=== PATIENT | male | born 2000 | race Caucasian/White ===

== ENCOUNTER 2022-09-02 20:43 | Emergency (ER) | payer OTHER, SELFPAY ==
--- NOTE | ~2022-09-02 | XR_ITS ---
EXAMINATION: XR chest 2V Exam Date/Time: 09/02/2022 22:00 CDT HISTORY: shortness of breath x 3 hours Comparison: None. RESULT: Lines, tubes, and devices: None. Lungs and pleura: Clear. Cardiomediastinal silhouette: Stable. Other: No acute osseous or upper abdominal finding. Presumed physiologic wedge deformity of a lower thoracic vertebral body. IMPRESSION: No acute cardiopulmonary process. Reviewed, dictated and finalized at location [facility].
[2022-09-02 20:53] VITALS: BP 161/59; PULSE 90; RESP 19; TEMP 37.2; O2SAT 99
[2022-09-02 21:29] VITALS: O2SAT 95
--- NOTE | 2022-09-02 21:34 | ECG_ITS ---
Measurements Intervals [place] Rate: 86 P: 8 NH: 148 QRS: 74 QRSD: 97 T: 38 QT: 335 QTc: 401 Interpretive Statements SINUS RHYTHM NO PREVIOUS ECG AVAILABLE FOR COMPARISON Electronically Signed On 09-03-2022 14:50:27 CDT by Jacqueline Erickson M.D.
[2022-09-02 21:46] VITALS: PULSE 85; RESP 20
[2022-09-02] MEDS: ALBUTEROL SULFATE NEB 2.5 MG/3 ML INH INHALATION (21:46)
[2022-09-02] MEDS: IPRATROPIUM BR 0.02% INH SOLN 0.5 MG/2.5 ML VIAL INHALATION (21:46)
[2022-09-02 21:57] VITALS: PULSE 88; RESP 20
--- NOTE | 2022-09-02 22:58 | ED.GENADULT ---
HPI - General Adult General Chief complaint: Shortness of Breath/Dyspnea Stated complaint: sob Time Seen by Provider: 09/02/22 21:17 History of Present Illness HPI narrative: Patient is a 22-year-old gentleman who presents the emergency department with chief complaint of shortness of breath. The patient reports that he smokes marijuana today and reports that since then he has felt as though he cannot get a good deep breath patient states that he is a little bit of a cough with this denies fever denies chills patient reports that he has used the medical grade marijuana in the past and uses daily but reports that today things felt somewhat different. The patient reports no hypoxia reports no productive cough Related Data Allergies Allergy/AdvReac Type Severity Reaction Status Date / Time Penicillins Allergy Unknown Vomiting Verified 09/02/22 21:24 germ x Allergy Unknown Rash Uncoded 09/02/22 21:24 Review of Systems Review of Systems: A 10 system review of systems was completed on the patient and is negative except for what is stated in the HPI. Nursing and ancillary documentation was reviewed. Exam Narrative: GENERAL: Well-appearing, well-nourished, and in no acute distress. HEAD: Normocephalic, atraumatic. EYES: PERRLA and EOMI. ENT: Nares clear, no rhinorrhea or epistaxis. Mucous membranes moist. NECK: Supple. CHEST: Clear to auscultation. No respiratory distress. HEART: Regular rate and rhythm. No murmur heard. Normal peripheral pulses. ABDOMEN: Soft, nontender, nondistended, normal active bowel sounds. EXTREMITIES: Normal range of motion. No edema. SKIN: Warm, dry, no rash. NEURO: No focal deficits. Alert and oriented x3. PSYCH: Normal mood and affect. Course Vital Signs Vital signs: Vital Signs Temperature 37.2 C 09/02/22 20:53 Pulse Rate 90 09/02/22 20:53 Respiratory Rate 19 09/02/22 20:53 Blood Pressure 161/59 H 09/02/22 20:53 Pulse Oximetry 99 09/02/22 20:53 Oxygen Delivery Room Air 09/02/22 20:53 Temperature 37.2 C 09/02/22 20:53 Pulse Rate 88 09/02/22 21:57 Respiratory Rate 20 09/02/22 21:57 Blood Pressure 161/59 H 09/02/22 20:53 Pulse Oximetry 95 09/02/22 21:29 Oxygen Delivery Room Air 09/02/22 21:29 Medical Decision Making MDM Narrative Medical decision making narrative: Differential diagnosis includes pneumothorax, bronchitis, pneumonia, ACS EKG sinus rhythm rate of [address] elevation or ST depression Chest x-ray showed no focal infiltrate, no pneumothorax no widened mediastinum. Patient feels somewhat better after receiving a nebulizer treatment. Patient will be given a 60 mg dose of prednisone in the emergency department and sent home on 40 mg of prednisone and an albuterol inhaler. Vital Signs Vital Signs: Vital Signs Temperature 37.2 C 09/02/22 20:53 Pulse Rate 90 09/02/22 20:53 Respiratory Rate 19 09/02/22 20:53 Blood Pressure 161/59 H 09/02/22 20:53 Pulse Oximetry 99 09/02/22 20:53 Oxygen Delivery Room Air 09/02/22 20:53 Temperature 37.2 C 09/02/22 20:53 Pulse Rate 88 09/02/22 21:57 Respiratory Rate 20 09/02/22 21:57 Blood Pressure 161/59 H 09/02/22 20:53 Pulse Oximetry 95 09/02/22 21:29 Oxygen Delivery Room Air 09/02/22 21:29 Discharge Plan Discharge Clinical Impression: Bronchitis Patient Disposition: Home, Self-Care Condition: Stable Instructions: Antibiotic Form, Acute Bronchitis (ED) Prescriptions: New prednisone 20 mg tablet 40 mg PO DAILY 5 Days Qty: 10 0RF albuterol sulfate 90 mcg/actuation HFA aerosol inhaler 2 puff inhalation QID PRN (Reason: shortness of breath or wheezing) Qty: 8.5 0RF Follow-up/Referrals: Lori Beck MD [Primary Care Provider] - Time of Disposition: 23:02
[2022-09-02] MEDS: predniSONE 20 MG TABLET 60 MG PO (23:14)
[2022-09-02] MEDS: ALBUTEROL SULFATE (*SP) INHALER 2 PUFF INHALATION (23:15)
[2022-09-02 23:17] VITALS: PULSE 94; RESP 17; O2SAT 98
== END 2022-09-02 23:15 | disposition home or self-care (01) ==
PROVIDERS: Emergency Provider Emergency Medicine; PCP Pediatrics
DX: J40 Bronchitis, not specified as acute or chronic (principal)
CPT/HCPCS: 71046; 93005; 94640; 94664; 99283; A9270; J7512

== ENCOUNTER 2022-09-09 09:33 | Emergency (ER) | payer OTHER, SELFPAY ==
--- NOTE | ~2022-09-09 | CT_ITS ---
Clinical Indication: Dyspnea CT Scan of the Chest with Contrast: Technique: Contiguous sections were acquired throughout the chest after intravenous administration of 100 cc of Omnipaque 350. Dose reduction technique was used on this scan by utilizing automated expos ure control and iterative reconstruction technique. The dose-length product (DLP) was 876.65 mGy-cm. Findings: There is no evidence of any significant mediastinal, hilar or axillary lymphadenopathy. There is no f illing defect in the pulmonary arterial tree to suggest pulmonary embolus. There is no evidence of ao rtic dissection or aneurysm. There is no evidence of pleural or pericardial effusion. The lungs are clear. No pulmonary nodules or infiltrates are noted. Images through the upper abdomen reveal no abnormalities. Impression: No evidence of pulmonary embolus, aortic dissection, or aortic aneurysm. Clear lungs. Reviewed, dictated and finalized at [facility]. Impression: No evidence of pulmonary embolus, aortic dissection, or aortic aneurysm. Clear lungs.
--- NOTE | ~2022-09-09 | XR_ITS ---
Clinical Indication: Dyspnea PA and lateral views of the chest: Comparison: 09/02/2022 Findings: The lungs are clear, without evidence of focal consolidation or pleural effusion. Cardiome diastinal silhouette is within normal limits. Bones and soft tissues are unremarkable. Impression: Normal chest. Reviewed, dictated and finalized at location . Impression: Normal chest.
[2022-09-09 09:38] VITALS: BP 154/98; PULSE 101; RESP 24; TEMP 36.6; O2SAT 100
--- NOTE | 2022-09-09 09:43 | ECG_ITS ---
Measurements Intervals [place] Rate: 108 P: 48 NC: 124 QRS: 76 QRSD: 106 T: 42 QT: 328 QTc: 440 Interpretive Statements SINUS TACHYCARDIA OTHERWISE NORMAL ECG COMPARED TO ECG 09/02/2022 21:43:37 SINUS TACHYCARDIA NOW PRESENT Electronically Signed On 09-09-2022 15:50:14 CDT by Edgar Call M.D.
--- NOTE | 2022-09-09 10:27 | PC.NURSE ---
EDP at bedside to assess pt.
--- NOTE | 2022-09-09 10:34 | ED.ANXIETY ---
HPI - Anxiety General Chief Complaint: Anxiety Stated Complaint: anxiety Time Seen by Provider: 09/09/22 10:16 History of Present Illness HPI narrative: 22-year-old male reports for evaluation of shortness of breath and anxiety x1 week. Patient endorses he believes his shortness of breath is secondary to anxiety. He reports associated substernal chest pain that occurs intermittently, worse when he feels anxious and dyspneic. Patient was evaluated in the ED 1 week ago for similar symptoms, diagnosed with bronchitis and sent home with albuterol inhaler and prednisone. He reports taking the medications as directed, last dose of prednisone was today. He is unsure if the inhaler is helpful or not. He reports he smokes medical grade marijuana daily for anxiety, however he has been trying to cut back. He does report smoking marijuana over the weekend with improvement in symptoms, in addition he endorses taking shrooms while camping 2 days ago. He denies other drug use, does report some alcohol use 2 days ago. He reports an intermittent dry cough. Denies fever, body aches or chills, abdominal pain, nausea or vomiting, diarrhea. He does have a PCP, Dr. Beck. He is not currently on anxiety medications. Related Data Allergies Allergy/AdvReac Type Severity Reaction Status Date / Time Penicillins Allergy Unknown Vomiting Verified 09/02/22 21:24 germ x Allergy Unknown Rash Uncoded 09/02/22 21:24 Review of Systems Review of Systems: CONSTITUTIONAL: Denies fever, chills EYES: Denies visual changes, redness, or discharge. ENT: Denies rhinorrhea, congestion, sore throat, or otalgia. CARDIOVASCULAR: See HPI RESPIRATORY: See HPI GASTROINTESTINAL: Denies abdominal pain, nausea, vomiting, or diarrhea. GENITOURINARY: Denies dysuria or hematuria. SKIN: Denies rash or itching. MUSCULOSKELETAL: Denies back pain, joint pain, or myalgia. NEUROLOGIC: Denies headache, numbness, dizziness, or weakness. PSYCHIATRIC: Denies anxiety or depression. [facility] Social History Social History Substance use type: marijuana Exam Narrative: GENERAL: Well-appearing, no acute distress HEAD: Normocephalic EYES: PERRLA ENT: Nares clear. Mucous membranes moist. Oropharynx without tonsillar hypertrophy exudate or other lesions. NECK: Supple. CHEST: No respiratory distress. Clear to auscultation, no adventitious breath sounds. Tachypneic HEART: Tachycardic with regular rhythm. No murmur heard. Normal peripheral pulses. ABDOMEN: Soft, nontender, normal active bowel sounds. EXTREMITIES: Normal range of motion. No edema. SKIN: Warm, dry, no rash. NEURO: No focal deficits. Alert and oriented x3. PSYCH: Patient appears anxious and tearful. Course Vital Signs Vital signs: Vital Signs Temperature 97.9 F 09/09/22 09:38 Pulse Rate 101 H 09/09/22 09:38 Respiratory Rate 24 H 09/09/22 09:38 Blood Pressure 154/98 H 09/09/22 09:38 Pulse Oximetry 100 09/09/22 09:38 Oxygen Delivery Room Air 09/09/22 09:38 Temperature 97.9 F 09/09/22 09:38 Pulse Rate 101 H 09/09/22 09:38 Respiratory Rate 24 H 09/09/22 09:38 Blood Pressure 154/98 H 09/09/22 09:38 Pulse Oximetry 100 09/09/22 09:38 Oxygen Delivery Room Air 09/09/22 09:38 MDM - Anxiety MDM Narrative Medical decision making narrative: 22-year-old male reports for evaluation of shortness of breath, intermittent substernal chest pain and anxiety x1 week. Patient was evaluated 1 week ago, diagnosed with bronchitis and sent home with steroids and albuterol with mild relief. He presents today with worsening shortness of breath and anxiety. Initial vital signs with tachycardia of 101 and respirations of 24. On exam he appears anxious and tearful, otherwise unremarkable. CBC with mild leukocytosis of 12.4. Chemistries unremarkable other than mild hypokalemia of 3.1 which was repleted orally. No explanation for hypokalem
[2022-09-09] MEDS: LORazepam INJ (*CRX) 2 MG/ML VIAL 0.5 MG IV PUSH (10:52)
[2022-09-09] MEDS: SODIUM CHLORIDE 0.9% IV 1,000 ML 999 ML IV CONT (10:53)
--- NOTE | 2022-09-09 11:03 | PC.NURSE ---
Patient report given to ÁNGEL Estrella. All questions answered and care of patient transferred.
[2022-09-09 11:11] LABS: Basophils Absolute Auto 0.1 K/mm3 (0.0-0.1); Basophils Percent Auto 0.6 % (0.2-1.2); Eosinophils Absolute Auto 0.1 K/mm3 (0-0.3); Eosinophils Percent Auto 1.1 % (0-4.4); Hematocrit 46.5 % (42.0-52.0); Immature Granulocyte Absolute 0.03 K/mm3 (0.00-0.031); Immature Granulocyte Percent A 0.2 % (0-0.5); Lymphocytes Absolute Auto 3.02 K/mm3 (0.9-3.2); Lymphocytes Percent Auto 24.4 % (18.3-44.2); Mean Corpuscular HGB Conc 34.4 g/dl (32-36); Mean Corpuscular Hemoglobin 27.2 pg (26-34); Mean Corpuscular Volume 79.1 fl (80-100); Mean Platelet Volume 10.1 fl (7.4-10.4); Monocytes Percent Auto 8.1 % (2.6-8.5); Neutrophils Absolute Auto 8.1 K/mm3 (1.3-6.7); Neutrophils Percent Auto 65.6 % (45.5-73.1); Platelet Count Result 319 k/mm3 (150-375); Red Blood Count 5.88 M/mm3 (4.6-6.20); Red Cell Distribution Width 13.3 % (11.5-14.5); White Blood Count 12.4 K/mm3 (4.5-10.0)
[2022-09-09 11:15] VITALS: BP 174/100; PULSE 87; RESP 16; O2SAT 100
[2022-09-09 11:23] LABS: Alanine Aminotransferase 28 U/L (6-50); Albumin Level 3.7 g/dL (3.5-5.1); Alkaline Phosphatase 74 U/L (38-126); Anion Gap 9 mmol/L (8-16); Aspartate Amino Transferase 31 U/L (17-59); Bilirubin,Total 0.6 mg/dL (0.2-1.3); Blood Urea Nitrogen 19 mg/dL (9-20); Calcium 8.9 mg/dL (8.4-10.2); Carbon Dioxide 23 mmol/L (22-30); Chloride 105 mmol/L (98-107); Estimated CRCL calculation 97 ml/min; Estimated Glomerular Filt Rate > 60; Glucose 84 mg/dL (65-110); Lipase 292 U/L (23-300); Potassium 3.1 mmol/L (3.4-5.0); Sodium 137 mmol/L (137-145)
[2022-09-09 11:33] LABS: D Dimer 3.15 ug/mL (<0.48)
[2022-09-09 11:34] LABS: NT Pro B Type Natriuretic Pept 24 pg/mL (19.9-100); Troponin I < 0.012 ng/mL (0.000-0.034)
[2022-09-09] MEDS: POTASSIUM CHLORIDE 20 MEQ PACKET (FOR LIQUID) 40 MEQ PO (11:35)
[2022-09-09 12:00] VITALS: BP 164/86; PULSE 80; RESP 18; O2SAT 100
--- NOTE | 2022-09-09 12:34 | ECG_ITS ---
Measurements Intervals [place] Rate: 84 P: 24 IN: 141 QRS: 67 QRSD: 95 T: 52 QT: 339 QTc: 403 Interpretive Statements SINUS RHYTHM WITHIN NORMAL LIMITS COMPARED TO ECG 09/09/2022 09:40:36 SINUS RHYTHM NOW PRESENT Electronically Signed On 09-09-2022 16:05:54 CDT by Edgar Call M.D.
[2022-09-09 13:14] LABS: Cannabinoid Screen Urine Positive (Negative)
[2022-09-09 13:34] LABS: Barbiturate Screen Urine Negative (Negative); Benzodiazepines Screen Urine Negative (Negative)
[2022-09-09 13:35] LABS: Cocaine Screen Urine Negative (Negative); Methadone Screen Urine Negative (Negative); Phencyclidine Screen Urine Negative (Negative)
[2022-09-09 13:48] VITALS: BP 156/87; PULSE 85; RESP 16
[2022-09-09 14:49] LABS: Amphetamine Screen Urine Negative (Negative); Opiate Screen Urine Negative (Negative)
== END 2022-09-09 13:50 | disposition home or self-care (01) ==
PROVIDERS: Emergency Provider Physician Assistant; PCP Pediatrics
DX: R07.89 Other chest pain (principal); E87.6 Hypokalemia; F41.9 Anxiety disorder, unspecified; R00.0 Tachycardia, unspecified
CPT/HCPCS: 36415; 71046; 71275; 80053; 80307; 83690; 83880; 84484; 85025; 85380; 93005; 96361; 96374; 99284; A9270; J2060; J7030; Q9967

== ENCOUNTER 2024-05-26 13:52 | Emergency (ER) | payer OTHER, SELFPAY ==
[2024-05-26 13:54] VITALS: BP 151/99; PULSE 80; RESP 16; TEMP 36.6; O2SAT 100
[2024-05-26 14:54] LABS: Basophils Percent Auto 0.5 % (0.2-1.2); Hematocrit 25.7 % (42.0-52.0); Hemoglobin 9.2 g/dL (14.0-18.0); Immature Granulocyte Absolute 0.01 K/mm3 (0.00-0.031); Immature Granulocyte Percent A 0.2 % (0-0.5); Lymphocytes Absolute Auto 1.32 K/mm3 (0.9-3.2); Lymphocytes Percent Auto 23.5 % (18.3-44.2); Mean Corpuscular HGB Conc 35.8 g/dl (32-36); Mean Corpuscular Hemoglobin 28.5 pg (26-34); Mean Corpuscular Volume 79.6 fl (80-100); Mean Platelet Volume 9.4 fl (7.4-10.4); Monocytes Absolute Auto 0.4 K/mm3 (0.1-0.6); Monocytes Percent Auto 6.4 % (2.6-8.5); Neutrophils Absolute Auto 3.9 K/mm3 (1.3-6.7); Neutrophils Percent Auto 69.4 % (45.5-73.1); Platelet Count Result 280 k/mm3 (150-375); Red Blood Count 3.23 M/mm3 (4.6-6.20); Red Cell Distribution Width 12.8 % (11.5-14.5); White Blood Count 5.6 K/mm3 (4.5-10.0)
--- NOTE | 2024-05-26 14:56 | ED_ITS ---
HPI - General Adult General Chief complaint: Recheck/Abnormal Lab/Rx Stated complaint: Sent by PMD for IV fluids-kidney issues Time Seen by Provider: 05/26/24 14:19 History of Present Illness HPI narrative: 23-year-old male with history of IgA nephropathy that follows up at [place] presents to the emergency department for evaluation for repeat labs and IV fluids. Patient's creatinine typically rounds in the 4-6 range in January but when he had repeat labs yesterday it was 9 and then today it was up to 10. Patient follows up with Dr. Renuka Balderas at [place]. Related Data Allergies Allergy/AdvReac Type Severity Reaction Status Date / Time Penicillins Allergy Unknown Vomiting Verified 05/26/24 13:53 germ x Allergy Unknown Rash Uncoded 05/26/24 13:53 Review of Systems 2 Review of Systems: All systems reviewed & are unremarkable except as noted in HPI and below PMFSH Past Medical History Medical History MDD (major depressive disorder), recurrent episode Panic anxiety syndrome Suicidal ideation Social History Social History Social History: Single Smoking status: Unknown if ever smoked (smokes medical marijuana) Second hand tobacco smoke exposure: No Alcohol intake: current Alcohol use details: Occasionally Substance use: current Substance use type: marijuana Last use: Medical Marijuana for anxiety and depression Lack of Transportation: No Lack of Food: Never True Current Housing: I Have Housing Concerned About Future Housing: No Difficulty Paying Gas/Electric Bills: No Difficulty Paying for Meds: No Currently Unemployed: No Education: Decline to Answer Difficulty w/ Childcare or Family Care: No Living arrangements: with family Occupation/Education: occupation Gender identity (if verbalized by the patient): Male Sexual Orientation (if Verbalized by the Patient): Straight or Heterosexual Exam 2 Narrative: APPEARANCE: Well appearing, no pain, no distress, well-nourished. HEAD: normocephalic, atraumatic. EYES: PERRLA/EOMI, conjunctivae clear. NOSE: Normal no drainage EARS:TMS clear with good light reflex. THROAT: Pharynx clear, no exudate. NECK: Supple. No adenopathy, no masses. RESPIRATORY: Airway patent, respirations nonlabored. Clear to auscultation bilaterally, no rales, rhonchi, wheezing. CARDIOVASCULAR: Regular rate and rhythm without murmurs rubs or gallops. ABDOMINAL: Soft, nontender, nondistended, normal bowel sounds MUSCULOSKELETAL: Moves all extremities. Strength/ROM intact, No edema, No calf tenderness. NEURO: Alert. Cranial nerves II through XII intact. Grossly intact SKIN: Warm, dry. Normal Color Course Vital Signs Vital signs: Vital Signs Temperature 97.9 F 05/26/24 13:54 Pulse Rate 80 05/26/24 13:54 Respiratory Rate 16 05/26/24 13:54 Blood Pressure 151/99 H 05/26/24 13:54 Pulse Oximetry 100 05/26/24 13:54 Oxygen Delivery Room Air 05/26/24 13:54 Temperature 97.9 F 05/26/24 13:54 Pulse Rate 82 05/26/24 17:29 Respiratory Rate 18 05/26/24 17:29 Blood Pressure 153/94 H 05/26/24 17:29 Pulse Oximetry 98 05/26/24 17:29 Oxygen Delivery Room Air 05/26/24 13:54 Medical Decision Making MDM Narrative Medical decision making narrative: 23-year-old male presents emergency department for evaluation for rehydration. Patient did have outpatient labs showing elevated creatinine even compared to his baseline. Patient was treated with IV fluids. Patient's initial creatinine was 9.79 did improved to 9.42. 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 Patient was advised to have close outpatient follow-up. Patient is already following up Nephrology and is going to be on a wait list for kidney transplant in the future. At time of discharge patient denies any chest pain shortness of breath lower extremity swelling. Patient is still making urine. Differential Diagnosis Differential Diagnosis: Acute on chronic kidney injury with dehydration Vital Signs Vital Signs: Vital Signs Temperature 97.9 F 05/26/24 13:54 Pulse Rate 80 05/26/24 13:54 Respiratory Rate 16 05/26/24 13:54 Blood Pressure 151/99 H 05/26/24 13:54 Pulse Oximetry 100 05/26/24 13:54 Oxygen Delivery Room Air 05/26/24 13:54 Temperature 97.9 F 05/26/24 13:54 Pulse Rate 82 05/26/24 17:29 Respiratory Rate 18 05/26/24 17:29 Blood Pressure 153/94 H 05/26/24 17:29 Pulse Oximetry 98 05/26/24 17:29 Oxygen Delivery Room Air 05/26/24 13:54 Lab Data Lab results reviewed: Yes I reviewed the patient's lab results. 05/26/24 14:47 05/26/24 16:20 Labs: Lab Results 05/26/24 05/26/24 05/26/24 Range/Units 14:47 15:04 16:20 WBC 5.6 (4.5-10.0) K/mm3 RBC 3.23 L (4.6-6.20) M/mm3 Hgb 9.2 L D (14.0-18.0) g/dL Hct 25.7 L (42.0-52.0) % MCV 79.6 L (80-100) fl MCH 28.5 (26-34) pg MCHC 35.8 (32-36) g/dl RDW 12.8 (11.5-14.5) % Plt Count 280 (150-375) k/mm3 MPV 9.4 (7.4-10.4) fl Immature Gran % (Auto) 0.2 (0-0.5) % Neut % (Auto) 69.4 (45.5-73.1) % Lymph % (Auto) 23.5 (18.3-44.2) % [place] % (Auto) 6.4 (2.6-8.5) % Eos % (Auto) 0.0 (0-4.4) % Baso % (Auto) 0.5 (0.2-1.2) % Lymph # (Auto) 1.32 (0.9-3.2) K/mm3 [place] # (Auto) 0.4 (0.1-0.6) K/mm3 Eos # (Auto) 0.0 (0-0.3) K/mm3 Baso # (Auto) 0.0 (0.0-0.1) K/mm3 Abs Immat Gran (auto) 0.01 (0.00-0.031) K/mm3 Absolute Neuts (auto) 3.9 (1.3-6.7) K/mm3 Absolute Nucleated RBC 0.000 (0.0-0.012) K/mm3 Nucleated RBC % 0.0 (0.0-0.2) % Sodium 138 138 (137-145) mmol/L Potassium 3.7 3.3 L (3.4-5.0) mmol/L Chloride 102 104 (98-107) mmol/L Carbon Dioxide 19 L 18 L (22-30) mmol/L Anion Gap 17 H 16 H (4-12) mmol/L BUN 95 H D 96 H (9-20) mg/dL Creatinine 9.79 H 9.42 H (0.7-1.3) mg/dL Estim Creat Clear Calc 16 16 ml/min Estimated GFR 7 L 7 L (59 - ) Glucose 99 85 (65-110) mg/dL Calcium 9.3 8.6 (8.4-10.2) mg/dL Total Bilirubin 0.3 (0.2-1.3) mg/dL AST 16 L (17-59) U/L ALT 16 (6-50) U/L Alkaline Phosphatase 61 (38-126) U/L Total Protein 7.0 (6.3-8.2) g/dL Albumin 3.9 (3.5-5.1) g/dL Vitamin D 25-Hydroxy 24.5 ng/mL PTH Related Protein Pending Urine Color Yellow (Yellow) Urine Appearance Clear (Clear) Urine pH 5.5 (5.0-9.0) Ur Specific [place] 1.013 (1.001-1.035) Urine Protein 3+ H (Negative) mg/dL Urine Glucose (UA) Trace H (Negative) mg/dL Urine Ketones Negative (Negative) mg/dL Ur Blood (Man) 2+ H (Negative) Urine Nitrate Negative (Negative) Urine Bilirubin Negative (Negative) Urine Urobilinogen 0.2 (<2.0) mg/dL Leukocyte Esterase Rfl Negative (Negative) ANGELICA/UL Urine RBC 21-50 H (0-2) /hpf Urine WBC 0-5 (0-3) /hpf Ur Squamous Epith Cells None seen (Few) /hpf Urine Bacteria None seen /hpf Urine Casts 3-5 Discharge Plan Discharge Clinical Impression: Chronic kidney disease Patient Disposition: Home, Self-Care Condition: Stable Instructions: Antibiotic Form Additional Instructions: Your creatinine on arrival was 9.79 and after 1 L of IV fluids and improved to 9.42. Continue to have close follow-up with Nephrology. Patient Language: [place] Prescriptions: No Action propranolol 20 mg tablet 20 mg PO Q12H Qty: 100 0RF escitalopram oxalate 10 mg tablet 10 mg PO DAILY Qty: 30 3RF hydroxyzine HCl 25 mg tablet 25 mg PO QID PRN (Reason: anxiety) Qty: 30 0RF Follow-up/Referrals: UNKNOWN,DOCTOR [Primary Care Provider] -
[2024-05-26 15:07] LABS: Alanine Aminotransferase 16 U/L (6-50); Albumin Level 3.9 g/dL (3.5-5.1); Alkaline Phosphatase 61 U/L (38-126); Anion Gap 17 mmol/L (4-12); Aspartate Amino Transferase 16 U/L (17-59); Bilirubin,Total 0.3 mg/dL (0.2-1.3); Blood Urea Nitrogen 95 mg/dL (9-20); Calcium 9.3 mg/dL (8.4-10.2); Carbon Dioxide 19 mmol/L (22-30); Chloride 102 mmol/L (98-107); Estimated CRCL calculation 16 ml/min; Estimated Glomerular Filt Rate 7; Glucose 99 mg/dL (65-110); Potassium 3.7 mmol/L (3.4-5.0); Sodium 138 mmol/L (137-145)
[2024-05-26 15:20] LABS: Add Urine Microscopic? YES; Appearance Urine Clear (Clear); Bacteria Urine None Seen /hpf; Bilirubin Urine Negative (Negative); Blood Urine 2+ (Negative); Color Urine Yellow (Yellow); Glucose Urine UA Trace mg/dL (Negative); Ketones Urine Negative (Negative); Leukocyte Esterase Ur Negative LEU/UL (Negative); Nitrate Urine Negative (Negative); Protein Urine 3+ mg/dL (Negative); RBC Urine 21-50 /hpf (0-2); Specific Grav Ur 1.013 (1.001-1.035); Squamous Epithelial Cell Urine None Seen /hpf (Few); Urobilinogen Urine 0.2 mg/dL (<2.0); WBC Urine 0-5 /hpf (0-3); pH Urine 5.5 (5.0-9.0)
[2024-05-26 15:23] LABS: Vitamin D 25 Hydroxy 24.5 ng/mL
--- OUTSIDE RECORDS SUMMARY | 2024-05-26 15:25 | XMS_ITS | Clinical Summary ---
Author Organization [facility] ospital Address [address] [place] [address] Care Team Providers Care Slab Inspector Name Role Phone Yair Matthew MD Primary Care Provider [phone] Renuka Balderas MD PhD Unavailable [phone] Christina Stringer RN Unavailable [phone] Allergies Active Allergy Reactions Criticality Noted Date Comments Alcohol Rash Medium 02/19/2011 Penicillin Other (See comments) Low 09/30/2022 Penicillins Diarrhea,Other (See comments),Rash Medium 02/19/2011 Reaction: Sunscreen Rash Medium 02/19/2011 Medications doxazosin (CARDURA) 2 mg tablet Take 1 tablet (2 mg total) by mouth nightly 30 tablet 01/31/20 24 Active Additional Information Patient not taking.Reported on 02/11/2024 venlafaxine XR (EFFEXOR-XR) 150 mg 24 hr capsule Take 1 capsule (150 mg total) by mouth daily with breakfast 30 capsule 02/01/20 24 Active amLODIPine (NORVASC) 10 mg tablet Take 1 tablet (10 mg total) by mouth daily 90 tablet 3 05/04/19 25 Active chlorthalidone (HYGROTON) 25 mg tablet Take 1 tablet (25 mg total) by mouth daily 90 tablet 3 05/04/19 25 Active ergocalciferol (VITAMIN D) 50,000 unit capsule Take 1 capsule (50,000 Units total) by mouth every 30 (thirty) days 1 capsule 05/04/19 25 Active carvediloL (COREG) 25 mg tablet Take 1 tablet (25 mg total) by mouth 2 (two) times a day with meals 180 tablet 3 05/04/19 25 Active hydrALAZINE (APRESOLINE) 25 mg tablet Take 1 tablet (25 mg total) by mouth 3 (three) times a day 270 tablet 3 05/04/19 25 Active ergocalciferol (VITAMIN D) 50,000 unit capsule Take 1 capsule (50,000 Units total) by mouth once a week 12 capsule 05/27/19 25 026 Active hydrALAZINE (APRESOLINE) 25 mg tabletIndicati ons:hypertensi on Take 1 tablet (25 mg total) by mouth 3 (three) times a day 90 tablet 01/31/20 24 025 Discontinued carvediloL (COREG) 25 mg tablet Take 1 tablet (25 mg total) by mouth 2 (two) times a day with meals 60 tablet 11 03/02/20 24 025 Discontinued amLODIPine (NORVASC) 10 mg tablet Take 1 tablet (10 mg total) by mouth daily 30 tablet 11 04/22/19 25 025 Discontinued chlorthalidone (HYGROTON) 25 mg tablet Take 1 tablet (25 mg total) by mouth daily 30 tablet 04/22/19 25 025 Discontinued ergocalciferol (VITAMIN D) 50,000 unit capsule Take 1 capsule (50,000 Units total) by mouth once a week 8 capsule 04/22/19 25 025 Discontinued Active Problems Problem Noted Date Diagnosed Date Hypertensive emergency 01/29/2024 Assessment & Plan (01/29/2024 12:37 PM LUMP RECEIVER): C/w with current meds : - chlorthalidone 25 mg - Coreg 25mg PO BID - amlodipine 10mg PO daily - doxazosin 2mg PO nightly - Hydralazine 25 mg TID Vitamin D deficiency 01/29/2024 Assessment & Plan (01/29/2024 12:32 PM LUMP RECEIVER): -01/24 vit D 10 -Continue vitamin D 50,000 units PO weekly Anxiety 01/29/2024 Assessment & Plan (01/29/2024 12:32 PM LUMP RECEIVER): Continue home venlafaxine 150mg PO daily IgA nephropathy 01/24/2024 Assessment & Plan (01/30/2024 3:59 PM LUMP RECEIVER): Suspected although not biopsy proven. Follows with Dr. Balderas, nephrology in OP setting. Cr 5.46 here on 01/23. Last documented Cr 1.28 from 04/09. Nephrology following plan for biopsy. RICARDO, dsDNA, C3/C4, ANCA, WNL Myeloma labs wnl Hepatitis and HIV: negative 24 hour urine protein: 6.6 Lipid panel: LDL 130, HDL 25, triglycerides 204, cholesterol 192, non-HDL cholesterol: 167 01/25 renal doppler without evidence of SUE, increased echogenicity of both kidneys 01/29: renal biopsy done by IR. Plan: C/w BP meds as mentioned elsewhere No urgent need for dialysis Dose meds to gfr Proteinuria 10/08/2019 Encounters Date Type Department Care Team Description 05/26/2024 3:00 PM LUMP RECEIVER Lab [facility] ([facility]) [address] [place] [phone] 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) ([facility]) [I12.9, N18.4]; IgA nephropathy; Anemia in stage 4 chronic kidney disease (HCC) 05/26/2024 11:20 AM LUMP RECEIVER Office Visit [facility] Nephrology [address] [place] [address] [place] [address] Renuka Balderas MD PhD 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) ([facility]) [I12.9, N18.4] (Primary Dx); IgA nephropathy; Hypertension, unspecified type; Renal osteodystrophy; Anemia in stage 4 chronic kidney disease (HCC) 05/26/2024 10:00 AM LUMP RECEIVER Clinical Support [facility] [address] [place] [address] Arrived 05/26/2024 Orders Only [facility] Nephrology [address] [place] [address] [place] [address] Renuka Balderas MD PhD 05/24/2024 Telephone [facility] Nephrology [address] [place] [address] 5th [place] [address] Renuka Balderas MD PhD Appointment Reminder Call 04/22/2024 4:40 PM LUMP RECEIVER Telemedicine [facility] [address] [place] [phone] Mireya Vines NP 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) (HCC) [I12.9, N18.4] (Primary Dx) 04/22/2024 Documentation [facility] Transplant Kidney [address] [facility] [address] [place] [phone] Jaz Medina Evaluation Scheduling 04/21/2024 Telephone [facility] Transplant Kidney [address] [facility] [address] [place] [phone] Christina tSringer RN Kidney Eval 04/21/2024 Telephone [facility] Transplant Kidney [address] [facility] [address] [place] [phone] Christina Stringer, wood and hardware outfitter - Kidney Txp 04/21/2024 Telephone [facility] Transplant Kidney [address] [facility] [address] [place] [address] Jaz Medina 04/20/2024 Telephone [facility] Transplant Kidney [address] [place] [address] [address] [place] [phone] Christina Stringer, wood and hardware outfitter - Kidney Txp 04/19/2024 Telephone [facility] Transplant Kidney [address] [facility] [address] [facility][note 3] [address] [place] [phone] Salma Painter Referral - Kidney Txp 04/16/2024 Telephone [facility] Transplant Kidney [address] [facility] [address] [place] [address] Christina Stringer, wood and hardware outfitter - Kidney Txp 04/15/2024 Telephone [facility] Transplant Kidney [address] [facility] [phone] [place] [address] Cielocole Jaz Referral - Kidney Txp 04/09/2024 Telephone [facility] Nephrology [address] [place] [address] Medicine 5th [place] [address] [place] [address] Jaida Varela RN Dialysis start 03/05/2024 Orders Only [facility] Nephrology [address] [place] [address] 5th [place] [address] Renuka Balderas MD PhD CKD (chronic kidney disease) stage 5, GFR less than 15 ml/min (HCC) (Primary Dx) 03/02/2024 11:00 AM LUMP RECEIVER Telemedicine [facility] Nephrology [address] [place] [address] Mireya Vines NP CKD (chronic kidney disease) stage 5, GFR less than 15 ml/min (HCC) (Primary Dx) 03/02/2024 Telephone [facility] Division of Nephrology [address] [place] [address] Sherry Castle RN 03/01/2024 Telephone [facility] Nephrology [address] [place] [address] 5th [place] [address] [place] [address] Denise Boyd from Last 3 Months Immunizations Immunization Administration Dates Next Due Influenza, Trivalent, Preservative Free, Intramu scular 01/27/2024 Surgical History Surgery Date Site/Laterality Comments INGUINAL HERNIA REPAIR Inguinal Hernia Repair - (Added by TW Conv) US GUIDED BIOPSY RENAL 01/30/2024 N/A Medical History Medical History Date Comments Hypertension Chronic kidney disease Headache Family History Medical History Relation Name Comments No Known Problems Mother Relation Name Status Comments Mother Social History Tobacco Use Types Packs/Day Years Used Date Smoking Tobacco: Former Cigarettes Smokeless Tobacco: Never Tobacco Cessation:Counseling Given: Not Answered AUDIT-C Answer Date Recorded Q1: How often do you have a drink containing alc ohol? Monthly or less 01/25/2024 Q2: How many drinks containi ng alcohol do you have on a typical day when you are drinking? 1 or 2 01/25/2024 Q3: How often do you have si x or more drinks on one occasion? Less than monthly 01/25/2024 Hunger Vital Sign Answer Date Recorded Within the past 12 months, y ou worried that your food would run out before you got the money to buy more. Never true 01/25/20 24 Within the past 12 months, t he food you bought just didn't last and you didn't have money to get more. Never true 01/25/2024 PRAPARE - Transportation Answer Date Re corded In the past 12 months, has l ack of transportation kept you from medical appointments or from getting medications? No 05/2023 In the past 12 months, has l ack of transportation kept you from meetings, work, or from getting things needed for daily living? No 01/25/2024 Housing Stability Vital Sign Answer Dean e Recorded In the last 12 months, was t here a time when you were not able to pay the mortgage or rent on time? No 01/25/2024 Number of Times Moved in the Last Year Not on fi le 01/25/2024 Homeless in the Last Year Not on file 2023 Personal Safety Answer Date Recorded Have you ever been in or are you currently in a harmful physical or emotional relationship or is someone making you feel afraid or unsafe? Denies 01/25/2024 Sex and Gender Information Value Date Recorded Sex Assigned at Not on file 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 LUMP RECEIVER Gender Identity Not on file Sexual Orientation Not on file Obstetrics History Last Filed Vital Signs Vital Sign Reading Time Taken Comments Blood Pressure 144/89 05/26/2024 11:38 AM LUMP RECEIVER Pulse 89 05/26/2024 11:38 AM LUMP RECEIVER Temperature 36.9 C (98.4 F) 05/26/2024 11:38 AM LUMP RECEIVER Respiratory Rate 16 01/30/2024 7:15 PM LUMP RECEIVER Oxygen Saturation 98% 01/31/2024 7:15 AM LUMP RECEIVER Inhaled Oxygen Concentration - - Weight 120.2 kg (265 lb) 05/26/2024 11:38 AM LUMP RECEIVER Height 193 cm (6' 4 ) 05/26/2024 11:38 AM LUMP RECEIVER Body Mass Index 32.26 05/26/2024 11:38 AM LUMP RECEIVER Plan of Treatment Health Maintenance Due Date Last Done Comments Depression Screening 2002 Meningococcal B Vaccine (1 of 2 - Standard) 2018 Regular Well Visit/Exam 18-64 2020 DTaP/Tdap/Td Vaccine (7 - Td or Tdap) 10/19/2023 10/18/2013, 10/01/2007, 12/14/2003, Additional history exists Hepatitis B Screening Completed 06/17/2003 , 2002, 2002 Pneumococcal vaccine <65 Completed 004, 2002, 2002, Additional history exists Meningococcal Vaccine Aged Out 10/18/2013 No fadumo jossue eligible based on patient's age to complete this topic HPV Vaccines Completed 10/24/2016, 06/2015, 10/23/2015 Varicella Vaccines Completed 09/30/2017, 12/14/2003 Hepatitis C Screening Completed 01/25/2024 Influenza Vaccine Completed 01/27/2024 Procedures Procedure Name Priority Date/Time Associated Diagnosis Comments EGFR Routine 05/26/2024 1:06 PM LUMP RECEIVER 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) (HCC) [I12.9, N18.4] DIFFERENTIAL AUTO Routine 05/26/2024 1:0 6 PM LUMP RECEIVER IgA nephropathy Anemia in stage 4 chronic kidney disease (HCC) CBC WITH AUTO DIFFERENTIAL Routine 05/26/2024 1:06 PM LUMP RECEIVER IgA nephropathy Anemia in stage 4 chronic kidney disease (HCC) FERRITIN Routine 05/26/2024 1:06 PM LUMP RECEIVER IgA nephropathy Anemia in stage 4 chronic kidney disease (HCC) RENAL FUNCTION PANEL Routine 05/26/2024 1:06 PM LUMP RECEIVER 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) (HCC) [I12.9, N18.4] VITAMIN D 25 HYDROXY Routine 05/26/2024 1:06 PM LUMP RECEIVER 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) (HCC) [I12.9, N18.4] PTH Routine 05/26/2024 1:06 PM LUMP RECEIVER 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) (HCC) [I12.9, N18.4] MICROSCOPIC EXAMINATION Routine 05/25/2024 11:15 AM LUMP RECEIVER URINALYSIS AND REFLEX TO MICROSCOPIC Routine 05/25/2024 11:15 AM LUMP RECEIVER CKD stage 4 secondary to hypertension (HCC) IgA nephropathy Hypertension, unspecified type FERRITIN Routine 05/25/2024 11:15 AM LUMP RECEIVER CKD stage 4 secondary to hypertension (HCC) IgA nephropathy Hypertension, unspecified type IRON PROFILE W/ IBC Routine 05/25/2024 1 1:15 AM LUMP RECEIVER CKD stage 4 secondary to hypertension (HCC) IgA nephropathy Hypertension, unspecified type CBC WITH AUTO DIFFERENTIAL Routine 05/25/2024 11:15 AM LUMP RECEIVER CKD stage 4 secondary to hypertension (HCC) IgA nephropathy Hypertension, unspecified type RENAL FUNCTION PANEL Routine 05/25/2024 11:15 AM LUMP RECEIVER CKD stage 4 secondary to hypertension (HCC) IgA nephropathy Hypertension, unspecified type PTH Routine 03/19/2024 10:55 AM LUMP RECEIVER CKD (chronic kidney disease) stage 5, GFR less than 15 ml/min (HCC) CYSTATIN C Routine 03/19/2024 10:55 AM LUMP RECEIVER CKD (chronic kidney disease) stage 5, GFR less than 15 ml/min (HCC) HEPATITIS PANEL, ACUTE STAT 01/25/2024 6:36 AM LUMP RECEIVER from Last 3 Months or Most Recently Relevant to Health Maintenance Results * (ABNORMAL) eGFR (05/26/2024 1:06 PM LUMP RECEIVER) eGFR 7(L) >=60 mL/min/1. 73 m2 Comment: Interpretive Data Reference Interval Normal >/= 90 mL/min/1.73m2 Mildly decreased* 60 - 89 mL/min/1.73m2 Mildly to moderately decreased 45 - 59 mL/min/1.73m2 Moderately to severely decreased 30 - 44 mL/min/1.73m2 Severely decreased 15 - 29 mL/min/1.73m2 Kidney Failure < 15 mL/min/1.73m2 *Relative to young adult level Estimated glomerular filtration rate is determined by the 2020 CKD-EPI equation recommended by the National Kidney Foundation (A Unifying Approach to GFR Estimation: Recommendations of the NKF-ASK Task Force on Reassessing the Inclusion of Race in Diagnosing Kidney Disease, JASN 2020). The CKD-EPI equation should not be used for patients with unstable renal function and has not been validated in children and those over 70. Current interpretive data was last reviewed 2021. Blood 05/26/2024 1:06 PM LUMP RECEIVER 05/26/2024 1:25 PM LUMP RECEIVER us Renuka Balderas MD PhD LAB BLOOD ORDERABLES Final Resu lt [facility] Department [place] [address] * Differential, auto (05/26/2024 1:06 PM LUMP RECEIVER) Neutrophil abs 4.7 1.5 - 6.5 K/cumm Imm gran abs 0.0 0.0 - 0.1 K/cumm [facility] Lymphocyte abs 1.4 0.8 - 3.3 K/cumm [facility] Monocyte abs 0.4 0.2 - 0.8 K/cumm [facility] Eosinophil abs 0.0 0.0 - 0.5 K/cumm [facility] Basophil abs 0.0 0.0 - 0.1 K/cumm [facility] Neutrophil pct 72.4 % [facility] Comment: Interpretive Data Percent cell count reference ranges are not reported, since discordance with absolute values may lead to misinterpretation of CBC data. Current Interpretive Data was last revised on 2017. Imm gran pct 0.3 % [facility] Comment: Interpretive Data Percent cell count reference ranges are not reported, since discordance with absolute values may lead to misinterpretation of CBC data. Current Interpretive Data was last revised on 2017. Lymphocyte pct 21.3 % [facility] Comment: Interpretive Data Percent cell count reference ranges are not reported, since discordance with absolute values may lead to misinterpretation of CBC data. Current Interpretive Data was last revised on 2017. Monocyte pct 5.5 % [facility] Comment: Interpretive Data Percent cell count reference ranges are not reported, since discordance with absolute values may lead to misinterpretation of CBC data. Current Interpretive Data was last revised on 2017. Eosinophil pct 0.0 % [facility] Comment: Interpretive Data Percent cell count reference ranges are not reported, since discordance with absolute values may lead to misinterpretation of CBC data. Current Interpretive Data was last revised on 2017. Basophil pct 0.5 % [facility] Comment: Interpretive Data Percent cell count reference ranges are not reported, since discordance with absolute values may lead to misinterpretation of CBC data. Current Interpretive Data was last revised on 2017. Blood 05/26/2024 1:06 PM LUMP RECEIVER 05/26/2024 1:19 PM LUMP RECEIVER us Renuka Balderas MD PhD LAB BLOOD ORDERABLES Final Resu lt [facility] Department [place] [address] * (ABNORMAL) CBC with auto differential (05/26/2024 1:06 PM LUMP RECEIVER) Pathologist [facility] WBC 6.5 3.8 - 9.9 K/cumm Hgb 9.4(L) 13.0 - 17.5 g/dL [facility] Hct 26.2(L) 38.9 - 50.3 % [facility] Plt 292 150 - 400 K/cumm [facility] MPV 9.4 9.1 - 12.3 fL [facility] RBC 3.31(L) 4.30 - 5.80 M/cumm [facility] MCV 79.2(L) 81.3 - 96.4 fL [facility] MCH 28.4 27.1 - 33.3 pg [facility] MCHC 35.9(H) 32.3 - 35.7 g/dL [facility] RDW CV 12.8 11.1 - 14.9 % [facility] RDW SD 36.0 35.7 - 48.1 fL [facility] NRBC abs 0.00 0.00 - 0.01 K/cumm [facility] Blood 05/26/2024 1:06 PM LUMP RECEIVER 05/26/2024 1:19 PM LUMP RECEIVER us Renuka Balderas MD PhD LAB BLOOD ORDERABLES Final Resu lt Performing Organization Address [facility]/ZIP Co de Phone Number [facility] [place] [address] * (ABNORMAL) Vitamin D 25 hydroxy (05/26/2024 1:06 PM LUMP RECEIVER) Vitamin D 25-OH 24(L) 30 - 80 ng/mL Blood 05/26/2024 1:06 PM LUMP RECEIVER 05/26/2024 1:19 PM LUMP RECEIVER us Renuka Balderas MD PhD LAB BLOOD ORDERABLES Final Resu lt Performing Organization Address [facility] Co de Phone Number [facility] Department [place] [address] * (ABNORMAL) PTH (05/26/2024 1:06 PM LUMP RECEIVER) PTH 482(H) 15 - 65 pg/mL Blood 05/26/2024 1:06 PM LUMP RECEIVER 05/26/2024 1:19 PM LUMP RECEIVER us Renuka Balderas MD PhD LAB BLOOD ORDERABLES Final Resu lt Performing Organization Address City/[facility] Co de Phone Number [facility] [place] [place] [address] * (ABNORMAL) Ferritin (05/26/2024 1:06 PM LUMP RECEIVER) Ferritin 603(H) 30 - 400 ng/mL Blood 05/26/2024 1:06 PM LUMP RECEIVER 05/26/2024 1:19 PM LUMP RECEIVER us Renuka Balderas MD PhD LAB BLOOD ORDERABLES Final Resu lt [facility] Department [place] [address] * (ABNORMAL) Renal function panel (05/26/2024 1:06 PM LUMP RECEIVER) Sodium 142 135 - 145 mmol/L Potassium, pl 3.9 3.3 - 4.9 mmol/L [facility] Chloride 102 97 - 110 mmol/L [facility] CO2 23 22 - 32 mmol/L [facility] Anion gap 17(H) 2 - 15 mmol/L [facility] BUN 100(H) 6 - 25 mg/dL [facility] Creatinine 10.13(H) 0.80 - 1.30 mg/dL [facility] Glucose 106 70 - 199 mg/dL [facility] Comment: Interpretive Data Fasting glucose >/= 126 mg/dl is diagnostic for diabetes. Fasting is defined as no caloric intake for at least 8 hours. Fasting glucose between 100 mg/dl to 125 mg/dl is diagnostic of prediabetes. In a patient with classic symptoms of hyperglycemia or hyperglycemic crisis, a random glucose >/= 200 mg/dl is diagnostic for diabetes. In the absence of unequivocal hyperglycemia, results should be confirmed by repeat testing. The classification and Diagnosis of Diabetes Diabetes Care 202; 46: S19-S40. Current interpretive data was last revised 2022. Calcium 9.5 8.5 - 10.3 mg/dL [facility] Phosphorus, pl 7.8(H) 2.3 - 4.5 mg/dL [facility] Albumin 4.1 3.5 - 5.0 g/dL [facility] Blood 05/26/2024 1:06 PM LUMP RECEIVER 05/26/2024 1:19 PM LUMP RECEIVER us Renuka Balderas MD PhD LAB BLOOD ORDERABLES Final Resu lt ANIKA Boyer [facility] Department [place] [address] * (ABNORMAL) Microscopic Examination (05/25/2024 11:15 AM LUMP RECEIVER) WBC, ur 0-5 0 - 5 /hpf [facility] - 01 RBC, ur 11-30(A) 0 - 2 /hpf [facility] - 01 Epithelial cells, non-renal, ur None seen 0 - 10 /hpf [facility] - 01 Casts None seen None seen /lpf [facility] - 01 Bacteria, ur None seen None seen/Few [facility] - 01 05/25/2024 11:1 5 AM LUMP RECEIVER 05/25/2024 Narrative [facility] - 05/26/2024 7:09 AM LUMP RECEIVER Performed at: [place] [address] [place]: Silverio Apodaca PhD, Phone: avocadostore us Renuka Balderas MD PhD LAB BLOOD ORDERABLES Final Resu lt [facility] - * (ABNORMAL) Iron profile w/ IBC (05/25/2024 11:15 AM LUMP RECEIVER) Iron Bind.Cap.(TIBC) 237(L) 250 - 450 ug/dL [facility] - 01 UIBC 173 111 - 343 ug/dL [facility] - 01 Iron 64 38 - 169 ug/dL [facility] - 01 Iron saturation 27 15 - 55 % [facility] - 01 Blood 05/25/2024 11:1 5 AM LUMP RECEIVER 05/25/2024 Narrative [facility] - 05/26/2024 8:11 AM LUMP RECEIVER Performed at: [address] [id number] [place] Sawyer: Silverio Apodaca PhD, Phone: [phone] us Renuka Balderas MD PhD LAB BLOOD ORDERABLES Final Resu Performing Organization Address [facility]/ZIP Co de Phone Number [facility] - * (ABNORMAL) Urinalysis reflex to microscopic (05/25/2024 11:15 AM LUMP RECEIVER) [facility] Specific [place] 1.013 1.005 - 1.030 [facility] - 01 pH, ur 6.0 5.0 - 7.5 [facility] - 01 Color, ur Yellow Yellow [facility] - 01 Appearance, ur Clear Clear [facility] - 01 Leukocyte esterase, ur Negative Negative [facility] - 01 Protein, ur 3+(A) Negative/Tra ce [facility] - 01 Glucose, ur 1+(A) Negative [facility] - 01 Ketones, ur Negative Negative [facility] - 01 Blood, ur 2+(A) Negative [facility] - 01 Bilirubin, ur Negative Negative [facility] - 01 Urobilinogen, quant, ur 0.2 0.2 - 1.0 mg/dL [facility] - 01 Nitrites, ur Negative Negative [facility] - 01 Urinalysis, microscopic exam See below: [facility] - 01 Comment:Microscopic was elli cated and was performed. Urine 05/25/2024 11:1 5 AM LUMP RECEIVER 05/25/2024 Narrative [facility] - 05/26/2024 7:09 AM LUMP RECEIVER Performed at: [address] [place] [id number] [place] Sawyer: Silverio Apodaca PhD, Phone: [phone] us Renuka Balderas MD PhD LAB URINE ORDERABLES Final Resu lt [facility] - * (ABNORMAL) CBC with auto differential (05/25/2024 11:15 AM LUMP RECEIVER) [facility] WBC 6.5 3.4 - 10.8 x10E3/uL [facility] - 01 RBC 3.52(L) 4.14 - 5.80 x10E6/uL [facility] - 01 Hgb 9.6(L) 13.0 - 17.7 g/dL [facility] - 01 Hct 29.5(L) 37.5 - 51.0 % [facility] - 01 MCV 84 79 - 97 fL [facility] - 01 MCH 27.3 26.6 - 33.0 pg [facility] - 01 MCHC 32.5 31.5 - 35.7 g/dL [facility] - 01 Rdw 13.3 11.6 - 15.4 % [facility] - 01 Platelets 320 150 - 450 x10E3/uL [facility] - 01 Neutrophils pct 71 Not Estab. % [facility] - 01 Lymphs pct 21 Not Estab. % [facility] - 01 Monocytes pct 7 Not Estab. % [facility] - 01 Eosinophils pct 0 Not Estab. % [facility] - 01 Basophil pct 1 Not Estab. % [facility] - 01 Neutrophil abs 4.7 1.4 - 7.0 x10E3/uL [facility] - 01 Lymphs (Absolute) 1.3 0.7 - 3.1 x10E3/uL [facility] - 01 Monocyte abs 0.4 0.1 - 0.9 x10E3/uL [facility] - 01 Eosinophils, abs 0.0 0.0 - 0.4 x10E3/uL [facility] - 01 Basophils, abs 0.0 0.0 - 0.2 x10E3/uL [facility] - 01 Immature Granulocytes 0 Not Estab. % [facility] - 01 Immature Grans (Abs) 0.0 0.0 - 0.1 x10E3/uL [facility] - 01 Blood 05/25/2024 11:1 5 AM LUMP RECEIVER 05/25/2024 Narrative [facility] - 05/26/2024 9:10 AM LUMP RECEIVER Performed at: - [facility] [address] [id number] [place] Sawyer: Silverio Apodaca PhD, Phone: [phone] us Renuka Balderas MD PhD LAB BLOOD ORDERABLES Final Resu lt [facility] - 01 * (ABNORMAL) Ferritin (05/25/2024 11:15 AM LUMP RECEIVER) Pathologist [facility] Ferritin 605(H) 30 - 400 ng/mL [facility] - 01 Blood 05/25/2024 11:1 5 AM LUMP RECEIVER 05/25/2024 Narrative [facility] - 05/26/2024 12:10 PM LUMP RECEIVER Performed at: [address] [id number] Stone Sawyer: Silverio Apodaca PhD, Phone: [phone] us Renuka Balderas MD PhD LAB BLOOD ORDERABLES Final Resu lt Performing Organization Address City/[facility]/ZIP Co de Phone Number LABCO [facility] - 01 * (ABNORMAL) Renal function panel (05/25/2024 11:15 AM LUMP RECEIVER) [facility] Glucose 92 70 - 99 mg/dL [facility] - 01 BUN 98(HH) 6 - 20 mg/dL [facility] - 01 Creatinine, Serum 9.09(H) 0.76 - 1.27 mg/dL [facility] - 01 eGFR 8(L) >59 mL/min/1.7 3 [facility] - 01 BUN/creat ratio 11 9 - 20 [facility] - 01 Sodium 140 134 - 144 mmol/L [facility] - 01 Potassium, sr 4.0 3.5 - 5.2 mmol/L [facility] - 01 Chloride 100 96 - 106 mmol/L [facility] - 01 CO2 21 20 - 29 mmol/L [facility] - 01 Calcium 9.3 8.7 - 10.2 mg/dL [facility] - 01 Phosphorus, sr 7.0(H) 2.8 - 4.1 mg/dL [facility] - 01 Albumin 4.1(L) 4.3 - 5.2 g/dL [facility] - 01 Blood 05/25/2024 11:1 5 AM LUMP RECEIVER 05/25/2024 Narrative [facility] - 05/26/2024 8:11 AM LUMP RECEIVER Performed at: [address] [id number] Stone Sawyer: Silverio Apodaca PhD, Phone: [phone] us Renuka Balderas MD PhD LAB BLOOD ORDERABLES Final Resu lt Performing Organization Address City/[facility]/ZIP Co de Phone Number [facility] - 01 * (ABNORMAL) Cystatin C (03/19/2024 10:55 AM LUMP RECEIVER) [facility] Cystatin C 4.39(H) 0.60 - 1.00 mg/L [facility] Blood 03/19/2024 10:5 5 AM LUMP RECEIVER 03/19/2024 Narrative [facility] - 03/23/2024 6:09 AM LUMP RECEIVER Performed at: [address] [id number] Stone Sawyer: Brenda Timmons MD, Phone: [phone] us Mireya Vines CHRONOMETER TESTER LAB BLOOD ORDERABLE S Final Result Performing Organization Address [facility] Co de Phone Number [facility] 01 * (ABNORMAL) PTH (03/19/2024 10:55 AM LUMP RECEIVER) [facility] PTH Intact 157(H) 15 - 65 pg/mL [place] [id number] Blood 03/19/2024 10:5 5 AM LUMP RECEIVER 03/19/2024 N[facility]ative [facility] - 03/21/2024 11:06 AM LUMP RECEIVER Performed at: [address] [id number] Stone Sawyer: Silverio Apodaca PhD, Phone: [phone] us Mireya Vines CHRONOMETER TESTER LAB BLOOD ORDERABLE S Final Result Performing Organization Address City/[facility]/ZIP Co de Phone Number [facility] - 01 * Hepatitis panel, acute Blood (01/25/2024 6:36 AM LUMP RECEIVER) [facility] Hep A IgM Nonreactive Nonreactive Hep B core IgM Nonreactive Nonreactive [facility] Hep C Ab Nonreactive Nonreactive [facility] Comment:Antibodies to HCV no t detected. Does NOT exclude the possibility of recent exposure to HCV. Current interpretive data was last revised on 21 HepBsAg Nonreactive Nonreactive [facility] Blood 01/25/2024 6:36 AM LUMP RECEIVER 01/25/2024 6:48 AM LUMP RECEIVER us Jet Oliver MD LAB MICROBIOLOGY - GENERA L ORDERABLES Final Result Performing Organization Address City/State/[facility] Co de Phone Number [facility] Department [place] [address] from Last 3 Months or Most Recently Relevant to Health Maintenance Insurance [facility]/PPO Address: [place] [address] [facility] H[facility]/PPO Address: [address] [address] [place] [address] [facility] H[facility]/PPO Address: [address] [place] [address] [facility] H[facility]/PPO Address: [address] [place], [place] [id number] [employer] Advance Directives For more information, please contact: [phone] Documents on File Type Date Recorded Patient Mining Consultant Expl anation ADVANCE DIRECTIVE 02/03/2024 11:01 AM POW ER OF ARCHERY INSTRUCTOR-MEDICAL ADVANCE DIRECTIVE 01/30/2024 12:41 PM ADVANCE DIRECTIVE 01/30/2024 12:41 PM KEVEN R OF ARCHERY INSTRUCTOR-MEDICAL * Full Code (Latest Code Status on File) Date Activated Date Inactivated Comments 01/25/2024 4:58 AM 01/31/2024 6:07 PM Healthcare Agents on File Name Relationship Healthcare Agent Relationshi p Communication Eleonora Alba Mother Health Care Agent Care Teams Slab Inspector Relationship Specialty Start Date End Date Yair Matthew MD [address] [address] PCP - General Family Medicine 01/26/24 Renuka Balderas MD PhD [address] [place] [address] Referring Physician Nephrology 04/15/24 Christina Stringer, RN [address] [facility] [address] [phone] [place], [place] [id number] Turbo Generator Oiler 04/15/24
--- OUTSIDE RECORDS SUMMARY | 2024-05-26 15:25 | XMS_ITS | Encounter Summary ---
Author Organization [facility] Healthcare Address [address] [place] [address] Care Team Providers Care Barrel Washer Machine Name Role Phone Lori Beck MD Primary Care Provider [phone] Yair Matthew MD Primary Care Provider + [phone] Renuka Balderas MD PhD Unavailable [phone] Christina Stringer RN Unavailable [phone] Encounter Details Date Type Department Care Team (Late st Contact Info) Description 10/05/2019 Telephone [facility] [place] [id number] Terra Ashby RDMS Social History Tobacco Use Types Packs/Day Years Used Date Smoking Tobacco: Never Sex and Gender Information Value Date Recorded Sex Assigned at Not on file 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 BEAM DYER RECESSED VAT Gender Identity Not on file Sexual Orientation Not on file documented as of this encounter Plan of Treatment Not on file documented as of this encounter Visit Diagnoses Not on filedocumented in this encounter Additional Health Concerns Infection Onset Date Last Indicated Resolved Time COVID: Suspected 01/24/2024 01/24/2024 01/24/2024 3:36 PM CDT documented as of this encounter Care Teams Barrel Washer Machine Relationship Specialty Start Date End Date Lori Beck MD [address] [place] [address] PCP - General 05/02/17 01/25/24 Yair Matthew MD [address] [place] [address] PCP - General Family Medicine 01/26/24 Renuka Balderas MD PhD [address] [facility] [address] [place] [address] Referring Physician Nephrology 04/15/24 Christina Stringer, RN [address] [facility] [address] [phone] [place] [address] Gas Operations Superintendent 04/15/24 documented as of this encounter
--- OUTSIDE RECORDS SUMMARY | 2024-05-26 15:25 | XMS_ITS | Encounter Summary ---
Author Organization [facility] Address [address] [place] [address] Phone Care Team Providers Care Slip Tender Name Role Phone Yair Matthew MD Primary Care Provider [phone] Renuka Balderas MD PhD Unavailable [phone] Christina Stringer RN Unavailable [phone] Encounter Details Date Type Department Care Team (Late st Contact Info) Description 05/26/2024 11:20 AM CLAY PRESS OPERATOR Office Visit [facility] [address] [facility] Advanced Medicine 5th [place] [address] [place] [address] Renuka Balderas MD PhD [address] [facility] [address] [place] [address] 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) (HCC) [I12.9, N18.4] (Primary Dx); IgA nephropathy; Hypertension, unspecified type; Renal osteodystrophy; Anemia in stage 4 chronic kidney disease (HCC) Social History Tobacco Use Types Packs/Day Years [...] on file 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 CLAY PRESS OPERATOR Gender Identity Not on file Sexual Orientation Not on file documented as of this encounter Last Filed Vital Signs Vital Sign Reading Time Taken Comments Blood Pressure 144/89 05/26/2024 11:38 AM CLAY PRESS OPERATOR Pulse 89 05/26/2024 11:38 AM CLAY PRESS OPERATOR Temperature 36.9 C (98.4 F) 05/26/2024 11:38 AM CLAY PRESS OPERATOR Respiratory Rate - - Oxygen Saturation - - Inhaled Oxygen Concentration - - Weight 120.2 kg (265 lb) 05/26/2024 11:38 AM CLAY PRESS OPERATOR Height 193 cm (6' 4 ) 05/26/2024 11:38 AM CLAY PRESS OPERATOR Body Mass Index 32.26 05/26/2024 11:38 AM CLAY PRESS OPERATOR documented in this encounter Patient Instructions * Patient Instructions* Renuka Balderas MD PhD - 05/26/2024 11:20 AM CLAY PRESS OPERATOR Please print my note for him today. PRESS OPERATOR documented in this encounter Ordered Prescriptions Prescription Sig Dispense Quantity Refills Last Filled Start Date End Date ergocalciferol (VITAMIN D) 50,000 unit capsule Take 1 capsule (50,000 Units total) by mouth once a week 12 capsule 05/26/2024 6 documented in this encounter Progress Notes * Renuka Balderas MD PhD - 05/26/2024 11:20 AM CST Images from the original note were not included. PATIENT NAME: Freddie Cornejo Date of : 2000 Date of Visit: 05/26/2024 RENAL PROBLEM LIST: IgA nephropathy, diagnosed in 2017, without kidney biopsy. Stage V CKD, most likely due to IgA. HTN, diagnosed in 2022 Asymptomatic microscopic hematuria Mixed hyperlipidemia Generalized anxiety disorder/depression, diagnosed in 2019. INTERVAL HISTORY: Mr. Freddie Cornejo is a 23 y.o. male with past medical history as noted above, who is here for regular follow up of CKD and IgA nephropathy. His last office visit was in 01/2024. I have reviewed other physicians' notes since the last office visit. He was hospitalized from 01/23-01/31/2024 for HTN emergency (BP 216/149) and CHRISTINE on CKD (Cr increased from 1.28 in 12/2022 to 5.46 on admission). He states that his BP was elevated significantly, associated with foamy urine, since this May. His serology workups, including HIV, Hepatitis panel, RPR, COVID-19, C3, C4, RICARDO, dsDNA ab, ANCA, SPEPA, FLC were negative. 24h proteinuria was 6.6 g. Kidney biopsy performed in 01/2024 showed 4/9 glomeruli w ere globally sclerosed with severe IFTA and acute tubular injury, IgA nephropathy. He states that he was diagnosed with IgA when he was 14 years old. He had gross hematuria at that time. He has had intermittent gross hematuria when he was sick. He reports that since , he has not had gross hematuria. He denies significant drop of his UOP, CP or SOB. He also denies N/V, metallic taste, or mental status changes. Since the last office visit, he did not follow the instruction to check RFP monthly. He attended CKD education in 02/2024 and 03/2024. ALLERGIES: Allergies Allergen Reactions Alcohol Rash Penicillins Diarrhea, Other (See comments) and Rash Reaction: Sunscreen Rash Penicillin Other (See comments) Current Outpatient Medications: amLODIPine (NORVASC) 10 mg tablet, Take 1 tablet (10 mg total) by mouth daily, Disp: 30 tablet, Rfl: 0 carvediloL (COREG) 25 mg tablet, Take 1 tablet (25 mg total) by mouth 2 (two) times a day with meals, Disp: 60 tablet, Rfl: 0 chlorthalidone (HYGROTON) 25 mg tablet, Take 1 tablet (25 mg total) by mouth daily, Disp: 30 tablet, Rfl: 0 ergocalciferol (VITAMIN D) 50,000 unit capsule, Take 1 capsule (50,000 Units total) by mouth once aweek, Disp: 8 capsule, Rfl: 0 venlafaxine XR (EFFEXOR-XR) 150 mg 24 hr capsule, Take 1 capsule (150 mg total) by mouth daily withbreakfast, Disp: 30 capsule, Rfl: 0 doxazosin (CARDURA) 2 mg tablet, Take 1 tablet (2 mg total) by mouth nightly (Patient not taking: Reported on 02/11/2024), Disp: 30 tablet, Rfl: 0 (on hold) hydrALAZINE (APRESOLINE) 25 mg tablet, Take 1 tablet (25 mg total) by mouth 3 (three) times a day (Patient not taking: Reported on 02/11/2024), Disp: 90 tablet, Rfl: 0 (on hold) Review of Systems: All other systems are negative. PHYSICAL EXAM: Vitals BP 144/89 (BP Location: Left arm, Patient Position: Sitting) Pulse 89 Temp 36.9 ??C (98.4 ??F) (Oral) Ht 193 cm (6' 4 ) Wt 120.2 kg (265 lb) BMI 32.26 kg/m?? General: Alert, cooperative, no distress, well developed and nourished HENT: Mucus membranes pink and moist. Oropharynx clear. EYES: Sclera anicteric Neck: Supple, symmetrical, trachea midline Lungs: Clear to auscultation bilaterally, respirations unlabored CVS: Regular rate and rhythm, S1 and S2 normal, no edema in his LE, b/l Abdomen: Soft, non-tender, non-distended, bowel sounds normal Skin: No rashes or bruising Neurologic: Alert & oriented x 3, no focal neurologic deficit Psychosocial: Normal affect and mood MSK: No joint swelling or tenderness Lab/Radiology/Diagnostic Review: IMAGIN01/26/2024: 02/02/2024: Kidney biopsy: 4/9 glomeruli were globally sclerosed. Glomeruli show granular mesangial staining for IgA (3+), C3 (2-3+). There is cellular crescent formation in four glomeruli. ASSESSMENT AND PLAN: 1. CHRISTINE on CKD stage V, secondary to IgA nephropathy. He did not check his RFP monthly. His renal ultrasound in 01/2024 is consistent with CKD, and doppler does not show SUE. His kidney biopsy in 01/2024 showed 4/9 glomeruli were globally sclerosed with severe IFTA and acute tubular injury, IgA nephropathy. He went to ESRD educational class and was referred to renal transplant. He has not had renal taxation inspector education. His renal function from yesterday showed a acute elevation of BUN/Cr to 98/9.09. Repeat another RFP today. Ask him to go to the ER today for IV hydration. If BUN/Cr do not come down, will initiate dialysis CORNELIO. Will refer him to [facility] for a PD catheter placement CORNELIO. 2. IgA nephropathy: 4/9 G were globally sclerosed with severe IFTA. There is no indication to initiate immunosuppressant. 3. Hypertension: His BP is under good control. Continue on his current regimen. 4. Renal osteodystrophy/metabolic bone disease. His phos increased to 7.0 with normal Ca on 05/25/2024. His 25-hydroxy VitD was 10 in 01/2024 and iPTH 157 in 02/2024 . Will continue on ergo weekly. Weterri monitor his 25-hydroxy VitD and iPTH regularly. 5. Anemia. Hb 9.6 with iron/Tsats 64/27% without ferritin in 05/2024. Will start PO iron daily. May need to start Epogen. Continue to monitor his Hb and iron profile. DISPOSITION: The patient will return for follow up in 2 months. Monitor RFP closely before dialysis. PRESS OPERATOR documented in this encounter Plan of Treatment Scheduled Orders Name Type Priority Associated Diagnoses Orde r Schedule Renal function panel Lab Routine 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) (HCC) [I12.9, N18.4] 1 wk for 11 Occurrences starting 05/26/2024 until 05/18/2025 documented as of this encounter Results * (ABNORMAL) PTH (05/26/2024 1:06 PM CLAY PRESS OPERATOR) Pathologist [facility] PTH 482(H) 15 - 65 pg/mL Blood 05/26/2024 1:06 PM CLAY PRESS OPERATOR 05/26/2024 1:19 PM CLAY PRESS OPERATOR Renuka Balderas MD PhD LAB BLOOD ORDERABLES Final Resu Performing Organization Address [facility]/ZIP Co de Phone Number [facility] [place] [place] [address] * (ABNORMAL) Vitamin D 25 hydroxy (05/26/2024 1:06 PM CLAY PRESS OPERATOR) [facility] Vitamin D 25-OH 24(L) 30 - 80 ng/mL Blood 05/26/2024 1:06 PM CLAY PRESS OPERATOR 05/26/2024 1:19 PM CLAY PRESS OPERATOR Renuka Balderas MD PhD LAB BLOOD ORDERABLES Final Resu Performing Organization Address [facility]/ZIP Co de Phone Number [facility] [place] [place] [address] * (ABNORMAL) Renal function panel (05/26/2024 1:06 PM CLAY PRESS OPERATOR) [facility] Sodium 142 135 - 145 mmol/L Potassium, pl 3.9 3.3 - 4.9 mmol/L [facility] Chloride 102 97 - 110 mmol/L [facility] CO2 23 22 - 32 mmol/L [facility] Anion gap 17(H) 2 - 15 mmol/L [facility] BUN 100(H) 6 - 25 mg/dL [facility] Creatinine 10.13(H) 0.80 - 1.30 mg/dL [facility] Glucose 106 70 - 199 mg/dL [facility] Comment: Interpretive Data Fasting glucose >/= 126 [...] 2022. Calcium 9.5 8.5 - 10.3 mg/dL [facility] Phosphorus, pl 7.8(H) 2.3 - 4.5 mg/dL [facility] Albumin 4.1 3.5 - 5.0 g/dL [facility] Blood 05/26/2024 1:06 PM CLAY PRESS OPERATOR 05/26/2024 1:19 PM CLAY PRESS OPERATOR us Renuka Balderas MD PhD LAB BLOOD ORDERABLES Final Resu lt [facility] Department of Laboratories [place], [place] [id number] documented in this encounter Visit Diagnoses Diagnosis 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) (HCC) [I12.9, N18.4]- Primary IgA nephropathy Nephritis and nephropathy, not specified as acute or chronic, with unspecified pathological lesion in kidney Hypertension, unspecified type Renal osteodystrophy Anemia in stage 4 chronic kidney disease (HCC) documented in this encounter Care Teams Slip Tender Relationship Specialty Start Date End Date Yiar Matthew MD [address] [facility] [address] [place], [place] [id number] PCP - General Family Medicine 01/26/24 Renuka Balderas MD PhD [address] [facility] [address] [place] [address] Referring Physician Nephrology 04/15/24 Christina Stringer, RN [phone] [place] [address] Systems Consultant 04/15/24 documented as of this encounter
--- OUTSIDE RECORDS SUMMARY | 2024-05-26 15:25 | XMS_ITS | Clinical Summary ---
Author Organization [facility] [employer] Address [address] [place] [address] Care Team Providers Care Film Numberer Name Role Phone Lori Beck MD Primary Care Provider [phone] Source Comments [facility],non-owned Affiliates and Associated Physician Practices is amultiple site organization consisting of ambulatory clinics and hospital sitesin [place], [place], [place] and [place]. This disclosure is being madepursuant to the Care Everywhere program and may not contain all information available regarding this patient. Last updated 17.[facility] Allergies Active Allergy Reactions Criticality Noted Date Comments Alcohol Rash Low 02/19/2011 Penicillins Diarrhea 02/19/2011 Sunscreens Rash Low 02/19/2011 Medications * Be aware that medications may not be up to date on this document. Alwaysverify current medications with the patient. Medication Sig Dispensed Refills Start Date End Date Status ibuprofen (IBU-DROPS) 40 MG/ML suspension Take 10 mL by mouth every 6 hours as needed. Active Active Problems Problem Noted Date Diagnosed Date Closed nondisplaced fracture of fifth metatarsal bone of right foot 01/30/2016 Social History Tobacco Use Types Packs/Day Years Used Date Smoking Tobacco: Never Assessed Sex and Gender Information Value Date Recorded Sex Assigned at Not on file Gender Identity Not on file Sexual Orientation Not on file Plan of Treatment Health Maintenance Due Date Last Done Comments HIV SCREENING 2017 HPV VACCINE (1 - Male 3-dose series) 2017 MENINGOCOCCAL (Group B) VACC INE (1 of 2 - Standard) 2018 HEPATITIS C SCREENING 06/06/2020 DTAP/TDAP/TD VACCINES (1 - Tdap) 2021 HEPATITIS B VACCINE (1 of 3 - 19+ 3-dose series) 2021 COVID-19 VACCINE (1 - 2023-2 5 season) 2023 INFLUENZA VACCINE (#1) 2023 DEPRESSION SCREENING 03/24/2024 ZOSTER VACCINE (1 of 2) 2052 HIB VACCINE Aged Out No longer eligi ble based on patient's age to complete this topic MENINGOCOCCAL VACCINE Aged Out No fadumo jossue eligible based on patient's age to complete this topic PNEUMOCOCCAL VACCINE Aged Out No long er eligible based on patient's age to complete this topic Care Teams Film Numberer Relationship Specialty Start Date End Date Lori Beck MD [address] [facility] [address] [place] [id number] PCP - General 02/18/11
--- OUTSIDE RECORDS SUMMARY | 2024-05-26 15:25 | XMS_ITS | Patient Health Summary ---
Author Organization [facility] [employer] Address [address] [place] [address] Care Team Providers Care Dry Goods Clerk Name Role Phone Lori Beck MD Primary Care Provider [phone] Note from [facility] [employer] [facility],non-owned Affiliates and Associated Physician Practices is amultiple site organization consisting of ambulatory clinics and hospital sitesin [place], [place], [place] and [place]. This disclosure is being madepursuant to the Care Everywhere program and may not contain all information available regarding this patient. Last updated 17.[facility] [employer] Allergies * Alcohol(Rash) -Low Criticality * Penicillins(Diarrhea) * Sunscreens(Rash) -Low Criticality Medications * Be aware that medications may not be up to date on this document. Alwaysverify current medications with the patient. * ibuprofen (IBU-DROPS) 40 MG/ML suspension Take 10 mL by mouth every 6 hours as needed. Active Problems Problem Noted Date Diagnosed Date Closed nondisplaced fracture of fifth metatarsal bone of right foot 01/30/2016 Social History Tobacco Use Types Packs/Day Years Used Date Smoking Tobacco: Never Assessed Sex and Gender Information Value Date Recorded Sex Assigned at Not on file Gender Identity Not on file Sexual Orientation Not on file Procedures * IMAGING/RADIOLOGY/XRAY RESULTS ORDER(Performed 03/28/2011) Results * IMAGING/RADIOLOGY/XRAY RESULTS ORDER (03/28/2011 9:48 AM STEM SHAPER) Anatomical Region Laterality Modality Other Narrative Transcriptions Document, Scanned - 03/28/2011 9:48 AM CST Scanned Document IMAGING Care Teams Dry Goods Clerk Relationship Specialty Start Date End Date Lori Beck MD [facility] [address] [place] [address] [facility] - General 02/18/11
--- OUTSIDE RECORDS SUMMARY | 2024-05-26 15:25 | XMS_ITS | Encounter Summary ---
Author Organization [facility] Address [address] [place] [address] Phone Care Team Providers Care Hard [employer] Drill Operator Name Role Phone Yair Matthew MD Primary Care Provider + [phone] Renuka Balderas MD PhD Unavailable [phone] Christina Stringer RN Unavailable [phone] Encounter Details Date Type Department Care Team (Late st Contact Info) Description 05/26/2024 10:00 AM EPIDEMIOLOGY INTERN Clinical Support [facility] Nephrology [address] [place] [address] Arrived Social History Tobacco Use Types Packs/Day Years Used Date Smoking Tobacco: Former Cigarettes Smokeless Tobacco: Never AUDIT-C Answer Date Recorded Q1: How often [...] on file 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 EPIDEMIOLOGY INTERN Gender Identity Not on file Sexual Orientation Not on file documented as of this encounter Progress Notes * Kyra Dominguez RN - 05/26/2024 10:00 AM CST Dialysis Modality Options Class Note: Patient and his mother presented for dialysis modality options class/ home dialysis options class. This session included below: - Reviewed all dialysis modality options however majority of the discussion was focused on PD. - Covered essential info relating to [facility] and Home Dialysis including Peritoneal Dialysis (PD) and Home Hemodialysis (HHD). For PD: - Provided links by [facility] for patient and his family to watch videos on the different modality choices. - Demonstrated CAPD exchange concept using PD cath with dummy tummy as well as shown slide pictures. - Shown [employer]er system including machine, cartridge, PD solution bags, and PD supplies. - Explained pros and cons of PD including diet, travel, and risk of infection: Peritonitis. - Introduced home patients' labs and clinic day. For ICHD & HHD: - Reviewed different types of HD access including access maturing time considering the timing of starting treatments. - Discussed details about [facility]D & HHD scheduling/ training related matter. - Introduced home patients' labs and clinic day. They were engaged in the session and addressed that all questions were answered at this time. Due to traffic, patient and his mother arrived late to education and had scheduled CKD clinic appointmentat 11:20 am. Due to time restriction, HD briefly reviewed and pt refused tour inside ICHD unit. Given my contact information and learning materials to take home and review. Additional Note: Pt starts a full-time position next week so was interested in [employer] due to work schedule/hours. Pt mentioned that he has one cat. This RN stressed the importance of infection prevention and how the risk of infection may be greater. Advise offered to slowly transition cat out of bedroom to keep area where PD will be performed clean. Risk of pasturella peritonitis explained. EMIOLOGY INTERN documented in this encounter Plan of Treatment Not on file documented as of this encounter Visit Diagnoses Not on filedocumented in this encounter Care Teams Hard [employer] Drill Operator Relationship Specialty Start Date End Date Yair Matthew MD [address] [facility] [address] [place] [address] PCP - General Family Medicine 01/26/24 Renuka Balderas MD PhD [address] [facility] [address] [place] [address] Referring Physician Nephrology 04/15/24 Christina Stringer, RN [address] [facility] [phone] [place] [address] Kettle Skimmer 04/15/24 documented as of this encounter
--- OUTSIDE RECORDS SUMMARY | 2024-05-26 15:25 | XMS_ITS | Referral Summary ---
Author Organization [facility] ospital Address [address] [place] [address] Care Team Providers Care Plant Physiology Teacher Name Role Phone Yari Matthew MD Primary Care Provider Renuka Balderas MD PhD Unavailable [phone] Christina Stringer RN Unavailable [phone] Encounters Date Type Department Care Team Description 05/26/2024 Orders Only [facility] Nephrology [address] [place] [address] Advanced Medicine 5th [place] [phone] Renuka Balderas MD PhD 05/26/2024 3:00 PM ASSURANCE AUDITOR Lab [facility] ([facility]) [address] [place] [phone] 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) (HCC) [I12.9, N18.4]; IgA nephropathy; Anemia in stage 4 chronic kidney disease (HCC) 05/26/2024 10:00 AM ASSURANCE AUDITOR Clinical Support [facility] Nephrology [address] [place] [phone] Arrived 05/26/2024 11:20 AM ASSURANCE AUDITOR Office Visit [facility] Nephrology [address] [place] [address] 5th [place] [phone] Renuka Balderas MD PhD 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) (HCC) [I12.9, N18.4] (Primary Dx); IgA nephropathy; Hypertension, unspecified type; Renal osteodystrophy; Anemia in stage 4 chronic kidney disease (HCC) 05/24/2024 Telephone [facility] Nephrology [address] [facility] 5th [place] [address] [place] [phone] Renuka Balderas MD PhD Appointment Reminder Call 04/22/2024 Documentation [facility] [address] [facility] [address] Mailstop [phone] [place] [address] Jaz Medina Evaluation Scheduling 04/22/2024 4:40 PM ASSURANCE AUDITOR Telemedicine [facility] Nephrology [address] [place] [phone] Mireya Vines NP 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) (HCC) [I12.9, N18.4] (Primary Dx) 04/21/2024 Telephone [facility] Transplant Kidney [address] [facility] [address] Mailstop 37-09-188 [place] [address] Christina Stringer, RN Kidney Eval 04/21/2024 Telephone [facility] Transplant Kidney [address] [facility] [address] Mailstop 87-75-059 [place] [address] Christina Stringer, joinery patternmaker - Kidney Txp 04/21/2024 Telephone [facility] Transplant Kidney [address] [facility] [address] Mailstop 80-49-392 [place] [address] Jaz Medina 04/20/2024 Telephone [facility] [address] [facility] [address] Mailstop 38-77-217 [place] [address] Christina Stringer, joinery patternmaker - Kidney Txp 04/19/2024 Telephone [facility] [address] [facility] [address] Mailstop 53-46-550 [place] [address] Salma Painter Referral - Kidney Txp 04/16/2024 Telephone [facility] [address] [facility] [address] Mailstop 33-41-608 [place] [address] Christina Stringer, joinery patternmaker - Kidney Txp 04/15/2024 Telephone [facility] [address] [facility] [address] Mailstop 65-80-121 [place] [address] Jaz Medina Referral - Kidney Txp 04/09/2024 Telephone [facility] Nephrology [address] [place] [address] 5th [place] [address] [place] [phone] Jaida Varela, fashion coordinator start 03/05/2024 Orders Only [facility] Nephrology [address] [place] [address] 5th [place] [address] [place] [phone] Renuka Balderas MD PhD CKD (chronic kidney disease) stage 5, GFR less than 15 ml/min (HCC) (Primary Dx) 03/02/2024 Telephone [facility] Division of Nephrology [address] [place] [phone] Sherry Castle RN 03/02/2024 11:00 AM ASSURANCE AUDITOR Telemedicine [facility] Nephrology [address] [place] [phone] Mireya Vines NP CKD (chronic kidney disease) stage 5, GFR less than 15 ml/min (HCC) (Primary Dx) 03/01/2024 Telephone [facility] Nephrology [address] [place] [address] 5th [place] [address] [place] [phone] Denise Boyd from Last 3 Months Allergies Active Allergy Reactions Criticality Noted Date [...] mouth every 30 (thirty) days 1 capsule 11 05/04/19 25 Active carvediloL (COREG) 25 mg tablet Take 1 tablet (25 mg total) by mouth 2 (two) times a day with meals 180 tablet 05/04/19 25 Active hydrALAZINE (APRESOLINE) 25 mg [...] 01/29/2024 Assessment & Plan (01/29/2024 12:37 PM ASSURANCE AUDITOR): C/w with current meds : - chlorthalidone 25 mg - Coreg 25mg PO BID - amlodipine 10mg PO daily - doxazosin 2mg PO nightly - Hydralazine 25 mg TID Vitamin D deficiency 01/29/2024 Assessment & Plan (01/29/2024 12:32 PM ASSURANCE AUDITOR): -01/24 vit D 10 -Continue vitamin D 50,000 units PO weekly Anxiety 01/29/2024 Assessment & Plan (01/29/2024 12:32 PM ASSURANCE AUDITOR): Continue home venlafaxine 150mg PO daily IgA nephropathy 01/24/2024 Assessment & Plan (01/30/2024 3:59 PM ASSURANCE AUDITOR): Suspected although not biopsy proven. Follows with [...] dialysis Dose meds to gfr Proteinuria 10/08/2019 Immunizations Immunization Administration Dates Next Due Influenza, Trivalent, Preservative Free, Intramu scular 01/27/2024 Social History Tobacco Use Types Packs/Day Years [...] on file 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 ASSURANCE AUDITOR Gender Identity Not on file Sexual Orientation Not on file Last Filed Vital Signs Vital Sign Reading Time Taken Comments Blood Pressure 144/89 05/26/2024 11:38 AM ASSURANCE AUDITOR Pulse 89 05/26/2024 11:38 AM ASSURANCE AUDITOR Temperature 36.9 C (98.4 F) 05/26/2024 11:38 AM ASSURANCE AUDITOR Respiratory Rate 16 01/30/2024 7:15 PM ASSURANCE AUDITOR Oxygen Saturation 98% 01/31/2024 7:15 AM ASSURANCE AUDITOR Inhaled Oxygen Concentration - - Weight 120.2 kg (265 lb) 05/26/2024 11:38 AM ASSURANCE AUDITOR Height 193 cm (6' 4 ) 05/26/2024 11:38 AM ASSURANCE AUDITOR Body Mass Index 32.26 05/26/2024 11:38 AM ASSURANCE AUDITOR Plan of Treatment Not on file Procedures Procedure Name Priority Date/Time Associated Diagnosis Comments EGFR Routine 05/26/2024 1:06 PM ASSURANCE AUDITOR 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) (HCC) [I12.9, N18.4] DIFFERENTIAL AUTO Routine 05/26/2024 1:0 6 PM ASSURANCE AUDITOR IgA nephropathy Anemia in stage 4 chronic kidney disease (HCC) CBC WITH AUTO DIFFERENTIAL Routine 05/26/2024 1:06 PM ASSURANCE AUDITOR IgA nephropathy Anemia in stage 4 chronic kidney disease (HCC) FERRITIN Routine 05/26/2024 1:06 PM ASSURANCE AUDITOR IgA nephropathy Anemia in stage 4 chronic kidney disease (HCC) RENAL FUNCTION PANEL Routine 05/26/2024 1:06 PM ASSURANCE AUDITOR 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) (HCC) [I12.9, N18.4] VITAMIN D 25 HYDROXY Routine 05/26/2024 1:06 PM ASSURANCE AUDITOR 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) (HCC) [I12.9, N18.4] PTH Routine 05/26/2024 1:06 PM ASSURANCE AUDITOR 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) (HCC) [I12.9, N18.4] MICROSCOPIC EXAMINATION Routine 05/25/2024 11:15 AM ASSURANCE AUDITOR URINALYSIS AND REFLEX TO MICROSCOPIC Routine 05/25/2024 11:15 AM ASSURANCE AUDITOR CKD stage 4 secondary to hypertension (HCC) IgA nephropathy Hypertension, unspecified type FERRITIN Routine 05/25/2024 11:15 AM ASSURANCE AUDITOR CKD stage 4 secondary to hypertension (HCC) IgA nephropathy Hypertension, unspecified type IRON PROFILE W/ IBC Routine 05/25/2024 1 1:15 AM ASSURANCE AUDITOR CKD stage 4 secondary to hypertension (HCC) IgA nephropathy Hypertension, unspecified type CBC WITH AUTO DIFFERENTIAL Routine 05/25/2024 11:15 AM ASSURANCE AUDITOR CKD stage 4 secondary to hypertension (HCC) IgA nephropathy Hypertension, unspecified type RENAL FUNCTION PANEL Routine 05/25/2024 11:15 AM ASSURANCE AUDITOR CKD stage 4 secondary to hypertension (HCC) IgA nephropathy Hypertension, unspecified type PTH Routine 03/19/2024 10:55 AM ASSURANCE AUDITOR CKD (chronic kidney disease) stage 5, GFR less than 15 ml/min (HCC) CYSTATIN C Routine 03/19/2024 10:55 AM ASSURANCE AUDITOR CKD (chronic kidney disease) stage 5, GFR less than 15 ml/min (HCC) HEPATITIS PANEL, ACUTE STAT 01/25/2024 6:36 AM ASSURANCE AUDITOR from Last 3 Months or Most Recently Relevant to Health Maintenance Results * (ABNORMAL) eGFR (05/26/2024 1:06 PM ASSURANCE AUDITOR) eGFR 7(L) >=60 mL/min/1. 73 m2 Comment: [...] last reviewed 2021. Blood 05/26/2024 1:06 PM ASSURANCE AUDITOR 05/26/2024 1:25 PM ASSURANCE AUDITOR us Renuka Balderas MD PhD LAB BLOOD ORDERABLES Final [facility] Department [place] [address] * Differential, auto (05/26/2024 1:06 PM ASSURANCE AUDITOR) Neutrophil abs 4.7 1.5 - 6.5 K/cumm Imm gran abs 0.0 0.0 - 0.1 K/cumm [facility] Lymphocyte abs 1.4 0.8 - 3.3 K/cumm [facility] Monocyte abs 0.4 0.2 - 0.8 K/cumm [facility] Eosinophil abs 0.0 0.0 - 0.5 K/cumm [facility] Basophil abs 0.0 0.0 - 0.1 K/cumm [facility] Neutrophil pct 72.4 % [facility] Comment: Interpretive Data Percent cell count reference ranges are not reported, since discordance with absolute values may lead to misinterpretation of CBC data. Current Interpretive Data was last revised on 2017. Imm gran pct 0.3 % [facility] Comment: Interpretive Data Percent cell count reference ranges are not reported, since discordance with absolute values may lead to misinterpretation of CBC data. Current Interpretive Data was last revised on 2017. Lymphocyte pct 21.3 % [facility] Comment: Interpretive Data Percent cell count reference ranges are not reported, since discordance with absolute values may lead to misinterpretation of CBC data. Current Interpretive Data was last revised on 2017. Monocyte pct 5.5 % [facility] Comment: Interpretive Data Percent cell count reference ranges are not reported, since discordance with absolute values may lead to misinterpretation of CBC data. Current Interpretive Data was last revised on 2017. Eosinophil pct 0.0 % [facility] Comment: Interpretive Data Percent cell count reference ranges are not reported, since discordance with absolute values may lead to misinterpretation of CBC data. Current Interpretive Data was last revised on 2017. Basophil pct 0.5 % [facility] Comment: Interpretive Data Percent cell count reference ranges are not reported, since discordance with absolute values may lead to misinterpretation of CBC data. Current Interpretive Data was last revised on 2017. Blood 05/26/2024 1:06 PM ASSURANCE AUDITOR 05/26/2024 1:19 PM ASSURANCE AUDITOR us Renuka Balderas MD PhD LAB BLOOD ORDERABLES Final Resu lt [facility] Department [place] [address] * (ABNORMAL) CBC with auto differential (05/26/2024 1:06 PM ASSURANCE AUDITOR) WBC 6.5 3.8 - 9.9 K/cumm Hgb 9.4(L) 13.0 - 17.5 g/dL [facility] Hct 26.2(L) 38.9 - 50.3 % [facility] Plt 292 150 - 400 K/cumm [facility] MPV 9.4 9.1 - 12.3 fL [facility] RBC 3.31(L) 4.30 - 5.80 M/cumm [facility] MCV 79.2(L) 81.3 - 96.4 fL [facility] MCH 28.4 27.1 - 33.3 pg [facility] MCHC 35.9(H) 32.3 - 35.7 g/dL [facility] RDW CV 12.8 11.1 - 14.9 % [facility] RDW SD 36.0 35.7 - 48.1 fL [facility] NRBC abs 0.00 0.00 - 0.01 K/cumm [facility] Blood 05/26/2024 1:06 PM ASSURANCE AUDITOR 05/26/2024 1:19 PM ASSURANCE AUDITOR us Renuka Balderas MD PhD LAB BLOOD ORDERABLES Final Resu lt [facility] Department [place] [address] * (ABNORMAL) Vitamin D 25 hydroxy (05/26/2024 1:06 PM ASSURANCE AUDITOR) Pathologist [facility] Vitamin D 25-OH 24(L) 30 - 80 ng/mL Blood 05/26/2024 1:06 PM ASSURANCE AUDITOR 05/26/2024 1:19 PM ASSURANCE AUDITOR us Renuka Balderas MD PhD LAB BLOOD ORDERABLES Final Resu lt Performing Organization Address City/[facility]/ZIP Co de Phone Number [facility] [address] [place] [address] * (ABNORMAL) PTH (05/26/2024 1:06 PM ASSURANCE AUDITOR) Pathologist [facility] PTH 482(H) 15 - 65 pg/mL Blood 05/26/2024 1:06 PM ASSURANCE AUDITOR 05/26/2024 1:19 PM ASSURANCE AUDITOR us Renuka Balderas MD PhD LAB BLOOD ORDERABLES Final Resu lt Performing Organization Address [facility]/[place]UST de Phone Number [facility] [place] [address] * (ABNORMAL) Ferritin (05/26/2024 1:06 PM ASSURANCE AUDITOR) [facility] Ferritin 603(H) 30 - 400 ng/mL Blood 05/26/2024 1:06 PM ASSURANCE AUDITOR 05/26/2024 1:19 PM ASSURANCE AUDITOR us Renuka Balderas MD PhD LAB BLOOD ORDERABLES Final Resu lt Performing Organization Address [facility] Co de Phone Number [facility] [place] [address] * (ABNORMAL) Renal function panel (05/26/2024 1:06 PM ASSURANCE AUDITOR) Pathologist [facility] Sodium 142 135 - 145 mmol/L Potassium, pl 3.9 3.3 - 4.9 mmol/L [facility] Chloride 102 97 - 110 mmol/L [facility] CO2 23 22 - 32 mmol/L [facility] Anion gap 17(H) 2 - 15 mmol/L [facility] BUN 100(H) 6 - 25 mg/dL [facility] Creatinine 10.13(H) 0.80 - 1.30 mg/dL [facility] Glucose 106 70 - 199 mg/dL [facility] Comment: Interpretive Data Fasting glucose >/= [...] classification and Diagnosis of Diabetes Diabetes Care 2021; 46: S19-S40. Current interpretive data was last revised 2022. Calcium 9.5 8.5 - 10.3 mg/dL [facility] Phosphorus, pl 7.8(H) 2.3 - 4.5 mg/dL [facility] Albumin 4.1 3.5 - 5.0 g/dL [facility] Blood 05/26/2024 1:06 PM ASSURANCE AUDITOR 05/26/2024 1:19 PM ASSURANCE AUDITOR us Renuka Balderas MD PhD LAB BLOOD ORDERABLES Final Resu lt [facility] Department [place] [address] * (ABNORMAL) Microscopic Examination (05/25/2024 11:15 AM ASSURANCE AUDITOR) Pathologist [facility] WBC, ur 0-5 0 - 5 /hpf [facility] - 01 RBC, ur 11-30(A) 0 - 2 /hpf [facility] - 01 Epithelial cells, non-renal, ur None seen 0 - 10 /hpf [facility] - 01 Casts None seen None seen /lpf [facility] - 01 Bacteria, ur None seen None seen/Few [facility] - 01 05/25/2024 11:1 5 AM ASSURANCE AUDITOR 05/25/2024 Narrative [facility] - 05/26/2024 7:09 AM ASSURANCE AUDITOR Performed at: [facility] [id number] Exploration Engineer: Silverio Apodaca PhD, Phone: [phone] Renuka Balderas MD PhD LAB BLOOD ORDERABLES Final Resu [facility] - 01 * (ABNORMAL) Iron profile w/ IBC (05/25/2024 11:15 AM ASSURANCE AUDITOR) [facility] Iron Bind.Cap.(TIBC) 237(L) 250 - 450 ug/dL [facility] - 01 UIBC 173 111 - 343 ug/dL [facility] - 01 Iron 64 38 - 169 ug/dL [facility] - 01 Iron saturation 27 15 - 55 % [facility] - 01 Blood 05/25/2024 11:1 5 AM ASSURANCE AUDITOR 05/25/2024 Narrative [facility] - 05/26/2024 8:11 AM ASSURANCE AUDITOR Performed at: [address] [place], [place] [id number] Exploration Engineer: Silverio Apodaca PhD, Phone: [phone] Renuka Balderas MD PhD LAB BLOOD ORDERABLES Final [facility] Performing Organization Address [facility] Co de Phone Number [facility] - 01 * (ABNORMAL) Urinalysis reflex to microscopic (05/25/2024 11:15 AM ASSURANCE AUDITOR) [facility] Specific [place] 1.013 1.005 - 1.030 [facility] - 01 [...] was performed. Urine 05/25/2024 11:1 5 AM ASSURANCE AUDITOR 05/25/2024 Narrative [facility] - 05/26/2024 7:09 AM ASSURANCE AUDITOR Performed at: - [address] [id number] Exploration Engineer: Silverio Apodaca PhD, Phone: [phone] us Renuka Balderas MD PhD LAB URINE ORDERABLES Final Resu lt [facility] - 01 * (ABNORMAL) CBC with auto differential (05/25/2024 11:15 AM ASSURANCE AUDITOR) WBC 6.5 3.4 - 10.8 x10E3/uL [facility] [...] - 01 Blood 05/25/2024 11:1 5 AM ASSURANCE AUDITOR 05/25/2024 Narrative [facility] - 05/26/2024 9:10 AM ASSURANCE AUDITOR Performed at: [address] [id number] Exploration Engineer: Silverio Apodaca PhD, Phone: [phone] Renuka Balderas MD PhD LAB BLOOD ORDERABLES Final Resu lt Performing Organization Address [facility] Co de Phone Number [facility] - * (ABNORMAL) Ferritin (05/25/2024 11:15 AM ASSURANCE AUDITOR) Ferritin 605(H) 30 - 400 ng/mL [facility] - 01 Blood 05/25/2024 11:1 5 AM ASSURANCE AUDITOR 05/25/2024 Narrative [facility] - 05/26/2024 12:10 PM ASSURANCE AUDITOR Performed at: [address] [id number] Exploration Engineer: Silverio Apodaca PhD, Phone: [phone] us Renuka Balderas MD PhD LAB BLOOD ORDERABLES Final Resu lt Performing Organization Address City/[facility]/ZIP Co de Phone Number [facility] - * (ABNORMAL) Renal function panel (05/25/2024 11:15 AM ASSURANCE AUDITOR) Glucose 92 70 - 99 mg/dL [facility] [...] - 01 Blood 05/25/2024 11:1 5 AM ASSURANCE AUDITOR 05/25/2024 Narrative [facility] - 05/26/2024 8:11 AM ASSURANCE AUDITOR Performed at: [address] [id number] Exploration Engineer: Silverio Apodaca PhD, Phone: [phone] us Renuka Balderas MD PhD LAB BLOOD ORDERABLES Final Resu lt Performing Organization Address City/[facility]/ZIP Co de Phone Number [facility] * (ABNORMAL) Cystatin C (03/19/2024 10:55 AM ASSURANCE AUDITOR) Cystatin C 4.39(H) 0.60 - 1.00 mg/L [facility] Blood 03/19/2024 10:5 5 AM ASSURANCE AUDITOR 03/19/2024 Narrative [facility] - 03/23/2024 6:09 AM ASSURANCE AUDITOR Performed at: [address] [id number] Exploration Engineer: Brenda Timmons MD, Phone: [phone] us Mireya Vines NP LAB BLOOD ORDERABLE S Final Result Performing Organization Address City/[facility]/ZIP Co de Phone Number [facility] * (ABNORMAL) PTH (03/19/2024 10:55 AM ASSURANCE AUDITOR) PTH Intact 157(H) 15 - 65 pg/mL [facility] - 01 Blood 03/19/2024 10:5 5 AM ASSURANCE AUDITOR 03/19/2024 Narrative [facility] - 03/21/2024 11:06 AM ASSURANCE AUDITOR Performed at: 01 - [facility] [id number] Exploration Engineer: Silverio Apodaca PhD, Phone: [phone] us Mireya Vines NP LAB BLOOD ORDERABLE S Final Result Performing Organization Address City/[facility]/ZIP Co de Phone Number [facility] - 01 * Hepatitis panel, acute Blood (01/25/2024 6:36 AM ASSURANCE AUDITOR) Hep A IgM Nonreactive Nonreactive Hep B core IgM Nonreactive [facility] Hep C Ab Nonreactive Nonreactive [facility] Comment:Antibodies to HCV no t detected. Does NOT exclude the possibility of recent exposure to HCV. Current interpretive data was last revised on 21 HepBsAg Nonreactive Nonreactive [facility] Blood 01/25/2024 6:36 AM ASSURANCE AUDITOR 01/25/2024 6:48 AM ASSURANCE AUDITOR us Jet Oliver MD LAB MICROBIOLOGY - GENERA L ORDERABLES Final Result Performing Organization Address City/[facility] Co de Phone Number [facility] Department [place] [address] from Last 3 Months or Most Recently Relevant to Health Maintenance Insurance [facility] CHOICE PLUS [facility] HMO/PPO Address: [address] [address] [place] [id number] [facility] HMO/PPO Address: [address] [place] [address] [facility] HMO/PPO Address: [address] [place], [place] [id number] [facility] HMO/PPO Address: [address] [address] [place] [address] [employer] [facility] Advance Directives For more information, please contact: [phone] Documents on File Type Date Recorded Patient Plant Care Worker Expl anation ADVANCE DIRECTIVE 02/03/2024 11:01 AM POW ER OF GEOSPATIAL INFORMATION SCIENTIST-MEDICAL ADVANCE DIRECTIVE 01/30/2024 12:41 PM ADVANCE DIRECTIVE 01/30/2024 12:41 PM KEVEN R OF GEOSPATIAL INFORMATION SCIENTIST-MEDICAL * Full Code (Latest Code Status on File) Date Activated Date Inactivated Comments 01/25/2024 4:58 AM 01/31/2024 6:07 PM Healthcare Agents on File Name Relationship Healthcare Agent Relationshi p Communication Eleonora Alba Mother Health Care Agent Care Teams Plant Physiology Teacher Relationship Specialty Start Date End Date Yair Matthew MD [address] [place] [address] PCP - General Family Medicine 01/26/24 Renuka Balderas MD PhD [address] [facility] [address] DIV IM NEPHROLOGY [place], [place] [id number] Referring Physician Nephrology 04/15/24 Christina Stringer, RN [address] [facility] [phone] [place] [address] Starch Mangle Tender 04/15/24
--- OUTSIDE RECORDS SUMMARY | 2024-05-26 15:25 | XMS_ITS | Encounter Summary ---
Author Organization [facility] Address [address] [place] [address] Phone Care Team Providers Care Senior Reliability Engineer Name Role Phone Yair Matthew MD Primary Care Provider [phone] Renuka Balderas MD PhD Unavailable [phone] Christina Stringer RN Unavailable [phone] Encounter Details Date Type Department Care Team (Late st Contact Info) Description 05/26/2024 Orders Only [facility] Nephrology [address] [facility] 5th [place] [address] [place] [address] Renuka Balderas MD PhD [address] [place] [address] Social History Tobacco Use Types Packs/Day Years [...] on file 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 QUALITY ASSURANCE QA LAB ANALYST Gender Identity Not on file Sexual Orientation Not on file documented as of this encounter Plan of Treatment Not on file documented as of this encounter Visit Diagnoses Not on filedocumented in this encounter Care Teams Senior Reliability Engineer Relationship Specialty Start Date End Date Yair Matthew MD [address] [facility] [address] [place] [address] PCP - General Family Medicine 01/26/24 Renuka Balderas MD PhD [address] [facility] [address] [place] [address] Referring Physician Nephrology 04/15/24 Christina Stringer, RN [address] [facility] [phone] [place] [address] Dredge Lever Operator 04/15/24 documented as of this encounter
--- OUTSIDE RECORDS SUMMARY | 2024-05-26 15:25 | XMS_ITS ---
Author Organization [facility] Address [address] [place] [address] Care Team Providers Care Senior Sustainability Consultant Name Role Phone Yair Matthew MD Primary Care Provider [phone] Renuka Balderas MD PhD Unavailable [phone] Christina Stringer RN Unavailable [phone] Transplant Episode Kidney Candidate [facility] ([place], [place]) - [facility] Evaluation began on 04/21/2024 Marked as Active on 04/21/2024 Reason: Evaluation - Standard Kidney CoordinatorChristina Stringer RN Email: N/A Scores Score Value Updated Exceptions/Reas ons CPRA Not available EPTS (Calc) 1 05/26/2024 [place] Organ Diagnosis Organ Primary Contributory Kidney IgA Nephropathy Care Team Name Role Phone Fax Email Christina Stringer RN Kidney Coordinator [phone] N/A Jaz Medina Primary Boiler Assistant Operator N/A N/A N/A Elena Wood Sales Communications Manager [phone] N/A N/A Renuka Balderas MD PhD Referring Physician [phone] N/A Events Pre-Transplant Referred: 04/15/2024 Evaluation began: 04/21/2024
--- OUTSIDE RECORDS SUMMARY | 2024-05-26 15:25 | XMS_ITS | Referral Summary ---
Author Organization [facility] Address [address] [place] [address] Care Team Providers Care Furniture Manager Name Role Phone Lori Beck MD Primary Care Provider [phone] Source Comments [facility],non-owned Affiliates and Associated Physician Practices is amultiple site organization consisting of ambulatory clinics and hospital sitesin [place], [place], [place] and [place]. This disclosure is being madepursuant to the Care Everywhere program and may not contain all information available regarding this patient. Last updated 17.[facility] Beyond Verbal Allergies Active Allergy Reactions Criticality Noted Date [...] Orientation Not on file Plan of Treatment Not on file Care Teams Furniture Manager Relationship Specialty Start Date End Date Lori Beck MD [facility] [address] [place] [address] PCP - General 02/18/11
--- OUTSIDE RECORDS SUMMARY | 2024-05-26 15:25 | XMS_ITS | Encounter Summary ---
Author Organization [facility] Healthcare Address [address] [place] [address] Care Team Providers Care Surveillance Sensor Operator Name Role Phone Yair Matthew MD Primary Care Provider [phone] Renuka Balderas MD PhD Unavailable [phone] Christina Stringer RN Unavailable [phone] Encounter Details Date Type Department Care Team (Late st Contact Info) Description 05/26/2024 3:00 PM CONCRETE FINISHING MACHINE OPERATOR Lab [facility] ([facility]) [address] [place] [id number] 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) [...] on file 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 CONCRETE FINISHING MACHINE OPERATOR Gender Identity Not on file Sexual Orientation Not on file documented as of this encounter Plan of Treatment Not on file documented as of this encounter Procedures Procedure Name Priority Date/Time Associated Diagnosis Comments EGFR Routine 05/26/2024 1:06 PM CONCRETE FINISHING MACHINE OPERATOR 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) ([facility]) [I12.9, N18.4] DIFFERENTIAL AUTO Routine 05/26/2024 1:0 6 PM CONCRETE FINISHING MACHINE OPERATOR IgA nephropathy Anemia in stage 4 chronic kidney disease (HCC) CBC WITH AUTO DIFFERENTIAL Routine 05/26/2024 1:06 PM CONCRETE FINISHING MACHINE OPERATOR IgA nephropathy Anemia in stage 4 chronic kidney disease (HCC) VITAMIN D 25 HYDROXY Routine 05/26/2024 1:06 PM CONCRETE FINISHING MACHINE OPERATOR 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) (HCC) [I12.9, N18.4] PTH Routine 05/26/2024 1:06 PM CONCRETE FINISHING MACHINE OPERATOR 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) (HCC) [I12.9, N18.4] FERRITIN Routine 05/26/2024 1:06 PM CONCRETE FINISHING MACHINE OPERATOR IgA nephropathy Anemia in stage 4 chronic kidney disease (HCC) RENAL FUNCTION PANEL Routine 05/26/2024 1:06 PM CONCRETE FINISHING MACHINE OPERATOR 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) (HCC) [I12.9, N18.4] documented in this encounter Results * (ABNORMAL) eGFR (05/26/2024 1:06 PM CONCRETE FINISHING MACHINE OPERATOR) eGFR 7(L) >=60 mL/min/1. 73 m2 Comment: [...] last reviewed 2021. Blood 05/26/2024 1:06 PM CONCRETE FINISHING MACHINE OPERATOR 05/26/2024 1:25 PM CONCRETE FINISHING MACHINE OPERATOR us Renuka Balderas MD PhD LAB BLOOD ORDERABLES Final Resu lt [facility] [address] [facility] Department [place] [address] * Differential, auto (05/26/2024 1:06 PM CONCRETE FINISHING MACHINE OPERATOR) Neutrophil abs 4.7 1.5 - 6.5 K/cumm Imm gran abs 0.0 0.0 - 0.1 K/cumm [facility] Lymphocyte abs 1.4 0.8 - 3.3 K/cumm [facility] Monocyte abs 0.4 0.2 - 0.8 K/cumm [facility] Eosinophil abs 0.0 0.0 - 0.5 K/cumm [facility] Basophil abs 0.0 0.0 - 0.1 K/cumm [facility] Neutrophil pct 72.4 % [facility] Comment: Interpretive Data Percent cell count reference ranges are not reported, since discordance with absolute values may lead to misinterpretation of CBC data. Current Interpretive Data was last revised on 2017. Imm gran pct 0.3 % [facility] Comment: Interpretive Data Percent cell count reference ranges are not reported, since discordance with absolute values may lead to misinterpretation of CBC data. Current Interpretive Data was last revised on 2017. Lymphocyte pct 21.3 % [facility] Comment: Interpretive Data Percent cell count reference ranges are not reported, since discordance with absolute values may lead to misinterpretation of CBC data. Current Interpretive Data was last revised on 2017. Monocyte pct 5.5 % [facility] Comment: Interpretive Data Percent cell count reference ranges are not reported, since discordance with absolute values may lead to misinterpretation of CBC data. Current Interpretive Data was last revised on 2017. Eosinophil pct 0.0 % [facility] Comment: Interpretive Data Percent cell count reference ranges are not reported, since discordance with absolute values may lead to misinterpretation of CBC data. Current Interpretive Data was last revised on 2017. Basophil pct 0.5 % [facility] Comment: Interpretive Data Percent cell count reference ranges are not reported, since discordance with absolute values may lead to misinterpretation of CBC data. Current Interpretive Data was last revised on 2017. Blood 05/26/2024 1:06 PM CONCRETE FINISHING MACHINE OPERATOR 05/26/2024 1:19 PM CONCRETE FINISHING MACHINE OPERATOR us Renuka Balderas MD PhD LAB BLOOD ORDERABLES Final Resu lt [facility] [address] [facility] Department [place] [address] * (ABNORMAL) CBC with auto differential (05/26/2024 1:06 PM CONCRETE FINISHING MACHINE OPERATOR) [facility] WBC 6.5 3.8 - 9.9 K/cumm Hgb 9.4(L) 13.0 - 17.5 g/dL [facility] Hct 26.2(L) 38.9 - 50.3 % [facility] Plt 292 150 - 400 K/cumm [facility] MPV 9.4 9.1 - 12.3 fL [facility] RBC 3.31(L) 4.30 - 5.80 M/cumm [facility] MCV 79.2(L) 81.3 - 96.4 fL [facility] MCH 28.4 27.1 - 33.3 pg [facility] MCHC 35.9(H) 32.3 - 35.7 g/dL [facility] RDW CV 12.8 11.1 - 14.9 % [facility] RDW SD 36.0 35.7 - 48.1 fL [facility] NRBC abs 0.00 0.00 - 0.01 K/cumm [facility] Blood 05/26/2024 1:06 PM CONCRETE FINISHING MACHINE OPERATOR 05/26/2024 1:19 PM CONCRETE FINISHING MACHINE OPERATOR us Renuka Balderas MD PhD LAB BLOOD ORDERABLES Final Resu lt Performing Organization Address City/[facility] Co de Phone Number [facility] [place] [address] * (ABNORMAL) Ferritin (05/26/2024 1:06 PM CONCRETE FINISHING MACHINE OPERATOR) [facility] Ferritin 603(H) 30 - 400 ng/mL Blood 05/26/2024 1:06 PM CONCRETE FINISHING MACHINE OPERATOR 05/26/2024 1:19 PM CONCRETE FINISHING MACHINE OPERATOR us Renuka Balderas MD PhD LAB BLOOD ORDERABLES Final Resu lt Performing Organization Address [facility] Co de Phone Number [facility] Department [place] [address] * (ABNORMAL) Renal function panel (05/26/2024 1:06 PM CONCRETE FINISHING MACHINE OPERATOR) Sodium 142 135 - 145 mmol/L Potassium, pl 3.9 3.3 - 4.9 mmol/L [facility] Chloride 102 97 - 110 mmol/L [facility] CO2 23 22 - 32 mmol/L [facility] Anion gap 17(H) 2 - 15 mmol/L [facility] BUN 100(H) 6 - 25 mg/dL [facility] Creatinine 10.13(H) 0.80 - 1.30 mg/dL [facility] Glucose 106 70 - 199 mg/dL [facility] Comment: Interpretive Data Fasting glucose >/= 126 [...] 2022. Calcium 9.5 8.5 - 10.3 mg/dL [facility] Phosphorus, pl 7.8(H) 2.3 - 4.5 mg/dL [facility] Albumin 4.1 3.5 - 5.0 g/dL [facility] Blood 05/26/2024 1:06 PM CONCRETE FINISHING MACHINE OPERATOR 05/26/2024 1:19 PM CONCRETE FINISHING MACHINE OPERATOR us Renuka Balderas MD PhD LAB BLOOD ORDERABLES Final Resu lt [facility] [place] [address] * (ABNORMAL) Vitamin D 25 hydroxy (05/26/2024 1:06 PM CONCRETE FINISHING MACHINE OPERATOR) Pathologist [facility] Vitamin D 25-OH 24(L) 30 - 80 ng/mL Blood 05/26/2024 1:06 PM CONCRETE FINISHING MACHINE OPERATOR 05/26/2024 1:19 PM CONCRETE FINISHING MACHINE OPERATOR us Renuka Balderas MD PhD LAB BLOOD ORDERABLES Final [facility]u [facility] [place] [address] * (ABNORMAL) PTH (05/26/2024 1:06 PM CONCRETE FINISHING MACHINE OPERATOR) PTH 482(H) 15 - 65 pg/mL Blood 05/26/2024 1:06 PM CONCRETE FINISHING MACHINE OPERATOR 05/26/2024 1:19 PM CONCRETE FINISHING MACHINE OPERATOR Renuka Balderas MD PhD LAB BLOOD ORDERABLES Final Resu lt Performing Organization Address [facility] Co de Phone Number [facility] Department [place] [address] documented in this encounter Visit Diagnoses Diagnosis 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) (HCC) [I12.9, N18.4] IgA nephropathy Nephritis and nephropathy, not specified as acute or chronic, with unspecified pathological lesion in kidney Anemia in stage 4 chronic kidney disease (HCC) documented in this encounter Care Teams Surveillance Sensor Operator Relationship Specialty Start Date End Date Yair Matthew MD [address] [facility] [address] [place], [place] [id number] PCP - General Family Medicine 01/26/24 Renuka Balderas MD PhD [address] [facility] [address] [place] [address] Referring Physician Nephrology 04/15/24 Christina Stringer, RN [address] [facility] [phone] [place], [place] [id number] Salesperson [employer] 04/15/24 documented as of this encounter
[2024-05-26] MEDS: SODIUM CHLORIDE 0.9% IV 1,000 ML 999 ML IV CONT (15:27)
[2024-05-26 15:30] VITALS: BP 145/98; PULSE 73; RESP 16; O2SAT 100
[2024-05-26 16:35] LABS: Anion Gap 16 mmol/L (4-12); Blood Urea Nitrogen 96 mg/dL (9-20); Calcium 8.6 mg/dL (8.4-10.2); Carbon Dioxide 18 mmol/L (22-30); Chloride 104 mmol/L (98-107); Estimated CRCL calculation 16 ml/min; Estimated Glomerular Filt Rate 7; Glucose 85 mg/dL (65-110); Potassium 3.3 mmol/L (3.4-5.0); Sodium 138 mmol/L (137-145)
--- OUTSIDE RECORDS SUMMARY | 2024-05-26 16:46 | XMS_ITS | Referral Summary ---
Author Organization [facility] Address [address] [place] [address] Care Team Providers Care Pipe Organ Tuner And Repairer Name Role Phone Yair Matthew MD Primary Care Provider [phone] Renuka Balderas MD PhD Unavailable [phone] Christina Stringer RN Unavailable [phone] Encounters Date Type Department Care Team Description 05/26/[address] [facility] Surgery [address] [facility] Advanced Medicine 12th [place] [address] [place] [phone] Rosalba Locke MD 05/26/2024 Results Follow-Up [facility] Nephrology [address] [place] [address] Advanced Medicine 5th Floor [address] [place] [phone] Renuka Balderas MD PhD 05/26/2024 Orders Only [facility] Nephrology [address] [place] [address] Advanced Medicine 5th [place] [address] [place] [phone] Renuka Balderas MD PhD 05/26/2024 Orders Only 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 Nephrology [address] [place] [address] Arrived 05/26/2024 11:20 AM AUTOMATIC SCREWMAKER Office Visit 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 Nephrology [address] [place] [address] 5th [place] [address] [place] [address] Renuka Balderas MD PhD Appointment Reminder Call 04/22/2024 Documentation [facility] Transplant Kidney [address] [place] [address] [phone] [place], [place] [phone] Jaz Medina Evaluation Scheduling 04/22/2024 4:40 PM AUTOMATIC SCREWMAKER Telemedicine 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) (HCC) [I12.9, N18.4] (Primary Dx) 04/21/2024 Telephone [facility] Transplant Kidney [address] [place] [address] Mailstop [phone] [place], [place] [phone] Christina Stringer RN Kidney Eval 04/21/2024 Telephone [facility] Transplant Kidney [address] [place] [address] Mailop [phone] [place], [place] [phone] Christina Stringer base brander - Kidney Txp 04/21/2024 Telephone [facility] Transplant Kidney [address] [place] [address] Mailstop [phone] [place] [address] Jaz Medina 04/20/[address] [facility] Transplant Kidney [address] [facility] [address] Mailstop [phone] [place] [address] Christina Stringer, base brander - Kidney Txp 04/19/[address] [facility] Transplant Kidney [address] [facility] [address] Mailstop [phone] [place] [address] Salma Painter Referral - Kidney Txp 04/16/[address] [facility] Transplant Kidney [address] [facility] [address] Mailstop [phone] [place] [address] Christina Stringer, base brander - Kidney Txp 04/15/[address] [facility] Transplant Kidney [address] [facility] 3401 Mailstop [phone] [place] [address] Jaz Medina Referral - Kidney Txp 04/09/[address] [facility] Nephrology [address] [place] [address] Advanced Medicine 5th [place] [phone] Jaida Varela, wood heel back liner start 03/05/2024 Orders Only [facility] Nephrology [address] [place] [address] 5th [place] [address] [place] [phone] Renuka Balderas MD PhD CKD (chronic kidney disease) stage 5, GFR less than 15 ml/min (HCC) (Primary Dx) 03/02/[address] [facility] Division of Nephrology [address] [place] [phone] Sherry Castle RN 03/02/2024 11:00 AM AUTOMATIC SCREWMAKER Telemedicine [facility] Nephrology [address] [place] [phone] Mireya Vines NP CKD (chronic kidney disease) stage 5, GFR less than 15 ml/min (HCC) (Primary Dx) 03/01/[address] [facility] Nephrology [address] [place] [address] Advanced Medicine 5th [place] [address] [place] [address] Denise Boyd from Last 3 Months Allergies [...] mouth once a week 8 capsule 04/22/19 025 Discontinued Active Problems Problem Noted Date Diagnosed Date Hypertensive emergency 01/29/2024 Assessment & Plan (01/29/2024 12:37 PM AUTOMATIC SCREWMAKER): C/w with current meds : - chlorthalidone 25 mg - Coreg 25mg PO BID - amlodipine 10mg PO daily - doxazosin 2mg PO nightly - Hydralazine 25 mg TID Vitamin D deficiency 01/29/2024 Assessment & Plan (01/29/2024 12:32 PM AUTOMATIC SCREWMAKER): -01/24 vit D 10 -Continue vitamin D 50,000 units PO weekly Anxiety 01/29/2024 Assessment & Plan (01/29/2024 12:32 PM AUTOMATIC SCREWMAKER): Continue home venlafaxine 150mg PO daily IgA nephropathy 01/24/2024 Assessment & Plan (01/30/2024 3:59 PM AUTOMATIC SCREWMAKER): Suspected although not biopsy proven. Follows with [...] on file 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 AUTOMATIC SCREWMAKER Gender Identity Not on file Sexual Orientation Not on file Last Filed Vital Signs Vital Sign Reading Time Taken Comments Blood Pressure 144/89 05/26/2024 11:38 AM AUTOMATIC SCREWMAKER Pulse 89 05/26/2024 11:38 AM AUTOMATIC SCREWMAKER Temperature 36.9 C (98.4 F) 05/26/2024 11:38 AM AUTOMATIC SCREWMAKER Respiratory Rate 16 01/30/2024 7:15 PM AUTOMATIC SCREWMAKER Oxygen Saturation 98% 01/31/2024 7:15 AM AUTOMATIC SCREWMAKER Inhaled Oxygen Concentration - - Weight 120.2 kg (265 lb) 05/26/2024 11:38 AM AUTOMATIC SCREWMAKER Height 193 cm (6' 4 ) 05/26/2024 11:38 AM AUTOMATIC SCREWMAKER Body Mass Index 32.26 05/26/2024 11:38 AM AUTOMATIC SCREWMAKER Plan of Treatment Not on file Procedures Procedure Name Priority Date/Time Associated Diagnosis Comments EGFR Routine 05/26/2024 1:06 PM AUTOMATIC SCREWMAKER 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) (HCC) [I12.9, N18.4] DIFFERENTIAL AUTO Routine 05/26/2024 1:0 6 PM AUTOMATIC SCREWMAKER IgA nephropathy Anemia in stage 4 chronic kidney disease (HCC) CBC WITH AUTO DIFFERENTIAL Routine 05/26/2024 1:06 PM AUTOMATIC SCREWMAKER IgA nephropathy Anemia in stage 4 chronic kidney disease (HCC) FERRITIN Routine 05/26/2024 1:06 PM AUTOMATIC SCREWMAKER IgA nephropathy Anemia in stage 4 chronic kidney disease (HCC) RENAL FUNCTION PANEL Routine 05/26/2024 1:06 PM AUTOMATIC SCREWMAKER 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) (HCC) [I12.9, N18.4] VITAMIN D 25 HYDROXY Routine 05/26/2024 1:06 PM AUTOMATIC SCREWMAKER 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) (HCC) [I12.9, N18.4] PTH Routine 05/26/2024 1:06 PM AUTOMATIC SCREWMAKER 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) (HCC) [I12.9, N18.4] MICROSCOPIC EXAMINATION Routine 05/25/2024 11:15 AM AUTOMATIC SCREWMAKER URINALYSIS AND REFLEX TO MICROSCOPIC Routine 05/25/2024 11:15 AM AUTOMATIC SCREWMAKER CKD stage 4 secondary to hypertension (HCC) IgA nephropathy Hypertension, unspecified type FERRITIN Routine 05/25/2024 11:15 AM AUTOMATIC SCREWMAKER CKD stage 4 secondary to hypertension (HCC) IgA nephropathy Hypertension, unspecified type IRON PROFILE W/ IBC Routine 05/25/2024 1 1:15 AM AUTOMATIC SCREWMAKER CKD stage 4 secondary to hypertension (HCC) IgA nephropathy Hypertension, unspecified type CBC WITH AUTO DIFFERENTIAL Routine 05/25/2024 11:15 AM AUTOMATIC SCREWMAKER CKD stage 4 secondary to hypertension (HCC) IgA nephropathy Hypertension, unspecified type RENAL FUNCTION PANEL Routine 05/25/2024 11:15 AM AUTOMATIC SCREWMAKER CKD stage 4 secondary to hypertension (HCC) IgA nephropathy Hypertension, unspecified type PTH Routine 03/19/2024 10:55 AM AUTOMATIC SCREWMAKER CKD (chronic kidney disease) stage 5, GFR less than 15 ml/min (HCC) CYSTATIN C Routine 03/19/2024 10:55 AM AUTOMATIC SCREWMAKER CKD (chronic kidney disease) stage 5, GFR less than 15 ml/min (HCC) HEPATITIS PANEL, ACUTE STAT 01/25/2024 6:36 AM AUTOMATIC SCREWMAKER from Last 3 Months or Most Recently Relevant to Health Maintenance Results * (ABNORMAL) eGFR (05/26/2024 1:06 PM AUTOMATIC SCREWMAKER) eGFR 7(L) >=60 mL/min/1. 73 m2 Comment: [...] last reviewed 2021. Blood 05/26/2024 1:06 PM AUTOMATIC SCREWMAKER 05/26/2024 1:25 PM AUTOMATIC SCREWMAKER Renuka Balderas MD PhD LAB BLOOD ORDERABLES Final Resu lt [facility] [place] [address] * Differential, auto (05/26/2024 1:06 PM AUTOMATIC SCREWMAKER) Neutrophil abs 4.7 1.5 - 6.5 K/cumm Imm gran abs 0.0 0.0 - 0.1 K/cumm [facility] Lymphocyte abs 1.4 0.8 - 3.3 K/cumm [facility] Monocyte abs 0.4 0.2 - 0.8 K/cumm [facility] Eosinophil abs 0.0 0.0 - 0.5 K/cumm [facility] Basophil abs 0.0 0.0 - 0.1 K/cumm [facility] Neutrophil pct 72.4 % [facility] Comment: Interpretive Data Percent cell count reference ranges are not reported, since discordance with absolute values may lead to misinterpretation of CBC data. Current Interpretive Data was last revised on 2017. Imm gran pct 0.3 % [facility] Comment: Interpretive Data Percent cell count reference ranges are not reported, since discordance with absolute values may lead to misinterpretation of CBC data. Current Interpretive Data was last revised on 2017. Lymphocyte pct 21.3 % [facility] Comment: Interpretive Data Percent cell count reference ranges are not reported, since discordance with absolute values may lead to misinterpretation of CBC data. Current Interpretive Data was last revised on 2017. Monocyte pct 5.5 % [facility] Comment: Interpretive Data Percent cell count reference ranges are not reported, since discordance with absolute values may lead to misinterpretation of CBC data. Current Interpretive Data was last revised on 2017. Eosinophil pct 0.0 % [facility] Comment: Interpretive Data Percent cell count reference ranges are not reported, since discordance with absolute values may lead to misinterpretation of CBC data. Current Interpretive Data was last revised on 2017. Basophil pct 0.5 % [facility] Comment: Interpretive Data Percent cell count reference ranges are not reported, since discordance with absolute values may lead to misinterpretation of CBC data. Current Interpretive Data was last revised on 2017. Blood 05/26/2024 1:06 PM AUTOMATIC SCREWMAKER 05/26/2024 1:19 PM AUTOMATIC SCREWMAKER us Renuka Balderas MD PhD LAB BLOOD ORDERABLES Final Resu lt [facility] [place] [address] * (ABNORMAL) CBC with auto differential (05/26/2024 1:06 PM AUTOMATIC SCREWMAKER) WBC 6.5 3.8 - 9.9 K/cumm Hgb 9.4(L) 13.0 - 17.5 g/dL [facility] Hct 26.2(L) 38.9 - 50.3 % [facility] Plt 292 150 - 400 K/cumm [facility] MPV 9.4 9.1 - 12.3 fL [facility] RBC 3.31(L) 4.30 - 5.80 M/cumm [facility] MCV 79.2(L) 81.3 - 96.4 fL [facility] MCH 28.4 27.1 - 33.3 pg [facility] MCHC 35.9(H) 32.3 - 35.7 g/dL [facility] RDW CV 12.8 11.1 - 14.9 % [facility] RDW SD 36.0 35.7 - 48.1 fL [facility] NRBC abs 0.00 0.00 - 0.01 K/cumm [facility] Blood 05/26/2024 1:06 PM AUTOMATIC SCREWMAKER 05/26/2024 1:19 PM AUTOMATIC SCREWMAKER Result Aquilino Balderas MD PhD LAB BLOOD ORDERABLES Final Resu lt Performing Organization Address [facility] de Phone Number [facility] [place] [address] * (ABNORMAL) Vitamin D 25 hydroxy (05/26/2024 1:06 PM AUTOMATIC SCREWMAKER) Vitamin D 25-OH 24(L) 30 - 80 ng/mL Blood 05/26/2024 1:06 PM AUTOMATIC SCREWMAKER 05/26/2024 1:19 PM AUTOMATIC SCREWMAKER Result Aquilino Balderas MD PhD LAB BLOOD ORDERABLES Final Resu lt Performing Organization Address [facility] de Phone Number [facility] [place] [address] * (ABNORMAL) PTH (05/26/2024 1:06 PM AUTOMATIC SCREWMAKER) PTH 482(H) 15 - 65 pg/mL Blood 05/26/2024 1:06 PM AUTOMATIC SCREWMAKER 05/26/2024 1:19 PM AUTOMATIC SCREWMAKER Result Aquilino Balderas MD PhD LAB BLOOD ORDERABLES Final Resu lt Performing Organization Address [facility] de Phone Number [facility] [place] [address] * (ABNORMAL) Ferritin (05/26/2024 1:06 PM AUTOMATIC SCREWMAKER) Ferritin 603(H) 30 - 400 ng/mL Blood 05/26/2024 1:06 PM AUTOMATIC SCREWMAKER 05/26/2024 1:19 PM AUTOMATIC SCREWMAKER Result Aquilino Balderas MD PhD LAB BLOOD ORDERABLES Final Resu lt Performing Organization Address [facility] de Phone Number [facility] [place] [address] * (ABNORMAL) Renal function panel (05/26/2024 1:06 PM AUTOMATIC SCREWMAKER) [facility] Sodium 142 135 - 145 mmol/L Potassium, pl 3.9 3.3 - 4.9 mmol/L [facility] Chloride 102 97 - 110 mmol/L [facility] CO2 23 22 - 32 mmol/L [facility] Anion gap 17(H) 2 - 15 mmol/L [facility] BUN 100(H) 6 - 25 mg/dL [facility] Creatinine 10.13(H) 0.80 - 1.30 mg/dL [facility] Glucose 106 70 - 199 mg/dL [facility] Comment: Interpretive Data Fasting glucose >/= [...] 2022. Calcium 9.5 8.5 - 10.3 mg/dL [facility] Phosphorus, pl 7.8(H) 2.3 - 4.5 mg/dL [facility] Albumin 4.1 3.5 - 5.0 g/dL [facility] Blood 05/26/2024 1:06 PM AUTOMATIC SCREWMAKER 05/26/2024 1:19 PM AUTOMATIC SCREWMAKER us Renuka Balderas MD PhD LAB BLOOD ORDERABLES Final Resu lt [facility] [place] [address] * (ABNORMAL) Microscopic Examination (05/25/2024 11:15 AM AUTOMATIC SCREWMAKER) [facility] WBC, ur 0-5 0 - 5 /hpf [facility] - 01 RBC, ur 11-30(A) 0 - 2 /hpf [facility] - 01 Epithelial cells, non-renal, ur None seen 0 - 10 /hpf [facility] - 01 Casts None seen None seen /lpf [facility] - 01 Bacteria, ur None seen None seen/Few [facility] - 01 05/25/2024 11:1 5 AM AUTOMATIC SCREWMAKER 05/25/2024 Narrative [facility] - 05/26/2024 7:09 AM AUTOMATIC SCREWMAKER Performed at: [address] [id number] Bead Picker: Silverio Apodaca PhD, Phone: [phone] us Renuka Balderas MD PhD LAB BLOOD ORDERABLES Final Resu lt Performing Organization Address [facility] Co de Phone Number [facility] * (ABNORMAL) Iron profile w/ IBC (05/25/2024 11:15 AM AUTOMATIC SCREWMAKER) Pathologist [facility] Iron Bind.Cap.(TIBC) 237(L) 250 - 450 ug/dL [facility] - 01 UIBC 173 111 - 343 ug/dL [facility] - 01 Iron 64 38 - 169 ug/dL [facility] - 01 Iron saturation 27 15 - 55 % [facility] - 01 Blood 05/25/2024 11:1 5 AM AUTOMATIC SCREWMAKER 05/25/2024 Narrative [facility] - 05/26/2024 8:11 AM AUTOMATIC SCREWMAKER Performed at: [address] [id number] Bead Picker: Silverio Apodaca PhD, Phone: [phone] us Renuka Balderas MD PhD LAB BLOOD ORDERABLES Final Resu lt Performing Organization Address [facility]/ZIP Co de Phone Number [facility] * (ABNORMAL) Urinalysis reflex to microscopic (05/25/2024 11:15 AM AUTOMATIC SCREWMAKER) Pathologist [facility] Specific Pearblossom 1.013 1.005 - 1.030 [facility] - 01 [...] was performed. Urine 05/25/2024 11:1 5 AM AUTOMATIC SCREWMAKER 05/25/2024 Narrative [facility] - 05/26/2024 7:09 AM AUTOMATIC SCREWMAKER Performed at: [address] [id number] Bead Picker: Silverio Apodaca PhD, Phone: [phone] us Renuka Balderas MD PhD LAB URINE ORDERABLES [facility] 01 * (ABNORMAL) CBC with auto differential (05/25/2024 11:15 AM AUTOMATIC SCREWMAKER) WBC 6.5 3.4 - 10.8 x10E3/uL [facility] [...] - 01 Blood 05/25/2024 11:1 5 AM AUTOMATIC SCREWMAKER 05/25/2024 Narrative [facility] - 05/26/2024 9:10 AM AUTOMATIC SCREWMAKER Performed at: [address] [place] [id number] Bead Picker: Silverio Apodaca PhD, Phone: [phone] us Renuka Balderas MD PhD LAB BLOOD ORDERABLES Final Resu lt [facility] * (ABNORMAL) Ferritin (05/25/2024 11:15 AM AUTOMATIC SCREWMAKER) Ferritin 605(H) 30 - 400 ng/mL [facility] - 01 Blood 05/25/2024 11:1 5 AM AUTOMATIC SCREWMAKER 05/25/2024 Narrative [facility] - 05/26/2024 12:10 PM AUTOMATIC SCREWMAKER Performed at: [address] [place] [id number] Bead Picker: Silverio Apodaca PhD, Phone: [phone] us Renuka Balderas MD PhD LAB BLOOD ORDERABLES Final Resu lt [facility] * (ABNORMAL) Renal function panel (05/25/2024 11:15 AM AUTOMATIC SCREWMAKER) Glucose 92 70 - 99 mg/dL [facility] [...] - 01 Blood 05/25/2024 11:1 5 AM AUTOMATIC SCREWMAKER 05/25/2024 Narrative [facility] - 05/26/2024 8:11 AM AUTOMATIC SCREWMAKER Performed at: 01 - [address] [id number] Bead Picker: Silverio Apodaca PhD, Phone: [phone] us Renuka Balderas MD PhD LAB BLOOD ORDERABLES Final Resu lt [facility] * (ABNORMAL) Cystatin C (03/19/2024 10:55 AM AUTOMATIC SCREWMAKER) Pathologist [facility] Cystatin C 4.39(H) 0.60 - 1.00 mg/L [facility] - 01 Blood 03/19/2024 10:5 5 AM AUTOMATIC SCREWMAKER 03/19/2024 Narrative [facility] - 03/23/2024 6:09 AM AUTOMATIC SCREWMAKER Performed at: [address] [id number] Bead Picker: Brenda Timmons MD, Phone: [phone] Mireya Vines LEAD BURNER APPRENTICE LAB BLOOD ORDERABLE S Final Result Performing Organization Address City/[facility]/ZIP Co de Phone Number [facility] - * (ABNORMAL) PTH (03/19/2024 10:55 AM AUTOMATIC SCREWMAKER) PTH Intact 157(H) 15 - 65 pg/mL [facility] - 01 Blood 03/19/2024 10:5 5 AM AUTOMATIC SCREWMAKER 03/19/2024 Narrative [facility] - 03/21/2024 11:06 AM AUTOMATIC SCREWMAKER Performed at: [address] [id number] Bead Picker: Silverio Apodaca PhD, Phone: [phone] Mireya Vines NP LAB BLOOD ORDERABLE S Final Result Performing Organization Address City/[facility]/ZIP Co de Phone Number [facility] - * Hepatitis panel, acute Blood (01/25/2024 6:36 AM AUTOMATIC SCREWMAKER) Pathologist [facility] Hep A IgM Nonreactive Nonreactive Hep B core IgM Nonreactive Nonreactive [facility] Hep C Ab Nonreactive Nonreactive [facility] Comment:Antibodies to HCV no t detected. Does NOT exclude the possibility of recent exposure to HCV. Current interpretive data was last revised on 21 HepBsAg Nonreactive Nonreactive [facility] Blood 01/25/2024 6:36 AM AUTOMATIC SCREWMAKER 01/25/2024 6:48 AM AUTOMATIC SCREWMAKER Jet Oliver MD LAB MICROBIOLOGY - GENERA L ORDERABLES Final Result [facility] [place] [address] from Last 3 Months or Most Recently Relevant to Health Maintenance Insurance [facility] CHOICE PLUS [facility] CHOICE PLUS [facility] CHOICE PLUS TRANSPLANT [employer]ANS[employer]ANT [employer] Advance Directives For more information, please contact: [phone] Documents on File Type Date Recorded Patient Spinning Lathe Operator Expl anation ADVANCE DIRECTIVE 02/03/2024 11:01 AM POW ER OF EXECUTIVE ASSISTANT TO PRESIDENT-MEDICAL ADVANCE DIRECTIVE 01/30/2024 12:41 PM ADVANCE DIRECTIVE 01/30/2024 12:41 PM KEVEN R OF EXECUTIVE ASSISTANT TO PRESIDENT-MEDICAL * Full Code (Latest Code Status on File) Date Activated Date Inactivated Comments 01/25/2024 4:58 AM 01/31/2024 6:07 PM Healthcare Agents on File Name Relationship Healthcare Agent [facility] Eleonora Alba Mother Health Care Agent Care Teams Pipe Organ Tuner And Repairer Relationship Specialty Start Date End Date Yair Matthew MD [address] [facility] [address] [place] [address] PCP - General Family Medicine 01/26/24 Renuka Balderas MD PhD [address] [facility] [address] [place] [address] Referring Physician Nephrology 04/15/24 Christina Stringer, RN [address] [facility] [address] [phone] [place] [address] Ballast Inspector 04/15/24
--- OUTSIDE RECORDS SUMMARY | 2024-05-26 16:46 | XMS_ITS | Encounter Summary ---
Author Organization [facility] Healthcare Address [address] [place] [address] Care Team Providers Care Field Operations Coordinator Name Role Phone Yair Matthew MD Primary Care Provider + [phone] Renuka Balderas MD PhD Unavailable [phone] Christina Stringer RN Unavailable [phone] Encounter Details Date Type Department Care Team (Late st Contact Info) Description 05/26/2024 3:00 PM NEGATIVE TURNER Lab [facility] Advanced Medicine (CAM) [address] [place] [id number] 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) [...] on file 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 NEGATIVE TURNER Gender Identity Not on file Sexual Orientation Not on file documented as of this encounter Plan of Treatment Not on file documented as of this encounter Procedures Procedure Name Priority Date/Time Associated Diagnosis Comments EGFR Routine 05/26/2024 1:06 PM NEGATIVE TURNER 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) ([facility]) [I12.9, N18.4] DIFFERENTIAL AUTO Routine 05/26/2024 1:0 6 PM NEGATIVE TURNER IgA nephropathy Anemia in stage 4 chronic kidney disease (HCC) CBC WITH AUTO DIFFERENTIAL Routine 05/26/2024 1:06 PM NEGATIVE TURNER IgA nephropathy Anemia in stage 4 chronic kidney disease (HCC) VITAMIN D 25 HYDROXY Routine 05/26/2024 1:06 PM NEGATIVE TURNER 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) (HCC) [I12.9, N18.4] PTH Routine 05/26/2024 1:06 PM NEGATIVE TURNER 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) (HCC) [I12.9, N18.4] FERRITIN Routine 05/26/2024 1:06 PM NEGATIVE TURNER IgA nephropathy Anemia in stage 4 chronic kidney disease (HCC) RENAL FUNCTION PANEL Routine 05/26/2024 1:06 PM NEGATIVE TURNER 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) (HCC) [I12.9, N18.4] documented in this encounter Results * (ABNORMAL) eGFR (05/26/2024 1:06 PM NEGATIVE TURNER) eGFR 7(L) >=60 mL/min/1. 73 m2 Comment: [...] last reviewed 2021. Blood 05/26/2024 1:06 PM NEGATIVE TURNER 05/26/2024 1:25 PM NEGATIVE TURNER us Renuka Balderas MD PhD LAB BLOOD ORDERABLES Final Resu lt [facility] Department [place] [address] * Differential, auto (05/26/2024 1:06 PM NEGATIVE TURNER) Neutrophil abs 4.7 1.5 - 6.5 K/cumm Imm gran abs 0.0 0.0 - 0.1 K/cumm [facility] Lymphocyte abs 1.4 0.8 - 3.3 K/cumm [facility] Monocyte abs 0.4 0.2 - 0.8 K/cumm [facility] Eosinophil abs 0.0 0.0 - 0.5 K/cumm [facility] Basophil abs 0.0 0.0 - 0.1 K/cumm [facility] Neutrophil pct 72.4 % [facility] Comment: Interpretive Data Percent cell count reference ranges are not reported, since discordance with absolute values may lead to misinterpretation of CBC data. Current Interpretive Data was last revised on 2017. Imm gran pct 0.3 % [facility] Comment: Interpretive Data Percent cell count reference ranges are not reported, since discordance with absolute values may lead to misinterpretation of CBC data. Current Interpretive Data was last revised on 2017. Lymphocyte pct 21.3 % [facility] Comment: Interpretive Data Percent cell count reference ranges are not reported, since discordance with absolute values may lead to misinterpretation of CBC data. Current Interpretive Data was last revised on 2017. Monocyte pct 5.5 % [facility] Comment: Interpretive Data Percent cell count reference ranges are not reported, since discordance with absolute values may lead to misinterpretation of CBC data. Current Interpretive Data was last revised on 2017. Eosinophil pct 0.0 % [facility] Comment: Interpretive Data Percent cell count reference ranges are not reported, since discordance with absolute values may lead to misinterpretation of CBC data. Current Interpretive Data was last revised on 2017. Basophil pct 0.5 % [facility] Comment: Interpretive Data Percent cell count reference ranges are not reported, since discordance with absolute values may lead to misinterpretation of CBC data. Current Interpretive Data was last revised on 2017. Blood 05/26/2024 1:06 PM NEGATIVE TURNER 05/26/2024 1:19 PM NEGATIVE TURNER us Renuka Balderas MD PhD LAB BLOOD ORDERABLES Final Resu lt [facility] Department [place] [address] * (ABNORMAL) CBC with auto differential (05/26/2024 1:06 PM NEGATIVE TURNER) [facility] WBC 6.5 3.8 - 9.9 K/cumm Hgb 9.4(L) 13.0 - 17.5 g/dL [facility] Hct 26.2(L) 38.9 - 50.3 % [facility] Plt 292 150 - 400 K/cumm [facility] MPV 9.4 9.1 - 12.3 fL [facility] RBC 3.31(L) 4.30 - 5.80 M/cumm [facility] MCV 79.2(L) 81.3 - 96.4 fL [facility] MCH 28.4 27.1 - 33.3 pg [facility] MCHC 35.9(H) 32.3 - 35.7 g/dL [facility] RDW CV 12.8 11.1 - 14.9 % [facility] RDW SD 36.0 35.7 - 48.1 fL [facility] NRBC abs 0.00 0.00 - 0.01 K/cumm [facility] Blood 05/26/2024 1:06 PM NEGATIVE TURNER 05/26/2024 1:19 PM NEGATIVE TURNER us Renuka Balderas MD PhD LAB BLOOD ORDERABLES Final Resu lt Performing Organization Address City/[facility] Co de Phone Number [facility] Department [place] [address] * (ABNORMAL) Ferritin (05/26/2024 1:06 PM NEGATIVE TURNER) [facility] Ferritin 603(H) 30 - 400 ng/mL Blood 05/26/2024 1:06 PM NEGATIVE TURNER 05/26/2024 1:19 PM NEGATIVE TURNER us Renuka Balderas MD PhD LAB BLOOD ORDERABLES Final Resu lt Performing Organization Address [facility] Co de Phone Number [facility] Department [place] [address] * (ABNORMAL) Renal function panel (05/26/2024 1:06 PM NEGATIVE TURNER) Sodium 142 135 - 145 mmol/L Potassium, pl 3.9 3.3 - 4.9 mmol/L [facility] Chloride 102 97 - 110 mmol/L [facility] CO2 23 22 - 32 mmol/L [facility] Anion gap 17(H) 2 - 15 mmol/L [facility] BUN 100(H) 6 - 25 mg/dL [facility] Creatinine 10.13(H) 0.80 - 1.30 mg/dL [facility] Glucose 106 70 - 199 mg/dL [facility] Comment: Interpretive Data Fasting glucose >/= [...] Calcium 9.5 8.5 - 10.3 mg/dL [facility] Phosphorus, pl 7.8(H) 2.3 - 4.5 mg/dL [facility] Albumin 4.1 3.5 - 5.0 g/dL [facility] Blood 05/26/2024 1:06 PM NEGATIVE TURNER 05/26/2024 1:19 PM NEGATIVE TURNER us Renuka Balderas MD PhD LAB BLOOD ORDERABLES Final Resu lt [facility] Department [place] [address] * (ABNORMAL) Vitamin D 25 hydroxy (05/26/2024 1:06 PM NEGATIVE TURNER) Pathologist [facility] Vitamin D 25-OH 24(L) 30 - 80 ng/mL Blood 05/26/2024 1:06 PM NEGATIVE TURNER 05/26/2024 1:19 PM NEGATIVE TURNER us Renuka Balderas MD PhD LAB BLOOD ORDERABLES Final [facility]u [facility] [place] [address] * (ABNORMAL) PTH (05/26/2024 1:06 PM NEGATIVE TURNER) PTH 482(H) 15 - 65 pg/mL Blood 05/26/2024 1:06 PM NEGATIVE TURNER 05/26/2024 1:19 PM NEGATIVE TURNER Renuka Balderas MD PhD LAB BLOOD ORDERABLES Final Resu lt Performing Organization Address [facility] Co de Phone Number [facility] Department [place] [address] documented in this encounter Visit Diagnoses Diagnosis 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) (HCC) [I12.9, N18.4] IgA nephropathy Nephritis and nephropathy, not specified as acute or chronic, with unspecified pathological lesion in kidney Anemia in stage 4 chronic kidney disease (HCC) documented in this encounter Care Teams Field Operations Coordinator Relationship Specialty Start Date End Date Yair Matthew MD [address] [facility] [address] [place], [place] [phone] PCP - General Family Medicine 01/26/24 Renuka Balderas MD PhD [address] [facility] [address] [place] [address] Referring Physician Nephrology 04/15/24 Christina Stringer, RN [address] [facility] [phone] [place], [place] [id number] Clinical Specialist 04/15/24 documented as of this encounter
--- OUTSIDE RECORDS SUMMARY | 2024-05-26 16:46 | XMS_ITS | Referral Summary ---
Author Organization [facility] Address [address] [facility] [place] [address] Care Team Providers Care Process Safety Engineer Name Role Phone Lori Beck MD Primary Care Provider [phone] Source Comments [facility],non-owned Affiliates and Associated Physician Practices is amultiple site organization consisting of ambulatory clinics and hospital sitesin [place], [place], [place] and [place]. This disclosure is being madepursuant to the Care Everywhere program and may not contain all information available regarding this patient. Last updated 17.[facility] [employer] Allergies Active Allergy Reactions Criticality Noted Date [...] of Treatment Not on file Care Teams Process Safety Engineer Relationship Specialty Start Date End Date Lori Beck MD [facility] [address] [place] [address] PCP - General 02/18/11
--- OUTSIDE RECORDS SUMMARY | 2024-05-26 16:46 | XMS_ITS | Encounter Summary ---
Author Organization [facility] Address [address] [place] [address] Phone Care Team Providers Care Car Shakeout Operator Name Role Phone Yair Matthew MD Primary Care Provider + [phone] Renuka Balderas MD PhD Unavailable [phone] Christina Stringer RN Unavailable [phone] Encounter Details Date Type Department Care Team (Late st Contact Info) Description 05/26/2024 Telephone [facility] Surgery [address] [facility] Advanced Medicine 12th [place] [address] [place] [address] Rosalba Locke MD [address] [facility] [id number] [place] [address] Social History Tobacco Use Types Packs/Day Years [...] on file 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 Ref from . R ROUTE CARRIER documented in this encounter Plan of Treatment Not on file documented as of this encounter Visit Diagnoses Not on filedocumented in this encounter Care Teams Car Shakeout Operator Relationship Specialty Start Date End Date Yair Matthew MD [address] [facility] [address] [place] [address] PCP - General Family Medicine 01/26/24 Renuka Balderas MD PhD [address] [facility] [address] [place] [address] Referring Physician Nephrology 04/15/24 Christina Stringer, RN [address] [phone] [place] [address] Top Steep Tender 04/15/24 documented as of this encounter
--- OUTSIDE RECORDS SUMMARY | 2024-05-26 16:46 | XMS_ITS | Encounter Summary ---
Author Organization [facility] Address [address] [place] [address] Phone Care Team Providers Care Real Estate Analyst Name Role Phone Yair Matthew MD Primary Care Provider + [phone] Renuka Balderas MD PhD Unavailable Christina Stringer RN Unavailable [phone] Reason for Referral * Consultation (Routine) - Pending Review Specialty Diagnoses / Procedures Referred By Contac t Referred To Contact Transplant Diagnoses CKD (chronic kidney disease) stage 5, GFR less than 15 ml/min ([facility]) Renuka Balderas MD PhD [address] [place] [address] Phone: tel: fax: Radha Locke MD [address] [facility] [id number] [place] [address] Phone: tel: fax: Referral ID Status Reason Start Date Expiration Date Visits Requested Visits Authorized [id number] Pending Review Specialty Services Required 05/26/2024 06/25/2025 1 1 Question Answer Please select the performing region: [facility] (All Locations) [167] To provider: RADHA LOCKE [[id number]] # of visits: 1 Comments Pt needing to Pd cath placement started. 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 Gender Identity Not on file Sexual Orientation Not on file documented as of this encounter Plan of Treatment Scheduled Referrals Name Type Priority Associated Diagnoses Order Schedule Ambulatory referral to Adult Kidney Transplant Outpatient Referral Routine CKD (chronic kidney disease) stage 5, GFR less than 15 ml/min (HCC) 1 Occurrences starting 05/26/2024 until 05/26/2025 documented as of this encounter Visit Diagnoses Diagnosis CKD (chronic kidney disease) stage 5, GFR less than 15 ml/min (HCC)- Primary Chronic kidney disease, Stage V documented in this encounter Care Teams Real Estate Analyst Relationship Specialty Start Date End Date Yair Matthew MD [address] [facility] [address] [place] [address] PCP - General Family Medicine 01/26/24 Renuka Balderas MD PhD [address] [facility] [address] [place] [address] Referring Physician Nephrology 04/15/24 Christina Stringer, RN [address] [facility] [phone] [place], [place] [address] Clinical Nurse Reviewer 04/15/24 documented as of this encounter
--- OUTSIDE RECORDS SUMMARY | 2024-05-26 16:46 | XMS_ITS | Clinical Summary ---
Author Organization [facility] [employer] Address [address] [facility] [place] [address] Care Team Providers Care Piano Stringer Name Role Phone Lori Beck MD Primary Care Provider [phone] [facility] [employer],non-owned Affiliates and Associated Physician Practices is amultiple site organization consisting of ambulatory clinics and hospital sitesin [place], [place], [place] and [place]. This disclosure is being madepursuant to the Care Everywhere program and may not contain all information available regarding this patient. Last updated 17.[facility] [employer] Allergies Active Allergy Reactions Criticality Noted Date [...] age to complete this topic Care Teams Piano Stringer Relationship Specialty Start Date End Date Lori Beck MD [address] [facility] [address] [place] [id number] PCP - General 02/18/11
--- OUTSIDE RECORDS SUMMARY | 2024-05-26 16:46 | XMS_ITS | Encounter Summary ---
Author Organization [facility] Address [address] [place] [address] Phone Care Team Providers Care Retail Advertising Executive Name Role Phone Yair Matthew MD Primary Care Provider + [phone] Renuka Balderas MD PhD Unavailable [phone] Christina Stringer RN Unavailable [phone] Encounter Details Date Type Department Care Team (Late st Contact Info) Description 05/26/2024 10:00 AM AIRPLANE DISPATCHER Clinical Support [facility] Nephrology [address] [place] [address] Arrived Social History Tobacco Use [...] on file 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 AIRPLANE DISPATCHER Gender Identity Not on file Sexual Orientation [...] (HHD). For PD: - Provided links by [facility] for patient and his family to watch [...] performed clean. Risk of pasturella peritonitis explained. LANE DISPATCHER documented in this encounter Plan of Treatment Not on file documented as of this encounter Visit Diagnoses Not on filedocumented in this encounter Care Teams Retail Advertising Executive Relationship Specialty Start Date End Date Yair Matthew MD [address] [facility] [address] [place] [address] PCP - General Family Medicine 01/26/24 Renuka Balderas MD PhD [address] [facility] [address] [place] [address] Referring Physician Nephrology 04/15/24 Christina Stringer, RN [address] [facility] [phone] [place] [address] Floorworker Lasting 04/15/24 documented as of this encounter
--- OUTSIDE RECORDS SUMMARY | 2024-05-26 16:46 | XMS_ITS | Patient Health Summary ---
Author Organization [facility] [employer] Address [address] [facility] [place] [address] Care Team Providers Care Adaptive Physical Education Specialist Name Role Phone Lori Beck MD Primary Care Provider [phone] Note from [facility] [employer] [facility],non-owned Affiliates and Associated Physician Practices is amultiple site organization consisting of ambulatory clinics and hospital sitesin [place], [place], [place] and [place]. This disclosure is being madepursuant to the Care Everywhere program and may not contain all information available regarding this patient. Last updated 17.[facility] [employer] Allergies * Alcohol(Rash) -Low Criticality * Penicillins(Diarrhea) [...] * IMAGING/RADIOLOGY/XRAY RESULTS ORDER (03/28/2011 9:48 AM GROOMING ASSISTANT) Anatomical Region Laterality Modality Other Narrative Transcriptions Document, Scanned - 03/28/2011 9:48 AM CST Scanned Document IMAGING Care Teams Adaptive Physical Education Specialist Relationship Specialty Start Date End Date Lori Beck MD [facility] [facility] [address] [place] [address] [facility] - General 02/18/11
--- OUTSIDE RECORDS SUMMARY | 2024-05-26 16:46 | XMS_ITS | Encounter Summary ---
Author Organization [facility] Healthcare Address [address] [place] [address] Care Team Providers Care Material Control Manager Name Role Phone Lori Beck MD Primary Care Provider [phone] Yair Matthew MD Primary Care Provider + [phone] Renuka Balderas MD PhD Unavailable [phone] Christina Stringer RN Unavailable [phone] Encounter Details Date Type Department Care Team (Late st Contact Info) Description 10/05/2019 Telephone [facility] [place] [address] Terra Ashyb RDMS Social History Tobacco Use Types Packs/Day Years Used Date Smoking Tobacco: Never Sex and Gender Information Value Date Recorded Sex Assigned at Not on file 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 Gender Identity Not on file Sexual Orientation Not on file documented as of this encounter Plan of Treatment Not on file documented as of this encounter Visit Diagnoses Not on filedocumented in this encounter Additional Health Concerns Infection Onset Date Last Indicated Resolved Time COVID: Suspected 01/24/2024 01/24/2024 01/24/2024 3:36 PM CDT documented as of this encounter Care Teams Material Control Manager Relationship Specialty Start Date End Date Lori Beck MD [address] [place] [address] PCP - General 05/02/17 01/25/24 Yair Matthew MD [address] [place] [address] PCP - General Family Medicine 01/26/24 Renuka Balderas MD PhD [address] [facility] [address] [place] [address] Referring Physician Nephrology 04/15/24 Christina Stringer, RN [address] [facility] [address] [phone] [place] [address] Exercise Scientist 04/15/24 documented as of this encounter
--- OUTSIDE RECORDS SUMMARY | 2024-05-26 16:46 | XMS_ITS ---
Author Organization [facility] Address [address] [place] [address] Care Team Providers Care Licensed Sales Assistant Name Role Phone Yair Matthew MD Primary Care Provider Renuka Balderas MD PhD Unavailable [phone] Christina Stringer RN Unavailable [phone] Transplant Episode Kidney Candidate [facility] ([place], [place]) - [facility] Evaluation began on 04/21/2024 Marked as Active on 04/21/2024 Reason: Evaluation - Standard Kidney CoordinatorChristina Stringer RN Email: N/A Scores Score Value Updated Exceptions/Reas ons CPRA Not available EPTS (Calc) 1 05/26/2024 Inupiat Organ Diagnosis Organ Primary Contributory Kidney IgA Nephropathy Care Team Name Role Phone Fax Email Christina Stringer RN Kidney Coordinator [phone] N/A Jaz Medina Primary Senior Web Developer N/A N/A N/A Elena Wood Public Transit Bus Driver [phone] N/A N/A Renuak Balderas MD PhD Referring Physician [phone] N/A Events Pre-Transplant Referred: 04/15/2024 Evaluation began: 04/21/2024
--- OUTSIDE RECORDS SUMMARY | 2024-05-26 16:46 | XMS_ITS | Encounter Summary ---
Author Organization [facility] Address [address] [place] [address] Phone Care Team Providers Care Morgue Attendant Name Role Phone Yair Matthew MD Primary Care Provider + [phone] Renuka Balderas MD PhD Unavailable [phone] Christina Stringer RN Unavailable [phone] Encounter Details Date Type Department Care Team (Late st Contact Info) Description 05/26/2024 Results Follow-Up [facility] Nephrology [address] [facility] Advanced Medicine 5th [place] [address] [place] [address] Renuka Balderas MD PhD [address] [place], [place] [id number] Social History Tobacco Use Types Packs/Day Years [...] on file 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 Thank you! Chana CARRIER documented in this encounter Plan of Treatment Not on file documented as of this encounter Visit Diagnoses Not on filedocumented in this encounter Care Teams Morgue Attendant Relationship Specialty Start Date End Date Yair Matthew MD [address] [facility] [address] [place] [address] PCP - General Family Medicine 01/26/24 Renuka Balderas MD PhD [address] [facility] [address] [place] [address] Referring Physician Nephrology 04/15/24 Christina Stringer, RN [address] [facility] [phone] [place] [address] Airport Location Manager 04/15/24 documented as of this encounter
--- OUTSIDE RECORDS SUMMARY | 2024-05-26 16:46 | XMS_ITS | Encounter Summary ---
Author Organization [facility] Address [address] [place] [address] Phone Care Team Providers Care Lead Presser Name Role Phone Yair Matthew MD Primary Care Provider [phone] Renuka Balderas MD PhD Unavailable [phone] Christina Stringer RN Unavailable [phone] Encounter Details Date Type Department Care Team (Late st Contact Info) Description 05/26/2024 11:20 AM ED EDUCATIONAL AIDE Office Visit [facility] Nephrology [address] [facility] Advanced Medicine 5th [place] [address] [place] [address] Renuka Balderas MD PhD [address] [facility] [address] [place] [address] CKD stage 4 secondary to [...] on file 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 ED EDUCATIONAL AIDE Gender Identity Not on file Sexual Orientation Not on file documented as of this encounter Last Filed Vital Signs Vital Sign Reading Time Taken Comments Blood Pressure 144/89 05/26/2024 11:38 AM ED EDUCATIONAL AIDE Pulse 89 05/26/2024 11:38 AM ED EDUCATIONAL AIDE Temperature 36.9 C (98.4 F) 05/26/2024 11:38 AM ED EDUCATIONAL AIDE Respiratory Rate - - Oxygen Saturation - - Inhaled Oxygen Concentration - - Weight 120.2 kg (265 lb) 05/26/2024 11:38 AM ED EDUCATIONAL AIDE Height 193 cm (6' 4 ) 05/26/2024 11:38 AM ED EDUCATIONAL AIDE Body Mass Index 32.26 05/26/2024 11:38 AM ED EDUCATIONAL AIDE documented in this encounter Patient Instructions * Patient Instructions* Renuka Balderas MD PhD - 05/26/2024 11:20 AM ED EDUCATIONAL AIDE Please print my note for him today. EDUCATIONAL AIDE documented in this encounter Ordered Prescriptions Prescription [...] renal transplant. He has not had renal substance abuse prevention coordinator education. His renal function from yesterday showed a acute elevation of BUN/Cr to 98/9.09. Repeat another RFP today. Ask him to go to the ER today for IV hydration. If BUN/Cr do not come down, will initiate dialysis CORNELIO. Will refer him to [facility] for a PD catheter placement CORNELIO. 2. [...] 2 months. Monitor RFP closely before dialysis. 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) [I12.9, N18.4] 1 wk for 11 Occurrences starting 05/26/2024 until 05/18/2025 documented as of this encounter Results * (ABNORMAL) PTH (05/26/2024 1:06 PM ED EDUCATIONAL AIDE) Pathologist [facility] PTH 482(H) 15 - 65 pg/mL Blood 05/26/2024 1:06 PM ED EDUCATIONAL AIDE 05/26/2024 1:19 PM ED EDUCATIONAL AIDE Renuka Balderas MD PhD LAB BLOOD ORDERABLES Final Resu Performing Organization Address [facility]/ZIP Co de Phone Number [facility] [employer] [place] [address] * (ABNORMAL) Vitamin D 25 hydroxy (05/26/2024 1:06 PM ED EDUCATIONAL AIDE) [facility] Vitamin D 25-OH 24(L) 30 - 80 ng/mL Blood 05/26/2024 1:06 PM ED EDUCATIONAL AIDE 05/26/2024 1:19 PM ED EDUCATIONAL AIDE Renuka Balderas MD PhD LAB BLOOD ORDERABLES Final Resu Performing Organization Address [facility]/ZIP Co de Phone Number [phone] [place] [address] * (ABNORMAL) Renal function panel (05/26/2024 1:06 PM ED EDUCATIONAL AIDE) [facility] Sodium 142 135 - 145 mmol/L Potassium, pl 3.9 3.3 - 4.9 mmol/L [facility] Chloride 102 97 - 110 mmol/L [facility] CO2 23 22 - 32 mmol/L [facility] Anion gap 17(H) 2 - 15 mmol/L [facility] BUN 100(H) 6 - 25 mg/dL [facility] Creatinine 10.13(H) 0.80 - 1.30 mg/dL [facility] Glucose 106 70 - 199 mg/dL [facility] Comment: Interpretive Data Fasting glucose >/= 126 [...] 2022. 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) [I12.9, N18.4]- Primary IgA nephropathy Nephritis and nephropathy, not specified as acute or chronic, with unspecified pathological lesion in kidney Hypertension, unspecified type Renal osteodystrophy 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
--- OUTSIDE RECORDS SUMMARY | 2024-05-26 16:46 | XMS_ITS | Clinical Summary ---
Author Organization [facility] Address [address] [place] [address] Care Team Providers Care Shuttle Repairer Name Role Phone Yair Matthew MD Primary Care Provider [phone] Renuka Balderas MD PhD Unavailable [phone] Christina Stringer RN Unavailable [phone] Allergies Active Allergy Reactions Criticality Noted [...] 01/29/2024 Assessment & Plan (01/29/2024 12:37 PM NETWORK RELATIONS CONSULTANT): C/w with current meds : - chlorthalidone 25 mg - Coreg 25mg PO BID - amlodipine 10mg PO daily - doxazosin 2mg PO nightly - Hydralazine 25 mg TID Vitamin D deficiency 01/29/2024 Assessment & Plan (01/29/2024 12:32 PM NETWORK RELATIONS CONSULTANT): -01/24 vit D 10 -Continue vitamin D 50,000 units PO weekly Anxiety 01/29/2024 Assessment & Plan (01/29/2024 12:32 PM NETWORK RELATIONS CONSULTANT): Continue home venlafaxine 150mg PO daily IgA nephropathy 01/24/2024 Assessment & Plan (01/30/2024 3:59 PM NETWORK RELATIONS CONSULTANT): Suspected although not biopsy proven. Follows with [...] Department Care Team Description 05/26/2024 3:00 PM NETWORK RELATIONS CONSULTANT Lab [facility] ([facility]) [address] [place] [phone] 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) ([facility]) [I12.9, N18.4]; IgA nephropathy; Anemia in stage 4 chronic kidney disease (HCC) 05/26/2024 11:20 AM NETWORK RELATIONS CONSULTANT Office Visit [facility] [address] [place] [address] 5th [place] [address] [place] [address] Renuka Balderas MD PhD 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) ([facility]) [I12.9, N18.4] (Primary Dx); IgA nephropathy; Hypertension, unspecified type; Renal osteodystrophy; Anemia in stage 4 chronic kidney disease (HCC) 05/26/2024 10:00 AM NETWORK RELATIONS CONSULTANT Clinical Support [facility] [address] [place] [phone] Arrived 05/26/[address] [facility] [address] [place] [address] 12th [place] [address] [place] [address] Rosalba Locke MD 05/26/2024 Results Follow-Up [facility] [address] [place] [address] 5th [place] [address] [place] [address] Renuka Balderas MD PhD 05/26/2024 Orders Only [facility] [address] [facility] 5th [place] [address] [place] [address] Renuka Balderas MD PhD 05/26/2024 Orders Only [facility] [address] [facility] 5th [place] [address] [place] [address] Renuka Balderas MD PhD CKD (chronic kidney disease) stage 5, GFR less than 15 ml/min (HCC) (Primary Dx) 05/24/[address] [facility] 5th [place] [address] [place] [id number] Renuka Balderas MD PhD Appointment Reminder Call 04/22/2024 4:40 PM NETWORK RELATIONS CONSULTANT Telemedicine [facility] [address] [place] [phone] Mireya Vines NP CKD stage 4 secondary to hypertension ([facility]/HCC) (HCC) [I12.9, N18.4] (Primary Dx) 04/22/[address] [facility]ney [address] [address] Mailstop [phone] [place] [address] Jaz Medina Evaluation Scheduling 04/21/2024 Telephone [facility] [address] [facility] 340 Mailstop -142 [place] [address] Christina Stringer RN Kidney Eval 04/21/2024 Telephone [facility] Transplant Kidney [address] [facility] [address] Mailstop [phone] [place] [address] Christina Stringer rerecording mixer - Kidney Txp 04/21/2024 Telephone [facility] Transplant Kidney [address] [facility] 340 Mailstop [phone] [place] [address] Jaz Medina 04/20/2024 Telephone [facility] [address] [facility] [address] Mailstop [phone] [place] [address] Christina Stringer, rerecording mixer - Kidney Txp 04/19/[address] [facility] [address] [facility] [address] Mailstop [phone] [place] [address] InocencioSalma herrmann Referral - Kidney Txp 04/16/[address] [facility]ney [address] [facility] [address] Mailstop [phone] [place] [address] Christina Stringer RN Referral - Kidney Txp 04/15/[address] [facility] [address] [facility] 3401 Mailstop [phone] [place] [address] Jaz Medina Referral - Kidney Txp 04/09/[address] [facility] [address] [place] [address] [facility] 5th [place] [address] [place] [address] Jaida Varela, accounting representative start 03/05/2024 Orders Only [facility] [address] [place] [address] 5th [place] [address] [place] [address] Renuka Balderas MD PhD CKD (chronic kidney disease) stage 5, GFR less than 15 ml/min (HCC) (Primary Dx) 03/02/2024 11:00 AM NETWORK RELATIONS CONSULTANT Telemedicine [facility] [address] [place] [address] Mireya Vines NP CKD (chronic kidney disease) stage 5, GFR less than 15 ml/min (HCC) (Primary Dx) 03/02/[address] [facility] Division of Nephrology [address] [place] [address] Sherry Castle RN 03/01/[address] [facility] [address] [place] [address] Medicine 5th [place] [address] [place] [address] Denise Boyd from Last 3 Months Immunizations Immunization Administration Dates Next Due Influenza, Trivalent, Preservative Free, Intramu scular 01/27/2024 Surgical History Surgery Date Site/Laterality Comments INGUINAL HERNIA REPAIR Inguinal Hernia Repair - (Added by NAILA Conv) US GUIDED BIOPSY RENAL 01/30/2024 N/A [...] on file 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 NETWORK RELATIONS CONSULTANT Gender Identity Not on file Sexual Orientation Not on file Obstetrics History Last Filed Vital Signs Vital Sign Reading Time Taken Comments Blood Pressure 144/89 05/26/2024 11:38 AM NETWORK RELATIONS CONSULTANT Pulse 89 05/26/2024 11:38 AM NETWORK RELATIONS CONSULTANT Temperature 36.9 C (98.4 F) 05/26/2024 11:38 AM NETWORK RELATIONS CONSULTANT Respiratory Rate 16 01/30/2024 7:15 PM NETWORK RELATIONS CONSULTANT Oxygen Saturation 98% 01/31/2024 7:15 AM NETWORK RELATIONS CONSULTANT Inhaled Oxygen Concentration - - Weight 120.2 kg (265 lb) 05/26/2024 11:38 AM NETWORK RELATIONS CONSULTANT Height 193 cm (6' 4 ) 05/26/2024 11:38 AM NETWORK RELATIONS CONSULTANT Body Mass Index 32.26 05/26/2024 11:38 AM NETWORK RELATIONS CONSULTANT Plan of Treatment Health Maintenance Due Date [...] Meningococcal Vaccine Aged Out 10/18/2013 No fadumo ojssue eligible based on patient's age to complete this topic HPV Vaccines Completed 10/24/2016, 06/2015, 10/23/2015 Varicella Vaccines Completed 09/30/2017, 12/14/2003 Hepatitis C Screening Completed 01/25/2024 Influenza Vaccine Completed 01/27/2024 Procedures Procedure Name Priority Date/Time Associated Diagnosis Comments EGFR Routine 05/26/2024 1:06 PM NETWORK RELATIONS CONSULTANT 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) (HCC) [I12.9, N18.4] DIFFERENTIAL AUTO Routine 05/26/2024 1:0 6 PM NETWORK RELATIONS CONSULTANT IgA nephropathy Anemia in stage 4 chronic kidney disease (HCC) CBC WITH AUTO DIFFERENTIAL Routine 05/26/2024 1:06 PM NETWORK RELATIONS CONSULTANT IgA nephropathy Anemia in stage 4 chronic kidney disease (HCC) FERRITIN Routine 05/26/2024 1:06 PM NETWORK RELATIONS CONSULTANT IgA nephropathy Anemia in stage 4 chronic kidney disease (HCC) RENAL FUNCTION PANEL Routine 05/26/2024 1:06 PM NETWORK RELATIONS CONSULTANT 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) (HCC) [I12.9, N18.4] VITAMIN D 25 HYDROXY Routine 05/26/2024 1:06 PM NETWORK RELATIONS CONSULTANT 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) (HCC) [I12.9, N18.4] PTH Routine 05/26/2024 1:06 PM NETWORK RELATIONS CONSULTANT 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) (HCC) [I12.9, N18.4] MICROSCOPIC EXAMINATION Routine 05/25/2024 11:15 AM NETWORK RELATIONS CONSULTANT URINALYSIS AND REFLEX TO MICROSCOPIC Routine 05/25/2024 11:15 AM NETWORK RELATIONS CONSULTANT CKD stage 4 secondary to hypertension (HCC) IgA nephropathy Hypertension, unspecified type FERRITIN Routine 05/25/2024 11:15 AM NETWORK RELATIONS CONSULTANT CKD stage 4 secondary to hypertension (HCC) IgA nephropathy Hypertension, unspecified type IRON PROFILE W/ IBC Routine 05/25/2024 1 1:15 AM NETWORK RELATIONS CONSULTANT CKD stage 4 secondary to hypertension (HCC) IgA nephropathy Hypertension, unspecified type CBC WITH AUTO DIFFERENTIAL Routine 05/25/2024 11:15 AM NETWORK RELATIONS CONSULTANT CKD stage 4 secondary to hypertension (HCC) IgA nephropathy Hypertension, unspecified type RENAL FUNCTION PANEL Routine 05/25/2024 11:15 AM NETWORK RELATIONS CONSULTANT CKD stage 4 secondary to hypertension (HCC) IgA nephropathy Hypertension, unspecified type PTH Routine 03/19/2024 10:55 AM NETWORK RELATIONS CONSULTANT CKD (chronic kidney disease) stage 5, GFR less than 15 ml/min ([facility]) CYSTATIN C Routine 03/19/2024 10:55 AM NETWORK RELATIONS CONSULTANT CKD (chronic kidney disease) stage 5, GFR less than 15 ml/min (HCC) HEPATITIS PANEL, ACUTE STAT 01/25/2024 6:36 AM NETWORK RELATIONS CONSULTANT from Last 3 Months or Most Recently Relevant to Health Maintenance Results * (ABNORMAL) eGFR (05/26/2024 1:06 PM NETWORK RELATIONS CONSULTANT) eGFR 7(L) >=60 mL/min/1. 73 m2 Comment: [...] of Race in Diagnosing Kidney Disease, JASN 202). The CKD-EPI equation should not be used for patients with unstable renal function and has not been validated in children and those over 70. Current interpretive data was last reviewed 2021. Blood 05/26/2024 1:06 PM NETWORK RELATIONS CONSULTANT 05/26/2024 1:25 PM NETWORK RELATIONS CONSULTANT us Renuka Balderas MD PhD LAB BLOOD ORDERABLES Final Resu lt [facility] [place] [address] * Differential, auto (05/26/2024 1:06 PM NETWORK RELATIONS CONSULTANT) Neutrophil abs 4.7 1.5 - 6.5 K/cumm Imm gran abs 0.0 0.0 - 0.1 K/cumm [facility] Lymphocyte abs 1.4 0.8 - 3.3 K/cumm [facility] Monocyte abs 0.4 0.2 - 0.8 K/cumm [facility] Eosinophil abs 0.0 0.0 - 0.5 K/cumm [facility] Basophil abs 0.0 0.0 - 0.1 K/cumm [facility] Neutrophil pct 72.4 % [facility] Comment: Interpretive Data Percent cell count reference ranges are not reported, since discordance with absolute values may lead to misinterpretation of CBC data. Current Interpretive Data was last revised on 2017. Imm gran pct 0.3 % [facility] Comment: Interpretive Data Percent cell count reference ranges are not reported, since discordance with absolute values may lead to misinterpretation of CBC data. Current Interpretive Data was last revised on 2017. Lymphocyte pct 21.3 % [facility] Comment: Interpretive Data Percent cell count reference ranges are not reported, since discordance with absolute values may lead to misinterpretation of CBC data. Current Interpretive Data was last revised on 2017. Monocyte pct 5.5 % [facility] Comment: Interpretive Data Percent cell count reference ranges are not reported, since discordance with absolute values may lead to misinterpretation of CBC data. Current Interpretive Data was last revised on 2017. Eosinophil pct 0.0 % [facility] Comment: Interpretive Data Percent cell count reference ranges are not reported, since discordance with absolute values may lead to misinterpretation of CBC data. Current Interpretive Data was last revised on 2017. Basophil pct 0.5 % [facility] Comment: Interpretive Data Percent cell count reference ranges are not reported, since discordance with absolute values may lead to misinterpretation of CBC data. Current Interpretive Data was last revised on 2017. Blood 05/26/2024 1:06 PM NETWORK RELATIONS CONSULTANT 05/26/2024 1:19 PM NETWORK RELATIONS CONSULTANT us Renuka Balderas MD PhD LAB BLOOD ORDERABLES Final Resu lt [facility] [place] [address] * (ABNORMAL) CBC with auto differential (05/26/2024 1:06 PM NETWORK RELATIONS CONSULTANT) [facility] WBC 6.5 3.8 - 9.9 K/cumm Hgb 9.4(L) 13.0 - 17.5 g/dL [facility] Hct 26.2(L) 38.9 - 50.3 % [facility] Plt 292 150 - 400 K/cumm [facility] MPV 9.4 9.1 - 12.3 fL [facility] RBC 3.31(L) 4.30 - 5.80 M/cumm [facility] MCV 79.2(L) 81.3 - 96.4 fL [facility] MCH 28.4 27.1 - 33.3 pg [facility] MCHC 35.9(H) 32.3 - 35.7 g/dL [facility] RDW CV 12.8 11.1 - 14.9 % [facility] RDW SD 36.0 35.7 - 48.1 fL [facility] NRBC abs 0.00 0.00 - 0.01 K/cumm [facility] Blood 05/26/2024 1:06 PM NETWORK RELATIONS CONSULTANT 05/26/2024 1:19 PM NETWORK RELATIONS CONSULTANT us Renuka Balderas MD PhD LAB BLOOD ORDERABLES Final Resu lt Performing Organization Address City/[facility]/ZIP Co de Phone Number [facility] [place] [address] * (ABNORMAL) Vitamin D 25 hydroxy (05/26/2024 1:06 PM NETWORK RELATIONS CONSULTANT) [facility] Vitamin D 25-OH 24(L) 30 - 80 ng/mL Blood 05/26/2024 1:06 PM NETWORK RELATIONS CONSULTANT 05/26/2024 1:19 PM NETWORK RELATIONS CONSULTANT us Renuka Balderas MD PhD LAB BLOOD ORDERABLES Final Resu lt [facility] [place] [address] * (ABNORMAL) PTH (05/26/2024 1:06 PM NETWORK RELATIONS CONSULTANT) Pathologist [facility] PTH 482(H) 15 - 65 pg/mL Blood 05/26/2024 1:06 PM NETWORK RELATIONS CONSULTANT 05/26/2024 1:19 PM NETWORK RELATIONS CONSULTANT us Renuka Balderas MD PhD LAB BLOOD ORDERABLES Final Resu lt Performing Organization Address [facility] Co de Phone Number [facility] [place] [address] * (ABNORMAL) Ferritin (05/26/2024 1:06 PM NETWORK RELATIONS CONSULTANT) [facility] Ferritin 603(H) 30 - 400 ng/mL Blood 05/26/2024 1:06 PM NETWORK RELATIONS CONSULTANT 05/26/2024 1:19 PM NETWORK RELATIONS CONSULTANT us Renuka Balderas MD PhD LAB BLOOD ORDERABLES Final Resu lt Performing Organization Address [facility]/RUST de Phone Number [facility] [place] [address] * (ABNORMAL) Renal function panel (05/26/2024 1:06 PM NETWORK RELATIONS CONSULTANT) [facility] Sodium 142 135 - 145 mmol/L Potassium, pl 3.9 3.3 - 4.9 mmol/L [facility] Chloride 102 97 - 110 mmol/L [facility] CO2 23 22 - 32 mmol/L [facility] Anion gap 17(H) 2 - 15 mmol/L [facility] BUN 100(H) 6 - 25 mg/dL [facility] Creatinine 10.13(H) 0.80 - 1.30 mg/dL [facility] Glucose 106 70 - 199 mg/dL [facility] Comment: Interpretive Data Fasting glucose >/= [...] 2022. Calcium 9.5 8.5 - 10.3 mg/dL [facility] Phosphorus, pl 7.8(H) 2.3 - 4.5 mg/dL [facility] Albumin 4.1 3.5 - 5.0 g/dL [facility] Blood 05/26/2024 1:06 PM NETWORK RELATIONS CONSULTANT 05/26/2024 1:19 PM NETWORK RELATIONS CONSULTANT us Renuka Balderas MD PhD LAB BLOOD ORDERABLES Final Resu lt Performing Organization Address [facility]/ZIP Co de Phone Number [facility] [place] [address] * (ABNORMAL) Microscopic Examination (05/25/2024 11:15 AM NETWORK RELATIONS CONSULTANT) WBC, ur 0-5 0 - 5 /hpf [facility] - 01 RBC, ur 11-30(A) 0 - 2 /hpf [facility] - 01 Epithelial cells, non-renal, ur None seen 0 - 10 /hpf [facility] - 01 Casts None seen None seen /lpf [facility] - 01 Bacteria, ur None seen None seen/Few [facility] - 01 05/25/2024 11:1 5 AM NETWORK RELATIONS CONSULTANT 05/25/2024 Narrative [facility] - 05/26/2024 7:09 AM NETWORK RELATIONS CONSULTANT Performed at: [address] [place] [id number] Glassware Finisher: Silverio Apodaca PhD, Phone: [phone] us Renuka Balderas MD PhD LAB BLOOD ORDERABLES Final Resu lt Performing Organization Address [facility]/ZIP Co de Phone Number [facility] - 01 * (ABNORMAL) Iron profile w/ IBC (05/25/2024 11:15 AM NETWORK RELATIONS CONSULTANT) [facility] Iron Bind.Cap.(TIBC) 237(L) 250 - 450 ug/dL [facility] - 01 UIBC 173 111 - 343 ug/dL [facility] - 01 Iron 64 38 - 169 ug/dL [facility] - 01 Iron saturation 27 15 - 55 % [facility] - 01 Blood 05/25/2024 11:1 5 AM NETWORK RELATIONS CONSULTANT 05/25/2024 Narrative [facility] - 05/26/2024 8:11 AM NETWORK RELATIONS CONSULTANT Performed at: [address] [id number] Glassware Finisher: Silverio Apodaca PhD, Phone: [phone] us Renuka Balderas MD PhD LAB BLOOD ORDERABLES Final Resu lt [facility]CO [facility] - 01 * (ABNORMAL) Urinalysis reflex to microscopic (05/25/2024 11:15 AM NETWORK RELATIONS CONSULTANT) [facility] Specific [place] 1.013 1.005 - 1.030 [facility] - 01 [...] was performed. Urine 05/25/2024 11:1 5 AM NETWORK RELATIONS CONSULTANT 05/25/2024 Narrative [facility] - 05/26/2024 7:09 AM NETWORK RELATIONS CONSULTANT Performed at: - [facility] [address] [id number] Glassware Finisher: Silverio Apodaca PhD, Phone: [phone] us Renuka Balderas MD PhD LAB URINE ORDERABLES Final Resu lt [facility]CONEL [facility] - 01 * (ABNORMAL) CBC with auto differential (05/25/2024 11:15 AM NETWORK RELATIONS CONSULTANT) WBC 6.5 3.4 - 10.8 x10E3/uL [facility] [...] - 01 Blood 05/25/2024 11:1 5 AM NETWORK RELATIONS CONSULTANT 05/25/2024 Narrative [facility] - 05/26/2024 9:10 AM NETWORK RELATIONS CONSULTANT Performed at: [address] [place] [id number] Glassware Finisher: Silverio Apodaca PhD, Phone: [phone] us Renuka Balderas MD PhD LAB BLOOD ORDERABLES Final Resu lt Performing Organization Address [facility] Co de Phone Number [facility] - * (ABNORMAL) Ferritin (05/25/2024 11:15 AM NETWORK RELATIONS CONSULTANT) Ferritin 605(H) 30 - 400 ng/mL [facility] - 01 Blood 05/25/2024 11:1 5 AM NETWORK RELATIONS CONSULTANT 05/25/2024 Narrative [facility] - 05/26/2024 12:10 PM NETWORK RELATIONS CONSULTANT Performed at: [address] [id number] Glassware Finisher: Silverio Apodaca PhD, Phone: [phone] us Renuka Balderas MD PhD LAB BLOOD ORDERABLES Final Resu lt Performing Organization Address [facility] Co de Phone Number [facility] - * (ABNORMAL) Renal function panel (05/25/2024 11:15 AM NETWORK RELATIONS CONSULTANT) Glucose 92 70 - 99 mg/dL [facility] [...] - 01 Blood 05/25/2024 11:1 5 AM NETWORK RELATIONS CONSULTANT 05/25/2024 Narrative [facility] - 05/26/2024 8:11 AM NETWORK RELATIONS CONSULTANT Performed at: [address] [id number] Glassware Finisher: Silverio Apodaca PhD, Phone: [phone] us Renuka Balderas MD PhD LAB BLOOD ORDERABLES Final Resu lt Performing Organization Address City[facility]/ZIP Co de Phone Number [facility] * (ABNORMAL) Cystatin C (03/19/2024 10:55 AM NETWORK RELATIONS CONSULTANT) Cystatin C 4.39(H) 0.60 - 1.00 mg/L [facility] - Blood 03/19/2024 10:5 5 AM NETWORK RELATIONS CONSULTANT 03/19/2024 Narrative [facility] - 03/23/2024 6:09 AM NETWORK RELATIONS CONSULTANT Performed at: [address] [id number] Glassware Finisher: Brenda Timmons MD, Phone: [phone] us Mireya Vines [place] DEMONSTRATOR LAB BLOOD ORDERABLE S Final Result Performing Organization Address [facility]/ZIP Co de Phone Number [facility] * (ABNORMAL) PTH (03/19/2024 10:55 AM NETWORK RELATIONS CONSULTANT) PTH Intact 157(H) 15 - 65 pg/mL [facility] - Blood 03/19/2024 10:5 5 AM NETWORK RELATIONS CONSULTANT 03/19/2024 Narrative [facility] - 03/21/2024 11:06 AM NETWORK RELATIONS CONSULTANT Performed at: [address] [id number] Glassware Finisher: Silverio Apodaca PhD, Phone: [phone] us Mireya Vines NP LAB BLOOD ORDERABLE S Final Result [facility] - 01 * Hepatitis panel, acute Blood (01/25/2024 6:36 AM NETWORK RELATIONS CONSULTANT) Hep A IgM Nonreactive Nonreactive Hep B core IgM Nonreactive Nonreactive [facility] Hep C Ab Nonreactive Nonreactive [facility] Comment:Antibodies to HCV no t detected. Does NOT exclude the possibility of recent exposure to HCV. Current interpretive data was last revised on 21 HepBsAg Nonreactive Nonreactive [facility] Blood 01/25/2024 6:36 AM NETWORK RELATIONS CONSULTANT 01/25/2024 6:48 AM NETWORK RELATIONS CONSULTANT us Jet Oliver MD LAB MICROBIOLOGY - GENERA L ORDERABLES Final Result [facility] [place] [address] from Last 3 Months or Most Recently Relevant to Health Maintenance Insurance [facility] Advance Directives For more information, please contact: [phone] Documents on File Type Date Recorded Patient Firestop/Containment Worker Expl anation ADVANCE DIRECTIVE 02/03/2024 11:01 AM POW ER OF IN SHOP SERVICE TECHNICIAN-MEDICAL ADVANCE DIRECTIVE 01/30/2024 12:41 PM ADVANCE DIRECTIVE 01/30/2024 12:41 PM KEVEN R OF IN SHOP SERVICE TECHNICIAN-MEDICAL * Full Code (Latest Code Status on File) Date Activated Date Inactivated Comments 01/25/2024 4:58 AM 01/31/2024 6:07 PM Healthcare Agents on File Name Relationship Healthcare Agent Relationshi p Communication Eleonora Steve Health Care Agent Care Teams Shuttle Repairer Relationship Specialty Start Date End Date Yair Matthew MD [address] [facility] [address] [place] [address] PCP - General Family Medicine 01/26/24 Renuka Balderas MD PhD [address] [facility] 5C DIV IM NEPHROLOGY [place], [place] [id number] Referring Physician Nephrology 04/15/24 Christina Stringer, RN [address] [facility] [phone] [place] [address] Automobile Mechanic 04/15/24
--- OUTSIDE RECORDS SUMMARY | 2024-05-26 16:46 | XMS_ITS | Encounter Summary ---
Author Organization [facility] Address [address] [place] [address] Phone Care Team Providers Care [employer] Name Role Phone Yair Matthew MD Primary Care Provider + [phone] Renuka Balderas MD PhD Unavailable [phone] Christina Stringer RN Unavailable [phone] Encounter Details Date Type Department Care Team (Late st Contact Info) Description 05/26/2024 Orders Only [facility] Nephrology [address] [facility] Advanced Medicine 5th [place] [address] [place] [address] Renuka Balderas MD PhD [address] [place] [address] Social History Tobacco Use Types [...] on file 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 [employer] Gender Identity Not on file Sexual Orientation Not on file documented as of this encounter Plan of Treatment Not on file documented as of this encounter Visit Diagnoses Not on filedocumented in this encounter Care Teams [employer] Relationship Specialty Start Date End Date Yair Matthew MD [address] [facility] [address] [place] [address] PCP - General Family Medicine 01/26/24 Renuka Balderas MD PhD [address] [facility] [address] [place] [address] Referring Physician Nephrology 04/15/24 Christina Stringer, RN [address] [facility] [id number] [place] [address] Director Clinical Pharmacology 04/15/24 documented as of this encounter
[2024-05-26 17:29] VITALS: BP 153/94; PULSE 82; RESP 18; O2SAT 98
[2024-06-01 02:08] LABS: Parathyroid Hormone Related Pr 34 pg/mL (11-20)
== END 2024-05-26 17:30 | disposition home or self-care (01) ==
PROVIDERS: Emergency Provider Emergency Medicine
DX: N18.9 Chronic kidney disease, unspecified (principal); N02.B1 Recurrent and persistent immunoglobulin A nephropathy with glomerular lesion; F32.9 Major depressive disorder, single episode, unspecified; F41.0 Panic disorder [episodic paroxysmal anxiety]; Z79.899 Other long term (current) drug therapy
CPT/HCPCS: 36415; 80048; 80053; 81001; 82306; 83519; 85025; 96360; 99283; J7030

== ENCOUNTER 2024-09-06 19:33 | Emergency (ER) | payer OTHER, SELFPAY ==
[2024-09-06] VITALS (14 sets, daily range): BP systolic 101–204; BP diastolic 61–143; PULSE 112–165; RESP 13–21; TEMP 37.1; O2SAT 100
--- NOTE | ~2024-09-06 | CT_ITS ---
History: Seizure PROCEDURE: CT head without contrast. COMPARISON: None TECHNIQUE: Axial imaging of the head performed from the skull base to the vertex without IV contrast. Sagittal a nd coronal reformations obtained. DLP: 757 mGy-cm FINDINGS: The ventricles are normal in size, shape and position. There is no mass, mass effect or midline shift. There is no abnormal extra-axial fluid collection or intracranial hemorrhage. Visualized paranasal sinuses are clear. The mastoid air cells are well aerated. No acute displaced fractures within the overlying cranium. Impression: No acute intracranial hemorrhage or suspicious mass effect. Reviewed, dictated and finalized at location A. Impression: No acute intracranial hemorrhage or suspicious mass effect.
--- NOTE | ~2024-09-06 | XR_ITS ---
CHEST RADIOGRAPH CLINICAL HISTORY: ET TUBE/CENTRAL LINE AND OG TUBE PLACEMENT . COMPARISON: 09/09/2022 TECHNIQUE: Single portable view of the chest. FINDINGS Left subclavian central venous catheter is present with its tip projecting over the superior vena cav a. Endotracheal tube is identified with its tip projecting approximately 3.3 cm above the base of the ca martha. Orogastric tube identified with its tip extending below the left hemidiaphragm, presumably within the stomach. The remainder of the cardiomediastinal silhouette is otherwise unremarkable. The lungs are clear. IMPRESSION: The lungs are clear. Endotracheal tube, central venous catheter and orogastric tube in excellent position and ready for im mediate use. Supportive lines and tubes in good position. Reviewed, dictated and finalized at location A. IMPRESSION: The lungs are clear. Endotracheal tube, central venous catheter and orogastric tube in excellent pos ition and ready for immediate use. Supportive lines and tubes in good position.
--- NOTE | 2024-09-06 19:42 | ECG_ITS ---
Test Date: 2024-09-06 19:39:38 Measurements Intervals [place] Rate: 115 P: 48 WI: 150 QRS: 4 QRSD: 94 T: 44 QT: 340 QTc: 471 Interpretive Statements SINUS TACHYCARDIA DELAYED PRECORDIAL R/S TRANSITION ABNORMAL ECG No previous ECG available for comparison Electronically Signed On 09-07-2024 06:24:28 CDT by Solomon Mistry D.O.
[2024-09-06 19:44] LABS: Glucose Point of Care 109 mg/dl (65-105)
[2024-09-06 20:03] LABS: Basophils Percent Auto 0.6 % (0.2-1.2); Hematocrit 30.3 % (42.0-52.0); Hemoglobin 10.2 g/dL (14.0-18.0); Immature Granulocyte Absolute 0.07 K/mm3 (0.00-0.031); Immature Granulocyte Percent A 1.4 % (0-0.5); Lymphocytes Absolute Auto 1.54 K/mm3 (0.9-3.2); Lymphocytes Percent Auto 30.4 % (18.3-44.2); Mean Corpuscular HGB Conc 33.7 g/dl (32-36); Mean Corpuscular Hemoglobin 27.6 pg (26-34); Mean Corpuscular Volume 81.9 fl (80-100); Mean Platelet Volume 9.8 fl (7.4-10.4); Monocytes Absolute Auto 0.4 K/mm3 (0.1-0.6); Monocytes Percent Auto 8.3 % (2.6-8.5); Neutrophils Percent Auto 59.3 % (45.5-73.1); Platelet Count Result 138 k/mm3 (150-375); Red Cell Distribution Width 13.6 % (11.5-14.5); White Blood Count 5.1 K/mm3 (4.5-10.0)
[2024-09-06 20:12] LABS: Prothrombin Time 13.8 Seconds (11.1-14.7)
[2024-09-06 20:13] LABS: Partial Thromboplastin Time 26.6 Seconds (22.3-36.8)
[2024-09-06 20:16] LABS: Alanine Aminotransferase 46 U/L (6-50); Albumin Level 3.8 g/dL (3.5-5.1); Alkaline Phosphatase 118 U/L (38-126); Anion Gap 19 mmol/L (4-12); Aspartate Amino Transferase 38 U/L (17-59); Bilirubin,Total 0.4 mg/dL (0.2-1.3); Blood Urea Nitrogen 76 mg/dL (9-20); Calcium 10.1 mg/dL (8.4-10.2); Carbon Dioxide 17 mmol/L (22-30); Chloride 100 mmol/L (98-107); Glucose 118 mg/dL (65-110); Sodium 136 mmol/L (137-145); Total Protein 6.5 g/dL (6.3-8.2)
[2024-09-06] MEDS: LACTATED RINGERS 1,000 ML 999 ML IV CONT (20:18)
[2024-09-06] MEDS: MORPHINE SULFATE (*CRX) 4 MG/ML INJ IV PUSH (20:18)
[2024-09-06 20:19] LABS: Lactic Acid Reflex 5.7 mmol/L (0.7-2.0)
[2024-09-06 20:21] LABS: Estimated CRCL calculation 7 ml/min; Estimated Glomerular Filt Rate 3
[2024-09-06] MEDS: LORazepam INJ (*CRX) 2 MG/ML VIAL 4 MG (20:25)
[2024-09-06] MEDS: LORazepam INJ (*CRX) 2 MG/ML VIAL (20:25)
[2024-09-06] MEDS: LORazepam INJ (*CRX) 2 MG/ML VIAL IV PUSH (20:25)
[2024-09-06] MEDS: MIDAZOLAM HCL (*CRX) 10 MG/2 ML VIAL IM (20:37)
[2024-09-06] MEDS: ROCURONIUM BROMIDE 50 MG/5 ML VIAL 100 MG IV PUSH (20:40)
[2024-09-06] MEDS: ETOMIDATE 20 MG/10 ML AMPUL 30 MG IV PUSH (20:40)
[2024-09-06] MEDS: PROPOFOL IV EMULSION 200 MG/20 ML VIAL IV PUSH (20:42)
[2024-09-06] MEDS: levETIRAcetam IV 4,500 MG in DEXTROSE 5% 100 ML 870 MG IVPB (20:47)
[2024-09-06] MEDS: PROPOFOL IV EMULSION 100 ML 52.9 MG IV CONT (20:49)
--- OUTSIDE RECORDS SUMMARY | 2024-09-06 20:58 | XMS_ITS | Clinical Summary ---
Author Organization [facility] ospital Address [address] [place] [address] Care Team Providers Care Gettering Operator Name Role Phone Yair Matthew MD Primary Care Provider [phone] Renuka Balderas MD PhD Unavailable [phone] Christina Stringer RN Unavailable [phone] Unavailable [phone] Manjit Nevarez LMSW Unavailable Unavailab Real Escobar MD Unavailable Giovana Yuan RN Unavailable Unavailabl e Allergies Active Allergy Reactions Criticality Noted Date Comments Alcohol Rash Medium 02/19/2011 Penicillin Other (See comments) Low 09/30/2022 Nose bleeds Penicillins Diarrhea,Other (See comments),Rash Medium 02/19/2011 Reaction: Sunscreen Rash Medium 02/19/2011 Medications venlafaxine XR (EFFEXOR-XR) 150 mg 24 hr capsule Take 1 capsule (150 mg total) by mouth daily with breakfast 30 capsule 02/01/20 24 Active Additional Information Patient taking differently:150 mg oral Daily with breakfast,Indications: Anxiety with Depression, Reported on 06/07/2024 acetaminophen (TYLENOL) 500 mg tablet Take 1 tablet (500 mg total) by mouth every 6 (six) hours as needed for pain for up to 20 doses 20 tablet 06/08/19 25 Active calcitRIOL (ROCALTROL) 0.25 mcg capsuleIndications:R enal osteodystrophy Take 1 capsule (0.25 mcg total) by mouth 3 (three) times a week 12 capsule 5 07/01/19 25 025 Active lactulose solution 10 gram/15mLIndications :Constipation in male Take 15 mL (10 g total) by mouth as needed (for Constipation) 450 mL 06/30/19 25 Active sevelamer (RENVELA) 800 mg tabletIndications:Re nal Osteodystrophy with Hyperphosphatemia Take 3 tablets (2,400 mg total) by mouth 3 (three) times a day with meals 270 tablet 06/30/19 026 Active vitamin B complex-vitamin C-folic acid (NEPHRO-RAVI) 0.8 mg tabletIndications:Vi tamin Deficiency Prevention Take 0.8 mg by mouth daily 30 tablet 07/23/19 026 Active losartan (COZAAR) 25 mg tablet Take 1 tablet (25 mg total) by mouth daily 90 tablet 09/01/19 25 026 Active amLODIPine (NORVASC) 10 mg tablet Take 1 tablet (10 mg total) by mouth daily 90 tablet 05/04/19 025 Disconti nued(The rapy complete d) chlorthalidone (HYGROTON) 25 mg tablet Take 1 tablet (25 mg total) by mouth daily 90 tablet 05/04/19 025 Disconti nued(The rapy complete d) carvediloL (COREG) 25 mg tablet Take 1 tablet (25 mg total) by mouth 2 (two) times a day with meals 180 tablet 05/04/19 025 Disconti nued(Alt ernate therapy) sodium bicarbonate 325 mg tablet Take 2 tablets (650 mg total) by mouth 3 (three) times a day 180 tablet 06/08/19 025 Disconti nued(The rapy complete d) valsartan (DIOVAN) 160 mg tablet Take 1 tablet (160 mg total) by mouth daily 30 tablet 06/30/19 025 Disconti nued(The rapy complete d) Active Problems Problem Noted Date Diagnosed Date Anemia of chronic renal failure 07/07/2024 Secondary hyperparathyroidism 06/16/2024 Iron deficiency anemia, unspecified 06/16/2024 Renal osteodystrophy 06/16/2024 CKD (chronic kidney disease) stage 5, GFR less than 15 ml/min 06/08/2024 End stage renal disease 05/31/2024 Hypertensive emergency 01/29/2024 Assessment & Plan (01/29/2024 12:37 PM PARTS DATA WRITER): C/w with current meds : - chlorthalidone 25 mg - Coreg 25mg PO BID - amlodipine 10mg PO daily - doxazosin 2mg PO nightly - Hydralazine 25 mg TID Vitamin D deficiency 01/29/2024 Assessment & Plan (01/29/2024 12:32 PM PARTS DATA WRITER): -01/24 vit D 10 -Continue vitamin D 50,000 units PO weekly Anxiety 01/29/2024 Assessment & Plan (01/29/2024 12:32 PM PARTS DATA WRITER): Continue home venlafaxine 150mg PO daily IgA nephropathy 01/24/2024 Assessment & Plan (01/30/2024 3:59 PM PARTS DATA WRITER): Suspected although not biopsy proven. Follows with [...] Encounters Date Type Department Care Team Description 08/31/2024 10:30 AM CDT Office Visit [facility] Division of Nephrology [address] [place] [phone] Real Suarez MD 08/27/2024 Orders Only [facility] Division of Nephrology [address] [place] [phone] Giovana Yuan RN 08/27/2024 Orders Only [facility] Division of Nephrology [address] [place] [phone] Giovana Yuan RN 08/26/2024 Documentation [facility] Division of Nephrology [address] [place] [phone] Giovana Yuan RN 08/26/2024 Documentation [facility] Division of Nephrology [address] [place] [phone] Giovana Yuan RN 08/24/2024 10:05 AM CDT - 08/24/2024 11:59 PM CDT Hospital Encounter [address] [address] ESRD (end stage renal disease) (HCC) Discharge Disposition: Discharge to home or self care 08/24/2024 10:00 AM CDT Clinical Support [facility] Division of Nephrology [address] [place] [phone] Anemia of chronic renal failure, stage 5 (HCC) (Primary Dx); End stage renal disease (HCC); Iron deficiency anemia, unspecified iron deficiency anemia type; Renal osteodystrophy; Secondary hyperparathyroidism 08/22/2024 4:15 AM CDT Dialysis Billing Only [facility] Division of Nephrology [address] [place] [phone] 08/18/2024 Orders Only [facility] Division of Nephrology [address] [place] [phone] Giovana Yuan RN 08/13/2024 Orders Only [facility] Division of Nephrology [address] [place] [phone] Giovana Yuan RN 08/12/2024 10:17 AM CDT - 08/12/2024 11:59 PM CDT Hospital Encounter [address] [address] Anemia of chronic renal failure, stage 5 (HCC); End stage renal disease (HCC); Iron deficiency anemia, unspecified iron deficiency anemia type; Renal osteodystrophy; Secondary hyperparathyroidism Discharge Disposition: Discharge to home or self care 08/12/2024 9:00 AM CDT Clinical Support [facility] Division of Nephrology [address] [place] [phone] Primary hypertension (Primary Dx); Anemia of chronic renal failure, stage 5 (HCC); End stage renal disease (HCC); Iron deficiency anemia, unspecified iron deficiency anemia type; Renal osteodystrophy; Secondary hyperparathyroidism 08/11/2024 Telephone [facility] Division of Nephrology [address] [place] [phone] Giovana Yuan RN 08/10/2024 2:53 PM CDT - 08/10/2024 11:59 PM CDT [address] [address] Abdominal pain Discharge Disposition: Discharge to home or self care 08/10/2024 2:45 PM CDT Lab [facility] Outpatient Lab at [address] [phone] 08/10/2024 Documentation [facility] Transplant Kidney [address] [facility] [address] Mailstop [facility] [place] [phone] Carol Jaz 08/10/2024 Telephone [facility] Transplant Kidney [address] [facility] [address] Mail[address] [facility] [place] [phone] Christina Stringer, ÁNGEL Waitlist Status Update 08/09/2024 Telephone [facility] Transplant Kidney [address] [facility] [address]01 Mailstop -48[address] [place] [address] Christina Stringer, ÁNGEL Kidney Eval 08/09/2024 Orders Only [facility] Division of Nephrology [address] [place] [phone] Giovana Yuan RN Abdominal pain (Primary Dx) 08/05/2024 Orders Only [facility] Division of Nephrology [address] [place] [phone] Giovana Yuan RN 08/05/2024 Documentation [facility] Division of Nephrology [address] [place] [phone] Giovana Yuan RN 08/04/2024 Orders Only [facility] Division of Nephrology [address] [place] [phone] Giovana Yuan RN 08/04/2024 Documentation [facility] Transplant Kidney [address] [facility] 3401 Mailstop [id number] [place] [address] Christina Stringer RN Kidney Eval 08/03/2024 10:30 AM CDT Office Visit [facility] Division of Nephrology [address] [place] [phone] Real Suarez MD Anemia of chronic renal failure, stage 5 (HCC) (Primary Dx); End stage renal disease (HCC); Iron deficiency anemia, unspecified iron deficiency anemia type; Renal osteodystrophy; Secondary hyperparathyroidism 08/02/2024 Documentation [facility] Transplant Kidney [address] [facility] [address] Mail[address] [id number] [place] [address] Christina Stringer RN Kidney Eval 07/30/2024 11:57 AM CDT - 07/30/2024 11:59 PM CDT Hospital [address] [address] Anemia of chronic renal failure, stage 5 (HCC); End stage renal disease (HCC); Iron deficiency anemia, unspecified iron deficiency anemia type; Renal osteodystrophy; Secondary hyperparathyroidism Discharge Disposition: Discharge to home or self care 07/30/2024 10:30 AM CDT Clinical Support [facility] Division of Nephrology [address] [place] [phone] Anemia of chronic renal failure, stage 5 (HCC) (Primary Dx); End stage renal disease (HCC); Iron deficiency anemia, unspecified iron deficiency anemia type; Renal osteodystrophy; Secondary hyperparathyroidism 07/29/2024 Orders Only [facility] Division of Nephrology [address] [place] [phone] Giovana Yuan RN Peritonitis (HCC) (Primary Dx); CRD (chronic renal disease), stage V (HCC) 07/29/2024 Orders Only [facility] Division of Nephrology [address] [place] [phone] Giovana Yuan RN 07/28/2024 8:39 AM CDT - 07/28/2024 11:59 PM CDT Hospital Encounter [address] [address] Anemia of chronic renal failure, stage 5 (HCC); End stage renal disease (HCC); Iron deficiency anemia, unspecified iron deficiency anemia type; Renal osteodystrophy; Secondary hyperparathyroidism Discharge Disposition: Discharge to home or self care 07/27/2024 3:30 PM CDT - 07/27/2024 11:59 PM CDT Hospital Encounter [address] [address] Urinary tract infection without hematuria, site unspecified Discharge Disposition: Discharge to home or self care 07/27/2024 12:30 PM CDT Clinical Support [facility] Division of Nephrology [address] [place] [phone] Anemia of chronic renal failure, stage 5 (HCC) (Primary Dx); End stage renal disease (HCC); Iron deficiency anemia, unspecified iron deficiency anemia type; Renal osteodystrophy; Secondary hyperparathyroidism; Urinary tract infection without hematuria, site unspecified 07/27/2024 Documentation [facility] Division of Nephrology [address] [place] [phone] Cade Estrada RN 07/27/2024 Documentation [facility] Division of Nephrology [address] [place] [phone] Giovana Yuan RN 07/26/2024 Telephone [facility] Division of Nephrology [address] [place] [phone] Giovana Yuan RN 07/26/2024 Orders Only [facility] Division of Nephrology [address] [place] [phone] Giovana Yuan RN 07/22/2024 4:15 AM CDT Dialysis Billing Only [facility] Division of Nephrology [address] [place] [phone] 07/22/2024 Orders Only [facility] Division of Nephrology [address] [place] [phone] Giovana Yuan RN CRD (chronic renal disease), stage V (HCC) (Primary Dx) 07/19/2024 Telephone [facility] Transplant Kidney [address] [facility] Suite [facility] Mailstop [address] [place] [phone] Christina Stringer RN Kidney Eval 07/19/2024 Orders Only [facility] Division of Nephrology [address] [place] [phone] Giovana Yuan RN 07/16/2024 Documentation [facility] Division of Nephrology [address] [place] [phone] Giovana Yuan RN 07/13/2024 Telephone [facility] Transplant Kidney [address] [facility] [address] Mail[address] 09-48-2 [place] [address] Christina Stringer, ÁNGEL Kidney Eval 07/09/2024 8:30 AM CDT Clinical Support [facility] Division of Nephrology [address] [place] [phone] Anemia of chronic renal failure, stage 5 (HCC) (Primary Dx); End stage renal disease (HCC); Iron deficiency anemia, unspecified iron deficiency anemia type; Renal osteodystrophy; Secondary hyperparathyroidism of renal origin 07/07/2024 Documentation [facility] Division of Nephrology [address] [place] [phone] Giovana Yuan RN 07/02/2024 Telephone [facility] Division of Nephrology [address] [place] [phone] Giovana Yuan RN 07/02/2024 Documentation [facility] Division of Nephrology [address] [place] [address] Giovana Yuan RN 06/30/2024 3:45 PM CDT Lab [facility] [address] [place] [phone] Pre-transplant evaluation for kidney transplant; CKD (chronic kidney disease) stage 4, GFR 15-29 ml/min (HCC) 06/30/2024 3:30 PM CDT Office Visit [facility] Nephrology [address] [place] [address] [facility] 5th [place] [address] [place] [address] Mandy Norton NP 06/30/2024 1:13 PM CDT - 06/30/2024 11:59 PM CDT Hospital Encounter [facility] ([facility]) [address] [place] [address] Discharge Disposition: Discharge to home or self care 06/30/2024 12:16 PM CDT - 06/30/2024 11:59 PM CDT Hospital Encounter [facility] [address] [place] [address] [address] [place] [address] Pre-transplant evaluation for kidney transplant; CKD (chronic kidney disease) stage 4, GFR 15-29 ml/min (HCC) Discharge Disposition: Discharge to home or self care 06/30/2024 11:56 AM CDT - 06/30/2024 11:59 PM CDT Hospital Encounter [facility] ([facility]) [address] [place] [phone] Pre-transplant evaluation for kidney transplant; CKD (chronic kidney disease) stage 4, GFR 15-29 ml/min (HCC) Discharge Disposition: Discharge to home or self care 06/30/2024 11:55 AM CDT - 06/30/2024 11:59 PM CDT Hospital Encounter [facility] ([facility]) [address] [place] [phone] Pre-transplant evaluation for kidney transplant; CKD (chronic kidney disease) stage 4, GFR 15-29 ml/min (HCC) Discharge Disposition: Discharge to home or self care 06/30/2024 10:28 AM CDT - 06/30/2024 11:59 PM CDT Hospital Encounter [facility] ([facility]) [address] [place] [address] Pre-transplant evaluation for kidney transplant; CKD (chronic kidney disease) stage 4, GFR 15-29 ml/min (HCC) Discharge Disposition: Discharge to home or self care 06/30/2024 9:00 AM CDT Social Work [facility] Transplant Center [address] [facility], 8th Floor, [place] [address] 06/29/2024 12:27 PM CDT - 06/29/2024 11:59 PM CDT Hospital Encounter [facility] ([facility]) [address] [place] [phone] Real Suarez MD CRD (chronic renal disease), stage V (HCC) Discharge Disposition: Discharge to home or self care 06/29/2024 10:30 AM CDT Office Visit [facility] Division of Nephrology [address] [place] [phone] Real Suarez MD Renal osteodystrophy (Primary Dx); CRD (chronic renal disease), stage V (HCC) 06/29/2024 Documentation [facility] Division of Nephrology [address] [place] [phone] Giovana Yuan RN 06/29/2024 Documentation [facility] Division of Nephrology [address] [place] [phone] Giovana Yuan RN 06/26/2024 Documentation [facility] Division of Nephrology [address] [place] [phone] Real Suarez MD 06/24/2024 10:00 AM CDT Clinical Support [facility] Division of Nephrology [address] [place] [phone] Renal osteodystrophy (Primary Dx); Iron deficiency anemia, unspecified iron deficiency anemia type; Secondary hyperparathyroidism of renal origin; End stage renal disease (HCC) 06/23/2024 9:30 AM CDT Documentation [facility] Transplant Center [facility], 8th Floor, [place] [address] Elena WoodMarshall 06/23/2024 Plan of Care Documentation [facility] Division of Nephrology [address] [place] [phone] 06/22/2024 10:00 AM CDT Clinical Support [facility] Division of Nephrology [address] [place] [phone] Renal osteodystrophy (Primary Dx); Iron deficiency anemia, unspecified iron deficiency anemia type; Secondary hyperparathyroidism of renal origin; End stage renal disease (HCC) 06/22/2024 Documentation [facility] Division of Nephrology [address] [place] [phone] Giovana Yuan RN 06/21/2024 10:00 AM CDT Clinical Support [facility] Division of Nephrology [address] [place] [phone] 06/18/2024 8:00 AM CDT Clinical Support [facility] Division of Nephrology [address] [place] [phone] Renal osteodystrophy (Primary Dx); Iron deficiency anemia, unspecified iron deficiency anemia type; Secondary hyperparathyroidism of renal origin; End stage renal disease (HCC) 06/17/2024 8:00 AM CDT Clinical Support [facility] Division of Nephrology [address] [place] [phone] 06/17/2024 Orders Only [facility] Division [facility] Nephrology [address] [place] [phone] Giovana Yuan RN 06/16/2024 Orders Only [facility] Nephrology [address] [place] [phone] Giovana Yuan RN 06/14/2024 2:30 PM CDT Clinical Support [facility] Division of Nephrology [address] [place] [address] 2024 Documentation [facility] Nephrology [address] [place] [phone] Kyra Dominguez RN 06/07/2024 12:50 PM CDT - 06/07/2024 3:00 PM CDT Surgery [facility] Operating Room [address] [place] [phone] Rosalba Locke MD LAPAROSCOPIC PERITONEAL DIALYSIS CATHETER 06/07/2024 11:22 AM CDT Anesthesia Event [facility] Operating Room [address] [place] [address] Bret Santoyo MD Mallette, Allison Anne, NP 06/07/2024 10:36 AM CDT - 06/07/2024 5:52 PM CDT Hospital Encounter [facility] Operating Room [address] [place] [address] Rosalba Locke MD CKD (chronic kidney disease) stage 5, GFR less than 15 ml/min (HCC) (Primary Dx) Discharge Disposition: Discharge to home or self care 06/07/2024 Orders Only [facility] Nephrology [address] [facility] 5th [place] [address] [place] [address] Renuka Balderas MD PhD CKD stage 4 secondary to hypertension (HCC) (Primary Dx); Chronic kidney disease (CKD), stage V (HCC); Anemia in chronic kidney disease, on chronic dialysis (HCC) from Last 3 Months Immunizations Immunization Administration Dates Next Due DTaP, Unspecified 10/01/2007, 4,2002,10/20,2002 HPV, Quadrivalent 10/24/2016,12/26/2015,10/23/19 16 Hep A, Unspecified 10/19/2014,10/18/2013 Hep B / HiB 06/17/2003,2002,2002 Influenza, Quadrivalent, Leora l Culture-based MDCK, Preservative Free, Antibiotic Free, Intramuscular 01/07/2022 Influenza, Quadrivalent, Spl it, Preservative Free, Intramuscular 02/12/2021 Influenza, Trivalent, Preser vative Free, Intramuscular 01/27/2024 MMR 10/01/2007,06/17/2003 Meningococcal MCV4P (Menactra) 10/18/2013 PPD TEST 06/22/2024 Pneumococcal Conjugate PCV 13 12/14/2003 ,2002,2002,08/27 Polio, Unspecified 10/01/2007, 3,2002,08/27 Tdap 10/18/2013 Varicella 09/30/2017,12/14/2003 ZOSTER Recombinant 07/20/2024 Surgical History Surgery Date Site/Laterality Comments INGUINAL HERNIA REPAIR Inguinal Hernia Repair - (Added by NAILA Roblero) over 10 yrs ago per pt US GUIDED BIOPSY RENAL 01/30/2024 N/A Medical History Medical History Date Comments Hypertension Chronic kidney disease Headache Family History Medical History Relation Name Comments No Known Problems Mother Anesthesia problems Neg Hx Relation Name Status Comments Mother Social History Tobacco Use Types Packs/Day Years Used Date Smoking Tobacco: Some Days Vaping Smokeless Tobacco: Never Tobacco Cessation:Ready to Q uit: Not Asked; Counseling Given: Not Answered [facility] [employer] Answer Date Recorded In the past 12 months has e [employer], oil, or water Affirm threatened to shut off services in your home? No 08/31/2024 Humiliation, Afraid, Rape, and Kick questionnair e Answer Date Recorded Within the last year, have y ou been afraid of your partner or ex-partner? No 08/31/2024 Within the last year, have y ou been humiliated or emotionally abused in other ways by your partner or ex-partner? No Within the last year, have y ou been kicked, hit, slapped, or otherwise physically hurt by your partner or ex-partner? No 08/31/2024 Within the last year, have y ou been raped or forced to have any kind of sexual activity by your partner or ex-partner? No 08/31/2024 Social Connection and Isolat ion Panel [NHANES] Answer Date Recorded In a typical week, how many times do you talk on the phone with family, friends, or neighbors? More than three times a week 07/08/2024 How often do you get togethe r with friends or relatives? More than three times a week 07/08/2024 How often do you attend chur ch or jew services? Never 07/08/2024 Do you belong to any clubs o r organizations such as yarsani groups, unions, fraternal or athletic groups, or school groups? Yes 07/08/2024 How often do you attend meet ings of the clubs or organizations you belong to? More than 4 times per year 07/08/2024 Are you , , di vorced, , never , or living with a partner? Never 07/08/2024 AUDIT-C Answer Date Recorded Q1: How often do you have a drink containing alc ohol? Monthly or less 05/31/2024 Q2: How many drinks containi ng alcohol do you have on a typical day when you are drinking? 1 or 2 05/31/2024 Q3: How often do you have si x or more drinks on one occasion? Never 05/31/2024 Overall Financial Resource Strain (CARDIA) Answe r Date Recorded How hard is it for you to pa y for the very basics like food, housing, medical care, and heating? Not very hard 07/08/2024 Hunger Vital Sign Answer Date Recorded Within the past 12 months, y ou worried that your food would run out before you got the money to buy more. Never true 09/01/19 25 Within the past 12 months, t he food you bought just didn't last and you didn't have money to get more. Never true 08/31/2024 PRAPARE - Transportation Answer Date Re corded In the past 12 months, has l ack of transportation kept you from medical appointments or from getting medications? No 08/22 In the past 12 months, has l ack of transportation kept you from meetings, work, or from getting things needed for daily living? No 08/31/2024 Housing Stability Vital Sign Answer Dean e Recorded In the last 12 months, was t here a time when you were not able to pay the mortgage or rent on time? No 08/31/2024 In the past 12 months, how m any times have you moved where you were living? 0 08/31/2024 At any time in the past 12 m [facility], were you homeless or living in a snf (including now)? No 08/31/2024 Personal Safety Answer Date Recorded Have you ever been in or are you currently in a harmful physical or emotional relationship or is someone making you feel afraid or unsafe? 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 Gender Identity Not on file Sexual Orientation Not on file Obstetrics History Last Filed Vital Signs Vital Sign Reading Time Taken Comments Blood Pressure 137/88 08/31/2024 10:45 AM CDT Pulse 101 08/31/2024 10:45 AM CDT Temperature 36.3 C (97.3 F) 08/31/2024 10:45 AM CDT Respiratory Rate 13 06/07/2024 5:00 PM CDT Oxygen Saturation 100% 06/07/2024 5:00 PM CDT Inhaled Oxygen Concentration - - Weight 108.3 kg (238 lb 12.1 oz) 2024 10:45 AM CDT Height 193 cm (6' 4) 06/30/2024 2:29 PM CDT Body Mass Index 29.06 06/30/2024 2:29 PM CDT Plan of Treatment Health Maintenance Due Date Last Done Comments Depression Screening 2002 Pneumococcal vaccine <65 (1 of 1 - PPSV23) 2008 12/14/2003, 2002, 2002, Additional history exists Meningococcal B Vaccine (1 o f 2 - Standard) 2018 Regular Well Visit/Exam 18-64 2020 DTaP/Tdap/Td Vaccine (7 - Td or Tdap) 10/19/2023 10/18/2013, 10/01/2007, 12/14/2003, Additional history exists Covid-19 Vaccine (5 - 2023-2 5 season) 2023 01/07/2022, 02/12/2021, 06/13/2020, Additional history exists HPV Vaccines Completed 10/24/2016, 1006/2015, 10/23/2015 Varicella Vaccines Completed 09/30/2017, 12/14/2003 Influenza Vaccine Completed 01/27/2024, , 02/12/2021 Hepatitis B Screening Completed 06/30/2024 , 06/17/2003, 2002, Additional history exists Hepatitis C Screening Completed 06/30/2024 , 06/24/2024, 01/25/2024 Medical Devices Implanted Type Area Recreation Therapy Aides Teacher Device Identifier Shelf Expiration Date Model / Serial / Lot [employer] [place] 15fr 62cm 2 Cuff Radiopaque Peritoneal Curl Catheter [id number] - [id number] Implanted:Qty : 1 on 06/07/2024 by Rosalba Locke MD at [facility] N/A: Abdomen [employer] [id number] 11/12/2028 [id number] / / [id number] Procedures Procedure Name Priority Date/Time Associated Diagnosis Comments HLA ANTIBODY SCREEN - SAB (CLASS I AND CLASS II) Routine 08/24/2024 10:05 AM CDT ESRD (end stage renal disease) (HCC) HLA ANTIBODY SCREEN - PRA (CLASS I AND CLASS II) Routine 08/24/2024 10:05 AM CDT ESRD (end stage renal disease) (HCC) HLA ANTIBODY SCREEN BY PRA OR SAB PER SCHEDULE (CLASS I AND CLASS II) Routine 08/24/2024 10:05 AM CDT ESRD (end stage renal disease) (HCC) PROTEIN, URINE, 24 HOUR 08/24/2024 12:00 AM CDT PROTEIN, TOTAL, URINE TIMED 08/24/2024 12:00 AM CDT KT/V, RESIDUAL 08/24/2024 12:00 AM CDT UREA CLEARANCE, URINE WEEKLY (NORMALIZED) 08/24/2024 12:00 AM CDT CREATININE CLEAR, URINE WEEKLY (NORMALIZED) 08/24/2024 12:00 AM CDT UREA CLEARANCE, URINE (NORMALIZED) 08/24/2024 12:00 AM CDT CREATININE CLEARANCE, URINE (NORMALIZED) 08/24/2024 12:00 AM CDT UREA CLEARANCE, URINE 08/24/2024 12:00 AM CDT CREATININE CLEARANCE, URINE 08/24/2024 12:00 AM CDT CREATININE, URINE, TIMED 08/24/2024 12:00 AM CDT UREA NITROGEN, URINE, 24 HOUR 08/24/2024 12:00 AM CDT UREA NITROGEN, URINE TIMED 08/24/2024 12:00 AM CDT CREATININE CLEARANCE, URINE WEEKLY 08/24/2024 12:00 AM CDT CREATININE, URINE, 24 HOUR 08/24/2024 12:00 AM CDT PNA, NORMALIZED 08/24/2024 12:00 AM CDT PNA 08/24/2024 12:00 AM CDT KT/V, TOTAL 08/24/2024 12:00 AM CDT UREA CLEARANCE, TOTAL WEEKLY (NORMALIZED) 08/24/2024 12:00 AM CDT CREATININE CLEAR, TOTAL WEEKLY (NORMALIZED) 08/24/2024 12:00 AM CDT CREATININE CLEAR, PD FLUID WEEKLY (NORMALIZED) 08/24/2024 12:00 AM CDT CREATININE CLEARANCE, PD FLUID (NORMALIZED) 08/24/2024 12:00 AM CDT CREATININE CLEAR, PD FLUID WEEKLY 08/24/2024 12:00 AM CDT CREATININE CLEARANCE, PD FLUID 08/24/2024 12:00 AM CDT CREATININE, PD FLUID 24 HR 08/24/2024 12:00 AM CDT CREATININE, PD FLUID TIMED (CORRECTED) 08/24/2024 12:00 AM CDT GLUCOSE, PD FLUID TIMED 08/24/2024 12:00 AM CDT CREATININE CLEAR, PD FLUID TOTAL WEEKLY 08/24/2024 12:00 AM CDT KT/V, PERITONEAL 08/24/2024 12:00 AM CDT UREA CLEARANCE, PD FLUID WEEKLY (NORMALIZED) 08/24/2024 12:00 AM CDT UREA CLEARANCE, PD FLUID (NORMALIZED) 08/24/2024 12:00 AM CDT UREA CLEARANCE, PD FLUID 08/24/2024 12:00 AM CDT PROTEIN, TOTAL, PD FLUID 24HR 08/24/2024 12:00 AM CDT PROTEIN, TOTAL, PD FLUID TIMED (G/DL) 08/24/2024 12:00 AM CDT PROTEIN, TOTAL, PD FLUID TIMED (MG/DL) 08/24/2024 12:00 AM CDT CREATININE, PD FLUID TIMED (UNCORRECTED) 08/24/2024 12:00 AM CDT UREA NITROGEN, PD FLUID 24 HR 08/24/2024 12:00 AM CDT UREA NITROGEN, PD FLUID TIMED 08/24/2024 12:00 AM CDT GLUCOSE, RANDOM 08/24/2024 12:00 AM CDT CALCIUM PHOSPHORUS PRODUCT (CALC) 08/24/2024 12:00 AM CDT BUN / CREATININE RATIO 08/24/2024 12:00 AM CDT UREA VOLUME DISTRIBUTION (LU) 08/24/2024 12:00 AM CDT BSA (BOOM) 08/24/2024 12:00 AM CDT URINE PROMPT 08/24/2024 12:00 AM CDT PD FLUID PROMPT 08/24/2024 12:00 AM CDT PATIENT INFO PROMPT 08/24/2024 12:00 AM CDT UIBC Routine 08/24/2024 12:00 AM CDT Anemia of chronic renal failure, stage 5 (HCC) End stage renal disease (HCC) Iron deficiency anemia, unspecified iron deficiency anemia type Renal osteodystrophy Secondary hyperparathyroidism IRON PROFILE W/ IBC Routine 08/24/2024 12:00 AM CDT Anemia of chronic renal failure, stage 5 (HCC) End stage renal disease (HCC) Iron deficiency anemia, unspecified iron deficiency anemia type Renal osteodystrophy Secondary hyperparathyroidism IRON Routine 08/24/2024 12:00 AM CDT Anemia of chronic renal failure, stage 5 (HCC) End stage renal disease (HCC) Iron deficiency anemia, unspecified iron deficiency anemia type Renal osteodystrophy Secondary hyperparathyroidism CREATININE Routine 08/24/2024 12:00 AM CDT Anemia of chronic renal failure, stage 5 (HCC) End stage renal disease (HCC) Iron deficiency anemia, unspecified iron deficiency anemia type Renal osteodystrophy Secondary hyperparathyroidism BUN Routine 08/24/2024 12:00 AM CDT Anemia of chronic renal failure, stage 5 (HCC) End stage renal disease (HCC) Iron deficiency anemia, unspecified iron deficiency anemia type Renal osteodystrophy Secondary hyperparathyroidism TRANSFERRIN SATURATION Routine 08/24/2024 12:00 AM CDT Anemia of chronic renal failure, stage 5 (HCC) End stage renal disease (HCC) Iron deficiency anemia, unspecified iron deficiency anemia type Renal osteodystrophy Secondary hyperparathyroidism HEMOGLOBIN Routine 08/24/2024 12:00 AM CDT Anemia of chronic renal failure, stage 5 (HCC) End stage renal disease (HCC) Iron deficiency anemia, unspecified iron deficiency anemia type Renal osteodystrophy Secondary hyperparathyroidism ALBUMIN Routine 08/24/2024 12:00 AM CDT Anemia of chronic renal failure, stage 5 (HCC) End stage renal disease (HCC) Iron deficiency anemia, unspecified iron deficiency anemia type Renal osteodystrophy Secondary hyperparathyroidism PHOSPHORUS Routine 08/24/2024 12:00 AM CDT Anemia of chronic renal failure, stage 5 (HCC) End stage renal disease (HCC) Iron deficiency anemia, unspecified iron deficiency anemia type Renal osteodystrophy Secondary hyperparathyroidism CALCIUM LEVEL Routine 08/24/2024 12:00 AM CDT Anemia of chronic renal failure, stage 5 (HCC) End stage renal disease (HCC) Iron deficiency anemia, unspecified iron deficiency anemia type Renal osteodystrophy Secondary hyperparathyroidism BICARBONATE Routine 08/24/2024 12:00 AM CDT Anemia of chronic renal failure, stage 5 (HCC) End stage renal disease (HCC) Iron deficiency anemia, unspecified iron deficiency anemia type Renal osteodystrophy Secondary hyperparathyroidism CHLORIDE Routine 08/24/2024 12:00 AM CDT Anemia of chronic renal failure, stage 5 (HCC) End stage renal disease (HCC) Iron deficiency anemia, unspecified iron deficiency anemia type Renal osteodystrophy Secondary hyperparathyroidism POTASSIUM LEVEL Routine 08/24/2024 12:00 AM CDT Anemia of chronic renal failure, stage 5 (HCC) End stage renal disease (HCC) Iron deficiency anemia, unspecified iron deficiency anemia type Renal osteodystrophy Secondary hyperparathyroidism SODIUM LEVEL Routine 08/24/2024 12:00 AM CDT Anemia of chronic renal failure, stage 5 (HCC) End stage renal disease (HCC) Iron deficiency anemia, unspecified iron deficiency anemia type Renal osteodystrophy Secondary hyperparathyroidism CELL DIFFERENTIAL, BODY FLUID Routine 08/12/2024 10:17 AM CDT Anemia of chronic renal failure, stage 5 (HCC) End stage renal disease (HCC) Iron deficiency anemia, unspecified iron deficiency anemia type Renal osteodystrophy Secondary hyperparathyroidism CELL COUNT W/REFLEX DIFFERENTIAL, BODY FLUID Routine 08/12/2024 10:17 AM CDT Anemia of chronic renal failure, stage 5 (HCC) End stage renal disease (HCC) Iron deficiency anemia, unspecified iron deficiency anemia type Renal osteodystrophy Secondary hyperparathyroidism URINALYSIS, MICROSCOPIC ONLY Routine 08/10/2024 2:53 PM CDT Abdominal pain URINALYSIS AND REFLEX TO MICROSCOPIC AND CULTURE Routine 08/10/2024 2:53 PM CDT Abdominal pain PTH 08/03/2024 12:00 AM CDT CALCIUM PHOSPHORUS PRODUCT, CORRECTED (CALC) 08/03/2024 12:00 AM CDT CALCIUM, CORRECTED 08/03/2024 12:00 AM CDT CALCIUM PHOSPHORUS PRODUCT (CALC) 08/03/2024 12:00 AM CDT BUN / CREATININE RATIO 08/03/2024 12:00 AM CDT UIBC Routine 08/03/2024 12:00 AM CDT Anemia of chronic renal failure, stage 5 (HCC) End stage renal disease (HCC) Iron deficiency anemia, unspecified iron deficiency anemia type Renal osteodystrophy Secondary hyperparathyroidism IRON PROFILE W/ IBC Routine 08/03/2024 12:00 AM CDT Anemia of chronic renal failure, stage 5 (HCC) End stage renal disease (HCC) Iron deficiency anemia, unspecified iron deficiency anemia type Renal osteodystrophy Secondary hyperparathyroidism IRON Routine 08/03/2024 12:00 AM CDT Anemia of chronic renal failure, stage 5 (HCC) End stage renal disease (HCC) Iron deficiency anemia, unspecified iron deficiency anemia type Renal osteodystrophy Secondary hyperparathyroidism CREATININE Routine 08/03/2024 12:00 AM CDT Anemia of chronic renal failure, stage 5 (HCC) End stage renal disease (HCC) Iron deficiency anemia, unspecified iron deficiency anemia type Renal osteodystrophy Secondary hyperparathyroidism BUN Routine 08/03/2024 12:00 AM CDT Anemia of chronic renal failure, stage 5 (HCC) End stage renal disease (HCC) Iron deficiency anemia, unspecified iron deficiency anemia type Renal osteodystrophy Secondary hyperparathyroidism TRANSFERRIN SATURATION Routine 08/03/2024 12:00 AM CDT Anemia of chronic renal failure, stage 5 (HCC) End stage renal disease (HCC) Iron deficiency anemia, unspecified iron deficiency anemia type Renal osteodystrophy Secondary hyperparathyroidism HEMOGLOBIN Routine 08/03/2024 12:00 AM CDT Anemia of chronic renal failure, stage 5 (HCC) End stage renal disease (HCC) Iron deficiency anemia, unspecified iron deficiency anemia type Renal osteodystrophy Secondary hyperparathyroidism ALBUMIN Routine 08/03/2024 12:00 AM CDT Anemia of chronic renal failure, stage 5 (HCC) End stage renal disease (HCC) Iron deficiency anemia, unspecified iron deficiency anemia type Renal osteodystrophy Secondary hyperparathyroidism PHOSPHORUS Routine 08/03/2024 12:00 AM CDT Anemia of chronic renal failure, stage 5 (HCC) End stage renal disease (HCC) Iron deficiency anemia, unspecified iron deficiency anemia type Renal osteodystrophy Secondary hyperparathyroidism CALCIUM LEVEL Routine 08/03/2024 12:00 AM CDT Anemia of chronic renal failure, stage 5 (HCC) End stage renal disease (HCC) Iron deficiency anemia, unspecified iron deficiency anemia type Renal osteodystrophy Secondary hyperparathyroidism BICARBONATE Routine 08/03/2024 12:00 AM CDT Anemia of chronic renal failure, stage 5 (HCC) End stage renal disease (HCC) Iron deficiency anemia, unspecified iron deficiency anemia type Renal osteodystrophy Secondary hyperparathyroidism CHLORIDE Routine 08/03/2024 12:00 AM CDT Anemia of chronic renal failure, stage 5 (HCC) End stage renal disease (HCC) Iron deficiency anemia, unspecified iron deficiency anemia type Renal osteodystrophy Secondary hyperparathyroidism POTASSIUM LEVEL Routine 08/03/2024 12:00 AM CDT Anemia of chronic renal failure, stage 5 (HCC) End stage renal disease (HCC) Iron deficiency anemia, unspecified iron deficiency anemia type Renal osteodystrophy Secondary hyperparathyroidism SODIUM LEVEL Routine 08/03/2024 12:00 AM CDT Anemia of chronic renal failure, stage 5 (HCC) End stage renal disease (HCC) Iron deficiency anemia, unspecified iron deficiency anemia type Renal osteodystrophy Secondary hyperparathyroidism CELL COUNT W/REFLEX DIFFERENTIAL, BODY FLUID Routine 07/30/2024 10:45 AM CDT Anemia of chronic renal failure, stage 5 (HCC) End stage renal disease (HCC) Iron deficiency anemia, unspecified iron deficiency anemia type Renal osteodystrophy Secondary hyperparathyroidism AEROBIC AND ANAEROBIC CULTURE AND GRAM STAIN Routine 07/28/2024 8:37 AM CDT Anemia of chronic renal failure, stage 5 (HCC) End stage renal disease (HCC) Iron deficiency anemia, unspecified iron deficiency anemia type Renal osteodystrophy Secondary hyperparathyroidism CELL DIFFERENTIAL, BODY FLUID Routine 07/28/2024 3:59 AM CDT Anemia of chronic renal failure, stage 5 (HCC) End stage renal disease (HCC) Iron deficiency anemia, unspecified iron deficiency anemia type Renal osteodystrophy Secondary hyperparathyroidism CELL COUNT W/REFLEX DIFFERENTIAL, BODY FLUID Routine 07/28/2024 3:59 AM CDT Anemia of chronic renal failure, stage 5 (HCC) End stage renal disease (HCC) Iron deficiency anemia, unspecified iron deficiency anemia type Renal osteodystrophy Secondary hyperparathyroidism HLA SOLID ORGAN TYPING REPORT 07/05/2024 1:17 PM CDT XR ORTHOPANTOGRAM/PANO BHUPENDRA Schedule Routine, Read Routine (OP Routine) 06/30/2024 2:04 PM CDT Pre-transplant evaluation for kidney transplant CKD (chronic kidney disease) stage 4, GFR 15-29 ml/min (HCC) HLA CLASS I DNA (ABC) RECIPIENT Routine 06/30/2024 1:56 PM CDT Pre-transplant evaluation for kidney transplant CKD (chronic kidney disease) stage 4, GFR 15-29 ml/min (HCC) HLA CLASS II DNA (DR, DQ, DP) RECIPIENT Routine 06/30/2024 1:56 PM CDT Pre-transplant evaluation for kidney transplant CKD (chronic kidney disease) stage 4, GFR 15-29 ml/min (HCC) HLA ANTIBODY SCREEN BY SINGLE ANTIGEN Routine 06/30/2024 1:56 PM CDT Pre-transplant evaluation for kidney transplant CKD (chronic kidney disease) stage 4, GFR 15-29 ml/min (HCC) EGFR Routine 06/30/2024 1:50 PM CDT Pre-transplant evaluation for kidney transplant CKD (chronic kidney disease) stage 4, GFR 15-29 ml/min (HCC) URINALYSIS, MICROSCOPIC ONLY Routine 06/30/2024 1:50 PM CDT Pre-transplant evaluation for kidney transplant CKD (chronic kidney disease) stage 4, GFR 15-29 ml/min (HCC) DIFFERENTIAL AUTO Routine 06/30/2024 1:50 PM CDT Pre-transplant evaluation for kidney transplant CKD (chronic kidney disease) stage 4, GFR 15-29 ml/min (HCC) CBC WITH AUTO DIFFERENTIAL Routine 06/30/2024 1:50 PM CDT Pre-transplant evaluation for kidney transplant CKD (chronic kidney disease) stage 4, GFR 15-29 ml/min (HCC) COMPREHENSIVE METABOLIC PANEL Routine 06/30/2024 1:50 PM CDT Pre-transplant evaluation for kidney transplant CKD (chronic kidney disease) stage 4, GFR 15-29 ml/min (HCC) CREATININE, URINE, RANDOM Routine 06/30/2024 1:50 PM CDT Pre-transplant evaluation for kidney transplant CKD (chronic kidney disease) stage 4, GFR 15-29 ml/min (HCC) FERRITIN Routine 06/30/2024 1:50 PM CDT Pre-transplant evaluation for kidney transplant CKD (chronic kidney disease) stage 4, GFR 15-29 ml/min (HCC) GAMMA GT Routine 06/30/2024 1:50 PM CDT Pre-transplant evaluation for kidney transplant CKD (chronic kidney disease) stage 4, GFR 15-29 ml/min (HCC) HEMOGLOBIN A1C Routine 06/30/2024 1:50 PM CDT Pre-transplant evaluation for kidney transplant CKD (chronic kidney disease) stage 4, GFR 15-29 ml/min (HCC) IRON PROFILE W/ IBC Routine 06/30/2024 1:50 PM CDT Pre-transplant evaluation for kidney transplant CKD (chronic kidney disease) stage 4, GFR 15-29 ml/min (HCC) LIPID PANEL Routine 06/30/2024 1:50 PM CDT Pre-transplant evaluation for kidney transplant CKD (chronic kidney disease) stage 4, GFR 15-29 ml/min (HCC) PTH Routine 06/30/2024 1:50 PM CDT Pre-transplant evaluation for kidney transplant CKD (chronic kidney disease) stage 4, GFR 15-29 ml/min (HCC) APTT Routine 06/30/2024 1:50 PM CDT Pre-transplant evaluation for kidney transplant CKD (chronic kidney disease) stage 4, GFR 15-29 ml/min (HCC) PHOSPHORUS Routine 06/30/2024 1:50 PM CDT Pre-transplant evaluation for kidney transplant CKD (chronic kidney disease) stage 4, GFR 15-29 ml/min (HCC) PROTEIN, URINE, RANDOM Routine 06/30/2024 1:50 PM CDT Pre-transplant evaluation for kidney transplant CKD (chronic kidney disease) stage 4, GFR 15-29 ml/min (HCC) PROTIME-INR Routine 06/30/2024 1:50 PM CDT Pre-transplant evaluation for kidney transplant CKD (chronic kidney disease) stage 4, GFR 15-29 ml/min (HCC) TYPE AND SCREEN Routine 06/30/2024 1:50 PM CDT Pre-transplant evaluation for kidney transplant CKD (chronic kidney disease) stage 4, GFR 15-29 ml/min (HCC) URINALYSIS AND REFLEX TO MICROSCOPIC Routine 06/30/2024 1:50 PM CDT Pre-transplant evaluation for kidney transplant CKD (chronic kidney disease) stage 4, GFR 15-29 ml/min (HCC) URIC ACID Routine 06/30/2024 1:50 PM CDT Pre-transplant evaluation for kidney transplant CKD (chronic kidney disease) stage 4, GFR 15-29 ml/min (HCC) CMV, IGG Routine 06/30/2024 1:50 PM CDT Pre-transplant evaluation for kidney transplant CKD (chronic kidney disease) stage 4, GFR 15-29 ml/min (HCC) ELVIRA-BALTAZAR VIRUS VCA ANTIBODY PANEL Routine 06/30/2024 1:50 PM CDT Pre-transplant evaluation for kidney transplant CKD (chronic kidney disease) stage 4, GFR 15-29 ml/min (HCC) HIV 1/2 ANTIBODY PLUS P24 ANTIGEN Routine 06/30/2024 1:50 PM CDT Pre-transplant evaluation for kidney transplant CKD (chronic kidney disease) stage 4, GFR 15-29 ml/min (HCC) HSV 1 ANTIBODY, IGG Routine 06/30/2024 1:50 PM CDT Pre-transplant evaluation for kidney transplant CKD (chronic kidney disease) stage 4, GFR 15-29 ml/min (HCC) HSV 2 ANTIBODY, IGG Routine 06/30/2024 1:50 PM CDT Pre-transplant evaluation for kidney transplant CKD (chronic kidney disease) stage 4, GFR 15-29 ml/min (HCC) HEPATITIS B CORE ANTIBODY, TOTAL Routine 06/30/2024 1:50 PM CDT Pre-transplant evaluation for kidney transplant CKD (chronic kidney disease) stage 4, GFR 15-29 ml/min (HCC) HEPATITIS B SURFACE ANTIBODY (IMMUNE STATUS) Routine 06/30/2024 1:50 PM CDT Pre-transplant evaluation for kidney transplant CKD (chronic kidney disease) stage 4, GFR 15-29 ml/min (HCC) HEPATITIS B SURFACE ANTIGEN Routine 06/30/2024 1:50 PM CDT Pre-transplant evaluation for kidney transplant CKD (chronic kidney disease) stage 4, GFR 15-29 ml/min (HCC) HEPATITIS C ANTIBODY Routine 06/30/2024 1:50 PM CDT Pre-transplant evaluation for kidney transplant CKD (chronic kidney disease) stage 4, GFR 15-29 ml/min (HCC) RPR Routine 06/30/2024 1:50 PM CDT Pre-transplant evaluation for kidney transplant CKD (chronic kidney disease) stage 4, GFR 15-29 ml/min (HCC) VARICELLA ZOSTER ANTIBODY, IGG Routine 06/30/2024 1:50 PM CDT Pre-transplant evaluation for kidney transplant CKD (chronic kidney disease) stage 4, GFR 15-29 ml/min (HCC) LR HLA TYPING (CLASS I AND CLASS II) Routine 06/30/2024 1:37 PM CDT Pre-transplant evaluation for kidney transplant CKD (chronic kidney disease) stage 4, GFR 15-29 ml/min (HCC) HLA ANTIBODY SCREEN - SAB (CLASS I AND CLASS II) Routine 06/30/2024 1:36 PM CDT Pre-transplant evaluation for kidney transplant CKD (chronic kidney disease) stage 4, GFR 15-29 ml/min (HCC) TRANSTHORACIC ECHO (TTE) COMPLETE W DOPPLER/CF WO CONTRAST Routine 06/30/2024 1:20 PM CDT Pre-transplant evaluation for kidney transplant CKD (chronic kidney disease) stage 4, GFR 15-29 ml/min (HCC) XR CHEST PA LATERAL 2 VIEWS Schedule Routine, Read Routine (OP Routine) 06/30/2024 12:00 PM CDT Pre-transplant evaluation for kidney transplant CKD (chronic kidney disease) stage 4, GFR 15-29 ml/min (HCC) CT ABDOMEN PELVIS WO CONTRAST Schedule Routine, Read Routine (OP Routine) 06/30/2024 10:51 AM CDT Pre-transplant evaluation for kidney transplant CKD (chronic kidney disease) stage 4, GFR 15-29 ml/min (HCC) XR KUB Schedule Routine, Read Routine (OP Routine) 06/29/2024 12:40 PM CDT CRD (chronic renal disease), stage V (HCC) GLUCOSE, RANDOM 06/24/2024 12:00 AM CDT CALCIUM PHOSPHORUS PRODUCT, CORRECTED (CALC) 06/24/2024 12:00 AM CDT CALCIUM, CORRECTED 06/24/2024 12:00 AM CDT ALT 06/24/2024 12:00 AM CDT CALCIUM PHOSPHORUS PRODUCT (CALC) 06/24/2024 12:00 AM CDT BUN / CREATININE RATIO 06/24/2024 12:00 AM CDT PLATELET COUNT 06/24/2024 12:00 AM CDT HEMOGLOBIN 06/24/2024 12:00 AM CDT VITAMIN D 25 HYDROXY Routine 06/24/2024 12:00 AM CDT Renal osteodystrophy Iron deficiency anemia, unspecified iron deficiency anemia type Secondary hyperparathyroidism of renal origin End stage renal disease (HCC) UIBC Routine 06/24/2024 12:00 AM CDT Renal osteodystrophy Iron deficiency anemia, unspecified iron deficiency anemia type Secondary hyperparathyroidism of renal origin End stage renal disease (HCC) IRON PROFILE W/ IBC Routine 06/24/2024 12:00 AM CDT Renal osteodystrophy Iron deficiency anemia, unspecified iron deficiency anemia type Secondary hyperparathyroidism of renal origin End stage renal disease (HCC) FERRITIN Routine 06/24/2024 12:00 AM CDT Renal osteodystrophy Iron deficiency anemia, unspecified iron deficiency anemia type Secondary hyperparathyroidism of renal origin End stage renal disease (HCC) TRANSFERRIN SATURATION Routine 06/24/2024 12:00 AM CDT Renal osteodystrophy Iron deficiency anemia, unspecified iron deficiency anemia type Secondary hyperparathyroidism of renal origin End stage renal disease (HCC) IRON Routine 06/24/2024 12:00 AM CDT Renal osteodystrophy Iron deficiency anemia, unspecified iron deficiency anemia type Secondary hyperparathyroidism of renal origin End stage renal disease (HCC) PTH Routine 06/24/2024 12:00 AM CDT Renal osteodystrophy Iron deficiency anemia, unspecified iron deficiency anemia type Secondary hyperparathyroidism of renal origin End stage renal disease (HCC) ALKALINE PHOSPHATASE Routine 06/24/2024 12:00 AM CDT Renal osteodystrophy Iron deficiency anemia, unspecified iron deficiency anemia type Secondary hyperparathyroidism of renal origin End stage renal disease (HCC) ALBUMIN Routine 06/24/2024 12:00 AM CDT Renal osteodystrophy Iron deficiency anemia, unspecified iron deficiency anemia type Secondary hyperparathyroidism of renal origin End stage renal disease (HCC) PHOSPHORUS Routine 06/24/2024 12:00 AM CDT Renal osteodystrophy Iron deficiency anemia, unspecified iron deficiency anemia type Secondary hyperparathyroidism of renal origin End stage renal disease (HCC) CALCIUM LEVEL Routine 06/24/2024 12:00 AM CDT Renal osteodystrophy Iron deficiency anemia, unspecified iron deficiency anemia type Secondary hyperparathyroidism of renal origin End stage renal disease (HCC) CREATININE Routine 06/24/2024 12:00 AM CDT Renal osteodystrophy Iron deficiency anemia, unspecified iron deficiency anemia type Secondary hyperparathyroidism of renal origin End stage renal disease (HCC) BUN Routine 06/24/2024 12:00 AM CDT Renal osteodystrophy Iron deficiency anemia, unspecified iron deficiency anemia type Secondary hyperparathyroidism of renal origin End stage renal disease (HCC) BICARBONATE Routine 06/24/2024 12:00 AM CDT Renal osteodystrophy Iron deficiency anemia, unspecified iron deficiency anemia type Secondary hyperparathyroidism of renal origin End stage renal disease (HCC) CHLORIDE Routine 06/24/2024 12:00 AM CDT Renal osteodystrophy Iron deficiency anemia, unspecified iron deficiency anemia type Secondary hyperparathyroidism of renal origin End stage renal disease (HCC) POTASSIUM LEVEL Routine 06/24/2024 12:00 AM CDT Renal osteodystrophy Iron deficiency anemia, unspecified iron deficiency anemia type Secondary hyperparathyroidism of renal origin End stage renal disease (HCC) SODIUM LEVEL Routine 06/24/2024 12:00 AM CDT Renal osteodystrophy Iron deficiency anemia, unspecified iron deficiency anemia type Secondary hyperparathyroidism of renal origin End stage renal disease (HCC) HEPATITIS B CORE ANTIBODY, TOTAL 06/24/2024 12:00 AM CDT HEPATITIS C ANTIBODY Routine 06/24/2024 12:00 AM CDT Renal osteodystrophy Iron deficiency anemia, unspecified iron deficiency anemia type Secondary hyperparathyroidism of renal origin End stage renal disease (HCC) HEPATITIS B SURFACE ANTIGEN Routine 06/24/2024 12:00 AM CDT Renal osteodystrophy Iron deficiency anemia, unspecified iron deficiency anemia type Secondary hyperparathyroidism of renal origin End stage renal disease (HCC) HEPATITIS B SURFACE ANTIBODY (IMMUNE STATUS) Routine 06/24/2024 12:00 AM CDT Renal osteodystrophy Iron deficiency anemia, unspecified iron deficiency anemia type Secondary hyperparathyroidism of renal origin End stage renal disease (HCC) RENAL FUNCTION PANEL Routine 06/14/2024 1:42 PM CDT 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 Single Antigen Antibody Screen and PRA Screen ordered. us Patricia Jimenes MD LAB BLOOD ORDERAB LES Final Result [facility] * HLA Antibody Screen - PRA (Class I and Class II) (08/24/2024 10:05 AM CDT) Class I Treatment Untreated [facility] Class I Dilution 1:1 [facility] Class I Tested Date 08/25/2024 [facility] Class I Result Negative [facility] Class I Percent Positive 0 [facility] Class II Treatment Untreated [facility] Class II Dilution 1:1 [facility] Class II Tested Date 08/25/2024 [facility] Class II Result Negative [facility] Class II Percent Positive 0 [facility] 08/24/2024 10:0 5 AM CDT 08/26/2024 6:43 AM CDT Narrative [facility] - 08/26/2024 6:43 AM CDT PRA (panel reactive antibody) HLA antibody screen is performed on serum samples using a method developed and validated by the [facility] HLA laboratory based on an FDA- approved IVD kit (LABScreen PRA, [facility], [facility] [place]). Interpretive comments: The percentage of beads with MFI > 750 is reported, which indicates the percentage of donor population estimated to be incompatible with the patient tested. PRA > 0% is consistent with alloimmunization to HLA. Testing performed at the [facility] HLA Laboratory, [address] [place] [address], 5th floor, [place], [address]. CLIA # [id number]. Trina Gardner, Ph.D., Quality Systems Technician, HLA Laboratory Vadim Kaur M.D., Ph.D., Driller And Reamer, HLA Laboratory Ashley Chambers, Ph.D., CLIA Driller And Reamer, [facility] Clinical Laboratories Current methodology and interpretive comments last revised on 07/16/2017. us Patricia Jimenes MD LAB BLOOD ORDERAB LES Final Result [facility] * HLA Antibody Screen - SAB (Class I and Class II) (08/24/2024 10:05 AM CDT) Class I Treatment Adsorbed+EDT A [facility] Class I Dilution 1:1 [facility] Class I Tested Date 08/26/2024 [facility] Class I Result Positive [facility] Class I CPRA 0 [facility] Class I Moderate Risk A80; B76 [facility] Class I Low Risk B60, B67 [facility] Class I Reportable Comments Allelic antibody not listed: A*11:02 (alloantibod y, moderate risk), patient is A*11:01 per [facility]. [facility] Class II Treatment Adsorbed+EDT A [facility] Class II Dilution 1:1 [facility] Class II Tested Date 08/26/2024 [facility]OT[facility] Class II Result Positive [facility] Class II CPRA 73 [facility] Class II Increased Risk DR1 [facility] Class II Moderate Risk DR7, DR10, DR15; DQ6; DPB1*06:01, DPB1*14:01 [facility] Class II Low Risk DR4, DR12, DR15, DR51, DR52; DQ8; DPB1*03:01, DPB1*13:01, DPB1*15:01, DPB1*20:01, DPB1*23:01, DPB1*28:01 [facility] 08/24/2024 10:0 5 AM CDT 08/26/2024 10:00 AM CDT Narrative [facility] - 08/26/2024 10:00 AM CDT Single-antigen HLA antibody screen is performed on serum samples using a method developed and validated by the [facility] HLA laboratory based on an FDA-approved IVD kit (LABScreen Single-Antigen, [facility], [place], [place]). All patient serum samples are pretreated with EDTA before the screen to prevent complement interference. Additional serum treatments, such as adsorption and DTT treatment, may be performed as indicated. Interpretive comments: Low risk: MFI 5935-0502. Moderate risk: MFI 5895-1265. Increased risk: MFI >/= 5000. The presence of an antigen in two or more risk categories may indicate a mixed reactivity pattern among beads of multiple subtypes. Preformed donor-specific antibodies (DSA) with MFI above 2000 are predictive of positive cytotoxicity crossmatch (Hum Immunol 2010;71:268-73. Hum Immunol 2012;73:497- 604) and carry a higher risk of humoral rejection. For our solid-organ transplant programs, unacceptable antigens (UA) for transplant candidates are defined by MFI >/= 2000 with some exceptions. UA are listed at [employer] and used to generate calculated PRA (cPRA) rounded to the nearest integer. In the post-transplant setting, MFI values from donor-specific beads are listed in the DSA report to provide additional information. It is important to note that this test is approved as a qualitative test and the MFI values are not strictly linear. For platelet refractoriness: An empirical cutoff value of MFI >/= 2000 has been used in our center; a higher cutoff value such as 5000 may also be suitable for highly sensitized patients to prioritize the antigens to avoid. Testing performed at the [facility] Laboratory, [address] [place] [address], 5th floor, [place], [address]. CLIA # [id number]. Trina Gardner, Ph.D., Quality Systems Technician, HLA Laboratory Vadim Kaur M.D., Ph.D., Driller And Reamer, HLA Laboratory Ashley Chambers, Ph.D., CLIA Driller And Reamer, [facility] Clinical Laboratories Current methodology and interpretive comments last revised on 04/18/2022. us Patricia Jimenes MD LAB BLOOD ORDERAB LES Final Result Performing Organization Address City/[facility]/ZIP Co de Phone Number [facility] * [facility] Dialysis Bicarbonate (08/24/2024 12:00 AM CDT) [facility] Signature Bicarbonate 27 22 - 29 mEq/L [facility] Serum 08/24/2024 08/25/2024 Narrative [facility] - 08/25/2024 12:43 PM CDT Unless otherwise specified, test(s) performed at:[facility], [address] [place] [address] [id number] DIRECTOR: Titi Mcguire M.D. us Real Suarez MD LAB BLOOD ORDERABLES Fin al Result [facility] * (ABNORMAL) [facility] Dialysis Creatinine Clearance, Urine (Normalized) (08/24/2024 12:00 AM CDT) Creatinine Clearance, Urine (Normalized) 2.9(L) 94.0 - 122.0 mL/min [facility] Urine 08/24/2024 08/25/2024 Narrative [facility] - 08/25/2024 6:32 PM CDT Unless otherwise specified, test(s) performed at:[facility], [address] [place] [address] [id number] DIRECTOR: Titi Mcguire M.D. us Notinfile Unknown LAB URINE ORDERABLES Final Res ult Performing Organization Address [place]/[facility] de Phone Number [facility] * [facility] Dialysis Creatinine Clear, Urine Weekly (Normalized) (08/24/2024 12:00 AM CDT) Creatinine Clear, Urine Weekly (Normalized) 29 L/wk [facility] Urine 08/24/2024 08/25/2024 Narrative [facility] - 08/25/2024 6:32 PM CDT Unless otherwise specified, test(s) performed at:[facility], [address] [place] [address] [id number] DIRECTOR: Titi Mcguire M.D. us Notinfile Unknown LAB URINE ORDERABLES Final Res ult Performing Organization Address [place]/[facility] de Phone Number [facility] * [facility] Dialysis Creatinine Clearance, Urine Weekly (08/24/2024 12:00 AM CDT) Creatinine Clearance, Urine Weekly 40.3 L/wk [facility] Urine 08/24/2024 08/25/2024 Narrative [facility] - 08/25/2024 6:32 PM CDT Unless otherwise specified, test(s) performed at:[facility], [address] [place] [address] [id number] DIRECTOR: Titi Mcguire M.D. us Notinfile Unknown LAB URINE ORDERABLES Final Res ult Performing Organization Address [facility] de Phone Number [facility] * [facility] Dialysis Creatinine Clear, Total Weekly (Normalized) (08/24/2024 12:00 AM CDT) Creatinine Clear, Total Weekly (Normalized) 42 L/wk [facility] PD Fluid 08/24/2024 08/25/2024 Narrative [facility] - 08/25/2024 6:32 PM CDT Unless otherwise specified, test(s) performed at:[facility], [address] [place] [address] [id number] DIRECTOR: Titi Mcguire M.D. us Notinfile Unknown LAB BODY FLUIDS AND STOOLS ORD ERABLES Final Result Performing Organization Address [facility] de Phone Number [facility] * [facility] Dialysis Creatinine Clear, PD Fluid Total Weekly (08/24/2024 12:00 AM CDT) Creatinine Clear, PD Fluid Total Weekly 59 L/wk [facility] PD Fluid 08/24/2024 08/25/2024 Narrative [facility] - 08/25/2024 6:32 PM CDT Unless otherwise specified, test(s) performed at:[facility], [address] [place] [address] [id number] DIRECTOR: Titi Mcguire M.D. us Notinfile Unknown LAB BODY FLUIDS AND STOOLS ORD ERABLES Final Result Performing Organization Address [facility] de Phone Number [facility] * [facility] Dialysis Creatinine Clear, PD Fluid Weekly (Normalized) (08/24/2024 12:00 AM CDT) Creatinine Clear, PD Fluid Weekly (Normalized) 13 L/wk [facility] PD Fluid 08/24/2024 08/25/2024 Narrative [facility] - 08/25/2024 6:15 PM CDT Unless otherwise specified, test(s) performed at:[facility], [address] [place] [address] [id number] DIRECTOR: Titi Mcguire M.D. us Notinfile Unknown LAB BODY FLUIDS AND STOOLS ORD ERABLES Final Result Performing Organization Address [facility] de Phone Number [facility] * [facility] Dialysis Creatinine Clear, PD Fluid Weekly (08/24/2024 12:00 AM CDT) Creatinine Clear, PD Fluid Weekly 19 L/wk [facility] PD Fluid 08/24/2024 08/25/2024 Narrative [facility] - 08/25/2024 6:15 PM CDT Unless otherwise specified, test(s) performed at:[facility] [id number] DIRECTOR: Titi Mcguire M.D. us Notinfile Unknown LAB BODY FLUIDS AND STOOLS ORD ERABLES Final Result Performing Organization Address [facility] Phone Number [facility] * [facility] Dialysis Creatinine Clearance, PD Fluid (Normalized) (08/24/2024 12:00 AM CDT) Creatinine Clearance, PD Fluid (Normalized) 1.3 mL/min [facility] PD Fluid 08/24/2024 08/25/2024 Narrative [facility] - 08/25/2024 6:15 PM CDT Unless otherwise specified, test(s) performed at:[facility], [address] [place] [address] [id number] DIRECTOR: Titi Mcguire M.D. us Notinfile Unknown LAB BODY FLUIDS AND STOOLS ORD ERABLES Final Result Performing Organization Address [facility] de Phone Number [facility] * [facility] Dialysis Creatinine Clearance, PD Fluid (08/24/2024 12:00 AM CDT) Creatinine Clearance, PD Fluid 1.9 mL/min [facility] PD Fluid 08/24/2024 08/25/2024 Narrative [facility] - 08/25/2024 6:15 PM CDT Unless otherwise specified, test(s) performed at:[facility] [id number] DIRECTOR: Titi Mcguire M.D. us Notinfile Unknown LAB BODY FLUIDS AND STOOLS ORD ERABLES Final Result Performing Organization Address [facility] de Phone Number [facility] * [facility] Kt/V, Residual (08/24/2024 12:00 AM CDT) Kt/V, Residual 0.28 [facility] Urine 08/24/2024 08/25/2024 Narrative [facility] - 08/25/2024 6:32 PM CDT Unless otherwise specified, test(s) performed at:[facility] [id number] DIRECTOR: Titi Mcguire M.D. us Notinfile Unknown LAB BODY FLUIDS AND STOOLS ORD ERABLES Final Result Performing Organization Address [facility] Phone Number [facility] * [facility] Dialysis Urea Clearance, Urine Weekly (Normalized) (08/24/2024 12:00 AM CDT) Urea Clearance, Urine Weekly (Normalized) 16 L/wk [facility] Urine 08/24/2024 08/25/2024 Narrative [facility] - 08/25/2024 6:32 PM CDT Unless otherwise specified, test(s) performed at:[facility] [id number] DIRECTOR: Titi Mcguire M.D. us Notinfile Unknown LAB URINE ORDERABLES Final Res ult Performing Organization Address [facility] de Phone Number [facility] * (ABNORMAL) [facility] Dialysis Urea Clearance, Urine (Normalized) (08/24/2024 12:00 AM CDT) Pathologist [facility] Urea Clearance, Urine (Normalized) 1.1(L) 64.0 - 99.0 mL/min [facility] Urine 08/24/2024 08/25/2024 Narrative [facility] - 08/25/2024 6:32 PM CDT Unless otherwise specified, test(s) performed at:[facility], [address] [place] [address] [id number] DIRECTOR: Titi Mcguire M.D. us Notinfile Unknown LAB URINE ORDERABLES Final Res ult Performing Organization Address [place]/[facility] de Phone Number [facility] * [facility] Dialysis BSA ([place]) (08/24/2024 12:00 AM CDT) Pathologist [facility] BSA (Ferguson) 2.44 sq. M. [facility] Comment:Normalized values ar e calculated using the patient's actual BSA and PD Fluid 08/24/2024 08/25/2024 [facility] - 08/25/2024 10:38 AM CDT Unless otherwise specified, test(s) performed at:[facility], [address] [place] [address] [id number] DIRECTOR: Titi Mcguire M.D. us Notinfile Unknown LAB BODY FLUIDS AND STOOLS ORD ERABLES Final Result Performing Organization Address [facility] de Phone Number [facility] * [facility] Dialysis PNA, Normalized (08/24/2024 12:00 AM CDT) Pathologist [facility] PNA, Normalized 0.63 g/kg/day [facility] PD Fluid 08/24/2024 08/25/2024 Narrative [facility] - 08/25/2024 6:32 PM CDT Unless otherwise specified, test(s) performed at:[facility], [address] [place] [address] [id number] DIRECTOR: Titi Mcguire M.D. us Notinfile Unknown LAB BODY FLUIDS AND STOOLS ORD ERABLES Final Result Performing Organization Address [facility] de Phone Number [facility] * [facility] Dialysis PNA (08/24/2024 12:00 AM CDT) PNA 62 g/day [facility] PD Fluid 08/24/2024 08/25/2024 Narrative [facility] - 08/25/2024 6:32 PM CDT Unless otherwise specified, test(s) performed at:[facility], [address] [place] [address] [id number] DIRECTOR: Titi Mcguire M.D. us Notinfile Unknown LAB BODY FLUIDS AND STOOLS ORD ERABLES Final Result Performing Organization Address [place]/[facility] de Phone Number [facility] * [facility] Kt/V, Total (08/24/2024 12:00 AM CDT) Kt/V, Total 0.87 [facility] Comment:KDOQI Guidelines rec ommend weekly Kt/V of >=1.7 for adults. PD Fluid 08/24/2024 08/25/2024 Narrative [facility] - 08/25/2024 6:32 PM CDT Unless otherwise specified, test(s) performed at:[facility], [address] [place] [address] [id number] DIRECTOR: Titi Mcguire M.D. us Notinfile Unknown LAB BODY FLUIDS AND STOOLS ORD ERABLES Final Result Performing Organization Address [facility] Phone Number [facility] * [facility] Dialysis Kt/V, Peritoneal (08/24/2024 12:00 AM CDT) Pathologist [facility] Kt/V, Peritoneal 0.59 [facility] PD Fluid 08/24/2024 08/25/2024 Narrative [facility] - 08/25/2024 5:16 PM CDT Unless otherwise specified, test(s) performed at:[facility], [address] [place] [address] [id number] DIRECTOR: Titi Mcguire M.D. us Notinfile Unknown LAB BODY FLUIDS AND STOOLS ORD ERABLES Final Result Performing Organization Address [place]/[facility] de Phone Number [facility] * [facility] Urea Volume Distribution (LU) (08/24/2024 12:00 AM CDT) Urea Volume Distribution (LU) 57.3 L [facility] PD Fluid 08/24/2024 08/25/2024 Narrative [facility] - 08/25/2024 11:36 AM CDT Unless otherwise specified, test(s) performed at:[facility], [address] [place] [address] [id number] DIRECTOR: Titi Mcguire M.D. us Notinfile Unknown LAB BODY FLUIDS AND STOOLS ORD ERABLES Final Result Performing Organization Address [place]/[facility] de Phone Number [facility] * [facility] Dialysis Urea Clearance, Total Weekly (Normalized) (08/24/2024 12:00 AM CDT) Pathologist [facility] Urea Clearance, Total Weekly (Normalized) 50 L/wk [facility] PD Fluid 08/24/2024 08/25/2024 Narrative [facility] - 08/25/2024 6:32 PM CDT Unless otherwise specified, test(s) performed at:[facility], [address] [place] [address] [id number] DIRECTOR: Titi Mcguire M.D. us Notinfile Unknown LAB BODY FLUIDS AND STOOLS ORD ERABLES Final Result Performing Organization Address [facility] Phone Number [facility] * [facility] Dialysis Urea Clearance, PD Fluid Weekly (Normalized) (08/24/2024 12:00 AM CDT) Pathologist [facility] Urea Clearance, PD Fluid Weekly (Normalized) 34 L/wk [facility] PD Fluid 08/24/2024 08/25/2024 Narrative [facility] - 08/25/2024 5:16 PM CDT Unless otherwise specified, test(s) performed at:[facility], [address] [place] [address] [id number] DIRECTOR: Titi Mcguire M.D. us Notinfile Unknown LAB BODY FLUIDS AND STOOLS ORD ERABLES Final Result Performing Organization Address [place]/[facility] de Phone Number [facility] * [facility] Dialysis Urea Clearance, PD Fluid (Normalized) (08/24/2024 12:00 AM CDT) Urea Clearance, PD Fluid (Normalized) 2.4 mL/min [facility] PD Fluid 08/24/2024 08/25/2024 Narrative [facility] - 08/25/2024 5:16 PM CDT Unless otherwise specified, test(s) performed at:[facility], [address] [place], [place] [id number] DIRECTOR: Titi Mcguire M.D. us Notinfile Unknown LAB BODY FLUIDS AND STOOLS ORD ERABLES Final Result Performing Organization Address [facility] de Phone Number [facility] * [facility] Urea Clearance, PD Fluid (08/24/2024 12:00 AM CDT) Urea Clearance, PD Fluid 3.4 mL/min [facility] PD Fluid 08/24/2024 08/25/2024 Narrative [facility] - 08/25/2024 5:16 PM CDT Unless otherwise specified, test(s) performed at:[facility], [address] [place] [address] [id number] DIRECTOR: Titi Mcguire M.D. us Notinfile Unknown LAB BODY FLUIDS AND STOOLS ORD ERABLES Final Result Performing Organization Address [facility] Phone Number [facility] * [facility] Creatinine Clearance, Urine (08/24/2024 12:00 AM CDT) Creatinine Clearance, Urine 4.0 mL/min [facility] Urine 08/24/2024 08/25/2024 Narrative [facility] - 08/25/2024 6:32 PM CDT Unless otherwise specified, test(s) performed at:[facility], [address] [place] [address] [id number] DIRECTOR: Titi Mcguire M.D. us Notinfile Unknown LAB URINE ORDERABLES Final Res ult Performing Organization Address [place]/[facility]/ZIP Co de Phone Number [facility] * (ABNORMAL) [facility] Dialysis Urea Clearance, Urine Dialysis (08/24/2024 12:00 AM CDT) Urea Clearance, Urine 1.6(L) 64.0 - 99.0 mL/min [facility] Urine 08/24/2024 08/25/2024 Narrative [facility] - 08/25/2024 6:32 PM CDT Unless otherwise specified, test(s) performed at:[facility], [address] [place] [address] [id number] DIRECTOR: Titi Mcguire M.D. us Notinfile Unknown LAB URINE ORDERABLES Final Res ult Performing Organization Address City/[facility]/ZIP Co de Phone Number [facility] * [facility] Dialysis Urea Nitrogen, PD Fluid 24 Hr (08/24/2024 12:00 AM CDT) Urea Nitrogen, PD Fluid 24 Hr 4,159.6 mg/24 hr [facility] PD Fluid 08/24/2024 08/25/2024 Narrative [facility] - 08/25/2024 5:16 PM CDT Unless otherwise specified, test(s) performed at:[facility], [address] [place] [address] [id number] DIRECTOR: Titi Mcguire M.D. us Notinfile Unknown LAB BODY FLUIDS AND STOOLS ORD ERABLES Final Result [facility] * [facility] Dialysis Urea Nitrogen, PD Fluid Timed (08/24/2024 12:00 AM CDT) Urea Nitrogen, PD Fluid Timed 49 mg/dL [facility] PD Fluid 08/24/2024 08/25/2024 Narrative [facility] - 08/25/2024 5:16 PM CDT Unless otherwise specified, test(s) performed at:[facility], [address] [place] [address] [id number] DIRECTOR: Titi Mcguire M.D. us Notinfile Unknown LAB BODY FLUIDS AND STOOLS ORD ERABLES Final Result Performing Organization Address [place]/[facility] de Phone Number [facility] * [facility] Dialysis Urea Nitrogen, Urine Timed (08/24/2024 12:00 AM CDT) Urea Nitrogen, Timed Urine 330 mg/dL [facility] Urine 08/24/2024 08/25/2024 Narrative [facility] - 08/25/2024 6:32 PM CDT Unless otherwise specified, test(s) performed at:[facility], [address] [place] [address] [id number] DIRECTOR: Titi Mcguire M.D. us Notinfile Unknown LAB URINE ORDERABLES Final Res ult Performing Organization Address [facility] de Phone Number [facility] * [facility] Dialysis Protein, Total, PD Fluid 24Hr (08/24/2024 12:00 AM CDT) Protein, Total, PD Fluid 24Hr 2,402.4 mg/24 hr [facility] PD Fluid 08/24/2024 08/25/2024 Narrative [facility] - 08/25/2024 5:16 PM CDT Unless otherwise specified, test(s) performed at:[facility], [address] [place] [address] [id number] DIRECTOR: Titi Mcguire M.D. us Notinfile Unknown LAB BODY FLUIDS AND STOOLS ORD ERABLES Final Result Performing Organization Address [place] de Phone Number [facility] * [facility] Dialysis Protein, Total, PD Fluid Timed (g/dL) (08/24/2024 12:00 AM CDT) Protein, Total, PD Fluid Timed (g/dL) 0.028 g/dL [facility] PD Fluid 08/24/2024 08/25/2024 Narrative [facility] - 08/25/2024 5:16 PM CDT Unless otherwise specified, test(s) performed at:[facility] [id number] DIRECTOR: Titi Mcguire M.D. us Notinfile Unknown LAB BODY FLUIDS AND STOOLS ORD ERABLES Final Result Performing Organization Address [facility] de Phone Number [facility] * [facility] D[facility] Protein, Total, PD Fluid Timed (mg/dL) (08/24/2024 12:00 AM CDT) Protein, Total, PD Fluid Timed (mg/dL) 28.3 mg/dL [facility] PD Fluid 08/24/2024 08/25/2024 Narrative [facility] - 08/25/2024 5:16 PM CDT Unless otherwise specified, test(s) performed at:[facility] [id number] DIRECTOR: Titi Mcguire M.D. us Notinfile Unknown LAB BODY FLUIDS AND STOOLS ORD ERABLES Final Result Performing Organization Address [facility] de Phone Number [facility] * (ABNORMAL) [facility] Dialysis Protein, Total, Urine Timed (08/24/2024 12:00 AM CDT) Protein, Total, Urine Timed 445.1(H) 0.0 - 12.0 mg/dL [facility] Comment:Verified by repeat a nalysis. Urine 08/24/2024 08/25/2024 Narrative [facility] - 08/25/2024 7:20 PM CDT Unless otherwise specified, test(s) performed at:[facility], [address] [place] [address] [id number] DIRECTOR: Titi Mcguire M.D. us Notinfile Unknown LAB URINE ORDERABLES Final Res ult Performing Organization Address [facility] de Phone Number [facility] * [facility] Dialysis Creatinine, PD Fluid 24 Hr (08/24/2024 12:00 AM CDT) Creatinine, PD Fluid 24 Hr 585.7 mg/24 hr [facility] PD Fluid 08/24/2024 08/25/2024 Narrative [facility] - 08/25/2024 6:15 PM CDT Unless otherwise specified, test(s) performed at:[facility], [address] [place] [address] [id number] DIRECTOR: Titi Mcguire M.D. us Notinfile Unknown LAB BODY FLUIDS AND STOOLS ORD ERABLES Final Result Performing Organization Address [facility] de Phone Number [facility] * [facility] Dialysis Creatinine, PD Fluid Timed (Corrected) (08/24/2024 12:00 AM CDT) Creatinine, PD Fluid Timed (Corrected) 6.9 mg/dL [facility] Comment:Creatinine values pascual ve been corrected for glucose interference. [employer] PD Fluid 08/24/2024 08/25/2024 Narrative [facility] - 08/25/2024 6:15 PM CDT Unless otherwise specified, test(s) performed at:[facility], [address] [place] [address] [id number] DIRECTOR: Titi Mcguire M.D. us Notinfile Unknown LAB BODY FLUIDS AND STOOLS ORD ERABLES Final Result Performing Organization Address [facility] Phone Number [facility] * [facility] Dialysis Creatinine, PD Fluid Timed (Uncorrected) (08/24/2024 12:00 AM CDT) Creatinine, PD Fluid Timed (Uncorrected) 7.1 mg/dL [facility] PD Fluid 08/24/2024 08/25/2024 Narrative [facility] - 08/25/2024 5:16 PM CDT Unless otherwise specified, test(s) performed at:[facility], [address] [place] [address] [id number] DIRECTOR: Titi Mcguire M.D. us Notinfile Unknown LAB BODY FLUIDS AND STOOLS ORD ERABLES Final Result Performing Organization Address [facility] de Phone Number [facility] * [facility] Dialysis Glucose, PD Fluid Timed (08/24/2024 12:00 AM CDT) Glucose, PD Fluid Timed 1,051 mg/dL [facility] PD Fluid 08/24/2024 08/25/2024 Narrative [facility] - 08/25/2024 6:15 PM CDT Unless otherwise specified, test(s) performed at:[facility], [address] [place] [address] [id number] DIRECTOR: Titi Mcguire M.D. us Notinfile Unknown LAB BODY FLUIDS AND STOOLS ORD ERABLES Final Result Performing Organization Address [place]/[facility]/ZIP Co de Phone Number [facility] * [facility] Dialysis Patient Info Prompt (08/24/2024 12:00 AM CDT) Pathologist [facility] Amputee Status NO [facility] Amputee Parts NONE [facility] Height (cm) 193.0 cm [facility] Height (in) 76.0 [facility] Weight (kg) 113.6 kg [facility] Weight (lbs) 249.9 [facility] PD Fluid 08/24/2024 08/25/2024 Narrative [facility] - 08/25/2024 10:26 AM CDT Unless otherwise specified, test(s) performed at:[facility], [address] [place] [address] [id number] DIRECTOR: Titi Mcguire M.D. Notinfile Unknown LAB BLOOD ORDERABLES Final Res ult Performing Organization Address [place] de Phone Number [facility] * [facility] Dialysis Urine Prompt (08/24/2024 12:00 AM CDT) Volume, Urine 600 [facility] Collection Time, Urine 24.0 [facility] Urine 08/24/2024 08/25/2024 Narrative [facility] - 08/25/2024 10:26 AM CDT Unless otherwise specified, test(s) performed at:[facility], [address] [place] [address] [id number] DIRECTOR: Titi Mcguire M.D. us Notinfile Unknown LAB BLOOD ORDERABLES Final Res ult Performing Organization Address [place] de Phone Number [facility] * [facility] Dialysis PD Fluid Prompt (08/24/2024 12:00 AM CDT) Drain Volume, PDF 8,489 [facility] Collection Time, PDF 24.0 [facility] PD Fluid 08/24/2024 08/25/2024 Narrative [facility] - 08/25/2024 10:26 AM CDT Unless otherwise specified, test(s) performed at:[facility], [address] [place] [address] [id number] DIRECTOR: Titi Mcguire M.D. us Notinfile Unknown LAB BLOOD ORDERABLES Final Res ult Performing Organization Address [place] de Phone Number [facility] * (ABNORMAL) [facility] Dialysis UIBC (08/24/2024 12:00 AM CDT) UIBC 115(L) 155 - 355 mcg/dL [facility] Serum 08/24/2024 08/25/2024 Narrative [facility] - 08/25/2024 12:43 PM CDT Unless otherwise specified, test(s) performed at:[facility] [employer], [address] [place] [address] [id number] DIRECTOR: Titi Mcguire M.D. us Real Suarez MD LAB BLOOD ORDERABLES Fin al Result Performing Organization Address [place] de Phone Number [facility] * (ABNORMAL) [facility] Dialysis Calcium Phosphorus Product (Calc) (08/24/2024 12:00 AM CDT) Calcium Phos Product 82(H) 0 - 54 [facility] Serum 08/24/2024 08/25/2024 Narrative [facility] - 08/25/2024 12:43 PM CDT Unless otherwise specified, test(s) performed at:[facility], [address] [place] [address] [id number] DIRECTOR: Titi Mcguire M.D. us Notinfile Unknown LAB BLOOD ORDERABLES Final Res ult Performing Organization Address [place]/ZIP Co de Phone Number [facility] * [facility] Dialysis Transferrin Saturation (08/24/2024 12:00 AM CDT) Transferrin Sat (Calc) 53 20 - 55 % [facility] Serum 08/24/2024 08/25/2024 Narrative [facility] - 08/25/2024 12:43 PM CDT Unless otherwise specified, test(s) performed at:[facility], [address] [place] [address] [id number] DIRECTOR: Titi Mcguire M.D. Real Suarez MD LAB BLOOD ORDERABLES Fin al Result Performing Organization Address [place] Co de Phone Number [facility] * Iron profile w/ IBC (08/24/2024 12:00 AM CDT) TIBC 246 185 - 515 mcg/dL [facility] Serum 08/24/2024 08/25/2024 Narrative [facility] - 08/25/2024 12:43 PM CDT Unless otherwise specified, test(s) performed at:[facility], [address] [place] [address] [id number] DIRECTOR: Titi Mcguire M.D. Rael Suarez MD LAB BLOOD ORDERABLES Fin al Result Performing Organization Address [place] de Phone Number [facility] * (ABNORMAL) [facility] Dialysis BUN / Creatinine ratio (08/24/2024 12:00 AM CDT) BUN Creatinine Ration 3.9(L) 10.0 - 20.0 [facility] Serum 08/24/2024 08/25/2024 Narrative [facility] - 08/25/2024 12:43 PM CDT Unless otherwise specified, test(s) performed at:[facility] [facility], [address] [place] [address] [id number] DIRECTOR: Titi Mcguire M.D. us Notinfile Unknown LAB BLOOD ORDERABLES Final Res ult Performing Organization Address [facility] de Phone Number [facility] * (ABNORMAL) Urea nitrogen, urine, 24 hour (08/24/2024 12:00 AM CDT) Urea Nitrogen, 24 Hour Urine 2.0(L) 12.0 - 20.0 g/24 hr [facility] Urine 08/24/2024 08/25/2024 Narrative [facility] - 08/25/2024 6:32 PM CDT Unless otherwise specified, test(s) performed at[place] [place] [id number] DIRECTOR: Titi Mcguire M.D. us Notinfile Unknown LAB URINE ORDERABLES Final Res ult Performing Organization Address [facility] de Phone Number [facility] * Creatinine, urine, 24 hour (08/24/2024 12:00 AM CDT) Creatinine, 24 Hour Urine 1.3 0.7 - 1.8 g/24 hr [facility] Urine 08/24/2024 08/25/2024 Narrative [facility] - 08/25/2024 6:32 PM CDT Unless otherwise specified, test(s) performed at:[facility] [id number] DIRECTOR: Titi Mcguire M.D. Notinfile Unknown LAB URINE ORDERABLES Final Res ult Performing Organization Address [facility] de Phone Number [facility] * (ABNORMAL) Protein, urine, 24 hour (08/24/2024 12:00 AM CDT) Protein, Total, Urine 24 Hr 2,671(H) 30 - 150 mg/24 hr [facility] Urine 08/24/2024 08/25/2024 Narrative [facility] - 08/25/2024 7:20 PM CDT Unless otherwise specified, test(s) performed at:[facility] [facility], [address] [place] [address] [id number] DIRECTOR: Titi Mcguire M.D. us Notinfile Unknown LAB URINE ORDERABLES Final Res ult Performing Organization Address [place] de Phone Number [facility] * Creatinine, urine, timed (08/24/2024 12:00 AM CDT) Creatinine, Urine Timed 212.0 mg/dL [facility] Urine 08/24/2024 08/25/2024 Narrative [facility] - 08/25/2024 6:32 PM CDT Unless otherwise specified, test(s) performed at:[facility] [facility], [address] [place] [address] [id number] DIRECTOR: Titi Mcguire M.D. us Notinfile Unknown LAB URINE ORDERABLES Final Res ult Performing Organization Address [facility] Phone Number [facility] * (ABNORMAL) Hemoglobin (08/24/2024 12:00 AM CDT) Hemoglobin 10.1(L) 14.0 - 18.0 g/dL [facility] Hemoglobin x 3 30.3(L) 42.0 - 54.0 % [facility] Blood 08/24/2024 08/25/2024 Narrative [facility] - 08/25/2024 11:51 AM CDT Unless otherwise specified, test(s) performed at:[facility] [facility], [address] [place] [address] [id number] DIRECTOR: Titi Mcguire M.D. us Real Suarez MD LAB BLOOD ORDERABLES Fin al Result Performing Organization Address [facility] de Phone Number [facility] * (ABNORMAL) BUN (08/24/2024 12:00 AM CDT) BUN 86(H) 6 - 19 mg/dL [facility] Serum 08/24/2024 08/25/2024 Narrative [facility] - 08/25/2024 12:43 PM CDT Unless otherwise specified, test(s) performed at:[facility] [id number] DIRECTOR: Titi Mcguire M.D. Real Suarez MD LAB BLOOD ORDERABLES Fin al Result Performing Organization Address [place] de Phone Number [facility] * Sodium level (08/24/2024 12:00 AM CDT) Sodium 139 136 - 145 mEq/L [facility] Serum 08/24/2024 08/25/2024 Narrative [facility] - 08/25/2024 12:43 PM CDT Unless otherwise specified, test(s) performed at:[facility] [id number] DIRECTOR: Titi Mcguire M.D. Real Suarez MD LAB BLOOD ORDERABLES Fin al Result Performing Organization Address [facility] de Phone Number [facility] * Potassium (08/24/2024 12:00 AM CDT) Potassium 3.6 3.5 - 5.1 mEq/L [facility] Serum 08/24/2024 08/25/2024 Narrative [facility] - 08/25/2024 12:43 PM CDT Unless otherwise specified, test(s) performed at:[facility], [address] [place] [address] [id number] DIRECTOR: Titi Mcguire M.D. Real Suarez MD LAB BLOOD ORDERABLES Fin al Result Performing Organization Address [place] de Phone Number [facility] * (ABNORMAL) Phosphorus (08/24/2024 12:00 AM CDT) Phosphorus 8.4(H) 2.6 - 4.5 mg/dL [facility] Serum 08/24/2024 08/25/2024 Narrative [facility] - 08/25/2024 12:43 PM CDT Unless otherwise specified, test(s) performed at:[facility], [address] [place] [address] [id number] DIRECTOR: Titi Mcguire M.D. Real Suarez MD LAB BLOOD ORDERABLES Fin al Result Performing Organization Address [facility] de Phone Number [facility] * Iron level (08/24/2024 12:00 AM CDT) Iron 131 45 - 160 mcg/dL [facility] Serum 08/24/2024 08/25/2024 Narrative [facility] - 08/25/2024 12:43 PM CDT Unless otherwise specified, test(s) performed at:[facility], [address] [place] [address] [id number] DIRECTOR: Titi Mcguire M.D. Real Suarez MD LAB BLOOD ORDERABLES Fin al Result Performing Organization Address [facility] Phone Number [facility] * (ABNORMAL) Glucose, random (08/24/2024 12:00 AM CDT) Glucose 108(H) 70 - 100 mg/dL [facility] Serum 08/24/2024 08/25/2024 Narrative [facility] - 08/25/2024 12:43 PM CDT Unless otherwise specified, test(s) performed at:[facility], [address] [place] [address] [id number] DIRECTOR: Titi Mcguire M.D. Notinfile Unknown LAB BLOOD ORDERABLES Final Res ult Performing Organization Address [facility] de Phone Number [facility] * (ABNORMAL) Creatinine (08/24/2024 12:00 AM CDT) Creatinine 21.96(H) 0.60 - 1.30 mg/dL [facility] Serum 08/24/2024 08/25/2024 Narrative [facility] - 08/25/2024 12:43 PM CDT Unless otherwise specified, test(s) performed at:[facility], [address] [place] [address] [id number] DIRECTOR: Titi Mcguire M.D. Real Suarez MD LAB BLOOD ORDERABLES Fin al Result Performing Organization Address [facility] de Phone Number [facility] * (ABNORMAL) Chloride (08/24/2024 12:00 AM CDT) Chloride 92(L) 96 - 108 mEq/L [facility] Serum 08/24/2024 08/25/2024 Narrative [facility] - 08/25/2024 12:43 PM CDT Unless otherwise specified, test(s) performed at:[facility] [facility], [address] [place], [place] [id number] DIRECTOR: Titi Mcguire M.D. Real Suarez MD LAB BLOOD ORDERABLES Fin al Result Performing Organization Address [facility] Phone Number [facility] * Calcium level (08/24/2024 12:00 AM CDT) Calcium 9.8 8.4 - 10.2 mg/dL [facility] Serum 08/24/2024 08/25/2024 Narrative [facility] - 08/25/2024 12:43 PM CDT Unless otherwise specified, test(s) performed at:[facility], [address] [place] [address] [id number] DIRECTOR: Titi Mcguire M.D. Real Suarez MD LAB BLOOD ORDERABLES Fin al Result Performing Organization Address [place] de Phone Number [facility] * Albumin (08/24/2024 12:00 AM CDT) Albumin 4.1 3.5 - 5.2 g/dL [facility] Serum 08/24/2024 08/25/2024 Narrative [facility] - 08/25/2024 12:43 PM CDT Unless otherwise specified, test(s) performed at:[facility], [address] [place] [address] [id number] DIRECTOR: Titi Mcguire M.D. Real Suarez MD LAB BLOOD ORDERABLES Fin al Result [facility] * Cell Differential, Body Fluid (08/12/2024 10:17 AM CDT) Total cells diffed 100 cells Comment: Interpretive Data Unless otherwise specified, the reference range and other method performance specifications have not been established for CSF/Body Fluid tests. The test results should be integrated into the clinical context for interpretation. Current interpretive data was last revised on 2018. Neutrophils, fld 0 % [facility] Lymphs, fld 60 % [facility] Monocyte, fld 40 % [facility] Fluid 08/12/2024 10:1 7 AM CDT 08/12/2024 10:57 AM CDT Real Suarez MD LAB BODY FLUIDS AND STOO LS ORDERABLES Final Result Performing Organization Address [place] Co de Phone Number [facility] Department [place] [address] * Cell count w/rflx diff, body fluid (08/12/2024 10:17 AM CDT) Specimen type, fld Peritoneal Body site, fld Peritoneal fld [facility] Color, fld Other [facility] Comment:Colorless Clarity, fld Clear Clear [facility] Nucleated cells, fld 23 /cumm [facility] Comment: Interpretive Data Unless otherwise specified, the reference range and other method performance specifications have not been established for CSF/Body Fluid tests. The test results should be integrated into the clinical context for interpretation. Current interpretive data was last revised on 2018. RBC, fld 0 /cumm [facility] Fluid 08/12/2024 10:1 7 AM CDT 08/12/2024 10:57 AM CDT us Real Suarez MD LAB BODY FLUIDS AND STOO LS ORDERABLES Final Result ANIKA Boyer [facility] Department [place] [address] * (ABNORMAL) Urinalysis reflex to microscopic and culture Urine (08/10/2024 2:53 PM CDT) Color, ur Yellow Yellow Clarity, ur Clear Clear [facility] Specific gravity, ur 1.012 1.003 - 1.030 [facility] pH, urine 7.0 [facility] Comment: Interpretive Data U rine pH is affected by diet, medications, systemic acid-base disturbances, and renal tubular function. pH may affect urinary stone formation. For example, urine pH below 6.0 may help reduce the tendency for calcium phosphate stones and pH greater than 6.0 may reduce the tendency for uric acid stone formation. Source: [facility] Current Interpretive Data was last revised on 2017 Protein, ur ql 3+(A) Negative [facility] Glucose, ur ql 1+(A) Negative [facility] Ketones, ur Negative Negative [facility] Bilirubin, ur Negative Negative [facility] Blood, ur 2+(A) Negative [facility] Urobilinogen, ur <2.0 <2.0 mg/dL [facility] Nitrite, ur Negative Negative [facility] Leukocyte esterase, ur Negative Negative [facility] UA reflex comment Reflex to microscopic UA will be performed. [facility] Urine 08/10/2024 2:53 PM CDT 08/10/2024 8:39 PM CDT us Real Suarez MD LAB MICROBIOLOGY - RAYMON AL ORDERABLES Final Result ANIKA RUSSO [address] Department [place] [address] * (ABNORMAL) Urinalysis, microscopic only (08/10/2024 2:53 PM CDT) WBC, ur 0-5 0 - 5 /HPF RBC, ur 21-50(A) 0 - 2 /HPF [facility] Epithelial cells, squamous, ur 1-5 0 - 5 /HPF [facility] Mucous, ur Present(A) [facility] Culture Reflex Comment Reflex conditions for urine culture (WBC >10) not met. [facility] Urine 08/10/2024 2:53 PM CDT 08/10/2024 8:39 PM CDT Real Suarez MD LAB URINE ORDERABLES Fin al Result [facility] [address] Department [place] [address] * [facility] Dialysis Bicarbonate (08/03/2024 12:00 AM CDT) Bicarbonate 23 22 - 29 mEq/L [facility] Serum 08/03/2024 08/04/2024 Narrative [facility] - 08/04/2024 12:40 PM CDT Unless otherwise specified, test(s) performed at:[facility], [address] [place] [address] [id number] DIRECTOR: Titi Mcguire M.D. us Real Suarez MD LAB BLOOD ORDERABLES Fin al Result Performing Organization Address [place]/[facility]/ZIP Ks de Phone Number [facility] * (ABNORMAL) [facility] Dialysis Calcium Phosphorus Product, Corrected (Calc) (08/03/2024 12:00 AM CDT) Calcium Phos Product, Cor 100(H) 0 - 54 [facility] Serum 08/03/2024 08/04/2024 Narrative [facility] - 08/04/2024 12:40 PM CDT Unless otherwise specified, test(s) performed at:[facility], [address] [place] [address] [id number] DIRECTOR: Titi Mcguire M.D. us Notinfile Unknown LAB BLOOD ORDERABLES Final Res ult Performing Organization Address City/[facility]/ZIP Co de Phone Number [facility] * [facility] Dialysis Calcium, Corrected (08/03/2024 12:00 AM CDT) Calcium, Corrected 9.5 8.4 - 10.2 mg/dL [facility] Comment:Corrected Calcium is not equivalent to measured Ionized Calcium. Serum 08/03/2024 08/04/2024 Narrative [facility] - 08/04/2024 12:40 PM CDT Unless otherwise specified, test(s) performed at:[facility], [address] [place] [address] [id number] DIRECTOR: Titi Mcguire M.D. us Notinfile Unknown LAB BLOOD ORDERABLES Final Res ult [facility] * [facility] Dialysis UIBC (08/03/2024 12:00 AM CDT) Pathologist [facility] UIBC 180 155 - 355 mcg/dL [facility] Serum 08/03/2024 08/04/2024 Narrative [facility] - 08/04/2024 12:40 PM CDT Unless otherwise specified, test(s) performed at:[facility], [address] [place] [address] [id number] DIRECTOR: Titi Mcguire M.D. us Real Suarez MD LAB BLOOD ORDERABLES Fin al Result [facility] * (ABNORMAL) [facility] Dialysis Calcium Phosphorus Product (Calc) (08/03/2024 12:00 AM CDT) Pathologist [facility] Calcium Phos Product 97(H) 0 - 54 [facility] Serum 08/03/2024 08/04/2024 Narrative [facility] - 08/04/2024 12:40 PM CDT Unless otherwise specified, test(s) performed at:[facility], [address] [place] [address] [id number] DIRECTOR: Titi Mcguire M.D. us Notinfile Unknown LAB BLOOD ORDERABLES Final Res ult Performing Organization Address [place]/[facility]/ZIP Ks de Phone Number [facility] * [facility] Dialysis Transferrin Saturation (08/03/2024 12:00 AM CDT) Transferrin Sat (Calc) 20 20 - 55 % [facility] Serum 08/03/2024 08/04/2024 Narrative [facility] - 08/04/2024 12:40 PM CDT Unless otherwise specified, test(s) performed at:[facility], [address] [place] [address] [id number] DIRECTOR: Titi Mcguire M.D. Real Suarez MD LAB BLOOD ORDERABLES Fin al Result Performing Organization Address [place] de Phone Number [facility] * Iron profile w/ IBC (08/03/2024 12:00 AM CDT) TIBC 225 185 - 515 mcg/dL [facility] Serum 08/03/2024 08/04/2024 Narrative [facility] - 08/04/2024 12:40 PM CDT Unless otherwise specified, test(s) performed at:[facility], [address] [place] [address] [id number] DIRECTOR: Titi Mcguire M.D. us Real Suarez MD LAB BLOOD ORDERABLES Fin al Result Performing Organization Address [place] de Phone Number [facility] * (ABNORMAL) [facility] Dialysis BUN / Creatinine ratio (08/03/2024 12:00 AM CDT) BUN Creatinine Ration 4.1(L) 10.0 - 20.0 [facility] Serum 08/03/2024 08/04/2024 Narrative [facility] - 08/04/2024 12:40 PM CDT Unless otherwise specified, test(s) performed at:[facility], [address] [place] [address] [id number] DIRECTOR: Titi Mcguire M.D. us Not[employer] Unknown LAB BLOOD ORDERABLES Final Res ult Performing Organization Address [facility] de Phone Number [facility]X * (ABNORMAL) Hemoglobin (08/03/2024 12:00 AM CDT) Hemoglobin 9.5(L) 14.0 - 18.0 g/dL [facility] Hemoglobin x 3 28.5(L) 42.0 - 54.0 % [facility] Blood 08/03/2024 08/04/2024 Narrative [facility] - 08/04/2024 12:40 PM CDT Unless otherwise specified, test(s) performed at:[facility], [place] [address]LABORATORY DIRECTOR: Titi Mcguire M.D. Real Suarez MD LAB BLOOD ORDERABLES Fin al Result Performing Organization Address [facility] de Phone Number NAVX * (ABNORMAL) BUN (08/03/2024 12:00 AM CDT) BUN 69(H) 6 - 19 mg/dL [facility] Serum 08/03/2024 08/04/2024 Narrative [facility] - 08/04/2024 12:40 PM CDT Unless otherwise specified, test(s) performed at:[facility], [address] [place] [address] [id number] DIRECTOR: Titi Mcguire M.D. Real Suarez MD LAB BLOOD ORDERABLES Fin al Result Performing Organization Address [facility] de Phone Number NAVX * Sodium level (08/03/2024 12:00 AM CDT) Sodium 141 136 - 145 mEq/L [facility] Serum 08/03/2024 08/04/2024 Narrative [facility] - 08/04/2024 12:40 PM CDT Unless otherwise specified, test(s) performed at:[facility], [address] [place] [address] [id number] DIRECTOR: Titi Mcguire M.D. Real Suarez MD LAB BLOOD ORDERABLES Fin al Result Performing Organization Address [place] de Phone Number [facility] * Potassium (08/03/2024 12:00 AM CDT) Potassium 3.6 3.5 - 5.1 mEq/L [facility] Serum 08/03/2024 08/04/2024 Narrative [facility] - 08/04/2024 12:40 PM CDT Unless otherwise specified, test(s) performed at:[facility], [address] [place], [place] [id number] DIRECTOR: Titi Mcguire M.D. Real Suarez MD LAB BLOOD ORDERABLES Fin al Result Performing Organization Address [facility] de Phone Number NAVX * (ABNORMAL) Phosphorus (08/03/2024 12:00 AM CDT) Phosphorus 10.5(H) 2.6 - 4.5 mg/dL [facility] Serum 08/03/2024 08/04/2024 Narrative [facility] - 08/04/2024 12:40 PM CDT Unless otherwise specified, test(s) performed at:[facility], [address] [place], [place] [id number] DIRECTOR: Titi Mcguire M.D. Real Suarez MD LAB BLOOD ORDERABLES Fin al Result Performing Organization Address [place] de Phone Number NAVX * (ABNORMAL) PTH (08/03/2024 12:00 AM CDT) PTH Intact, Plasma 779(H) 16 - 80 pg/mL [facility] Plasma 08/03/2024 08/04/2024 Narrative [facility] - 08/04/2024 2:01 PM CDT Unless otherwise specified, test(s) performed at:[facility], [address] [place] [address] [id number] DIRECTOR: Titi Mcguire M.D. Notinfile Unknown LAB BLOOD ORDERABLES Final Res ult Performing Organization Address [place] de Phone Number NAVX * Iron level (08/03/2024 12:00 AM CDT) Iron 45 45 - 160 mcg/dL [facility] Serum 08/03/2024 08/04/2024 Narrative [facility] - 08/04/2024 12:40 PM CDT Unless otherwise specified, test(s) performed at:[facility], [address] [place], [place] [id number] DIRECTOR: Titi Mcguire M.D. Real Suarez MD LAB BLOOD ORDERABLES Fin al Result Performing Organization Address [facility] Phone Number [facility] * (ABNORMAL) Creatinine (08/03/2024 12:00 AM CDT) Creatinine 16.70(H) 0.60 - 1.30 mg/dL [facility] Serum 08/03/2024 08/04/2024 Narrative [facility] - 08/04/2024 12:40 PM CDT Unless otherwise specified, test(s) performed at:[facility], [address] [place] [address] [id number] DIRECTOR: Titi Mcguire M.D. Real Suarez MD LAB BLOOD ORDERABLES Fin al Result Performing Organization Address [place] de Phone Number NAVX * Chloride (08/03/2024 12:00 AM CDT) Chloride 98 96 - 108 mEq/L [facility] Serum 08/03/2024 08/04/2024 Narrative [facility] - 08/04/2024 12:40 PM CDT Unless otherwise specified, test(s) performed at:[facility], [address] [place] [address] [id number] DIRECTOR: Titi Mcguire M.D. Real Suarez MD LAB BLOOD ORDERABLES Fin al Result Performing Organization Address [place] de Phone Number NAVX * Calcium level (08/03/2024 12:00 AM CDT) Calcium 9.2 8.4 - 10.2 mg/dL [facility] Serum 08/03/2024 08/04/2024 Narrative [facility] - 08/04/2024 12:40 PM CDT Unless otherwise specified, test(s) performed at:[facility] DIRECTOR: Titi Mcguire M.D. Real Suarez MD LAB BLOOD ORDERABLES Fin al Result Performing Organization Address [facility] Phone Number NAVX * Albumin (08/03/2024 12:00 AM CDT) Pathologist [facility] Albumin 3.6 3.5 - 5.2 g/dL [facility] Serum 08/03/2024 08/04/2024 [facility] - 08/04/2024 12:40 PM CDT Unless otherwise specified, test(s) performed at:[facility], [address] [place] [address] [id number] DIRECTOR: Titi Mcguire M.D. Real Suarez MD LAB BLOOD ORDERABLES Fin al Result Performing Organization Address [facility] de Phone Number NAVX * Cell count w/rflx diff, body fluid (07/30/2024 10:45 AM CDT) Specimen type, fld Peritoneal Body site, fld Peritoneal [facility] Color, fld Straw [facility] Clarity, fld Clear Clear [facility] Nucleated cells, fld 5 /cumm [facility] Comment: Interpretive Data Unless otherwise specified, the reference range and other method performance specifications have not been established for CSF/Body Fluid tests. The test results should be integrated into the clinical context for interpretation. Current interpretive data was last revised on 2018. RBC, fld 0 /cumm [facility] Fluid 07/30/2024 10:4 5 AM CDT 07/30/2024 12:01 PM CDT Real Suarez MD LAB BODY FLUIDS AND STOO LS ORDERABLES Final Result Performing Organization Address [place]/[facility]/ZIP Co de Phone Number [facility] Department [place] [address] * Aerobic and anaerobic culture and gram stain Peritoneal dialysis fluid Peritoneum (07/28/2024 8:37 AM CDT) Direct Specimen Exam Stain: Cytospin Gram stain shows: Moderate polymorphonuclear leukocytes seen. No organisms seen. Report Final Report: No growth [facility] Peritoneal dialysis fluid (Peritoneum) 07/28/2024 8:37 AM CDT 07/28/2024 8:43 AM CDT Narrative [facility] - 08/03/2024 8:12 AM CDT Testing performed by [facility] Microbiology Laboratory ([phone]) Specimens submitted from normally sterile body sites will have all bacterial morphotypes identified. Specimens that contain grossly mixed arielle and/or are from body sites that are not normally sterile will be examined for Staphylococcus aureus, Pseudomonas aeruginosa, beta-hemolytic strep, vancomycin-resistant Enterococcus, Bacteroides, Parabacteroides, Clostridium perfringens and fungus. If any of these are isolated, the organism will be reported. Current interpretive data was last revised on 2019. Real Suarez MD LAB MICROBIOLOGY - GENER AL ORDERABLES Final Result [facility] Department [place] [address] * Cell Differential, Body Fluid (07/28/2024 3:59 AM CDT) Total cells diffed 100 cells Comment: Interpretive Data Unless otherwise specified, the reference range and other method performance specifications have not been established for CSF/Body Fluid tests. The test results should be integrated into the clinical context for interpretation. Current interpretive data was last revised on 2018. Neutrophils, fld 75 % [facility] Lymphs, fld 1 % [facility] Monocyte, fld 23 % [facility] Basophils, fld 1 % [facility] Fluid 07/28/2024 3:59 AM CDT 07/28/2024 8:39 AM CDT us Real Suarez MD LAB BODY FLUIDS AND STOO LS ORDERABLES Final Result Performing Organization Address [place]/[facility]/ZIP Co de Phone Number [facility] [place] [address] * Cell count w/rflx diff, body fluid (07/28/2024 3:59 AM CDT) Specimen type, fld Peritoneal Color, fld Straw [facility] Clarity, fld Clear Clear [facility] Nucleated cells, fld 755 /cumm [facility] Comment: Interpretive Data Unless otherwise specified, the reference range and other method performance specifications have not been established for CSF/Body Fluid tests. The test results should be integrated into the clinical context for interpretation. Current interpretive data was last revised on 2018. RBC, fld 0 /cumm [facility] Fluid 07/28/2024 3:59 AM CDT 07/28/2024 8:39 AM CDT us Real Suarez MD LAB BODY FLUIDS AND STOO LS ORDERABLES Final Result Performing Organization Address City/[facility]/ZIP Co de Phone Number [facility] Department [place] [address] * HLA Solid Organ Typing Report (07/05/2024 1:17 PM CDT) Richard Mcbride MD LAB GENETIC TESTING Final Resu lt * XR Orthopantogram Panorex (06/30/2024 2:04 PM CDT) Anatomical Region Laterality Modality Head and Neck N/A Panoramic X-Ray 06/30/2024 3:10 PM CDT Impressions 06/30/2024 3:16 PM CDT 1. Impaction of teeth 1, 16, 17 and 32 with no mandibular periapical lucencies. Dictated by: Loyd Jackson M.D. The radiology attending physician has personally reviewed this study, and had reviewed and/or edited this written report and agrees with it. Electronically signed by: Nabor Rose M.D. Narrative 06/30/2024 3:16 PM CDT EXAMINATION: XR ORTHOPANTOGRAM/PANOREX HISTORY: Kidney transplant evaluation. FINDINGS: 1 radiograph of the teeth are submitted for interpretation without available radiograph for comparison. The teeth are intact. Teeth 1, 16, 17, and 32 are impacted. No periapical lucencies. No fractures identified. No dental caries are identified. Procedure Note Nabor Rose MD - 06/30/2024 EXAMINATION: XR ORTHOPANTOGRAM/PANOREX HISTORY: Kidney transplant evaluation. FINDINGS: 1 radiograph of the teeth are submitted for interpretation without available radiograph for comparison. The teeth are intact. Teeth 1, 16, 17, and 32 are impacted. No periapical lucencies. No fractures identified. No dental caries are identified. IMPRESSION: 1. Impaction of teeth 1, 16, 17 and 32 with no mandibular periapical lucencies. Dictated by: Loyd Jackson M.D. The radiology attending physician has personally reviewed this study, and had reviewed and/or edited this written report and agrees with it. Electronically signed by: Nabor Rose M.D. Richard Mcbride MD IMG XR PROCEDURES Final Result * Collection Task for HLA Typing 1 (06/30/2024 1:56 PM CDT) HLA Class I DNA (ABC) Recipient Received Blood 06/30/2024 1:56 PM CDT 06/30/2024 8:02 PM CDT us Richard Mcbride MD LAB BLOOD ORDERABLES Final Res ult [facility] [address] * Collection Task for HLA Antibody Screen (06/30/2024 1:56 PM CDT) [facility] HLA Antibody Screen By Single Antigen Received Blood 06/30/2024 1:56 PM CDT 06/30/2024 8:02 PM CDT Richard Mcbride MD LAB BLOOD ORDERABLES Final Res ult Performing Organization Address [place]/[facility] Co de Phone Number [facility] [place] [address] * Collection Task for HLA Typing 2, Patient (06/30/2024 1:56 PM CDT) [facility] HLA Class II DNA (DR, DQ, DP) Recipient Received Blood 06/30/2024 1:56 PM CDT 06/30/2024 8:02 PM CDT Richard Mcbride MD LAB BLOOD ORDERABLES Final Res ult Performing Organization Address City/[facility] Co de Phone Number [facility] [place] [address] * (ABNORMAL) eGFR (06/30/2024 1:50 PM CDT) [facility] eGFR 4(L) >=60 mL/min/1. 73 m2 Comment: Interpretive Data [...] interpretive data was last reviewed 2021. Blood 06/30/2024 1:50 PM CDT 06/30/2024 2:15 PM CDT us Richard Mcbride MD LAB BLOOD ORDERABLES Final Res ult [facility] Department [place] [address] * Differential, auto (06/30/2024 1:50 PM CDT) Neutrophil abs 4.80 1.50 - 6.50 K/cumm Imm gran abs 0.02 0.00 - 0.10 K/cumm [facility] Lymphocyte abs 1.00 0.80 - 3.30 K/cumm [facility] Monocyte abs 0.42 0.20 - 0.80 K/cumm [facility] Eosinophil abs 0.00 0.00 - 0.50 K/cumm [facility] Basophil abs 0.05 0.00 - 0.10 K/cumm [facility] Neutrophil pct 76.3 % [facility] Comment: Interpretive Data Percent cell count reference ranges are not reported, since discordance with absolute values may lead to misinterpretation of CBC data. Current Interpretive Data was last revised on 2017. Imm gran pct 0.3 % [facility] Comment: Interpretive Data Percent cell count reference ranges are not reported, since discordance with absolute values may lead to misinterpretation of CBC data. Current Interpretive Data was last revised on 2017. Lymphocyte pct 15.9 % [facility] Comment: Interpretive Data Percent cell count reference ranges are not reported, since discordance with absolute values may lead to misinterpretation of CBC data. Current Interpretive Data was last revised on 2017. Monocyte pct 6.7 % [facility] Comment: Interpretive Data Percent cell count reference ranges are not reported, since discordance with absolute values may lead to misinterpretation of CBC data. Current Interpretive Data was last revised on 2017. Eosinophil pct 0.0 % [facility] Comment: Interpretive Data Percent cell count reference ranges are not reported, since discordance with absolute values may lead to misinterpretation of CBC data. Current Interpretive Data was last revised on 2017. Basophil pct 0.8 % [facility] Comment: Interpretive Data Percent cell count reference ranges are not reported, since discordance with absolute values may lead to misinterpretation of CBC data. Current Interpretive Data was last revised on 2017. Blood 06/30/2024 1:50 PM CDT 06/30/2024 2:15 PM CDT Richard Mcbride MD LAB BLOOD ORDERABLES Final Res ult Performing Organization Address City/[facility]/ZIP Co de Phone Number [facility] [place] [address] * (ABNORMAL) Iron profile w/ IBC (06/30/2024 1:50 PM CDT) Iron 50 50 - 150 mcg/dL TIBC 183(L) 250 - 400 mcg/dL [facility] Transferrin saturation 27 20 - 50 % [facility] Blood 06/30/2024 1:50 PM CDT 06/30/2024 2:15 PM CDT Narrative [facility] - 06/30/2024 3:31 PM CDT This lab is being obtained as part of a Kidney transplant evaluation, is time sensitive, and should only be drawn during the evaluation visit at [address] Lab[address] Richard Mcbride MD LAB BLOOD ORDERABLES Final Res ult Performing Organization Address City/[facility]/ZIP Co de Phone Number [facility] Department [place] [address] * HIV 1/2 Antibody plus p24 Antigen Blood (06/30/2024 1:50 PM CDT) HIV 1/2 ab + p24 ag Nonreactive Nonreactive Comment:Nonreactive for HIV- 1 antigen and HIV-1/HIV-2 antibodies. No laboratory evidence of HIV infection. If acute HIV infection is suspected, consider testing for HIV-1 RNA. Current interpretive data was last revised on 21. Blood 06/30/2024 1:50 PM CDT 06/30/2024 2:15 PM CDT [facility]ative [facility] 06/30/[facility]24 4:42 PM CDT This lab is being obtained as part of a Kidney transplant evaluation, is time sensitive, and should only be drawn during the evaluation visit at [address] Lab[address] Richard Mcbride MD LAB MICROBIOLOGY - GENERAL ORD ERABLES Final Result Performing Organization Address [place]/[facility] Co de Phone Number [facility] Department [place] [address] * CMV, IgG Blood (06/30/2024 1:50 PM CDT) Pathologist [facility] CMV IgG Negative Negative Comment: Interpretive Data Negative - Individuals with negative CMV IgG results are presumed to not have had prior exposure or infection with CMV and are, therefore, considered susceptible to primary infection. Equivocal - Equivocal results may occur during acute infection or may be due to nonspecific binding reactions. Submit an additional sample for testing if clinically indicated. Positive - Indicates presence of detectable CMV IgG antibody. Results indicate past or recent CMV infection. Blood 06/30/2024 1:50 PM CDT 06/30/2024 2:15 PM CDT Narrative [facility] - 07/01/2024 10:01 AM CDT This lab is being obtained as part of a Kidney transplant evaluation, is time sensitive, and should only be drawn during the evaluation visit at [address] Lab[address] us Richard Mcbride MD LAB MICROBIOLOGY - GENERAL ORD ERABLES Final Result Performing Organization Address City/[facility]/ZIP Co de Phone Number [facility] Department [place] [address] * (ABNORMAL) Urinalysis reflex to microscopic (06/30/2024 1:50 PM CDT) Color, ur Straw Yellow Clarity, ur Clear Clear [facility] Specific gravity, ur 1.014 1.003 - 1.030 [facility] pH, urine 6.5 [facility] Comment: Interpretive Data U rine pH is affected by diet, medications, systemic acid-base disturbances, and renal tubular function. pH may affect urinary stone formation. For example, urine pH below 6.0 may help reduce the tendency for calcium phosphate stones and pH greater than 6.0 may reduce the tendency for uric acid stone formation. Source: [facility] Current Interpretive Data was last revised on 2017 Protein, ur ql 3+(A) Negative [facility] Glucose, ur ql 1+(A) Negative [facility] Ketones, ur Negative Negative [facility] Bilirubin, ur Negative Negative [facility] Blood, ur 2+(A) Negative [facility] Urobilinogen, ur <2.0 <2.0 mg/dL [facility] Nitrite, ur Negative Negative [facility] Leukocyte esterase, ur Negative Negative [facility] UA reflex comment Reflex to microscopic UA will be performed. [facility] Urine 06/30/2024 1:50 PM CDT 06/30/2024 2:15 PM CDT Narrative [facility] - 06/30/2024 2:19 PM CDT This lab is being obtained as part of a Kidney transplant evaluation, is time sensitive, and should only be drawn during the evaluation visit at [facility] Lab. Ricahrd Mcbride MD LAB URINE ORDERABLES Final Res ult [facility] Department [place] [address] * (ABNORMAL) CBC with auto differential (06/30/2024 1:50 PM CDT) WBC 6.29 3.80 - 9.90 K/cumm Hgb 8.4(L) 13.0 - 17.5 g/dL [facility] Hct 23.8(L) 38.9 - 50.3 % [facility] Plt 186 150 - 400 K/cumm [facility] MPV 10.1 9.1 - 12.3 fL [facility] RBC 2.98(L) 4.30 - 5.80 M/cumm [facility] MCV 79.9(L) 81.3 - 96.4 fL [facility] MCH 28.2 27.1 - 33.3 pg [facility] MCHC 35.3 32.3 - 35.7 g/dL [facility] RDW CV 13.6 11.1 - 14.9 % [facility] RDW SD 39.0 35.7 - 48.1 fL [facility] NRBC abs 0.00 0.00 - 0.01 K/cumm [facility] Blood 06/30/2024 1:50 PM CDT 06/30/2024 2:15 PM CDT Narrative [facility] - 06/30/2024 2:35 PM CDT This lab is being obtained as part of a Kidney transplant evaluation, is time sensitive, and should only be drawn during the evaluation visit at [facility] Lab. us Richard Mcbride MD LAB BLOOD ORDERABLES Final Res ult [facility] [place] [address] * Hepatitis C antibody Blood (06/30/2024 1:50 PM CDT) [facility] Hep C Ab Nonreactive Nonreactive Comment:Antibodies to HCV no t detected. Does NOT exclude the possibility of recent exposure to HCV. Current interpretive data was last revised on 21 Blood 06/30/2024 1:50 PM CDT 06/30/2024 2:15 PM CDT Narrative [facility] - 06/30/2024 4:55 PM CDT This lab is being obtained as part of a Kidney transplant evaluation, is time sensitive, and should only be drawn during the evaluation visit at [address] Richard Mcbride MD LAB MICROBIOLOGY - GENERAL ORD ERABLES Final Result Performing Organization Address [place]/[facility] Co de Phone Number [facility] [place] [address] * (ABNORMAL) Elvira-Baltazar virus (EBV) antibody panel Blood (06/30/2024 1:50 PM CDT) [facility] EBV nuclear Ab Positive(A) Negative Comment:Indicates the presen ce of detectable IgG antibody to EBV Nuclear Antigen. EBV VCA IgG Positive(A) Negative [facility] Comment:Indicates the presen ce of antibody; 90% of the adult population will have been infected with EBV sometime in the past. EBV VCA IgM Negative Negative [facility] Comment:No detectable IgM an tibody to EBV-VCA. A negative result indicates no current infection with EBV. If clinical suspicion of acute EBV infection is present, testing should be repeated after one week. EBV interp Past Infection [facility] Blood 06/30/2024 1:50 PM CDT 06/30/2024 2:15 PM CDT Sajan [facility] - 07/01/2024 11:46 AM CDT This lab is being obtained as part of a Kidney transplant evaluation, is time sensitive, and should only be drawn during the evaluation visit at [address] Richard Mcbride MD LAB MICROBIOLOGY - GENERAL ORD ERABLES Final Result Performing Organization Address [place]/[facility] Co de Phone Number [facility] Department [place] [address] * Hepatitis B core antibody, total Blood (06/30/2024 1:50 PM CDT) [facility] Hep B core IgG/IgM Nonreactive Nonreactive Blood 06/30/2024 1:50 PM CDT 06/30/2024 2:15 PM CDT Narrative [facility] 06/30/2024 4:55 PM CDT This lab is being obtained as part of a Kidney transplant evaluation, is time sensitive, and should only be drawn during the evaluation visit at [address] Richard Mcbride MD LAB MICROBIOLOGY - GENERAL ORD ERABLES Final Result Performing Organization Address [place]/[facility] Co de Phone Number [facility] [place] [address] * Protein, urine, random (06/30/2024 1:50 PM CDT) Protein, ur, quant 589.2 mg/dL Comment: Interpretive Data No reference range established. Current interpretive data was last revised 2018. Urine 06/30/2024 1:50 PM CDT 06/30/2024 2:15 PM CDT Narrative [facility] 06/30/2024 2:58 PM CDT This lab is being obtained as part of a Kidney transplant evaluation, is time sensitive, and should only be drawn during the evaluation visit at [address] Richard Mcbride MD LAB URINE ORDERABLES Final Res ult Performing Organization Address [place]/[facility] Co de Phone Number [facility] [place] [address] * Creatinine, urine, random (06/30/2024 1:50 PM CDT) Creatinine Ur 134.1 mg/dL Comment: Interpretive Data No reference range established. Current interpretive data was last revised 2018. Urine 06/30/2024 1:50 PM CDT 06/30/2024 2:15 PM CDT Narrative [facility] 06/30/2024 2:47 PM CDT This lab is being obtained as part of a Kidney transplant evaluation, is time sensitive, and should only be drawn during the evaluation visit at [facility] Lab. Richard Mcbride MD LAB URINE ORDERABLES Final Res ult [facility] [place] [address] * HSV 2 IgG Antibody Blood (06/30/2024 1:50 PM CDT) HSV 2 IgG Nonreactive Nonreactive Comment: Interpretive Data 1. Nonreactive: No detectable IgG antibody to HSV-2. 2. Equivocal: Presence or absence of detectable antibodies to HSV-2 cannot be determined and the test should be repeated. 3. Reactive: Indicates presence of detectable IgG antibody to HSV-2. Current interpretive data was last revised on 2022. Blood 06/30/2024 1:50 PM CDT 06/30/2024 2:15 PM CDT Narrative [facility] - 07/01/2024 10:02 AM CDT This lab is being obtained as part of a Kidney transplant evaluation, is time sensitive, and should only be drawn during the evaluation visit at [address] Lab[address] Richard Mcbride MD LAB MICROBIOLOGY - GENERAL ORD ERABLES Final Result Performing Organization Address [place]/[facility] Co de Phone Number [facility] Department [place] [address] * HSV 1 IgG Antibody Blood (06/30/2024 1:50 PM CDT) Pathologist [facility] HSV 1 IgG Nonreactive Nonreactive Comment: Interpretive Data 1. Nonreactive: No detectable IgG antibody to HSV-1. 2. Equivocal: Presence or absence of detectable antibodies to HSV-1 cannot be determined and the test should be repeated. 3. 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 Current interpretive data was last revised on 2016. Blood 06/30/2024 1:50 PM CDT 06/30/2024 2:15 PM CDT [facility]ative [facility] - 07/01/2024 10:02 AM CDT This lab is being obtained as part of a Kidney transplant evaluation, is time sensitive, and should only be drawn during the evaluation visit at [address] Richard Mcbride MD LAB MICROBIOLOGY - GENERAL ORD ERABLES Final Result Performing Organization Address [place]/[facility] Co de Phone Number [facility] [place] [address] * RPR Blood (06/30/2024 1:50 PM CDT) Pathologist [facility] RPR Nonreactive Nonreactive Blood 06/30/2024 1:50 PM CDT 06/30/2024 2:15 PM CDT Narrative [facility] - 06/30/2024 4:14 PM CDT This lab is being obtained as part of a Kidney transplant evaluation, is time sensitive, and should only be drawn during the evaluation visit at [address] Richard Mcbride MD LAB MICROBIOLOGY - GENERAL ORD ERABLES Final Result Performing Organization Address [facility] de Phone Number [facility] Department [place] [address] * Hepatitis B surface antibody (immune status) Blood (06/30/2024 1:50 PM CDT) Pathologist [facility] HBsAb (immune status) Reactive Comment:This result is consi stent with immunity to Hepatitis B Virus when used in the setting of routine screening. Current interpretive data was last revised on 21 HBsAb (immune status) index 52.0 mIUnits/m L [facility] Blood 06/30/2024 1:50 PM CDT 06/30/2024 2:15 PM CDT Narrative [facility] - 06/30/2024 4:55 PM CDT This lab is being obtained as part of a Kidney transplant evaluation, is time sensitive, and should only be drawn during the evaluation visit at [address] Richard Mcbride MD LAB MICROBIOLOGY - GENERAL ORD ERABLES Final Result Performing Organization Address [place]/[facility] Co de Phone Number [facility] Department [place] [address] * Hepatitis B Surface Antigen Blood (06/30/2024 1:50 PM CDT) Pathologist [facility] HepBsAg Nonreactive Nonreactive Blood 06/30/2024 1:50 PM CDT 06/30/2024 2:15 PM CDT Narrative [facility] - 06/30/2024 4:55 PM CDT This lab is being obtained as part of a Kidney transplant evaluation, is time sensitive, and should only be drawn during the evaluation visit at [facility] Lab. Richard Mcbride MD LAB MICROBIOLOGY - GENERAL ORD ERABLES Final Result Performing Organization Address [facility] de Phone Number [facility] [place] [address] * (ABNORMAL) Urinalysis, microscopic only (06/30/2024 1:50 PM CDT) [facility] WBC, ur 0-5 0 - 5 /HPF RBC, ur 11-20(A) 0 - 2 /HPF [facility] Epithelial cells, squamous, ur 1-5 0 - 5 /HPF [facility] Mucous, ur Present(A) [facility] Hyaline casts, ur 1-5 0 - 10 /LPF [facility] Urine 06/30/2024 1:50 PM CDT 06/30/2024 2:15 PM CDT Richard Mcbride MD LAB URINE ORDERABLES Final Res ult Performing Organization Address [place]/[facility] Co de Phone Number [place], [place] [id number] * (ABNORMAL) aPTT (06/30/2024 1:50 PM CDT) [facility] aPTT 26(L) 28 - 38 sec Comment: Interpretive Data Heparin therapeutic range: 66.0 - 100.0 seconds. Range based on correlation with therapeutic heparin activity range of 0.3 - 0.7 Units/mL. Current interpretive data was last revised on 2022. Blood 06/30/2024 1:50 PM CDT 06/30/2024 2:15 PM CDT Narrative [facility] - 06/30/2024 2:47 PM CDT This lab is being obtained as part of a Kidney transplant evaluation, is time sensitive, and should only be drawn during the evaluation visit at [address] Lab[address] Richard Mcbride MD LAB BLOOD ORDERABLES Final Res ult Performing Organization Address [place]/[facility] Co de Phone Number [facility] [email or web address] [address] * Protime-INR (06/30/2024 1:50 PM CDT) [facility] PT 11.2 9.7 - 13.0 sec INR 1.04 0.90 - 1.20 [facility] Comment: Interpretive data Oral anticoagulant therapeutic ranges: Venous thromboembolism prophylaxis or treatment: 2.0-3.0 CARDIOLOGY Standard range: 2.0-3.0 High-intensity range: 2.5-3.5 Refer to indication-specific guidelines for appropriate target ranges for prosthetic heart valve replacement. Current interpretive data was last revised on 2019. Blood 06/30/2024 1:50 PM CDT 06/30/2024 2:15 PM CDT Narrative [facility] - 06/30/2024 2:47 PM CDT This lab is being obtained as part of a Kidney transplant evaluation, is time sensitive, and should only be drawn during the evaluation visit at [address] Richard Mcbride MD LAB BLOOD ORDERABLES Final Res ult Performing Organization Address [place]/[facility] Co de Phone Number [facility] [place] [address] * Type and screen (06/30/2024 1:50 PM CDT) ABO Rh O Positive Anastasia, indirect Negative [facility] Blood 06/30/2024 1:50 PM CDT 06/30/2024 2:25 PM CDT Narrative [facility] - 06/30/2024 4:01 PM CDT Please draw the ABO and the Type and Screen as two separate blood draws with each stamped with the two different times stamps as this is a regulatory requirement for this patient to be listed for Kidney Transplant. This lab is being obtained as part of a Kidney transplant evaluation, is time sensitive, and should only be drawn during the evaluation visit at [address] Has the patient had Daratumumab or Isatuximab in the past 6 months?->Unknown Richard Mcbride MD LAB BLOOD BANK TEST ORDERABLES Final Result Performing Organization Address [place]/[facility] de Phone Number [facility] [place] [address] * (ABNORMAL) Varicella Zoster IgG antibody Blood (06/30/2024 1:50 PM CDT) Pathologist [facility] VZV IgG Nonreacti ve(A) Reactive Comment:Non-reactive: No det ectable antibody to Varicella-zoster virus. Such individuals are presumed to be uninfected and to be susceptible to primary infection. Blood 06/30/2024 1:50 PM CDT 06/30/2024 2:15 PM CDT Narrative [facility] - 07/01/2024 10:02 AM CDT This lab is being obtained as part of a Kidney transplant evaluation, is time sensitive, and should only be drawn during the evaluation visit at [address]. Richard Mcbride MD LAB MICROBIOLOGY - GENERAL ORD ERABLES Final Result Performing Organization Address [place]/[facility]/ZIP Co de Phone Number [facility] [place] [address] * (ABNORMAL) Uric acid (06/30/2024 1:50 PM CDT) [facility] Uric acid 9.2(H) 3.0 - 8.0 mg/dL Blood 06/30/2024 1:50 PM CDT 06/30/2024 2:15 PM CDT [facility] 06/30/2024 2:48 PM CDT This lab is being obtained as part of a Kidney transplant evaluation, is time sensitive, and should only be drawn during the evaluation visit at [address] Lab[address] Richard Mcbride MD LAB BLOOD ORDERABLES Final Res ult Performing Organization Address [place]/[facility] Co de Phone Number [facility] Department [place] [address] * (ABNORMAL) Phosphorus (06/30/2024 1:50 PM CDT) [facility] Phosphorus, pl 11.6(H) 2.3 - 4.5 mg/dL Blood 06/30/2024 1:50 PM CDT 06/30/2024 2:15 PM CDT [facility] 06/30/2024 2:48 PM CDT This lab is being obtained as part of a Kidney transplant evaluation, is time sensitive, and should only be drawn during the evaluation visit at [address] Richard Mcbride MD LAB BLOOD ORDERABLES Final Res ult Performing Organization Address [place]/[facility] Co de Phone Number [facility] [place] [address] * (ABNORMAL) PTH (06/30/2024 1:50 PM CDT) [facility] PTH 591(H) 15 - 65 pg/mL Blood 06/30/2024 1:50 PM CDT 06/30/2024 2:15 PM CDT S[facility] 06/30/2024 2:42 PM CDT This lab is being obtained as part of a Kidney transplant evaluation, is time sensitive, and should only be drawn during the evaluation visit at [address] Lab[address] Richard Mcbride MD LAB BLOOD ORDERABLES Final Res ult Performing Organization Address [place]/[facility] Co de Phone Number [facility] [place] [address] * Hemoglobin A1c (06/30/2024 1:50 PM CDT) [facility] Hgb A1C 4.8 4.0 - 5.6 % Estimated Average Glucose 91 mg/dL [facility] Comment: The ADA recommends reporting an estimated Average Glucose (eAG) with all Hemoglobin A1c results using the equation derived from a study of 507 normal and diabetic adults. Minority populations were underrepresented and children were not included. (Diabetes Care 2020; 43(S1): S66-S76). The eAG is not equivalent to a fasting glucose. Blood 06/30/2024 1:50 PM CDT 06/30/2024 2:15 PM CDT Narrative [facility] - 06/30/2024 2:48 PM CDT This lab is being obtained as part of a Kidney transplant evaluation, is time sensitive, and should only be drawn during the evaluation visit at [address] Lab[address] Richard Mcbride MD LAB BLOOD ORDERABLES Final Res ult Performing Organization Address [place]/[facility] Co de Phone Number [facility] Department [place] [address] * Gamma GT (06/30/2024 1:50 PM CDT) [facility] GGT 16 10 - 50 Units/L Blood 06/30/2024 1:50 PM CDT 06/30/2024 2:15 PM CDT Narrative [facility] - 06/30/2024 2:48 PM CDT This lab is being obtained as part of a Kidney transplant evaluation, is time sensitive, and should only be drawn during the evaluation visit at [address] Lab[address] Richard Mcbride MD LAB BLOOD ORDERABLES Final Res ult Performing Organization Address [place]/[facility] de Phone Number [facility] [place] [address] * (ABNORMAL) Ferritin (06/30/2024 1:50 PM CDT) [facility] Ferritin 418(H) 30 - 400 ng/mL Blood 06/30/2024 1:50 PM CDT 06/30/2024 2:15 PM CDT Narrative [facility] - 06/30/2024 2:48 PM CDT This lab is being obtained as part of a Kidney transplant evaluation, is time sensitive, and should only be drawn during the evaluation visit at [address] Lab[address] Richard Mcbride MD LAB BLOOD ORDERABLES Final Res ult Performing Organization Address [facility] de Phone Number [facility] Department [place] [address] * (ABNORMAL) Lipid panel (06/30/2024 1:50 PM CDT) [facility] Cholesterol 137 30 - 199 mg/dL Comment: Interpretive Data Ages < or = 19 years Acceptable: <170 mg/dL Borderline high: 170-199 mg/dL High: >or= 200 mg/dL Ages > or = 20 years Desirable: <200 mg/dL Borderline high: 200-239 mg/dL High: >or= 240 mg/dL Literature References: 1. Expert Panel on Integrated Guidelines for Cardiovascular Health and Risk Reduction in Children and Adolescents. Pediatrics 2011;128:S213 2. NCEP Expert Panel. Circulation 2004;110:227 Current Interpretive Data was last revised on 2017. Triglycerides 162(H) <=149 mg/dL [facility] Comment: Interpretive Data Ages < or = 9 years Acceptable: <75 mg/dL Borderline high: 75-99 mg/dL High: >or= 100 mg/dL Ages 10 to 20 years Acceptable: <90 mg/dL Borderline high: 90-129 mg/dL High: >or= 130 mg/dL Ages > or = 20 years Desirable: <150 mg/dL Borderline high: 150-199 mg/dL High: 200-499 mg/dL Very high: >or= 499 mg/dL Literature References: 1. Expert Panel on Integrated Guidelines for Cardiovascular Health and Risk Reduction in Children and Adolescents. Pediatrics 2011;128:S213 2. NCEP Expert Panel. Circulation 2004;110:227 Current Interpretive Data was last revised on 2017. HDL 25(L) >=40 mg/dL [facility] Comment: Interpretive Data Ages < or = 19 years Acceptable: >45 mg/dL Borderline low: 40-45 mg/dL Low: <40 mg/dL Ages > or = 20 years Desirable: >or= 60 mg/dL Low: <40 mg/dL Literature References: 1. Expert Panel on Integrated Guidelines for Cardiovascular Health and Risk Reduction in Children and Adolescents. Pediatrics 2011;128:S213 2. NCEP Expert Panel. Circulation 2004;110:227 Current Interpretive Data was last revised on 2017. LDL, calculated 84 <=129 mg/dL [facility] Comment: Interpretive Data Ages < or = 19 years Acceptable: <110 mg/dL Borderline high: 110-129 mg/dL High: >or= 130 mg/dL Ages > or = 20 years Optimal: <100 mg/dL Near optimal: 100-129 mg/dL Borderline high: 130-159 mg/dL High: >160 mg/dL Calculated using the Diego LDL-C estimating equation. This equation was implemented on 2023. Prior to this date LDL-C was estimated using the Friedewald equation. Literature References: 1. Expert Panel on Integrated Guidelines for Cardiovascular Health and Risk Reduction in Children and Adolescents. Pediatrics 2011;128:S213 2. NCEP Expert Panel. Circulation 2004;110:227 3. Diego Eldirdge al. SANDRA Cardiol. 2020 July 22;5(5):540-548. doi: 10.1001/jamacardio.2020.0013 Current Interpretive Data was last revised on 2023. Non-HDL Cholesterol 112 mg/dL [facility] Comment: Interpretive Data Ages < or = 19 years Acceptable: <120 mg/dL Borderline high: 120-144 mg/dL High: >145 mg/dL Ages > or = 20 years When triglycerides are >200 mg/dL, Non-HDL cholesterol is a secondary target of therapy with treatment goals that are 30 mg/dL greater than the LDL cholesterol target. Literature References: 1. Expert Panel on Integrated Guidelines for Cardiovascular Health and Risk Reduction in Children and Adolescents. Pediatrics 2011;128:S213 2. NCEP Expert Panel. Circulation 2004;110:227 Current Interpretive Data was last revised on 2017. Chol/HDL ratio 5 [facility] Blood 06/30/2024 1:50 PM CDT 06/30/2024 2:15 PM CDT Narrative [facility] - 06/30/2024 2:48 PM CDT This lab is being obtained as part of a Kidney transplant evaluation, is time sensitive, and should only be drawn during the evaluation visit at [facility] Lab. Richard Mcbride MD LAB BLOOD ORDERABLES Final Res ult [facility] Department [place] [address] * (ABNORMAL) Comprehensive metabolic panel (06/30/2024 1:50 PM CDT) [facility] Sodium 143 135 - 145 mmol/L Potassium, pl 4.0 3.3 - 4.9 mmol/L [facility] Chloride 102 97 - 110 mmol/L [facility] CO2 22 22 - 32 mmol/L [facility] Anion gap 19(H) 2 - 15 mmol/L [facility] BUN 106(H) 6 - 25 mg/dL [facility] Creatinine 16.13(H) 0.80 - 1.30 mg/dL [facility] Glucose 100 70 - 199 mg/dL [facility] Comment: Interpretive Data Fasting glucose >/= [...] interpretive data was last revised 2022. Calcium 8.9 8.5 - 10.3 mg/dL [facility] Bilirubin, total 0.2 0.1 - 1.2 mg/dL [facility] Protein, pl 6.3(L) 6.5 - 8.5 g/dL [facility] Albumin 3.4(L) 3.5 - 5.0 g/dL [facility] Alk phos 65 40 - 130 Units/L [facility] ALT 8 7 - 55 Units/L [facility] AST 13 10 - 50 Units/L [facility] Blood 06/30/2024 1:50 PM CDT 06/30/2024 2:15 PM CDT Narrative [facility] - 06/30/2024 2:56 PM CDT This lab is being obtained as part of a Kidney transplant evaluation, is time sensitive, and should only be drawn during the evaluation visit at [facility] Lab. us Richard Mcbride MD LAB BLOOD ORDERABLES Final Res ult [facility] [place] [address] * LR HLA Typing (Class I and Class II) (06/30/2024 1:37 PM CDT) r-SSO [facility] A First Allele A*01 [facility] A Second Allele A*11 [facility] A First Serological Equivalent A1 [facility] A Second Serological Equivalent A11 [facility] B First Allele B*08 HISTOTRAC B Second Allele B*56 HISTOTRAC B First Serological Equivalent B8 HISTOTRAC B Second Serological Equivalent B56 [facility]ISTOT[facility]AC Bw First Serological Equivalent Bw6 HISTOTRAC Bw Second Serological Equivalent Bw6 HISTOTRAC C First Allele C*01 HISTOTRAC C Second Allele C*07 HISTOTRAC C First Serological Equivalent Cw1 HISTOTRAC C Second Serological Equivalent Cw7 HISTOTRAC DRB1 First [place] DRB1*03 HISTOTRAC DRB1 Second Allele DRB1*08 HISTOTRAC DRB1 First Serological Equivalent DR17 HISTOTRAC DRB1 Second Serological Equivalent DR8 HISTOTRAC DRB3 First [place]lele DRB3*01 HISTOTRAC DRB3 First Serological Equivalent DR52 HISTOTRAC DQA1 First [place]le DQA1*04 HISTOTRAC DQA1 Second Allele DQA1*05 HISTOTRAC DQB1 First [place] DQB1*02 HISTOTRAC DQB1 Second Allele DQB1*04 HISTOTRAC DQB1 First Serological Equivalent DQ2 [facility] DQB1 Second Serological Equivalent DQ4 [facility]AC DPB1 First [place]lele DPB1*02:01 :02G HISTOTRAC DPB1 Second Allele DBP1*04:01 :01G [facility] Blood 06/30/2024 1:37 PM CDT 07/05/2024 12:34 PM CDT Narrative [facility] - 07/05/2024 12:34 PM CDT DNA was extracted from whole blood or buccal cell specimens, and relevant genomic regions were amplified by polymerase chain reactions (PCR). HLA typing was performed on PCR amplicons using reverse sequence-specific oligonucleotide (r-SSO) and/or sequence-specific primers (SSP) based techniques. r-SSO and SSP are FDA approved as IVD tests and validated by the [facility] HLA Laboratory. Testing performed at the [facility] HLA Laboratory, [address] [place] [address], 5th floor, [place], [address]. [facility] # [id number]. Trina Gardner, Ph.D., Quality Systems Technician, HLA Laboratory Vadim Kaur M.D., Ph.D., Driller And Reamer, HLA Laboratory Ashley Chambers, Ph.D., CLIA Driller And Reamer, [facility] Clinical Laboratories Current methodology comment last revised on 11/26/16. us Richard Mcbride MD LAB BLOOD ORDERABLES Final Res ult [facility] * HLA Antibody Screen - SAB (Class I and Class II) (06/30/2024 1:36 PM CDT) Class I Treatment Adsorbed+EDT A [facility] Class I Dilution 1:1 [facility] Class I Tested Date 07/01/2024 [facility] Class I Result Negative [facility] Class I CPRA 0 [facility] Class I Low Risk A11, A80 [facility] Class II Treatment Adsorbed+EDT A [facility] Class II Dilution 1:1 [facility] Class II Tested Date 07/01/2024 [facility] Class II Result Positive [facility] Class II CPRA 17 [facility] Class II Moderate Risk DR1 [facility] Class II Low Risk DQ6; DPB1*06:01, DPB1*14:01 [facility] Blood 06/30/2024 1:36 PM CDT 07/05/2024 7:13 AM CDT Narrative [facility] - 07/05/2024 7:13 AM CDT Single-antigen HLA antibody screen is performed on serum samples using a method developed and validated by the [facility] HLA laboratory based on an FDA-approved IVD kit ([employer] Single-Antigen, [facility], [place], [place]). All patient serum samples are pretreated with EDTA before the screen to prevent complement interference. Additional serum treatments, such as adsorption and DTT treatment, may be performed as indicated. Interpretive comments: Low risk: MFI [id number]. Moderate risk: MFI 8682-0909. Increased risk: MFI >/= 5000. The presence of an antigen in two or more risk categories may indicate a mixed reactivity pattern among beads of multiple subtypes. Preformed donor-specific antibodies (DSA) with MFI above 2000 are predictive of positive cytotoxicity crossmatch (Hum Immunol 2010;71:268-73. Hum Immunol 2012;73:497- 604) and carry a higher risk of humoral rejection. For our solid-organ transplant programs, unacceptable antigens (UA) for transplant candidates are defined by MFI >/= 2000 with some exceptions. UA are listed at [facility] and used to generate calculated PRA (cPRA) rounded to the nearest integer. In the post-transplant setting, MFI values from donor-specific beads are listed in the DSA report to provide additional information. It is important to note that this test is approved as a qualitative test and the MFI values are not strictly linear. For platelet refractoriness: An empirical cutoff value of MFI >/= 2000 has been used in our center; a higher cutoff value such as 5000 may also be suitable for highly sensitized patients to prioritize the antigens to avoid. Testing performed at the [facility], [address], [address], [place], [address]. [facility] # [id number]. Trina Gardner, Ph.D., Quality Systems Technician, HLA Laboratory Vadim Kaur M.D., Ph.D., Driller And Reamer, HLA Laboratory Ashley Chambers, Ph.D., CLIA Driller And Reamer, [facility] Clinical Laboratories Current methodology and interpretive comments last revised on 04/18/2022. us Richard Mcbride MD LAB BLOOD ORDERABLES Edited Re sult - Final [facility] * TRANSTHORACIC ECHO (TTE) COMPLETE W DOPPLER/CF WO CONTRAST (06/30/2024 1:20 PM CDT) Anatomical Region Laterality Modality Ultrasound 06/30/2024 12:3 6 PM CDT Narrative 07/01/2024 5:33 AM CDT [facility] [facility] [place] [address] Transthoracic Echocardiographic Report Patient Name: FREDDIE CORNEJO HI : 2000 (24y ) Gender: M Study Date: 06/30/2024 12:36:09 PM Ht(Inch): 76 Wt(Lb): 266.98 BSA: 2.55 Pony Rougher: Donna Jolly RDCS Location: [facility] Order Provider: RICHARD MCBRIDE Heart Rate: 86 BMI: 32.49 BP: 141 / 84 Ref Provider: RICHARD MCBRIDE PROCEDURES: Echocardiographic Report: Transthoracic complete echo with strain imaging, 2D, spectral and tissue Doppler, color flow Doppler, M-mode. INDICATIONS: Z01.818 Encounter for other preprocedural examination and N18.4 Chronic kidney disease, stage 4 (severe). CONCLUSIONS: 1. Normal left ventricular size based on volume index. Concentric LV hypertrophy. Normal left ventricular systolic function. The Ejection Fraction (New's) is measured at 63 %. The average global longitudinal strain is borderline. 2. Normal right ventricular size. Normal right ventricular systolic function. ATTESTATION: I have personally reviewed and interpreted this study without fellow or resident. - DISCLAIMER: The study images and the final report will be retained in the patient chart by the Echo Laboratory for the legally required time period. This chart constitutes the legal record of any testing performed. FINDINGS: Left Ventricle: Normal left ventricular size based on volume index. Concentric LV hypertrophy. Normal left ventricular systolic function. The Ejection Fraction (New's) is measured at 63 %. The average global longitudinal strain is borderline. The LV global strain is: -17.5 %. Right Ventricle: Normal right ventricular size. Normal right ventricular systolic function. Left Atrium: Mildly dilated left atrium. Right Atrium: The right atrium is normal in size. Mitral Valve: Normal mitral valve structure. No mitral regurgitation. No stenosis present. Aortic Valve: Normal trileaflet aortic valve. No aortic regurgitation. No aortic valve stenosis. Tricuspid Valve: Normal tricuspid valve structure. No tricuspid regurgitation. No tricuspid valve stenosis. Pulmonic Valve: Normal pulmonic valve structure. No pulmonic regurgitation. No pulmonic valve stenosis present. Pericardium: Normal pericardium without pericardial effusion. Aorta: Normal aortic root size at sinuses of Valsalva. Normal aortic root size when indexed. The ascending aorta is normal in size when indexed. PASP: Normal estimated pulmonary artery systolic pressure. Rhythm: Normal Sinus rhythm was seen during the study. MEASUREMENTS: 2D/MM Value Range Doppler Value Range LVIDd 2D 5.29 cm [ 4.20 - 5.80 ] AV Peak Junior 1.6 m/s [ 1.0 - 1.7 ] LVIDs 2D 3.60 cm [ 2.50 - 4.00 ] AV Peak PG 10.24 mmHg IVSd 2D 1.52 cm [ 0.60 - 1.00 ] AV Mean PG 5 mmHg LVPWd 2D 1.53 cm [ 0.60 - 1.00 ] AV VTI 28.2 cm LV Thickness Ratio 1.0 LVOT Peak Junior 1.3 m/s [ 0.7 - 1.1 ] LV FS 2D 31.90 % [ 25.00 - 43.00 ] LVOT Peak PG 6.76 mmHg LV Mass 2D 364.81 g LVOT Mean PG 4 mmHg LV Mass Index 2D 143.06 g/m2 LVOT VTI 25.6 cm RWT 0.58 LVOT Diam 2.69 cm EDV Mod BP 176.05 ml [ 62.00 - 150.00 ] CHINA VTI 5.16 cm2 LV EDV Index 69.04 ml/m2 LVOT/AV VTI 0.91 - Dimensionless index (DVI) ESV Mod BP 65.40 ml [ 21.00 - 61.00 ] MV E Peak Junior 0.9 m/s [ 0.6 - 1.3 ] EF Mod BP 63 % [ 52 - 72 ] MV A Peak Junior 0.8 m/s [ 1.0 - 1.2 ] LV GLS -17.5 % [ -25.0 - -18.0 ] MV E/A 1.1 ratio [ 0.8 - 1.5 ] LA Length 4C 6.55 cm MV Decel Time 149.90 msec [ 104.00 - 258.00 ] LA Length 2C 6.93 cm Med E` Junior 8.0 cm/sec [ 8.0 - 25.0 ] LA Volume BP 97.11 ml Lat E` Junior 6.2 cm/sec [ 10.0 - 25.0 ] LA Volume Index 38.08 ml/m2 [ 16.00 - 34.00 ] Average E/E` 12.68 RV Base Dimen 2D 4.1 cm [ 2.5 - 4.2 ] RV S` 17.87 cm/sec TAPSE 3.15 cm [ 1.71 - 5.00 ] PV Peak Junior 1.2 m/s [ 0.4 - 0.8 ] RA Volume 39.22 ml PV Peak PG 5.76 mmHg RA Volume Index 15.38 ml/m2 IVC Diam 2.15 cm AoR Diam 2D 3.57 cm [ 3.10 - 3.70 ] Ao Root Index 1.40 cm/m2 [ 1.00 - 2.00 ] Asc Ao Diam 2D 3.25 cm Asc Ao Index 1.27 cm/m2 Electronically Signed By: Grant Mancilla MD 07/01/2024 5:33:12 AM CDT Procedure Note Grant Mancilla MD - 07/01/2024 [facility] [place] [address] Transthoracic Echocardiographic Report Patient Name: FREDDIE CORNEJO HI : 2000 (24y ) Gender: M Study Date: 06/30/2024 12:36:09 PM Ht(Inch): 76 Wt(Lb): 266.98 BSA: 2.55 Pony Rougher: Donna Jolly RDCS Location: [facility] Order Provider:RICHARD MCBRIDE Heart Rate: 86 BMI: 32.49 BP: 141 / 84 Ref Provider: RICHARD MCBRIDE PROCEDURES: Echocardiographic Report: Transthoracic complete echo with strain imaging,2D, spectral and tissue Doppler, color flow Doppler, M-mode. INDICATIONS: Z01.818 Encounter for other preprocedural examination and N18.4 Chronickidney disease, stage 4 (severe). CONCLUSIONS: 1. Normal left ventricular size based on volume index. Concentric LVhypertrophy. Normal left ventricular systolic function. The Ejection Fraction (New's) ismeasured at 63 %. The average global longitudinal strain is borderline. 2. Normal right ventricular size. Normal right ventricular systolicfunction. ATTESTATION: I have personally reviewed and interpreted this study without fellow orresident. - DISCLAIMER: The study images and the final report will be retained in the patientchart by the Echo Laboratory for the legally required time period. This chart constitutesthe legal record of any testing performed. FINDINGS: Left Ventricle: Normal left ventricular size based on volume index.Concentric LV hypertrophy. Normal left ventricular systolic function. The EjectionFraction (New's) is measured at 63 %. The average global longitudinal strain is borderline.The LV global strain is: -17.5 %. Right Ventricle: Normal right ventricular size. Normal right ventricularsystolic function. Left Atrium: Mildly dilated left atrium. Right Atrium: The right atrium is normal in size. Mitral Valve: Normal mitral valve structure. No mitral regurgitation. Nostenosis present. Aortic Valve: Normal trileaflet aortic valve. No aortic regurgitation. Noaortic valve stenosis. Tricuspid Valve: Normal tricuspid valve structure. No tricuspidregurgitation. No tricuspid valve stenosis. Pulmonic Valve: Normal pulmonic valve structure. No pulmonicregurgitation. No pulmonic valve stenosis present. Pericardium: Normal pericardium without pericardial effusion. Aorta: Normal aortic root size at sinuses of Valsalva. Normal aortic rootsize when indexed. The ascending aorta is normal in size when indexed. PASP: Normal estimated pulmonary artery systolic pressure. Rhythm: Normal Sinus rhythm was seen during the study. MEASUREMENTS: 2D/MM Value Range DopplerValue Range LVIDd 2D 5.29 cm [ 4.20 - 5.80 ] AV Peak Vel1.6 m/s [ 1.0 - 1.7 ] LVIDs 2D 3.60 cm [ 2.50 - 4.00 ] AV Peak PG10.24 mmHg IVSd 2D 1.52 cm [ 0.60 - 1.00 ] AV Mean PG5 mmHg LVPWd 2D 1.53 cm [ 0.60 - 1.00 ] AV VTI28.2 cm LV Thickness Ratio 1.0 LVOT Peak Vel1.3 m/s [ 0.7 - 1.1 ] LV FS 2D 31.90 % [ 25.00 - 43.00 ] LVOT Peak PG6.76 mmHg LV Mass 2D 364.81 g LVOT Mean PG4 mmHg LV Mass Index 2D 143.06 g/m2 LVOT VTI25.6 cm RWT 0.58 LVOT Diam2.69 cm EDV Mod BP 176.05 ml [ 62.00 - 150.00 ] CHINA VTI5.16 cm2 LV EDV Index 69.04 ml/m2 LVOT/AV VTI0.91 - Dimensionless index (DVI) ESV Mod BP 65.40 ml [ 21.00 - 61.00 ] MV E Peak Vel0.9 m/s [ 0.6 - 1.3 ] EF Mod BP 63 % [ 52 - 72 ] MV A Peak Vel0.8 m/s [ 1.0 - 1.2 ] LV GLS -17.5 % [ -25.0 - -18.0 ] MV E/A1.1 ratio [ 0.8 - 1.5 ] LA Length 4C 6.55 cm MV Decel Dndg543.90 msec [ 104.00 - 258.00 ] LA Length 2C 6.93 cm Med E` Vel8.0 cm/sec [ 8.0 - 25.0 ] LA Volume BP 97.11 ml Lat E` Vel6.2 cm/sec [ 10.0 - 25.0 ] LA Volume Index 38.08 ml/m2 [ 16.00 - 34.00 ] Average E/E`12.68 RV Base Dimen 2D 4.1 cm [ 2.5 - 4.2 ] RV S`17.87 cm/sec TAPSE 3.15 cm [ 1.71 - 5.00 ] PV Peak Vel1.2 m/s [ 0.4 - 0.8 ] RA Volume 39.22 ml PV Peak PG5.76 mmHg RA Volume Index15.38 ml/m2 IVC Diam2.15 cm AoR Diam 2D 3.57 cm [ 3.10 - 3.70 ] Ao Root Index 1.40 cm/m2 [ 1.00 - 2.00 ] Asc Ao Diam 2D3.25 cm Asc Ao Index1.27 cm/m2 Electronically Signed By: Grant Mancilla MD 07/01/2024 5:33:12 AM CDT us Naoka Marce MD CV ECHO PROCEDURES Final Resul t * X-ray chest 2 views (06/30/2024 12:00 PM CDT) Anatomical Region Laterality Modality Body, Chest N/A Computed Radiogr aphy 06/30/2024 1:17 PM CDT Impressions 06/30/2024 1:17 PM CDT Comparison is made to chest radiograph of 01/24/2024 at 2:35 PM Posteroanterior and lateral views the chest demonstrate clear lungs. The heart size and mediastinal contours are normal. Electronically signed by: Paz Ackerman M.D. Narrative 06/30/2024 1:17 PM CDT EXAMINATION: 2 view chest radiograph Procedure Note Paz Ackerman MD - 06/30/2024 EXAMINATION: 2 view chest radiograph IMPRESSION: Comparison is made to chest radiograph of 01/24/2024 at 2:35 PM Posteroanterior and lateral views the chest demonstrate clear lungs. The heart size and mediastinal contours are normal. Electronically signed by: Paz Ackerman M.D. Richard Mcbride MD IMG XR PROCEDURES Final Result * CT Abdomen Pelvis WO Contrast (06/30/2024 10:51 AM CDT) Anatomical Region Laterality Modality Body N/A Computed Tomogra phy 06/30/2024 11:0 7 AM CDT Impressions 06/30/2024 11:07 AM CDT 1. Small volume pneumoperitoneum in the setting of peritoneal dialysis. 2. No significant atherosclerosis within the abdominal biiliac branches. Dictated by: Yesenia Carty MD, PhD The radiology attending physician has personally reviewed this study, and had reviewed and/or edited this written report and agrees with it. Electronically signed by: Kareem Choi M.D. Narrative 06/30/2024 11:07 AM CDT EXAMINATION: CT of the abdomen, and pelvis without intravenous contrast. 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 TECHNIQUE: Transaxial computed tomographic images of the abdomen, and pelvis were obtained without intravenous contrast according to the standard protocol. COMPARISON: None available. FINDINGS: Imaged portion of the chest demonstrates no basilar consolidation, pleural effusion, or pneumothorax. Heart size is normal without pericardial effusion. No coronary artery calcifications. ABDOMEN AND PELVIS: Liver is normal without focal hepatic lesion. Gallbladder, spleen, pancreas, adrenal glands are normal. Kidneys demonstrate a normal contrasted appearance. Ureters and urinary bladder are normal. Small bowel and large bowel are normal in caliber without evidence of obstruction. Small volume ascites and pneumoperitoneum in the setting of peritoneal dialysis. Abdominal and pelvic vasculature is normal in course and caliber without significant atherosclerosis. No suspicious osseous lesions. Procedure Note Kareem Choi MD - 06/30/2024 EXAMINATION: CT of the abdomen, and pelvis without intravenous contrast. 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 TECHNIQUE: Transaxial computed tomographic images of the abdomen, and pelvis were obtained without intravenous contrast according to the standard protocol. COMPARISON: None available. FINDINGS: Imaged portion of the chest demonstrates no basilar consolidation, pleural effusion, or pneumothorax. Heart size is normal without pericardial effusion. No coronary artery calcifications. ABDOMEN AND PELVIS: Liver is normal without focal hepatic lesion. Gallbladder, spleen, pancreas, adrenal glands are normal. Kidneys demonstrate a normal contrasted appearance. Ureters and urinary bladder are normal. Small bowel and large bowel are normal in caliber without evidence of obstruction. Small volume ascites and pneumoperitoneum in the setting of peritoneal dialysis. Abdominal and pelvic vasculature is normal in course and caliber without significant atherosclerosis. No suspicious osseous lesions. IMPRESSION: 1. Small volume pneumoperitoneum in the setting of peritoneal dialysis. 2. No significant atherosclerosis within the abdominal biiliac branches. Dictated by: Yesenia Carty MD, PhD The radiology attending physician has personally reviewed this study, and had reviewed and/or edited this written report and agrees with it. Electronically signed by: Kareem Choi M.D. Richard Mcbride MD IMG CT PROCEDURES Final Result * XR KUB (06/29/2024 12:40 PM CDT) Anatomical Region Laterality Modality Body, Abdomen N/A Computed Radiogr aphy 06/29/2024 1:16 PM CDT Impressions 06/29/2024 1:18 PM CDT There is a peritoneal dialysis catheter with tip coiled in the pelvis. No catheter discontinuity or kinking. The bowel gas pattern is normal. There is a mild to moderate amount of stool in the colon. Dictated by: Josafat Conrad MD PHD The radiology attending physician has personally reviewed this study, and had reviewed and/or edited this written report and agrees with it. Electronically signed by: Queta Rivera M.D. Narrative 06/29/2024 1:18 PM CDT EXAMINATION: Abdomen, one view. HISTORY: End-stage renal disease status post peritoneal dialysis catheter placement 06/07/2024. COMPARISON: None Procedure Note Queta Rivera MD - 06/29/2024 EXAMINATION: Abdomen, one view. HISTORY: End-stage renal disease status post peritoneal dialysis catheter placement 06/07/2024. COMPARISON: None IMPRESSION: There is a peritoneal dialysis catheter with tip coiled in the pelvis. No catheter discontinuity or kinking. The bowel gas pattern is normal. There is a mild to moderate amount of stool in the colon. Dictated by: Josafat Conrad MD PHD The radiology attending physician has personally reviewed this study, and had reviewed and/or edited this written report and agrees with it. Electronically signed by: Queta Rivera M.D. Real Suarez MD IMG XR PROCEDURES Final Result * (ABNORMAL) [facility] Dialysis Bicarbonate (06/24/2024 12:00 AM CDT) Bicarbonate 20(L) 22 - 29 mEq/L [facility] Serum 06/24/2024 06/25/2024 Narrative [facility] - 06/25/2024 3:06 PM CDT Unless otherwise specified, test(s) performed at:[facility], [address] [place] [address] [id number] DIRECTOR: Titi Mcguire M.D. Real Suarez MD LAB BLOOD ORDERABLES Fin al Result Performing Organization Address [place] de Phone Number [facility] * (ABNORMAL) [facility] Dialysis Calcium Phosphorus Product, Corrected (Calc) (06/24/2024 12:00 AM CDT) Pathologist [facility] Calcium Phos Product, Cor 97(H) 0 - 54 [facility] Serum 06/24/2024 06/25/2024 Narrative [facility] - 06/25/2024 3:06 PM CDT Unless otherwise specified, test(s) performed at[place] [place] [id number] DIRECTOR: Titi Mcguire M.D. [facility] LAB BLOOD ORDERABLES Final Res ult Performing Organization Address [facility] de Phone Number [facility] * [facility] Dialysis Calcium, Corrected (06/24/2024 12:00 AM CDT) [facility] Calcium, Corrected 9.1 8.4 - 10.2 mg/dL [facility] Comment:Corrected Calcium is not equivalent to measured Ionized Calcium. Serum 06/24/2024 06/25/2024 [facility] - 06/25/2024 3:06 PM CDT Unless otherwise specified, test(s) performed at:[facility] [id number] DIRECTOR: Titi Mcguire M.D. [facility] Unknown LAB BLOOD ORDERABLES Final Res ult Performing Organization Address [place] de Phone Number [facility] * [facility] Dialysis UIBC (06/24/2024 12:00 AM CDT) [facility] UIBC 166 155 - 355 mcg/dL [facility] Serum 06/24/2024 06/25/2024 Narrative [facility] - 06/25/2024 3:06 PM CDT Unless otherwise specified, test(s) performed at:[facility], [address] [place], [place] [id number] DIRECTOR: iTti Mcguire M.D. Real Suarez MD LAB BLOOD ORDERABLES Fin al Result Performing Organization Address [facility] de Phone Number [facility] * (ABNORMAL) [facility] Dialysis Calcium Phosphorus Product (Calc) (06/24/2024 12:00 AM CDT) Calcium Phos Product 93(H) 0 - 54 [facility] Serum 06/24/2024 06/25/2024 Narrative [facility] - 06/25/2024 3:06 PM CDT Unless otherwise specified, test(s) performed at[facility] [id number] DIRECTOR: Titi Mcguire M.D. [facility] Unknown LAB BLOOD ORDERABLES Final Res ult Performing Organization Address [facility] Phone Number [facility] * [facility] Dialysis Transferrin Saturation (06/24/2024 12:00 AM CDT) Transferrin Sat (Calc) 27 20 - 55 % [facility] Serum 06/24/2024 06/25/2024 Narrative [facility] - 06/25/2024 3:06 PM CDT Unless otherwise specified, test(s) performed at:[facility], [address] [place], [place] [id number] DIRECTOR: Titi Mcguire M.D. Real Suarez MD LAB BLOOD ORDERABLES Fin al Result Performing Organization Address [facility] de Phone Number [facility] * Iron profile w/ IBC (06/24/2024 12:00 AM CDT) TIBC 226 185 - 515 mcg/dL [facility] Serum 06/24/2024 06/25/2024 Narrative [facility] - 06/25/2024 3:06 PM CDT Unless otherwise specified, test(s) performed at:[facility], [address] [place] [id number] DIRECTOR: Titi Mcguire M.D. Real Suarez MD LAB BLOOD ORDERABLES Fin al Result Performing Organization Address [facility] de Phone Number [facility] * (ABNORMAL) [facility] BUN / Creatinine ratio (06/24/2024 12:00 AM CDT) Pathologist [facility] BUN Creatinine Ration 7.9(L) 10.0 - 20.0 [facility] Serum 06/24/2024 06/25/2024 Narrative [facility] - 06/25/2024 3:06 PM CDT Unless otherwise specified, test(s) performed at[facility] [id number] DIRECTOR: Titi Mcguire M.D. [facility] Unknown LAB BLOOD ORDERABLES Final Res ult Performing Organization Address [facility] Phone Number [facility] * Hepatitis C antibody Serum (06/24/2024 12:00 AM CDT) [facility] Hep C Ab Nonreactive Nonreactive [facility] Comment:No HCV antibody dete cted. HCV s/co ratio 0.05 0.00 - 0.79 [facility] Comment:s/co ratio Interpret ation Supplemental testing Serum 06/24/2024 06/25/2024 Narrative [facility] - 06/25/2024 3:55 PM CDT Unless otherwise specified, test(s) performed at:[facility], [address] [place] [id number] DIRECTOR: Titi Mcguire M.D. Real Suarez MD LAB MICROBIOLOGY - GENER AL ORDERABLES Final Result Performing Organization Address [facility] de Phone Number [facility] * Hepatitis B core antibody, total Serum (06/24/2024 12:00 AM CDT) Pathologist [facility] Hep B core IgG/IgM Negative Negative [facility] Comment:Hep B Core Ab, Total appears during the acute infection stage and Serum 06/24/2024 06/25/2024 Narrative [facility] - 06/25/2024 3:55 PM CDT Unless otherwise specified, test(s) performed at:[facility] [id number] DIRECTOR: Titi Mcguire M.D. [facility] Unknown LAB MICROBIOLOGY - GENERAL ORD ERABLES Final Result Performing Organization Address [facility] de Phone Number [facility] * Vitamin D 25 hydroxy (06/24/2024 12:00 AM CDT) Pathologist [facility] Vitamin D, 25-Hydroxy 39.2 30.0 - 100.0 ng/mL [facility] Comment:Please Note: Effective January 20, 2023, the methodology for this test Serum 06/24/2024 06/25/2024 Narrative [facility] - 06/25/2024 3:15 PM CDT Unless otherwise specified, test(s) performed at:[facility], [address] [place] [address] [id number] DIRECTOR: Titi Mcguire M.D. Real Suarez MD LAB BLOOD ORDERABLES Fin al Result Performing Organization Address [facility] Number [facility] * Hepatitis B surface antibody (immune status) Serum (06/24/2024 12:00 AM CDT) Pathologist [facility] HBsAb (immune status) 53 mIU/mL [facility] Comment:The anti-HBs (Hepati tis B surface antibody) is greater than or equal to Serum 06/24/2024 06/25/2024 Narrative [facility] - 06/25/2024 3:14 PM CDT Unless otherwise specified, test(s) performed at:[facility] [id number] DIRECTOR: Titi Mcguire M.D. Real Suarez MD LAB MICROBIOLOGY - GENER AL ORDERABLES Final Result Performing Organization Address [facility] Phone Number [facility] * Hepatitis B Surface Antigen Serum (06/24/2024 12:00 AM CDT) HBsAg Negative Negative [facility] Serum 06/24/2024 06/25/2024 Narrative [facility] - 06/25/2024 3:25 PM CDT Unless otherwise specified, test(s) performed at:[facility], [address] [place] [address] [id number] DIRECTOR: Titi Mcguire M.D. us Real Suarez MD LAB MICROBIOLOGY - GENER AL ORDERABLES Final Result Performing Organization Address [place]/[facility]/ZIP Co de Phone Number [facility] * Platelet count (06/24/2024 12:00 AM CDT) Pathologist [facility] Platelet Count 270 130 - 400 1000/mcL [facility] Blood 06/24/2024 06/25/2024 Narrative [facility] - 06/25/2024 11:28 AM CDT Unless otherwise specified, test(s) performed at:[facility], [address] [place] [id number] DIRECTOR: iTti Mcguire M.D. us [facility] Unknown LAB BLOOD ORDERABLES Final Res ult Performing Organization Address [facility] de Phone Number [facility] * (ABNORMAL) Hemoglobin (06/24/2024 12:00 AM CDT) Pathologist [facility] Hemoglobin 8.8(L) 14.0 - 18.0 g/dL [facility] Hemoglobin x 3 26.4(L) 42.0 - 54.0 % [facility] Blood 06/24/2024 06/25/2024 Narrative [facility] - 06/25/2024 11:28 AM CDT Unless otherwise specified, test(s) performed at:[facility], [address] [place] [address] [id number] DIRECTOR: Titi Mcguire M.D. us [facility] Unknown LAB BLOOD ORDERABLES Final Res ult Performing Organization Address [place] de Phone Number [facility] * (ABNORMAL) BUN (06/24/2024 12:00 AM CDT) BUN 109(H) 6 - 19 mg/dL [facility] Serum 06/24/2024 06/25/2024 Narrative [facility] - 06/25/2024 3:06 PM CDT Unless otherwise specified, test(s) performed at:[facility] [id number] DIRECTOR: Titi Mcguire M.D. Real Suarez MD LAB BLOOD ORDERABLES Fin al Result Performing Organization Address [facility] Phone Number [facility] * (ABNORMAL) ALT (06/24/2024 12:00 AM CDT) ALT (SGPT) 5(L) 7 - 52 U/L [facility] Serum 06/24/2024 06/25/2024 Narrative [facility] - 06/25/2024 3:06 PM CDT Unless otherwise specified, test(s) performed at:[facility] [id number] DIRECTOR: Titi Mcguire M.D. [facility] Unknown LAB BLOOD ORDERABLES Final Res ult Performing Organization Address [facility] Phone Number [facility] * Sodium level (06/24/2024 12:00 AM CDT) Sodium 142 136 - 145 mEq/L [facility] Serum 06/24/2024 06/25/2024 Narrative [facility] - 06/25/2024 3:06 PM CDT Unless otherwise specified, test(s) performed at:[facility], [address] [place] [address] [id number] DIRECTOR: Titi Mcguire M.D. Real Suarez MD LAB BLOOD ORDERABLES Fin al Result Performing Organization Address [facility] de Phone Number [facility] * Potassium (06/24/2024 12:00 AM CDT) Potassium 3.9 3.5 - 5.1 mEq/L [facility] Serum 06/24/2024 06/25/2024 Narrative [facility] - 06/25/2024 3:06 PM CDT Unless otherwise specified, test(s) performed at:[facility], [address] [place], [place] [id number] DIRECTOR: Titi Mcguire M.D. Real Suarez MD LAB BLOOD ORDERABLES Fin al Result Performing Organization Address [place] de Phone Number [facility] * (ABNORMAL) Phosphorus (06/24/2024 12:00 AM CDT) Phosphorus 10.7(H) 2.6 - 4.5 mg/dL [facility] Serum 06/24/2024 06/25/2024 Narrative [facility] - 06/25/2024 3:06 PM CDT Unless otherwise specified, test(s) performed at:[facility], [address] [place] [id number] DIRECTOR: Titi Mcguire M.D. Real Suarez MD LAB BLOOD ORDERABLES Fin al Result Performing Organization Address [place]/[facility] de Phone Number NAV[facility] * Alkaline phosphatase (06/24/2024 12:00 AM CDT) Alkaline Phosphatase 58 40 - 129 U/L [facility] Serum 06/24/2024 06/25/2024 Narrative [facility] - 06/25/2024 3:06 PM CDT Unless otherwise specified, test(s) performed at:[facility] [id number] DIRECTOR: Titi Mcguire M.D. Real Suarez MD LAB BLOOD ORDERABLES Fin al Result Performing Organization Address [place]/[facility] de Phone Number [facility] * (ABNORMAL) PTH (06/24/2024 12:00 AM CDT) PTH Intact, Plasma 547(H) 16 - 80 pg/mL [facility] Plasma 06/24/2024 06/25/2024 Narrative [facility] - 06/25/2024 2:25 PM CDT Unless otherwise specified, test(s) performed at:[facility], [address] [place] [address] [id number] DIRECTOR: Titi Mcguire M.D. Real Suarez MD LAB BLOOD ORDERABLES Fin al Result Performing Organization Address [place]/[facility]/ZIP Co de Phone Number NAVX * Iron level (06/24/2024 12:00 AM CDT) Pathologist [facility] Iron 60 45 - 160 mcg/dL [facility] Serum 06/24/2024 06/25/2024 Narrative [facility] - 06/25/2024 3:06 PM CDT Unless otherwise specified, test(s) performed at:[facility], [address] [place] [id number] DIRECTOR: Titi Mcguire M.D. Real Suarez MD LAB BLOOD ORDERABLES Fin al Result Performing Organization Address [place]/[facility]/ZIP Ks de Phone Number NAVX * Glucose, random (06/24/2024 12:00 AM CDT) Pathologist [facility] Glucose 96 70 - 100 mg/dL [facility] Serum 06/24/2024 06/25/2024 Narrative [facility] - 06/25/2024 3:06 PM CDT Unless otherwise specified, test(s) performed at:[facility], [address] [place] [address] [id number] DIRECTOR: Titi Mcguire M.D. us Notinfile Unknown LAB BLOOD ORDERABLES Final Res ult Performing Organization Address City/[facility]/ZIP Co de Phone Number NAVX * Ferritin (06/24/2024 12:00 AM CDT) [facility] Ferritin 204 22 - 322 ng/mL [facility] Serum 06/24/2024 06/25/2024 Narrative [facility] - 06/25/2024 3:15 PM CDT Unless otherwise specified, test(s) performed at:[facility], [address] [place], [place] [id number] DIRECTOR: Titi Mcguire M.D. Real Suarez MD LAB BLOOD ORDERABLES Fin al Result Performing Organization Address [place]/[facility] de Phone Number [facility]X * (ABNORMAL) Creatinine (06/24/2024 12:00 AM CDT) [facility] Creatinine 13.74(H) 0.60 - 1.30 mg/dL [facility] Serum 06/24/2024 06/25/2024 [facility] - 06/25/2024 3:06 PM CDT Unless otherwise specified, test(s) performed at:[facility], [address] [place], [place] [id number] DIRECTOR: Titi Mcguire M.D. Real Suarez MD LAB BLOOD ORDERABLES Fin al Result Performing Organization Address [facility] Phone Number [facility]X * Chloride (06/24/2024 12:00 AM CDT) [facility] Chloride 104 96 - 108 mEq/L [facility] Serum 06/24/2024 06/25/2024 Narrative [facility] - 06/25/2024 3:06 PM CDT Unless otherwise specified, test(s) performed at:[facility], [address] [place] [id number] DIRECTOR: Titi Mcguire M.D. Real Suarez MD LAB BLOOD ORDERABLES Fin al Result Performing Organization Address [place]/[facility] de Phone Number NAVX * Calcium level (06/24/2024 12:00 AM CDT) [facility] Calcium 8.7 8.4 - 10.2 mg/dL [facility] Serum 06/24/2024 06/25/2024 Narrative [facility] - 06/25/2024 3:06 PM CDT Unless otherwise specified, test(s) performed at:[facility] [id number] DIRECTOR: Titi Mcguire M.D. Real Suarez MD LAB BLOOD ORDERABLES Fin al Result Performing Organization Address [place]/[facility] de Phone Number [facility] * Albumin (06/24/2024 12:00 AM CDT) [facility] Albumin 3.5 3.5 - 5.2 g/dL [facility] Serum 06/24/2024 06/25/2024 Narrative [facility] - 06/25/2024 3:06 PM CDT Unless otherwise specified, test(s) performed at:[facility], [address] [place] [address] [id number] DIRECTOR: Titi Mcguire M.D. Real Suarez MD LAB BLOOD ORDERABLES Fin al Result Performing Organization Address [facility] Phone Number [facility] * (ABNORMAL) Renal function panel (06/14/2024 1:42 PM CDT) Glucose 117(H) 70 - 99 mg/dL [facility] - 01 BUN 106(HH) 6 - 20 mg/dL [facility] - 01 Creatinine, Serum 11.96(H) 0.76 - 1.27 mg/dL [facility] - 01 Comment:Verified by repeat analysis eGFR 6(L) >59 mL/min/1.7 3 [facility] - 01 BUN/creat ratio 9 9 - 20 [facility] - 01 Sodium 140 134 - 144 mmol/L [facility] - 01 Potassium, sr 3.9 3.5 - 5.2 mmol/L [facility] - 01 Chloride 98 96 - 106 mmol/L [facility] - 01 CO2 19(L) 20 - 29 mmol/L [facility] - 01 Calcium 8.7 8.7 - 10.2 mg/dL [facility] - 01 Phosphorus, sr 10.8(HH) 2.8 - 4.1 mg/dL [facility] - 01 Comment:Verified by repeat analysis Albumin 3.8(L) 4.3 - 5.2 g/dL [facility] - 01 Blood 06/14/2024 1:42 PM CDT 06/14/2024 Narrative [facility] - 06/15/2024 2:10 PM CDT Performed at: - [address] [id number] Charge Entry Specialist: Silverio Apodaca PhD, Phone: [phone] us Renuka Balderas MD PhD LAB BLOOD ORDERABLES Final Resu lt [facility] - * (ABNORMAL) POC Blood Gas and Chemistries, Venous - (06/07/2024 4:56 PM CDT) [facility] pH, Sebastian POC 7.32 7.32 - 7.43 pCO2, sebastian POC 39(L) 40 - 50 mmHg [facility] pO2, sebastian POC 43 mmHg [facility] Na, POC 139 135 - 145 mmol/L [facility] K POC 4.0 3.3 - 4.9 mmol/L [facility] Comment: Interpretive Data Not all point of care methods assess for hemolysis. Confirm with instrument and retest K+ if not consistent with clinical signs and symptoms. Current Interpretive Data was last revised on 2023. Cl, POC 108 97 - 110 mmol/L [facility] Ionized Ca, POC 4.66 4.50 - 5.10 mg/dL [facility] Glucose, POC 95 70 - 199 mg/dL [facility] Lactate POC 2.0 0.7 - 2.0 mmol/L [facility] O2 Sat, Sebastian POC (Angela) 73 % [facility] HCO3, Sebastian POC 20 20 - 30 mmol/L [facility] Hct, POC 27.0(L) 41.4 - 51.6 % [facility] Total Hb, POC 9.1(L) 13.8 - 17.2 g/dL [facility] Blood 06/07/2024 4:56 PM CDT 06/07/2024 4:56 PM CDT Rosalba Locke MD LAB POCT ORDERABLES - DEVICE Fin al Result [facility] Department [place] [address] * Airway (06/07/2024 11:49 AM CDT) Narrative Mitchel Ashford MD PhD - 06/07/2024 11:49 AM CDT Mitchel Ashford MD PhD 06/07/2024 11:50 AM Airway Patient location: OR Urgency: elective Indications for airway management: anesthesia Difficult airway: no Staff: Placed by: Anesthesiologist: Bret Santoyo MD Fellow: Mitchel Ashford MD PhD Emergent airway documentation: Risks and benefits discussed: yes Consent obtained: yes Consent given by: patient Airway prep: Preoxygenated: yes Patient position: sniffing Spontaneous ventilation during airway: absent Sedation level during airway: GA Final airway details: Final airway type: endotracheal airway Tube type: ETT ETT size: 7.5 mm Cuffed: yes Technique used for successful ETT placement: video laryngoscopy Devices/Methods used in placement: stylet Insertion site: oral Blade type: Karmen Video blade type: Rodriguez Blade size: 4 Cormack-Lehane (video): grade I - full view of glottis Initial cuff pressure: 22 cm H2O Cuff volume: 8 mL Cuff inflated with: air ETT to teeth: 23 cm Placement verified by: auscultation and CO2 detection Airway secured with: silk tape Number of attempts: 1 Planned trial extubation: yes us Bret Santoyo MD ANESTHESIA ORDERABLES Payal l Result * (ABNORMAL) POC Blood Gas and Chemistries, Arterial - (06/07/2024 11:13 AM CDT) Na, POC 139 135 - 145 mmol/L K POC 3.9 3.3 - 4.9 mmol/L [facility] Comment: Interpretive Data Not all point of care methods assess for hemolysis. Confirm with instrument and retest K+ if not consistent with clinical signs and symptoms. Current Interpretive Data was last revised on 2023. Glucose, POC 87 70 - 199 mg/dL [facility] Hct, POC 29.0(L) 41.4 - 51.6 % [facility] Total Hb, POC 9.5(L) 13.8 - 17.2 g/dL [facility] Blood 06/07/2024 11:1 3 AM CDT 06/07/2024 11:13 AM CDT us Rosalba Locke MD LAB POCT ORDERABLES - DEVICE Fin al Result Performing Organization Address City/State/[facility] Co de Phone Number [facility] [place] [address] from Last 3 Months Insurance [facility] [place] [address] [facility] CHO[employer] PLUS [facility] CHO[employer] PLUS TRANSPLANT [employer] [employer] Advance Directives For more information, please contact: [phone] Documents on File Type Date Recorded Patient Solution Advisor Expl anation ADVANCE DIRECTIVE 02/03/2024 11:01 AM POW [facility] OF [facility] WORKER-MEDICAL ADVANCE DIRECTIVE 01/30/2024 12:41 PM ADVANCE DIRECTIVE 01/30/2024 12:41 PM KEVEN R OF [employer] WORKER-MEDICAL * Full Code (Latest Code Status on File) Date Activated Date Inactivated Comments 01/25/2024 4:58 AM 01/31/2024 6:07 PM Healthcare Agents on File Name Relationship Healthcare Agent [facility] Communication Eleonora Alba Mother Health Care Agent Care Teams Gettering Operator Relationship Specialty Start Date End Date Yair Matthew MD [address] [place] [address] PCP - General Family Medicine 01/26/24 Renuka Balderas MD PhD [address] [facility] [address] [place] [address] Referring Physician Nephrology 04/15/24 Christina Stringer, RN [address] [facility] [id number] [place], [place] [id number] Purchasing Associate 04/15/24 Araseli Pierce, NIC [address] [facility] [address] [place] [address] Dietitian Nephrology 06/22/24 Manjit Nevarez, HEEL STAINER Strip Stamp Straightener Nephrology 07/29/24 Real Suarez MD [address] [facility] [id number] [place] [address] Putaway Driver Nephrology 08/11/24 Giovana Yuan, RN Registered Nurse Nephrology 08/11/24
--- OUTSIDE RECORDS SUMMARY | 2024-09-06 20:58 | XMS_ITS | Clinical Summary ---
Author Organization [facility] [employer] Address [address] [facility] [place] [address] Care Team Providers Care Fish Grader Name Role Phone Lori Beck MD Primary Care Provider [phone] Source Comments [facility] [employer],non-owned Affiliates and Associated Physician Practices is amultiple site organization consisting of ambulatory clinics and hospital sitesin [place], [place], [place] and [place]. This disclosure is being madepursuant to the Care Everywhere program and may not contain all information available regarding this patient. Last updated 17.[facility] [employer] Allergies Active Allergy Reactions Criticality Noted Date Comments Alcohol Rash Low 02/19/2011 Penicillins Diarrhea 02/19/2011 Sunscreens Rash Low 02/19/2011 Medications * Be aware that medications may not be up to date on this document. Alwaysverify current medications with the patient. ibuprofen (IBU-DROPS) 40 MG/ML suspension Take 10 mL by mouth every 6 hours as needed. 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 Gender Identity Not on file Sexual Orientation Not on file Plan of Treatment Health Maintenance Due Date Last Done Comments HIV SCREENING 2017 HPV VACCINE (1 - Male 3-dose series) 2017 MENINGOCOCCAL (Group B) VACC INE SHARED DECISION-MAKING (1 of 2 - Standard) 2018 HEPATITIS C SCREENING 06/06/2020 DTAP/TDAP/TD VACCINES (1 - Tdap) 2021 HEPATITIS B VACCINE (1 of 3 - 19+ 3-dose series) 2021 COVID-19 VACCINE (1 - 2023-2 5 season) 2023 DEPRESSION SCREENING 03/24/2024 INFLUENZA VACCINE (Season Ended) 2024 ZOSTER VACCINE (1 of 2) 2052 HIB VACCINE Aged Out No longer eligi ble based on patient's age to complete this topic MENINGOCOCCAL GROUPS A/C/Y/W VACCINE Aged Out No longer eligible b ased on patient's age to complete this topic PNEUMOCOCCAL VACCINE Aged Out No long er eligible based on patient's age to complete this topic Insurance [facility] Address: [id number] [place] [address] [facility] Care Teams Fish Grader Relationship Specialty Start Date End Date Lori Beck MD [facility] [address] [place] [address] PCP - General 02/18/11
--- OUTSIDE RECORDS SUMMARY | 2024-09-06 20:58 | XMS_ITS | Referral Summary ---
Author Organization [facility] Address [address] [place] [address] Care Team Providers Care Train Brakeman Name Role Phone Yair Matthew MD Primary Care Provider [phone] Renuka Balderas MD PhD Unavailable [phone] Christina Stringer RN Unavailable [phone] Unavailable [phone] Manjit Nevarez [facility] Unavailable Unavailab Real Escobar MD Unavailable [phone] Giovana Yuan RN Unavailable Unavailabl e Encounters Date Type Department Care Team Description 08/31/2024 10:30 AM CDT Office Visit [facility] Division of Nephrology [address] [place] [phone] Real Suarez MD 08/27/2024 Orders Only [facility] Division of Nephrology [address] [place] [phone] Giovana Yuan RN 08/27/2024 Orders Only [facility] Division of Nephrology [address] [place] [phone] Giovana Yuan RN 08/26/2024 Documentation [facility] Division of Nephrology [address] [place] [phone] Giovana uYan RN 08/26/2024 Documentation [facility] Division of Nephrology [address] [place] [phone] Giovana Yuan RN 08/24/2024 10:05 AM CDT - 08/24/2024 11:59 PM CDT Hospital Encounter [facility] [address] [place] [address] ESRD (end stage renal disease) (HCC) Discharge Disposition: Discharge to home or self care 08/24/2024 10:00 AM CDT Clinical Support [facility] Division of Nephrology [address] [place] [phone] Anemia of chronic renal failure, stage 5 (HCC) (Primary Dx); End stage renal disease (HCC); Iron deficiency anemia, unspecified iron deficiency anemia type; Renal osteodystrophy; Secondary hyperparathyroidism 08/22/2024 4:15 AM CDT Dialysis Billing Only [facility] Division of Nephrology [address] [place] [phone] 08/18/2024 Orders Only [facility] Division of Nephrology [address] [place] [phone] Giovana Yuan RN 08/13/2024 Orders Only [facility] Division of Nephrology [address] [place] [phone] Giovana Yuan RN 08/12/2024 10:17 AM CDT - 08/12/2024 11:59 PM CDT Hospital Encounter [address] [address] Anemia of chronic renal failure, stage 5 (HCC); End stage renal disease (HCC); Iron deficiency anemia, unspecified iron deficiency anemia type; Renal osteodystrophy; Secondary hyperparathyroidism Discharge Disposition: Discharge to home or self care 08/12/2024 9:00 AM CDT Clinical Support [facility] Division of Nephrology [address] [place] [phone] Primary hypertension (Primary Dx); Anemia of chronic renal failure, stage 5 (HCC); End stage renal disease (HCC); Iron deficiency anemia, unspecified iron deficiency anemia type; Renal osteodystrophy; Secondary hyperparathyroidism 08/11/2024 Telephone [facility] Division of Nephrology [address] [place] [phone] Giovana Yuan RN 08/10/2024 2:53 PM CDT - 08/10/2024 11:59 PM CDT Hospital Encounter [address] [address] Abdominal pain Discharge Disposition: Discharge to home or self care 08/10/2024 2:45 PM CDT Lab [facility] Outpatient Lab at [address] [phone] 08/10/2024 Documentation [facility]ney [address] [facility] [address] Mailstop [phone] [place] [address] Jaz Medina 08/10/2024 Telephone [facility] [address] [facility] [address] Mailstop 55-63-268 [place] [address] Christina Stringer, ÁNGEL Waitlist Status Update 08/09/2024 Telephone [facility] [address] [facility] [address] Mailstop [phone] [place] [address] Christina Stringer, RN Kidney Eval 08/09/2024 Orders Only [facility] Division of Nephrology [address] [place] [phone] Giovana Yuan RN Abdominal pain (Primary Dx) 08/05/2024 Orders Only [facility] Division of Nephrology [address] [place] [phone] Giovana Yuan RN 08/05/2024 Documentation [facility] Division of Nephrology [address] [place] [phone] Giovana Yuan RN 08/04/2024 Orders Only [facility] Division of Nephrology [address] [place] [phone] Giovana Yuan RN 08/04/2024 Documentation [facility] [address] [facility] [address] Mailstop 81-08-300 [place] [address] Christina Stringer RN Kidney Eval 08/03/2024 10:30 AM CDT Office Visit [facility] Division of Nephrology [address] [place] [phone] Real Suarez MD Anemia of chronic renal failure, stage 5 (HCC) (Primary Dx); End stage renal disease (HCC); Iron deficiency anemia, unspecified iron deficiency anemia type; Renal osteodystrophy; Secondary hyperparathyroidism 08/02/2024 Documentation [facility] [address] [facility] [address] Mailstop 90-29-910 [place] [address] Christina Stringer RN Kidney Eval 07/30/2024 11:57 AM CDT - 07/30/2024 11:59 PM CDT Hospital Encounter [address] [address] Anemia of chronic renal failure, stage 5 (HCC); End stage renal disease (HCC); Iron deficiency anemia, unspecified iron deficiency anemia type; Renal osteodystrophy; Secondary hyperparathyroidism Discharge Disposition: Discharge to home or self care 07/30/2024 10:30 AM CDT Clinical Support [facility] Division of Nephrology [address] [place] [phone] Anemia of chronic renal failure, stage 5 (HCC) (Primary Dx); End stage renal disease (HCC); Iron deficiency anemia, unspecified iron deficiency anemia type; Renal osteodystrophy; Secondary hyperparathyroidism 07/29/2024 Orders Only [facility] Division of Nephrology [address] [place] [phone] Giovana Yuan RN Peritonitis (HCC) (Primary Dx); CRD (chronic renal disease), stage V (HCC) 07/29/2024 Orders Only [facility] Division of Nephrology [address] [place] [phone] Giovana Yuan RN 07/28/2024 8:39 AM CDT - 07/28/2024 11:59 PM CDT Hospital Encounter [facility] [address] [address] Anemia of chronic renal failure, stage 5 (HCC); End stage renal disease (HCC); Iron deficiency anemia, unspecified iron deficiency anemia type; Renal osteodystrophy; Secondary hyperparathyroidism Discharge Disposition: Discharge to home or self care 07/27/2024 3:30 PM CDT - 07/27/2024 11:59 PM CDT Hospital Encounter [address] [address] Urinary tract infection without hematuria, site unspecified Discharge Disposition: Discharge to home or self care 07/27/2024 Documentation [facility] Division of Nephrology [address] [place] [phone] Cade Estrada RN 07/27/2024 Documentation [facility] Division of Nephrology [address] [place] [phone] Giovana Yuan RN 07/27/2024 12:30 PM CDT Clinical Support [facility] Division of Nephrology [address] [place] [phone] Anemia of chronic renal failure, stage 5 (HCC) (Primary Dx); End stage renal disease (HCC); Iron deficiency anemia, unspecified iron deficiency anemia type; Renal osteodystrophy; Secondary hyperparathyroidism; Urinary tract infection without hematuria, site unspecified 07/26/2024 Telephone [facility] Division of Nephrology [address] [place] [phone] Giovana Yuan, ÁNGEL 07/26/2024 Orders Only [facility] Division of Nephrology [address] [place] [phone] Giovana Yuan, ÁNGEL 07/22/2024 Orders Only [facility] Division of Nephrology [address] [place] [phone] Giovana Yuan, ÁNGEL CRD (chronic renal disease), stage V (HCC) (Primary Dx) 07/22/2024 4:15 AM CDT Dialysis Billing Only [facility] Division of Nephrology [address] [place] [phone] 07/19/2024 Telephone [facility]ney [address] [facility] [address] Mail[address] 77-70-325 [place] [address] Christina Stringer RN Kidney Eval 07/19/2024 Orders Only [facility] Division of Nephrology [address] [place] [phone] Giovana Yuan RN 07/16/2024 Documentation [facility] Division of Nephrology [address] [place] [phone] Giovana Yuan RN 07/13/2024 Telephone [facility] Trans[facility]ney [address] [facility] [address] Mail[address] [phone] [place] [address] Christina Stringer RN Kidney Eval 07/09/2024 8:30 AM CDT Clinical Support [facility] Division of Nephrology [address] [place] [phone] Anemia of chronic renal failure, stage 5 (HCC) (Primary Dx); End stage renal disease (HCC); Iron deficiency anemia, unspecified iron deficiency anemia type; Renal osteodystrophy; Secondary hyperparathyroidism of renal origin 07/07/2024 Documentation [facility] Division of Nephrology [address] [place] [phone] Giovana Yuan RN 07/02/2024 Telephone [facility] Division of Nephrology [address] [place] [phone] Giovana Yuan RN 07/02/2024 Documentation [facility] Division of Nephrology [address] [place] [phone] Giovana Yuan RN 06/30/2024 3:45 PM CDT Lab [facility] ([facility]) [address] [place] [phone] Pre-transplant evaluation for kidney transplant; CKD (chronic kidney disease) stage 4, GFR 15-29 ml/min (HCC) 06/30/2024 1:13 PM CDT - 06/30/2024 11:59 PM CDT Hospital Encounter [facility] ([facility]) [address] [place] [address] Discharge Disposition: Discharge to home or self care 06/30/2024 11:56 AM CDT - 06/30/2024 11:59 PM CDT Hospital Encounter [facility] ([facility]) [address] [place] [address] Pre-transplant evaluation for kidney transplant; CKD (chronic kidney disease) stage 4, GFR 15-29 ml/min (HCC) Discharge Disposition: Discharge to home or self care 06/30/2024 11:55 AM CDT - 06/30/2024 11:59 PM CDT Hospital Encounter [facility] ([facility]) [address] [place] [address] Pre-transplant evaluation for kidney transplant; CKD (chronic kidney disease) stage 4, GFR 15-29 ml/min (HCC) Discharge Disposition: Discharge to home or self care 06/30/2024 3:30 PM CDT Office Visit [facility] Nephrology [address] [place] [address] for Advanced Medicine 5th [place] [address] [place] [address] Mandy Norton NP 06/30/2024 10:28 AM CDT - 06/30/2024 11:59 PM CDT Hospital Encounter [facility] ([facility]) [address] [place] [address] Pre-transplant evaluation for kidney transplant; CKD (chronic kidney disease) stage 4, GFR 15-29 ml/min (HCC) Discharge Disposition: Discharge to home or self care 06/30/2024 12:16 PM CDT - 06/30/2024 11:59 PM CDT Hospital Encounter [facility] Card[facility] Diagnostic Lab [address] [facility] 8th [place] [address] Pre-transplant evaluation for kidney transplant; CKD (chronic kidney disease) stage 4, GFR 15-29 ml/min (HCC) Discharge Disposition: Discharge to home or self care 06/30/2024 9:00 AM CDT Social Work [facility] Transplant Center [address] [facility], 8th Floor, [place] [address] 06/29/2024 Documentation [facility] Division of Nephrology [address] [place] [phone] Giovana Yuan RN 06/29/2024 Documentation [facility] Division of Nephrology [address] [place] [phone] Giovana Yuan RN 06/29/2024 12:27 PM CDT - 06/29/2024 11:59 PM CDT Hospital [facility] ([facility]) [address] [place] [address] Real Suarez MD CRD (chronic renal disease), stage V (HCC) Discharge Disposition: Discharge to home or self care 06/29/2024 10:30 AM CDT Office Visit [facility] Division of Nephrology [address] [place] [phone] Real Suarez MD Renal osteodystrophy (Primary Dx); CRD (chronic renal disease), stage V (HCC) 06/26/2024 Documentation [facility] of Nephrology [address] [place] [phone] Real Suarez MD 06/24/2024 10:00 AM CDT Clinical Support [facility] Division of Nephrology [address] [place] [phone] Renal osteodystrophy (Primary Dx); Iron deficiency anemia, unspecified iron deficiency anemia type; Secondary hyperparathyroidism of renal origin; End stage renal disease (HCC) 06/23/2024 Plan of Care Documentation [facility] Division of Nephrology [address] [place] [phone] 06/23/2024 9:30 AM CDT Documentation [facility] Transplant Center [address] [place] [address] [facility], 8th Floor, [place] [address] Elena Wood 06/22/2024 Documentation [facility] Division of Nephrology [address] [place] [phone] Giovana Yuan RN 06/22/2024 10:00 AM CDT Clinical Support [facility] Division of Nephrology [address] [place] [phone] Renal osteodystrophy (Primary Dx); Iron deficiency anemia, unspecified iron deficiency anemia type; Secondary hyperparathyroidism of renal origin; End stage renal disease (HCC) 06/21/2024 10:00 AM CDT Clinical Support [facility] Division of Nephrology [address] [place] [phone] 06/18/2024 8:00 AM CDT Clinical Support [facility] Division of Nephrology [address] [place] [phone] Renal osteodystrophy (Primary Dx); Iron deficiency anemia, unspecified iron deficiency anemia type; Secondary hyperparathyroidism of renal origin; End stage renal disease (HCC) 06/17/2024 Orders Only [facility] Division of Nephrology [address] [place] [phone] Giovana Yuan RN 06/17/2024 8:00 AM CDT Clinical Support [facility] Division of Nephrology [address] [place] [phone] 06/16/2024 Orders Only [facility] of Nephrology [address] [place] [phone] Giovana Yuan RN 06/14/2024 2:30 PM CDT Clinical Support [facility] Division of Nephrology [address] [place] [phone] 2024 Documentation [facility] Division of Nephrology [address] [place] [phone] Kyra Dominguez RN 06/07/2024 Orders Only [facility] Nephrology [address] [place] [address] 5th [place] [address] Renuka Balderas MD PhD CKD stage 4 secondary to hypertension (HCC) (Primary Dx); Chronic kidney disease (CKD), stage V (HCC); Anemia in chronic kidney disease, on chronic dialysis ([facility]) 06/07/2024 12:50 PM CDT - 06/07/2024 3:00 PM CDT Surgery [facility] Operating Room [address] [place] [address] Rosalba [place] MD LAPAROSCOPIC PERITONEAL DIALYSIS CATHETER 06/07/2024 11:22 AM CDT Anesthesia Event [facility] Operating Room [address] [place] [address] Bret Santoyo MD Mallette, Allison Anne, NP 06/07/2024 10:36 AM CDT - 06/07/2024 5:52 PM CDT Hospital Encounter [facility] Operating Room [address] [place] [phone] Rosalba [place] MD CKD (chronic kidney disease) stage 5, GFR less than 15 ml/min ([facility]) (Primary Dx) Discharge Disposition: Discharge to home or self care from Last 3 Months Allergies Active Allergy [...] total) by mouth daily 90 tablet 09/01/19 026 Active amLODIPine (NORVASC) 10 mg tablet [...] 01/29/2024 Assessment & Plan (01/29/2024 12:37 PM GLOST KILN OPERATOR): C/w with current meds : - chlorthalidone 25 mg - Coreg 25mg PO BID - amlodipine 10mg PO daily - doxazosin 2mg PO nightly - Hydralazine 25 mg TID Vitamin D deficiency 01/29/2024 Assessment & Plan (01/29/2024 12:32 PM GLOST KILN OPERATOR): -01/24 vit D 10 -Continue vitamin D 50,000 units PO weekly Anxiety 01/29/2024 Assessment & Plan (01/29/2024 12:32 PM GLOST KILN OPERATOR): Continue home venlafaxine 150mg PO daily IgA nephropathy 01/24/2024 Assessment & Plan (01/30/2024 3:59 PM GLOST KILN OPERATOR): Suspected although not biopsy proven. Follows with [...] 10/08/2019 Immunizations Immunization Administration Dates Next Due DTaP, [...] Tdap 10/18/2013 Varicella 09/30/2017,12/14/2003 ZOSTER Recombinant 07/20/2024 Social History Tobacco Use Types Packs/Day Years Used Date Smoking Tobacco: Some Days Vaping Smokeless Tobacco: Never Tobacco Cessation:Ready to Q uit: Not Asked; Counseling Given: Not Answered [facility] [place] Answer Date Recorded In the past 12 months has e [employer], [employer], or water [employer] threatened to shut off services in your [...] week 07/08/2024 How often do you attend [facility] or synagogue services? Never 07/08/2024 Do you belong to any clubs o r organizations such as sabianist groups, unions, fraternal or athletic groups, or [...] any time in the past 12 m [facility], were you homeless or living in a halfway (including now)? No 08/31/2024 Personal Safety Answer Date Recorded Have you ever been in or are you currently in a harmful physical or emotional relationship or is someone making you feel afraid or unsafe? Denies 06/07/2024 Sex and Gender Information Value Date Recorded Sex Assigned at Not on file 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 GLOST KILN OPERATOR Gender Identity Not on file Sexual [...] 06/30/2024 2:29 PM CDT Plan of Treatment Not on file Medical Devices Implanted Type Area Solar Designer Device Identifier Shelf Expiration Date Model / Serial / Lot [employer] [place] 15fr 62cm 2 Cuff Radiopaque Peritoneal Curl Catheter [id number] - [id number] Implanted:Qty : 1 on 06/07/2024 by Rosalba [place] MD at [facility] N/A: Abdomen [facility] [employer] [id number] 11/12/2028 [id number] / / [id number] Procedures Procedure Name Priority Date/Time Associated Diagnosis [...] DISTRIBUTION (LU) 08/24/2024 12:00 AM CDT BSA (LUCIA) 08/24/2024 12:00 AM CDT URINE PROMPT 08/24/2024 [...] 10:0 5 AM CDT Narrative HISTOTRAC - GLOST KILN OPERATOR Sample received in lab. Single Antigen Antibody [...] a method developed and validated by the [facility] HLA laboratory based on an FDA- approved IVD kit (LABScreen PRA, [employer], [place], [place]). Interpretive comments: The percentage of beads with MFI > 750 is reported, which indicates the percentage of donor population estimated to be incompatible with the patient tested. PRA > 0% is consistent with alloimmunization to HLA. Testing performed at the [facility], [address] [place] [address], 5th floor, [place], [address]. CLIA # [id number]. Trina Gardner, Ph.D., Software Project Lead, HLA Laboratory Vadim Kaur M.D., Ph.D., Environmental Permitting Specialist, [facility] Laboratory Ashley Chambers, Ph.D., JACEY Environmental Permitting Specialist, [facility] Current methodology and interpretive comments [...] a method developed and validated by the [facility] HLA laboratory based on an FDA-approved IVD kit (LABScreen Single-Antigen, [employer], [place], [place]). All patient serum samples are pretreated with EDTA before the screen to prevent complement interference. Additional serum treatments, such as adsorption and DTT treatment, may be performed as indicated. Interpretive comments: Low risk: MFI [id number]. Moderate risk: MFI [id number]. Increased risk: MFI >/= 5000. The presence [...] antigens to avoid. Testing performed at the [facility], [address] [place] [address], 5th floor, [place], [address]. [facility] # [id number]. Trina Gardner, Ph.D., Software Project Lead, [facility] Laboratory Vadim Kaur M.D., Ph.D., Environmental Permitting Specialist, [facility] Laboratory Ashley Chambers, Ph.D., CLIA Environmental Permitting Specialist, [facility] Current methodology and interpretive comments last revised on 04/18/2022. us Patricia Jimenes MD LAB BLOOD ORDERAB LES Final Result HISTOTRAC * [facility] Bicarbonate (08/24/2024 12:00 AM CDT) Bicarbonate 27 22 - 29 mEq/L [employer] Serum 08/24/2024 08/25/2024 Narrative [facility] - 08/25/2024 12:43 PM CDT Unless otherwise specified, test(s) performed at:[facility], [address] [place], [place] [id number] DIRECTOR: Titi Mcguire M.D. us Real Suarez MD LAB BLOOD ORDERABLES Fin al Result Performing Organization Address [facility]/ZIP Ma de Phone Number [employer] * (ABNORMAL) [facility] Dialysis Creatinine Clearance, Urine (Normalized) (08/24/2024 12:00 AM CDT) Pathologist [facility] Creatinine Clearance, Urine (Normalized) 2.9(L) 94.0 - 122.0 mL/min [employer] Urine 08/24/2024 08/25/2024 Narrative [employer] [facility] - 08/25/2024 6:32 PM CDT Unless otherwise specified, test(s) performed at:[facility], [address] [place] [id number] DIRECTOR: Tiit Mcguire M.D. us [employer] Unknown LAB URINE ORDERABLES Final Res ult Performing Organization Address [facility] de Phone Number [employer] * [facility] Dialysis Creatinine Clear, Urine Weekly (Normalized) (08/24/2024 12:00 AM CDT) Pathologist [facility] Creatinine Clear, Urine Weekly (Normalized) 29 L/wk [employer] Urine 08/24/2024 08/25/2024 Narrative [employer] [facility] - 08/25/2024 6:32 PM CDT Unless otherwise specified, test(s) performed at:[facility], [address] [place] [id number] DIRECTOR: Titi Mcguire M.D. us [employer] Unknown LAB URINE ORDERABLES Final Res ult Performing Organization Address [facility] de Phone Number [employer] * [facility] Dialysis Creatinine Clearance, Urine Weekly (08/24/2024 12:00 AM CDT) Creatinine Clearance, Urine Weekly 40.3 L/wk [employer] Urine 08/24/2024 08/25/2024 Narrative [facility] - 08/25/2024 6:32 PM CDT Unless otherwise specified, test(s) performed at:[facility], [address] [place] [address] [id number] DIRECTOR: Titi Mcguire M.D. us [employer] Unknown LAB URINE ORDERABLES Final Res ult Performing Organization Address [facility] Phone Number [facility] * [facility] Dialysis Creatinine Clear, Total Weekly (Normalized) (08/24/2024 12:00 AM CDT) Creatinine Clear, Total Weekly (Normalized) 42 L/wk [employer] PD Fluid 08/24/2024 08/25/2024 Narrative [facility] - 08/25/2024 6:32 PM CDT Unless otherwise specified, test(s) performed at:[facility], [address] [place] [address] [id number] DIRECTOR: Titi Mcguire M.D. us Notinfile Unknown LAB BODY FLUIDS AND STOOLS ORD ERABLES Final Result Performing Organization Address City/[facility] de Phone Number [facility] * [facility] Dialysis Creatinine Clear, PD Fluid Total Weekly (08/24/2024 12:00 AM CDT) Creatinine Clear, PD Fluid Total Weekly 59 L/wk [facility] PD Fluid 08/24/2024 08/25/2024 Narrative [facility] - 08/25/2024 6:32 PM CDT Unless otherwise specified, test(s) performed at:[facility] [id number] DIRECTOR: Titi Mcguire M.D. us Notinfile Unknown LAB BODY FLUIDS AND STOOLS ORD ERABLES Final Result Performing Organization Address [facility] de Phone Number [facility] * [facility] Dialysis Creatinine Clear, PD Fluid Weekly (Normalized) (08/24/2024 12:00 AM CDT) Creatinine Clear, PD Fluid Weekly (Normalized) 13 L/wk [facility] PD Fluid 08/24/2024 08/25/2024 Narrative [facility] - 08/25/2024 6:15 PM CDT Unless otherwise specified, test(s) performed at:[facility], [address] [place] [address] [id number] DIRECTOR: Titi Mcguire M.D. us Notinfile Unknown LAB BODY FLUIDS AND STOOLS ORD ERABLES Final Result Performing Organization Address [facility] de Phone Number [facility] * [facility] Dialysis Creatinine Clear, PD Fluid Weekly (08/24/2024 12:00 AM CDT) Creatinine Clear, PD Fluid Weekly 19 L/wk [employer] PD Fluid 08/24/2024 08/25/2024 Narrative [facility] - 08/25/2024 6:15 PM CDT Unless otherwise specified, test(s) performed at:[facility], [address] [place] [address] [id number] DIRECTOR: Titi Mcguire M.D. us Notinfile Unknown LAB BODY FLUIDS AND STOOLS ORD ERABLES Final Result Performing Organization Address [facility] de Phone Number [facility] * [facility] Dialysis Creatinine Clearance, PD Fluid (Normalized) (08/24/2024 12:00 AM CDT) Creatinine Clearance, PD Fluid (Normalized) 1.3 mL/min [employer] PD Fluid 08/24/2024 08/25/2024 Narrative [facility] - 08/25/2024 6:15 PM CDT Unless otherwise specified, test(s) performed at:[facility], [address] [place] [address] [id number] DIRECTOR: Titi Mcguire M.D. us Notinfile Unknown LAB BODY FLUIDS AND STOOLS ORD ERABLES Final Result Performing Organization Address [facility] Phone Number [employer] * [facility] Dialysis Creatinine Clearance, PD Fluid (08/24/2024 12:00 AM CDT) Creatinine Clearance, PD Fluid 1.9 mL/min [facility] [email or web address] PD Fluid 08/24/2024 08/25/2024 Narrative [facility] - 08/25/2024 6:15 PM CDT Unless otherwise specified, test(s) performed [place]:[facility] [place] [id number] DIRECTOR: Titi Mcguire M.D. us Notinfile Unknown LAB BODY FLUIDS AND STOOLS ORD ERABLES Final Result Performing Organization Address [facility] Phone Number [employer] * [facility] Dialysis Kt/V, Residual (08/24/2024 12:00 AM CDT) Kt/V, Residual 0.28 [facility] Urine 08/24/2024 08/25/2024 Narrative [facility] - 08/25/2024 6:32 PM CDT Unless otherwise specified, test(s) performed at:[facility] [id number] DIRECTOR: Titi Mcguire M.D. us Notinfile Unknown LAB BODY FLUIDS AND STOOLS ORD ERABLES Final Result Performing Organization Address [facility] de Phone Number [employer] * [facility] Dialysis Urea Clearance, Urine Weekly (Normalized) (08/24/2024 12:00 AM CDT) Pathologist [facility] Urea Clearance, Urine Weekly (Normalized) 16 L/wk [facility] [email or web address] Urine 08/24/2024 08/25/2024 Narrative [facility] - 08/25/2024 6:32 PM CDT Unless otherwise specified, test(s) performed at:[facility], [address] [place], [place] [id number] DIRECTOR: Titi Mcguire M.D. us Notinfile Unknown LAB URINE ORDERABLES Final Res ult Performing Organization Address [facility] de Phone Number [employer] * (ABNORMAL) [facility] Dialysis Urea Clearance, Urine (Normalized) (08/24/2024 12:00 AM CDT) Pathologist [facility] Urea Clearance, Urine (Normalized) 1.1(L) 64.0 - 99.0 mL/min [facility] [email or web address] Urine 08/24/2024 08/25/2024 Narrative [facility] - 08/25/2024 6:32 PM CDT Unless otherwise specified, test(s) performed at:[facility] [id number] DIRECTOR: Titi Mcguire M.D. us Notinfile Unknown LAB URINE ORDERABLES Final Res ult Performing Organization Address [facility] Number [employer] * [facility] Dialysis BSA (Lucia) (08/24/2024 12:00 AM CDT) [facility] BSA (Jacobson) 2.44 sq. M. [employer] Comment:Normalized values ar e calculated using the patient's actual BSA and PD Fluid 08/24/2024 08/25/2024 Narrative [facility] - 08/25/2024 10:38 AM CDT Unless otherwise specified, test(s) performed at:[facility] [id number] DIRECTOR: Titi Mcguire M.D. us Notinfile Unknown LAB BODY FLUIDS AND STOOLS ORD ERABLES Final Result Performing Organization Address [facility] de Phone Number [employer] * [facility] Dialysis PNA, Normalized (08/24/2024 12:00 AM CDT) [facility] PNA, Normalized 0.63 g/kg/day [facility] PD Fluid 08/24/2024 08/25/2024 Narrative [facility] - 08/25/2024 6:32 PM CDT Unless otherwise specified, test(s) performed at:[facility], [address] [place] [address] [id number] DIRECTOR: Titi Mcguire M.D. us Notinfile Unknown LAB BODY FLUIDS AND STOOLS ORD ERABLES Final Result Performing Organization Address [facility] de Phone Number [facility] * [facility] Dialysis PNA (08/24/2024 12:00 AM CDT) [facility] PNA 62 g/day [facility] PD Fluid 08/24/2024 08/25/2024 Narrative [facility] - 08/25/2024 6:32 PM CDT Unless otherwise specified, test(s) performed at:[facility], [address] [place] [address] [id number] DIRECTOR: Titi Mcguire M.D. us Notinfile Unknown LAB BODY FLUIDS AND STOOLS ORD ERABLES Final Result Performing Organization Address [facility] de Phone Number [employer] * [facility] Dialysis Kt/V, Total (08/24/2024 12:00 AM CDT) [facility] Kt/V, Total 0.87 [facility] Comment:KDOQI Guidelines rec ommend weekly Kt/V of >=1.7 for adults. PD Fluid 08/24/2024 08/25/2024 Narrative [facility] - 08/25/2024 6:32 PM CDT Unless otherwise specified, test(s) performed at:[facility], [address] [place] [address] [id number] DIRECTOR: Titi Mcguire M.D. us Notinfile Unknown LAB BODY FLUIDS AND STOOLS ORD ERABLES Final Result Performing Organization Address [facility] de Phone Number [facility] * [facility] Dialysis Kt/V, Peritoneal (08/24/2024 12:00 AM CDT) [facility] Kt/V, Peritoneal 0.59 [facility] PD Fluid 08/24/2024 08/25/2024 Narrative [facility] - 08/25/2024 5:16 PM CDT Unless otherwise specified, test(s) performed at:[facility], [address] [place] [address] [id number] DIRECTOR: Titi Mcguire M.D. us Notinfile Unknown LAB BODY FLUIDS AND STOOLS ORD ERABLES Final Result Performing Organization Address [facility] de Phone Number [employer] * [facility] Urea Volume Distribution (LU) (08/24/2024 12:00 AM CDT) Urea Volume Distribution (LU) 57.3 L [employer] PD Fluid 08/24/2024 08/25/2024 Narrative [facility] - 08/25/2024 11:36 AM CDT Unless otherwise specified, test(s) performed at:[facility], [address] [place] [address] [id number] DIRECTOR: Titi Mcguire M.D. us Notinfile Unknown LAB BODY FLUIDS AND STOOLS ORD ERABLES Final Result Performing Organization Address [facility] Phone Number [employer] * [facility] Dialysis Urea Clearance, Total Weekly (Normalized) (08/24/2024 12:00 AM CDT) Urea Clearance, Total Weekly (Normalized) 50 L/wk [employer] PD Fluid 08/24/2024 08/25/2024 Narrative [facility] - 08/25/2024 6:32 PM CDT Unless otherwise specified, test(s) performed at:[facility], [address] [place] [address] [id number] DIRECTOR: Titi Mcguire M.D. us Notinfile Unknown LAB BODY FLUIDS AND STOOLS ORD ERABLES Final Result Performing Organization Address [facility] de Phone Number [employer] * [facility] Dialysis Urea Clearance, PD Fluid Weekly (Normalized) (08/24/2024 12:00 AM CDT) Urea Clearance, PD Fluid Weekly (Normalized) 34 L/wk [employer] PD Fluid 08/24/2024 08/25/2024 Narrative [facility] - 08/25/2024 5:16 PM CDT Unless otherwise specified, test(s) performed at:[facility], [address] [place] [address] [id number] DIRECTOR: Titi Mcguire M.D. us Notinfile Unknown LAB BODY FLUIDS AND STOOLS ORD ERABLES Final Result Performing Organization Address [facility] de Phone Number [employer] * [facility] Dialysis Urea Clearance, PD Fluid (Normalized) (08/24/2024 12:00 AM CDT) Pathologist [facility] Urea Clearance, PD Fluid (Normalized) 2.4 mL/min [employer] PD Fluid 08/24/2024 08/25/2024 Narrative [facility] - 08/25/2024 5:16 PM CDT Unless otherwise specified, test(s) performed at:[facility], [address] [place] [address] [id number] DIRECTOR: Titi Mcguire M.D. us Notinfile Unknown LAB BODY FLUIDS AND STOOLS ORD ERABLES Final Result Performing Organization Address [facility] de Phone Number [employer] * [facility] Dialysis Urea Clearance, PD Fluid (08/24/2024 12:00 AM CDT) Pathologist [facility] Urea Clearance, PD Fluid 3.4 mL/min [employer] PD Fluid 08/24/2024 08/25/2024 Narrative [facility] - 08/25/2024 5:16 PM CDT Unless otherwise specified, test(s) performed at:[facility], [address] [place] [address] [id number] DIRECTOR: Titi Mcguire M.D. us Notinfile Unknown LAB BODY FLUIDS AND STOOLS ORD ERABLES Final Result Performing Organization Address [facility] de Phone Number [facility] * [facility] Dialysis Creatinine Clearance, Urine (08/24/2024 12:00 AM CDT) Creatinine Clearance, Urine 4.0 mL/min [employer] Urine 08/24/2024 08/25/2024 Narrative [facility] - 08/25/2024 6:32 PM CDT Unless otherwise specified, test(s) performed at:[facility], [address] [place] [address] [id number] DIRECTOR: Titi Mcguire M.D. us Notinfile Unknown LAB URINE ORDERABLES Final Res ult Performing Organization Address [facility] de Phone Number [employer] * (ABNORMAL) [facility] Dialysis Urea Clearance, Urine Dialysis (08/24/2024 12:00 AM CDT) Urea Clearance, Urine 1.6(L) 64.0 - 99.0 mL/min [employer] Urine 08/24/2024 08/25/2024 Narrative [facility] - 08/25/2024 6:32 PM CDT Unless otherwise specified, test(s) performed at:[facility], [address] [place] [address] [id number] DIRECTOR: Titi Mcguire M.D. us Notinfile Unknown LAB URINE ORDERABLES Final Res ult Performing Organization Address [facility] de Phone Number [employer] * [facility] Dialysis Urea Nitrogen, PD Fluid 24 Hr (08/24/2024 12:00 AM CDT) Urea Nitrogen, PD Fluid 24 Hr 4,159.6 mg/24 hr [employer] PD Fluid 08/24/2024 08/25/2024 Narrative [facility] - 08/25/2024 5:16 PM CDT Unless otherwise specified, test(s) performed at:[facility], [address] [place] [address] [id number] DIRECTOR: Titi Mcguire M.D. us Notinfile Unknown LAB BODY FLUIDS AND STOOLS ORD ERABLES Final Result Performing Organization Address [facility] de Phone Number [employer] * [facility] Dialysis Urea Nitrogen, PD Fluid Timed (08/24/2024 12:00 AM CDT) Urea Nitrogen, PD Fluid Timed 49 mg/dL [employer] PD Fluid 08/24/2024 08/25/2024 Narrative [facility] - 08/25/2024 5:16 PM CDT Unless otherwise specified, test(s) performed at:[facility], [address] [place] [address] [id number] DIRECTOR: Titi Mcguire M.D. us Notinfile Unknown LAB BODY FLUIDS AND STOOLS ORD ERABLES Final Result Performing Organization Address [facility] de Phone Number [facility] * [facility] Dialysis Urea Nitrogen, Urine Timed (08/24/2024 12:00 AM CDT) Urea Nitrogen, Timed Urine 330 mg/dL [employer] Urine 08/24/2024 08/25/2024 Narrative [facility] - 08/25/2024 6:32 PM CDT Unless otherwise specified, test(s) performed at:[facility], [address] [place] [address] [id number] DIRECTOR: Titi Mcguire M.D. us Notinfile Unknown LAB URINE ORDERABLES Final Res ult Performing Organization Address [facility] de Phone Number [employer] * [facility] Dialysis Protein, Total, PD Fluid 24Hr (08/24/2024 12:00 AM CDT) Protein, Total, PD Fluid 24Hr 2,402.4 mg/24 hr [employer] PD Fluid 08/24/2024 08/25/2024 Narrative [facility] - 08/25/2024 5:16 PM CDT Unless otherwise specified, test(s) performed at:[facility], [address] [place] [address] [id number] DIRECTOR: Titi Mcguire M.D. us Notinfile Unknown LAB BODY FLUIDS AND STOOLS ORD ERABLES Final Result Performing Organization Address [facility] de Phone Number [facility] * [facility] Protein, Total, PD Fluid Timed (g/dL) (08/24/2024 12:00 AM CDT) Protein, Total, PD Fluid Timed (g/dL) 0.028 g/dL [employer] PD Fluid 08/24/2024 08/25/2024 Narrative [facility] - 08/25/2024 5:16 PM CDT Unless otherwise specified, test(s) performed at:[facility], [address] [place] [address] [id number] DIRECTOR: Titi Mcguire M.D. Notinfile Unknown LAB BODY FLUIDS AND STOOLS ORD ERABLES Final Result Performing Organization Address [facility] de Phone Number [employer] * [facility] Protein, Total, PD Fluid Timed (mg/dL) (08/24/2024 12:00 AM CDT) Protein, Total, PD Fluid Timed (mg/dL) 28.3 mg/dL [employer] PD Fluid 08/24/2024 08/25/2024 Narrative [facility] - 08/25/2024 5:16 PM CDT Unless otherwise specified, test(s) performed at:[facility], [address] [place] [address] [id number] DIRECTOR: Titi Mcguire M.D. us Notinfile Unknown LAB BODY FLUIDS AND STOOLS ORD ERABLES Final Result Performing Organization Address [facility] de Phone Number [facility] * (ABNORMAL) [facility] Dialysis Protein, Total, Urine Timed (08/24/2024 12:00 AM CDT) Protein, Total, Urine Timed 445.1(H) 0.0 - 12.0 mg/dL [employer] Comment:Verified by repeat a nalysis. Urine 08/24/2024 08/25/2024 Narrative [facility] - 08/25/2024 7:20 PM CDT Unless otherwise specified, test(s) performed at:[facility], [address] [place] [address] [id number] DIRECTOR: Titi Mcguire M.D. Notinfile Unknown LAB URINE ORDERABLES Final Res ult Performing Organization Address [facility] de Phone Number [facility] * [facility] Dialysis Creatinine, PD Fluid 24 Hr (08/24/2024 12:00 AM CDT) Creatinine, PD Fluid 24 Hr 585.7 mg/24 hr [employer] PD Fluid 08/24/2024 08/25/2024 [facility] - 08/25/2024 6:15 PM CDT Unless otherwise specified, test(s) performed at:[facility] [employer], [address] [place] [address] [id number] DIRECTOR: Titi Mcguire M.D. Notinfile Unknown LAB BODY FLUIDS AND STOOLS ORD ERABLES Final Result Performing Organization Address [facility] Phone Number [employer] * [facility] Dialysis Creatinine, PD Fluid Timed (Corrected) (08/24/2024 12:00 AM CDT) Creatinine, PD Fluid Timed (Corrected) 6.9 mg/dL [employer] Comment:Creatinine values pascual ve been corrected for glucose interference. [employer] PD Fluid 08/24/2024 08/25/2024 Narrative [facility] - 08/25/2024 6:15 PM CDT Unless otherwise specified, test(s) performed at:[facility], [address] [place] [address] [id number] DIRECTOR: Titi Mcguire M.D. Notinfile Unknown LAB BODY FLUIDS AND STOOLS ORD ERABLES Final Result Performing Organization Address [facility] de Phone Number [facility] * [facility] Dialysis Creatinine, PD Fluid Timed (Uncorrected) (08/24/2024 12:00 AM CDT) Creatinine, PD Fluid Timed (Uncorrected) 7.1 mg/dL [employer] PD Fluid 08/24/2024 08/25/2024 Narrative [facility] - 08/25/2024 5:16 PM CDT Unless otherwise specified, test(s) performed at:[facility], [address] [place] [address] [id number] DIRECTOR: Titi Mcguire M.D. us Notinfile Unknown LAB BODY FLUIDS AND STOOLS ORD ERABLES Final Result Performing Organization Address [facility] de Phone Number [employer] * [facility] Dialysis Glucose, PD Fluid Timed (08/24/2024 12:00 AM CDT) Glucose, PD Fluid Timed 1,051 mg/dL [employer] PD Fluid 08/24/2024 08/25/2024 Narrative [facility] - 08/25/2024 6:15 PM CDT Unless otherwise specified, test(s) performed at:[facility] [employer], [address] [place] [address] [id number] DIRECTOR: Titi Mcguire M.D. us Notinfile Unknown LAB BODY FLUIDS AND STOOLS ORD ERABLES Final Result Performing Organization Address [facility] Phone Number [employer] * [facility] Dialysis Patient Info Prompt (08/24/2024 12:00 AM CDT) Amputee Status NO [facility] Amputee Parts NONE [facility] Height (cm) 193.0 cm [facility] Height (in) 76.0 [facility] Weight (kg) 113.6 kg [facility] Weight (lbs) 249.9 [employer] PD Fluid 08/24/2024 08/25/2024 Narrative [facility] - 08/25/2024 10:26 AM CDT Unless otherwise specified, test(s) performed at:[facility], [address] [place] [address] [id number] DIRECTOR: Titi Mcguire M.D. us Notinfile Unknown LAB BLOOD ORDERABLES Final Res ult Performing Organization Address [facility] Phone Number [employer] * [facility] Dialysis Urine Prompt (08/24/2024 12:00 AM CDT) Volume, Urine 600 [facility] Collection Time, Urine 24.0 [employer] Urine 08/24/2024 08/25/2024 Narrative [facility] - 08/25/2024 10:26 AM CDT Unless otherwise specified, test(s) performed at:[facility], [address] [place] [address] [id number] DIRECTOR: Titi Mcguire M.D. us Notinfile Unknown LAB BLOOD ORDERABLES Final Res ult Performing Organization Address [facility] de Phone Number [employer] * [facility] Dialysis PD Fluid Prompt (08/24/2024 12:00 AM CDT) Drain Volume, PDF 8,489 [facility] Collection Time, PDF 24.0 [employer] PD Fluid 08/24/2024 08/25/2024 Narrative [facility] - 08/25/2024 10:26 AM CDT Unless otherwise specified, test(s) performed at:[facility] [employer], [address] [place] [address] [id number] DIRECTOR: Titi Mcguire M.D. us Notinfile Unknown LAB BLOOD ORDERABLES Final Res ult Performing Organization Address [facility] de Phone Number [employer] * (ABNORMAL) [facility] Dialysis UIBC (08/24/2024 12:00 AM CDT) UIBC 115(L) 155 - 355 mcg/dL [employer] Serum 08/24/2024 08/25/2024 Narrative [facility] - 08/25/2024 12:43 PM CDT Unless otherwise specified, test(s) performed at:[facility], [address] [place] [address] [id number] DIRECTOR: Titi Mcguire M.D. us Real Suarez MD LAB BLOOD ORDERABLES Fin al Result Performing Organization Address [facility] de Phone Number [facility] * (ABNORMAL) [facility] Dialysis Calcium Phosphorus Product (Calc) (08/24/2024 12:00 AM CDT) Calcium Phos Product 82(H) 0 - 54 [employer] Serum 08/24/2024 08/25/2024 Narrative [facility] - 08/25/2024 12:43 PM CDT Unless otherwise specified, test(s) performed at:[facility] [employer], [address] [place] [address] [id number] DIRECTOR: Titi Mcguire M.D. Notinfile Unknown LAB BLOOD ORDERABLES Final Res ult Performing Organization Address [facility] de Phone Number [facility] * [facility] Dialysis Transferrin Saturation (08/24/2024 12:00 AM CDT) Transferrin Sat (Calc) 53 20 - 55 % [employer] Serum 08/24/2024 08/25/2024 Narrative [facility] - 08/25/2024 12:43 PM CDT Unless otherwise specified, test(s) performed at:[facility], [address] [place] [address] [id number] DIRECTOR: Titi Mcguire M.D. Real Suarez MD LAB BLOOD ORDERABLES Fin al Result Performing Organization Address [facility] de Phone Number [employer] * Iron profile w/ IBC (08/24/2024 12:00 AM CDT) TIBC 246 185 - 515 mcg/dL [employer] Serum 08/24/2024 08/25/2024 Narrative [facility] - 08/25/2024 12:43 PM CDT Unless otherwise specified, test(s) performed at:[employer] [employer], [address] [place] [address] [id number] DIRECTOR: Titi Mcguire M.D. Real Suarez MD LAB BLOOD ORDERABLES Fin al Result Performing Organization Address [facility] de Phone Number [employer] * (ABNORMAL) [facility] Dialysis BUN / Creatinine ratio (08/24/2024 12:00 AM CDT) BUN Creatinine Ration 3.9(L) 10.0 - 20.0 [employer] [employer] Serum 08/24/2024 08/25/2024 Narrative [facility] - 08/25/2024 12:43 PM CDT Unless otherwise specified, test(s) performed at:[facility], [address] [place], [place] [id number] DIRECTOR: Titi Mcguire M.D. us Notinfile Unknown LAB BLOOD ORDERABLES Final Res ult Performing Organization Address [facility] de Phone Number [facility] [facility] * (ABNORMAL) Urea nitrogen, urine, 24 hour (08/24/2024 12:00 AM CDT) Urea Nitrogen, 24 Hour Urine 2.0(L) 12.0 - 20.0 g/24 hr [facility] Urine 08/24/2024 08/25/2024 Narrative [facility] - 08/25/2024 6:32 PM CDT Unless otherwise specified, test(s) performed at:[facility], [address] [place] [address] [id number] DIRECTOR: Titi Mcguire M.D. us Notinfile Unknown LAB URINE ORDERABLES Final Res ult Performing Organization Address [facility] de Phone Number [facility] [facility] * Creatinine, urine, 24 hour (08/24/2024 12:00 AM CDT) Creatinine, 24 Hour Urine 1.3 0.7 - 1.8 g/24 hr [facility] Urine 08/24/2024 08/25/2024 Narrative [facility] - 08/25/2024 6:32 PM CDT Unless otherwise specified, test(s) performed at:[facility] [id number] DIRECTOR: Titi Mcguire M.D. us Notinfile Unknown LAB URINE ORDERABLES Final Res ult Performing Organization Address [facility] de Phone Number [facility] [facility] * (ABNORMAL) Protein, urine, 24 hour (08/24/2024 12:00 AM CDT) Protein, Total, Urine 24 Hr 2,671(H) 30 - 150 mg/24 hr [facility] [facility] Urine 08/24/2024 08/25/2024 Narrative [facility] - 08/25/2024 7:20 PM CDT Unless otherwise specified, test(s) performed at:[facility] [id number] DIRECTOR: Titi Mcguire M.D. us Notinfile Unknown LAB URINE ORDERABLES Final Res ult Performing Organization Address [facility] Phone Number [facility] [facility] * Creatinine, urine, timed (08/24/2024 12:00 AM CDT) Creatinine, Urine Timed 212.0 mg/dL [facility] [facility] Urine 08/24/2024 08/25/2024 Narrative [facility] - 08/25/2024 6:32 PM CDT Unless otherwise specified, test(s) performed at:[facility], [address] [place] [address] [id number] DIRECTOR: Titi Mcguire M.D. us Notinfile Unknown LAB URINE ORDERABLES Final Res ult Performing Organization Address [facility] de Phone Number [facility] [facility] * (ABNORMAL) Hemoglobin (08/24/2024 12:00 AM CDT) Hemoglobin 10.1(L) 14.0 - 18.0 g/dL [facility] Hemoglobin x 3 30.3(L) 42.0 - 54.0 % [facility] [facility] Blood 08/24/2024 08/25/2024 Narrative [facility] - 08/25/2024 11:51 AM CDT Unless otherwise specified, test(s) performed at:[facility], [address] [place] [address] [id number] DIRECTOR: Titi Mcguire M.D. Real Suarez MD LAB BLOOD ORDERABLES Fin al Result Performing Organization Address [facility] de Phone Number [facility] [facility] * (ABNORMAL) BUN (08/24/2024 12:00 AM CDT) BUN 86(H) 6 - 19 mg/dL [facility] [facility] Serum 08/24/2024 08/25/2024 Narrative [facility] - 08/25/2024 12:43 PM CDT Unless otherwise specified, test(s) performed at:[facility], [address] [place] [address] [id number] DIRECTOR: Titi Mcguire M.D. Real Suarez MD LAB BLOOD ORDERABLES Fin al Result Performing Organization Address [facility] Phone Number [facility] [facility] * Sodium level (08/24/2024 12:00 AM CDT) Sodium 139 136 - 145 mEq/L [employer] Serum 08/24/2024 08/25/2024 Narrative [facility] - 08/25/2024 12:43 PM CDT Unless otherwise specified, test(s) performed at:[facility], [address] [place] [address] [id number] DIRECTOR: Titi Mcguire M.D. Real Suarez MD LAB BLOOD ORDERABLES Fin al Result Performing Organization Address [facility] de Phone Number [facility] [facility] [facility] * Potassium (08/24/2024 12:00 AM CDT) Potassium 3.6 3.5 - 5.1 mEq/L [facility] [facility] Serum 08/24/2024 08/25/2024 Narrative [facility] - 08/25/2024 12:43 PM CDT Unless otherwise specified, test(s) performed at:[facility] [id number] DIRECTOR: Titi Mcguire M.D. Real Suarez MD LAB BLOOD ORDERABLES Fin al Result Performing Organization Address [facility] Phone Number [facility] [facility] * (ABNORMAL) Phosphorus (08/24/2024 12:00 AM CDT) Phosphorus 8.4(H) 2.6 - 4.5 mg/dL [facility] Serum 08/24/2024 08/25/2024 Narrative [facility] - 08/25/2024 12:43 PM CDT Unless otherwise specified, test(s) performed at:[facility] [id number] DIRECTOR: Titi Mcguire M.D. Real Suarez MD LAB BLOOD ORDERABLES Fin al Result Performing Organization Address [facility] Phone Number [facility] [facility] * [place] level (08/24/2024 12:00 AM CDT) Iron 131 45 - 160 mcg/dL [facility] [facility] Serum 08/24/2024 08/25/2024 Narrative [facility] - 08/25/2024 12:43 PM CDT Unless otherwise specified, test(s) performed at:[facility] [id number] DIRECTOR: Titi Mcguire M.D. Real Suarez MD LAB BLOOD ORDERABLES Fin al Result Performing Organization Address [facility] Phone Number [facility] [facility] * (ABNORMAL) Glucose, random (08/24/2024 12:00 AM CDT) Glucose 108(H) 70 - 100 mg/dL [facility] [facility] Serum 08/24/2024 08/25/2024 Narrative [facility] - 08/25/2024 12:43 PM CDT Unless otherwise specified, test(s) performed at:[facility] [id number] DIRECTOR: Titi Mcguire M.D. Notinfile Unknown LAB BLOOD ORDERABLES Final Res ult Performing Organization Address [facility] de Phone Number [facility] [facility] * (ABNORMAL) Creatinine (08/24/2024 12:00 AM CDT) Creatinine 21.96(H) 0.60 - 1.30 mg/dL [facility] [facility] Serum 08/24/2024 08/25/2024 Narrative [facility] - 08/25/2024 12:43 PM CDT Unless otherwise specified, test(s) performed at:[facility] [id number] DIRECTOR: Titi Mcguire M.D. Real Suarez MD LAB BLOOD ORDERABLES Fin al Result Performing Organization Address [facility] de Phone Number [facility] [facility] * (ABNORMAL) Chloride (08/24/2024 12:00 AM CDT) Chloride 92(L) 96 - 108 mEq/L [employer] [facility] [facility] Serum 08/24/2024 08/25/2024 Narrative [facility] - 08/25/2024 12:43 PM CDT Unless otherwise specified, test(s) performed at:[facility] [id number] DIRECTOR: Titi Mcguire M.D. Real Suarez MD LAB BLOOD ORDERABLES Fin al Result Performing Organization Address [facility] de Phone Number [facility] [facility] * Calcium level (08/24/2024 12:00 AM CDT) Calcium 9.8 8.4 - 10.2 mg/dL [facility] [facility] Serum 08/24/2024 08/25/2024 Narrative [facility] - 08/25/2024 12:43 PM CDT Unless otherwise specified, test(s) performed at:[facility], [address] [place] [address] [id number] DIRECTOR: Titi Mcguire M.D. Real Suarez MD LAB BLOOD ORDERABLES Fin al Result Performing Organization Address [facility] de Phone Number [facility] * Albumin (08/24/2024 12:00 AM CDT) Pathologist [facility] Albumin 4.1 3.5 - 5.2 g/dL [facility] Serum 08/24/2024 08/25/2024 Narrative [facility] - 08/25/2024 12:43 PM CDT Unless otherwise specified, test(s) performed at:[facility] [id number] DIRECTOR: Titi Mcguire M.D. Real Suarez MD LAB BLOOD ORDERABLES Fin al Result Performing Organization Address [facility] Number [facility] * Cell Differential, Body Fluid (08/12/2024 10:17 AM CDT) Pathologist [facility] Total cells diffed 100 cells Comment: Interpretive Data Unless otherwise specified, the reference range and other method performance specifications have not been established for CSF/Body Fluid tests. The test results should be integrated into the clinical context for interpretation. Current interpretive data was last revised on 2018. Neutrophils, fld 0 % [facility] Lymphs, fld 60 % [facility] Monocyte, fld 40 % [facility] Fluid 08/12/2024 10:1 7 AM CDT 08/12/2024 10:57 AM CDT Real Suarez MD LAB BODY FLUIDS AND STOO LS ORDERABLES Final Result Performing Organization Address [facility] de Phone Number [facility] [place] [address] * Cell count w/rflx diff, body fluid (08/12/2024 10:17 AM CDT) Specimen type, fld Peritoneal Body site, fld Peritoneal fld [facility] Color, fld Other [facility] Comment:Colorless Clarity, fld Clear Clear [facility] Nucleated cells, fld 23 /cumm [facility] Comment: Interpretive Data Unless otherwise specified, the reference range and other method performance specifications have not been established for CSF/Body Fluid tests. The test results should be integrated into the clinical context for interpretation. Current interpretive data was last revised on 2018. RBC, fld 0 /cumm [facility] Fluid 08/12/2024 10:1 7 AM CDT 08/12/2024 10:57 AM CDT us Real Suarez MD LAB BODY FLUIDS AND STOO LS ORDERABLES Final Result [facility] [place] [address] * (ABNORMAL) Urinalysis reflex to microscopic and culture Urine (08/10/2024 2:53 PM CDT) Color, ur Yellow Yellow Clarity, ur Clear Clear [facility] Specific gravity, ur 1.012 1.003 - 1.030 [facility] CH pH, urine 7.0 [facility] Comment: Interpretive Data U rine pH is affected by diet, medications, systemic acid-base disturbances, and renal tubular function. pH may affect urinary stone formation. For example, urine pH below 6.0 may help reduce the tendency for calcium phosphate stones and pH greater than 6.0 may reduce the tendency for uric acid stone formation. Source: [facility] Current Interpretive Data was last revised on [...] 8:39 PM CDT Real Suarez MD LAB MICROBIOLOGY - GENER AL ORDERABLES Final Result Performing Organization Address [facility] de Phone Number ANIKA RUSSO [id number] [place] [address] * (ABNORMAL) Urinalysis, microscopic only (08/10/2024 2:53 PM CDT) WBC, ur 0-5 0 - 5 /HPF RBC, ur 21-50(A) 0 - 2 /HPF [facility] Epithelial cells, squamous, ur 1-5 0 - 5 /HPF [facility] Mucous, ur Present(A) [facility] Culture Reflex Comment Reflex conditions for urine culture (WBC >10) not met. [facility] Urine 08/10/2024 2:53 PM CDT 08/10/2024 8:39 PM CDT Real Suarez MD LAB URINE ORDERABLES Fin al Result Performing Organization Address [facility] Phone Number [facility] [id number] [place] [address] * [facility] Dialysis Bicarbonate (08/03/2024 12:00 AM CDT) Bicarbonate 23 22 - 29 mEq/L [facility] [facility] Serum 08/03/2024 08/04/2024 Narrative [facility] - 08/04/2024 12:40 PM CDT Unless otherwise specified, test(s) performed at:[facility], [address] [place] [address] [id number] DIRECTOR: Titi Mcguire M.D. Real Suarez MD LAB BLOOD ORDERABLES Fin al Result Performing Organization Address [facility] Co de Phone Number [facility] [facility] * (ABNORMAL) [facility] Dialysis Calcium Phosphorus Product, Corrected (Calc) (08/03/2024 12:00 AM CDT) [facility] Calcium Phos Product, Cor 100(H) 0 - 54 [facility] Serum 08/03/2024 08/04/2024 Narrative [facility] - 08/04/2024 12:40 PM CDT Unless otherwise specified, test(s) performed at:[facility], [address] [place] [address] [id number] DIRECTOR: Titi Mcguire M.D. us Notinfile Unknown LAB BLOOD ORDERABLES Final Res ult Performing Organization Address [facility] de Phone Number [facility] [facility] * [facility] Dialysis Calcium, Corrected (08/03/2024 12:00 AM CDT) [facility] Calcium, Corrected 9.5 8.4 - 10.2 mg/dL [facility] Comment:Corrected Calcium is not equivalent to measured Ionized Calcium. Serum 08/03/2024 08/04/2024 [facility] [facility] - 08/04/2024 12:40 PM CDT Unless otherwise specified, test(s) performed at:[facility], [address] [place] [address] [id number] DIRECTOR: Titi Mcguire M.D. [facility] Unknown LAB BLOOD ORDERABLES Final Res ult Performing Organization Address [facility] de Phone Number [facility] [facility] * [facility] UIBC (08/03/2024 12:00 AM CDT) [facility] UIBC 180 155 - 355 mcg/dL [facility] [facility] [facility] Serum 08/03/2024 08/04/2024 Narrative [facility] - 08/04/2024 12:40 PM CDT Unless otherwise specified, test(s) performed at:[facility], [address] [place] [address] [id number] DIRECTOR: Titi Mcguire M.D. Real Suarez MD LAB BLOOD ORDERABLES Fin al Result Performing Organization Address [facility] de Phone Number [facility] * (ABNORMAL) [facility] Dialysis Calcium Phosphorus Product (Calc) (08/03/2024 12:00 AM CDT) Calcium Phos Product 97(H) 0 - 54 [facility] Serum 08/03/2024 08/04/2024 Narrative [facility] - 08/04/2024 12:40 PM CDT Unless otherwise specified, test(s) performed at:[facility], [address] [place] [address] [id number] DIRECTOR: Titi Mcguire M.D. Notinfile Unknown LAB BLOOD ORDERABLES Final Res ult Performing Organization Address [facility] de Phone Number [facility] * [facility] Dialysis Transferrin Saturation (08/03/2024 12:00 AM CDT) Transferrin Sat (Calc) 20 20 - 55 % [facility] Serum 08/03/2024 08/04/2024 Narrative [facility] - 08/04/2024 12:40 PM CDT Unless otherwise specified, test(s) performed at:[facility], [address] [place] [address] [id number] DIRECTOR: Titi Mcguire M.D. Real Suarez MD LAB BLOOD ORDERABLES Fin al Result Performing Organization Address [facility] de Phone Number [facility] [facility] * [place] profile w/ IBC (08/03/2024 12:00 AM CDT) TIBC 225 185 - 515 mcg/dL [facility] Serum 08/03/2024 08/04/2024 Narrative [facility] - 08/04/2024 12:40 PM CDT Unless otherwise specified, test(s) performed at:[facility], [address] [place] [address] [id number] DIRECTOR: Titi Mcguire M.D. Real Suarez MD LAB BLOOD ORDERABLES Fin al Result Performing Organization Address [facility] de Phone Number [facility] * (ABNORMAL) [facility] Dialysis BUN / Creatinine ratio (08/03/2024 12:00 AM CDT) BUN Creatinine Ration 4.1(L) 10.0 - 20.0 [facility] Serum 08/03/2024 08/04/2024 Narrative [facility] - 08/04/2024 12:40 PM CDT Unless otherwise specified, test(s) performed at:[facility], [address] [place], [place] [id number] DIRECTOR: Titi Mcguire M.D. Notinfile Unknown LAB BLOOD ORDERABLES Final Res ult Performing Organization Address [facility] de Phone Number [facility] * (ABNORMAL) Hemoglobin (08/03/2024 12:00 AM CDT) Hemoglobin 9.5(L) 14.0 - 18.0 g/dL [facility] Hemoglobin x 3 28.5(L) 42.0 - 54.0 % [facility] Blood 08/03/2024 08/04/2024 Narrative [facility] - 08/04/2024 12:40 PM CDT Unless otherwise specified, test(s) performed at:[facility], [address] [place] [address] [id number] DIRECTOR: Titi Mcguire M.D. Real Suarez MD LAB BLOOD ORDERABLES Fin al Result Performing Organization Address [facility] de Phone Number [facility] * (ABNORMAL) BUN (08/03/2024 12:00 AM CDT) BUN 69(H) 6 - 19 mg/dL [facility] Serum 08/03/2024 08/04/2024 Narrative [facility] - 08/04/2024 12:40 PM CDT Unless otherwise specified, test(s) performed at:[facility], [address] [place] [address] [id number] DIRECTOR: Titi Mcguire M.D. Real Suarez MD LAB BLOOD ORDERABLES Fin al Result Performing Organization Address [facility] de Phone Number [facility] * Sodium level (08/03/2024 12:00 AM CDT) Sodium 141 136 - 145 mEq/L [facility] Serum 08/03/2024 08/04/2024 Narrative [facility] - 08/04/2024 12:40 PM CDT Unless otherwise specified, test(s) performed at:[facility], [address] [place], [place] [id number] DIRECTOR: Titi Mcguire M.D. Real Suarez MD LAB BLOOD ORDERABLES Fin al Result Performing Organization Address [facility] de Phone Number [facility] * Potassium (08/03/2024 12:00 AM CDT) Potassium 3.6 3.5 - 5.1 mEq/L [facility] Serum 08/03/2024 08/04/2024 Narrative [facility] - 08/04/2024 12:40 PM CDT Unless otherwise specified, test(s) performed at:[facility], [address] [place], [place] [id number] DIRECTOR: Titi Mcguire M.D. Real Suarez MD LAB BLOOD ORDERABLES Fin al Result Performing Organization Address [facility] de Phone Number [facility] * (ABNORMAL) Phosphorus (08/03/2024 12:00 AM CDT) Phosphorus 10.5(H) 2.6 - 4.5 mg/dL [facility] Serum 08/03/2024 08/04/2024 Narrative [facility] - 08/04/2024 12:40 PM CDT Unless otherwise specified, test(s) performed at:[facility] [id number] DIRECTOR: Titi Mcguire M.D. Real Suarez MD LAB BLOOD ORDERABLES Fin al Result Performing Organization Address [facility] de Phone Number [facility] * (ABNORMAL) PTH (08/03/2024 12:00 AM CDT) Pathologist [facility] PTH Intact, Plasma 779(H) 16 - 80 pg/mL [facility] Plasma 08/03/2024 08/04/2024 Narrative [facility] - 08/04/2024 2:01 PM CDT Unless otherwise specified, test(s) performed at:[facility], [address] [place] [address] [id number] DIRECTOR: Titi Mcguire M.D. Notinfile Unknown LAB BLOOD ORDERABLES Final Res ult Performing Organization Address [facility] de Phone Number [facility] * [place] level (08/03/2024 12:00 AM CDT) Pathologist [facility] [place] 45 45 - 160 mcg/dL [facility] Serum 08/03/2024 08/04/2024 Narrative [facility] - 08/04/2024 12:40 PM CDT Unless otherwise specified, test(s) performed at:[facility], [address] [place] [address] [id number] DIRECTOR: Titi Mcguire M.D. Real Suarez MD LAB BLOOD ORDERABLES Fin al Result Performing Organization Address [facility] de Phone Number [facility] * (ABNORMAL) Creatinine (08/03/2024 12:00 AM CDT) Pathologist [facility] Creatinine 16.70(H) 0.60 - 1.30 mg/dL [facility] Serum 08/03/2024 08/04/2024 Narrative [facility] - 08/04/2024 12:40 PM CDT Unless otherwise specified, test(s) performed at:[facility], [address] [place] [address] [id number] DIRECTOR: Titi Mcguire M.D. Real Suarez MD LAB BLOOD ORDERABLES Fin al Result Performing Organization Address [facility] de Phone Number [facility] * Chloride (08/03/2024 12:00 AM CDT) Chloride 98 96 - 108 mEq/L [facility] Serum 08/03/2024 08/04/2024 Narrative [facility] - 08/04/2024 12:40 PM CDT Unless otherwise specified, test(s) performed at:[facility], [address] [place], [place] [id number] DIRECTOR: Titi Mcguire M.D. Real Suarez MD LAB BLOOD ORDERABLES Fin al Result Performing Organization Address [facility] de Phone Number [facility] * Calcium level (08/03/2024 12:00 AM CDT) Calcium 9.2 8.4 - 10.2 mg/dL [facility] Serum 08/03/2024 08/04/2024 Narrative [facility] - 08/04/2024 12:40 PM CDT Unless otherwise specified, test(s) performed at:[facility], [address] [place], [place] [id number] DIRECTOR: Titi Mcguire M.D. Real Suarez MD LAB BLOOD ORDERABLES Fin al Result Performing Organization Address [facility] de Phone Number [facility] * Albumin (08/03/2024 12:00 AM CDT) Albumin 3.6 3.5 - 5.2 g/dL [facility] Serum 08/03/2024 08/04/2024 Narrative [facility] - 08/04/2024 12:40 PM CDT Unless otherwise specified, test(s) performed at:[facility], [address] [place] [address] [id number] DIRECTOR: Titi Mcguire M.D. Real Suarez MD LAB BLOOD ORDERABLES Fin al Result [facility] * Cell count w/rflx diff, body fluid (07/30/2024 10:45 AM CDT) Specimen type, fld Peritoneal Body site, fld Peritoneal [facility] Color, fld Straw [facility] Clarity, fld Clear Clear [facility] Nucleated cells, fld 5 /cumm [facility] Comment: Interpretive Data Unless otherwise specified, the reference range and other method performance specifications have not been established for CSF/Body Fluid tests. The test results should be integrated into the clinical context for interpretation. Current interpretive data was last revised on 2018. RBC, fld 0 /cumm [facility] Fluid 07/30/2024 10:4 5 AM CDT 07/30/2024 12:01 PM CDT Real Suarez MD LAB BODY FLUIDS AND SATISH ORDERABLES Final Result Performing Organization Address [facility] de Phone Number [facility] [place] [address] * Aerobic and anaerobic culture and gram stain Peritoneal dialysis fluid Peritoneum (07/28/2024 8:37 AM CDT) Direct Specimen Exam Stain: Cytospin Gram stain shows: Moderate polymorphonuclear leukocytes seen. No organisms seen. Report Final Report: No growth [facility] Peritoneal dialysis fluid (Peritoneum) 07/28/2024 8:37 AM CDT 07/28/2024 8:43 AM CDT Narrative [facility] - 08/03/2024 8:12 AM CDT Testing performed by [facility] ([phone]) Specimens submitted from normally sterile body sites [...] AL ORDERABLES Final Result Performing Organization Address [facility] Co de Phone Number [facility] [place] [address] * Cell Differential, Body Fluid (07/28/2024 3:59 AM CDT) Pathologist [facility] Total cells diffed 100 cells Comment: Interpretive Data Unless otherwise specified, the reference range and other method performance specifications have not been established for CSF/Body Fluid tests. The test results should be integrated into the clinical context for interpretation. Current interpretive data was last revised on 2018. Neutrophils, fld 75 % [facility] Lymphs, fld 1 % [facility] Monocyte, fld 23 % [facility] Basophils, fld 1 % [facility] Fluid 07/28/2024 3:59 AM CDT 07/28/2024 8:39 AM CDT Real Suarez MD LAB BODY FLUIDS AND STOO LS ORDERABLES Final Result Performing Organization Address [facility] Co de Phone Number [facility] [place] [address] * Cell count w/rflx diff, body fluid (07/28/2024 3:59 AM CDT) Specimen type, fld Peritoneal Color, fld Straw [facility] Clarity, fld Clear Clear [facility] Nucleated cells, fld 755 /cumm [facility] Comment: Interpretive Data Unless otherwise specified, the reference range and other method performance specifications have not been established for CSF/Body Fluid tests. The test results should be integrated into the clinical context for interpretation. Current interpretive data was last revised on 2018. RBC, fld 0 /cumm [facility] Fluid 07/28/2024 3:59 AM CDT 07/28/2024 8:39 AM CDT Real Suarez MD LAB BODY FLUIDS AND STOO LS ORDERABLES Final Result ANIKA Boyer [facility] [place] [address] * HLA Solid Organ Typing Report (07/05/2024 1:17 PM CDT) Marques Mcbride MD LAB GENETIC TESTING Final Resu [...] no mandibular periapical lucencies. Dictated by: Loyd Jackson, M.D. The radiology attending physician has personally reviewed this study, and had reviewed and/or edited this written report and agrees with it. Electronically signed by: Nabor Rose M.D. Marques Mcbride MD IMG XR PROCEDURES Final Result * Collection Task for HLA Typing 1 (06/30/2024 1:56 PM CDT) HLA Class I DNA (ABC) Recipient Received Blood 06/30/2024 1:56 PM CDT 06/30/2024 8:02 PM CDT Marques Mcbride MD LAB BLOOD ORDERABLES Final Res ult Performing Organization Address [facility] Co de Phone Number [facility] [place] [address] * Collection Task for HLA Antibody Screen (06/30/2024 1:56 PM CDT) HLA Antibody Screen By Single Antigen Received Blood 06/30/2024 1:56 PM CDT 06/30/2024 8:02 PM CDT Marques Mcbride MD LAB BLOOD ORDERABLES Final Res ult Performing Organization Address [facility] Co de Phone Number [facility] [place] [address] * Collection Task for HLA Typing 2, Patient (06/30/2024 1:56 PM CDT) HLA Class II DNA (DR, DQ, DP) Recipient Received Blood 06/30/2024 1:56 PM CDT 06/30/2024 8:02 PM CDT Marques Mcbride MD LAB BLOOD ORDERABLES Final Res ult Performing Organization Address City/[facility]/ZIP Co de Phone Number [facility] [place] [address] * (ABNORMAL) eGFR (06/30/2024 1:50 PM CDT) [facility] eGFR 4(L) >=60 mL/min/1. 73 m2 Comment: [...] PM CDT 06/30/2024 2:15 PM CDT us Marques Mcbride MD LAB BLOOD ORDERABLES Final Res ult [facility] One [facility] [place] [address] * Differential, auto (06/30/2024 1:50 PM CDT) [facility] Neutrophil abs 4.80 1.50 - 6.50 K/cumm Imm gran abs 0.02 0.00 - 0.10 K/cumm [facility] Lymphocyte abs 1.00 0.80 - 3.30 K/cumm [facility] Monocyte abs 0.42 0.20 - 0.80 K/cumm [facility] Eosinophil abs 0.00 0.00 - 0.50 K/cumm [facility] Basophil abs 0.05 0.00 - 0.10 K/cumm [facility] Neutrophil pct 76.3 % [facility] Comment: Interpretive Data Percent cell count reference ranges are not reported, since discordance with absolute values may lead to misinterpretation of CBC data. Current Interpretive Data was last revised on 2017. Imm gran pct 0.3 % [facility] Comment: Interpretive Data Percent cell count reference ranges are not reported, since discordance with absolute values may lead to misinterpretation of CBC data. Current Interpretive Data was last revised on 2017. Lymphocyte pct 15.9 % [facility] Comment: Interpretive Data Percent cell count reference ranges are not reported, since discordance with absolute values may lead to misinterpretation of CBC data. Current Interpretive Data was last revised on 2017. Monocyte pct 6.7 % [facility] Comment: Interpretive Data Percent cell count reference ranges are not reported, since discordance with absolute values may lead to misinterpretation of CBC data. Current Interpretive Data was last revised on 2017. Eosinophil pct 0.0 % [facility] Comment: Interpretive Data Percent cell count reference ranges are not reported, since discordance with absolute values may lead to misinterpretation of CBC data. Current Interpretive Data was last revised on 2017. Basophil pct 0.8 % [facility] Comment: Interpretive Data Percent cell count reference ranges are not reported, since discordance with absolute values may lead to misinterpretation of CBC data. Current Interpretive Data was last revised on 2017. Blood 06/30/2024 1:50 PM CDT 06/30/2024 2:15 PM CDT us Marques Mcbride MD LAB BLOOD ORDERABLES Final Res ult [facility] [place] [address] * (ABNORMAL) Iron profile w/ IBC (06/30/2024 1:50 PM CDT) Iron 50 50 - 150 mcg/dL TIBC 183(L) 250 - 400 mcg/dL [facility] Transferrin saturation 27 20 - 50 % [facility] Blood 06/30/2024 1:50 PM CDT 06/30/2024 2:15 PM CDT Narrative [facility] - 06/30/2024 3:31 PM CDT This lab is being obtained as part of a Kidney transplant evaluation, is time sensitive, and should only be drawn during the evaluation visit at [address] Lab[address] Marques Mcbride MD LAB BLOOD ORDERABLES Final Res ult Performing Organization Address [facility] Co de Phone Number [facility] [place] [address] * HIV 1/2 Antibody plus p24 Antigen Blood (06/30/2024 1:50 PM CDT) [facility] HIV 1/2 ab + p24 ag Nonreactive Nonreactive Comment:Nonreactive for HIV- 1 antigen and HIV-1/HIV-2 antibodies. No laboratory evidence of HIV infection. If acute HIV infection is suspected, consider testing for HIV-1 RNA. Current interpretive data was last revised on 21. Blood 06/30/2024 1:50 PM CDT 06/30/2024 2:15 PM CDT Narrative [facility] - 06/30/2024 4:42 PM CDT This lab is being obtained as part of a Kidney transplant evaluation, is time sensitive, and should only be drawn during the evaluation visit at [address] Lab[address] Marques Mcbride MD LAB MICROBIOLOGY - GENERAL ORD ERABLES Final Result Performing Organization Address [facility] de Phone Number [facility] [place] [address] * CMV, IgG Blood (06/30/2024 1:50 PM CDT) [facility] CMV IgG Negative Negative Comment: Interpretive Data [...] PM CDT 06/30/2024 2:15 PM CDT Sajan [facility] - 07/01/2024 10:01 AM CDT This lab is being obtained as part of a Kidney transplant evaluation, is time sensitive, and should only be drawn during the evaluation visit at [facility] Lab. us Marques Mcbride MD LAB MICROBIOLOGY - GENERAL ORD ERABLES Final Result [facility] One [facility] [place] [address] * (ABNORMAL) Urinalysis reflex to microscopic (06/30/2024 1:50 PM CDT) Color, ur Straw Yellow Clarity, ur Clear Clear [facility] Specific gravity, ur 1.014 1.003 - 1.030 [facility] pH, urine 6.5 [facility] Comment: Interpretive Data U rine pH is affected by diet, medications, systemic acid-base disturbances, and renal tubular function. pH may affect urinary stone formation. For example, urine pH below 6.0 may help reduce the tendency for calcium phosphate stones and pH greater than 6.0 may reduce the tendency for uric acid stone formation. Source: [facility] Current Interpretive Data was last revised on 2017 Protein, ur ql 3+(A) Negative [facility] Glucose, ur ql 1+(A) Negative [facility] Ketones, ur Negative Negative [facility] Bilirubin, ur Negative Negative [facility] Blood, ur 2+(A) Negative [facility] Urobilinogen, ur <2.0 <2.0 mg/dL [facility] Nitrite, ur Negative Negative [facility] Leukocyte esterase, ur Negative Negative [facility] UA reflex comment Reflex to microscopic UA will be performed. [facility] Urine 06/30/2024 1:50 PM CDT 06/30/2024 2:15 PM CDT Narrative [facility] - 06/30/2024 2:19 PM CDT This lab is being obtained as part of a Kidney transplant evaluation, is time sensitive, and should only be drawn during the evaluation visit at [address] Lab[address] Marques Mcbride MD LAB URINE ORDERABLES Final Res ult Performing Organization Address City/[facility]/ZIP Co de Phone Number [facility] [place] [address] * (ABNORMAL) CBC with auto differential (06/30/2024 1:50 PM CDT) [facility] WBC 6.29 3.80 - 9.90 K/cumm Hgb 8.4(L) 13.0 - 17.5 g/dL [facility] Hct 23.8(L) 38.9 - 50.3 % [facility] Plt 186 150 - 400 K/cumm [facility] MPV 10.1 9.1 - 12.3 fL [facility] RBC 2.98(L) 4.30 - 5.80 M/cumm [facility] MCV 79.9(L) 81.3 - 96.4 fL [facility] MCH 28.2 27.1 - 33.3 pg [facility] MCHC 35.3 32.3 - 35.7 g/dL [facility] RDW CV 13.6 11.1 - 14.9 % [facility] RDW SD 39.0 35.7 - 48.1 fL [facility] NRBC abs 0.00 0.00 - 0.01 K/cumm [facility] Blood 06/30/2024 1:50 PM CDT 06/30/2024 2:15 PM CDT Narrative [facility] - 06/30/2024 2:35 PM CDT This lab is being obtained as part of a Kidney transplant evaluation, is time sensitive, and should only be drawn during the evaluation visit at [address] Lab[address] Marques Mcbride MD LAB BLOOD ORDERABLES Final Res ult Performing Organization Address City/[facility]/ZIP Co de Phone Number [facility] [place] [address] * Hepatitis C antibody Blood (06/30/2024 1:50 PM CDT) [facility] Hep C Ab Nonreactive Nonreactive Comment:Antibodies to HCV no t detected. Does NOT exclude the possibility of recent exposure to HCV. Current interpretive data was last revised on 21 Blood 06/30/2024 1:50 PM CDT 06/30/2024 2:15 PM CDT Narrative [facility] - 06/30/2024 4:55 PM CDT This lab is being obtained as part of a Kidney transplant evaluation, is time sensitive, and should only be drawn during the evaluation visit at [facility] Lab. Marques Mcbride MD LAB MICROBIOLOGY - GENERAL ORD ERABLES Final Result [facility] [place] [address] * (ABNORMAL) Elvira-Baltazar virus (EBV) antibody panel Blood (06/30/2024 1:50 PM CDT) [facility] EBV nuclear Ab Positive(A) Negative Comment:Indicates the presen ce of detectable IgG antibody to EBV Nuclear Antigen. EBV VCA IgG Positive(A) Negative [facility] Comment:Indicates the presen ce of antibody; 90% of the adult population will have been infected with EBV sometime in the past. EBV VCA IgM Negative Negative [facility] Comment:No detectable IgM an tibody to EBV-VCA. A negative result indicates no current infection with EBV. If clinical suspicion of acute EBV infection is present, testing should be repeated after one week. EBV interp Past Infection [facility] Blood 06/30/2024 1:50 PM CDT 06/30/2024 2:15 PM CDT Narrative [facility] - 07/01/2024 11:46 AM CDT This lab is being obtained as part of a Kidney transplant evaluation, is time sensitive, and should only be drawn during the evaluation visit at [address] Marques Mcbride MD LAB MICROBIOLOGY - GENERAL ORD ERABLES Final Result Performing Organization Address [facility] Co de Phone Number [facility] [place] [address] * Hepatitis B core antibody, total Blood (06/30/2024 1:50 PM CDT) Pathologist [facility] Hep B core IgG/IgM Nonreactive Nonreactive Blood 06/30/2024 1:50 PM CDT 06/30/2024 2:15 PM CDT Narrative [facility] - 06/30/2024 4:55 PM CDT This lab is being obtained as part of a Kidney transplant evaluation, is time sensitive, and should only be drawn during the evaluation visit at [address] Marques Mcbride MD LAB MICROBIOLOGY - GENERAL ORD ERABLES Final Result Performing Organization Address [facility] de Phone Number [facility] [place] [address] * Protein, urine, random (06/30/2024 1:50 PM CDT) [facility] Protein, ur, quant 589.2 mg/dL Comment: Interpretive Data No reference range established. Current interpretive data was last revised 2018. Urine 06/30/2024 1:50 PM CDT 06/30/2024 2:15 PM CDT Narrative [facility] - 06/30/2024 2:58 PM CDT This lab is being obtained as part of a Kidney transplant evaluation, is time sensitive, and should only be drawn during the evaluation visit at [address] Result [facility] Marques Mcbride MD LAB URINE ORDERABLES Final Res ult Performing Organization Address [facility] Co de Phone Number [facility] [place] [address] * Creatinine, urine, random (06/30/2024 1:50 PM CDT) Creatinine Ur 134.1 mg/dL Comment: Interpretive Data No reference range established. Current interpretive data was last revised 2018. Urine 06/30/2024 1:50 PM CDT 06/30/2024 2:15 PM CDT Narrative [facility] - 06/30/2024 2:47 PM CDT This lab is being obtained as part of a Kidney transplant evaluation, is time sensitive, and should only be drawn during the evaluation visit at [address] Lab[address] Marques Mcbride MD LAB URINE ORDERABLES Final Res ult Performing Organization Address [facility] Co de Phone Number [facility] [place] [address] * HSV 2 IgG Antibody Blood (06/30/2024 1:50 PM CDT) Pathologist [facility] HSV 2 IgG Nonreactive Nonreactive Comment: Interpretive Data 1. Nonreactive: No detectable IgG antibody to HSV-2. 2. Equivocal: Presence or absence of detectable antibodies to HSV-2 cannot be determined and the test should be repeated. 3. Reactive: Indicates presence of detectable IgG antibody to HSV-2. Current interpretive data was last revised on 2022. Blood 06/30/2024 1:50 PM CDT 06/30/2024 2:15 PM CDT Narrative [facility] - 07/01/2024 10:02 AM CDT This lab is being obtained as part of a Kidney transplant evaluation, is time sensitive, and should only be drawn during the evaluation visit at [address] us Marques Mcbride MD LAB MICROBIOLOGY - GENERAL ORD ERABLES Final Result Performing Organization Address City/[facility] Co de Phone Number [facility] [place] [address] * HSV 1 IgG Antibody Blood (06/30/2024 1:50 PM CDT) [facility] HSV 1 IgG Nonreactive Nonreactive Comment: Interpretive Data 1. Nonreactive: No detectable IgG antibody to HSV-1. 2. Equivocal: Presence or absence of detectable antibodies to HSV-1 cannot be determined and the test should be repeated. 3. 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 Current interpretive data was last revised on 2016. Blood 06/30/2024 1:50 PM CDT 06/30/2024 2:15 PM CDT Narrative [facility] - 07/01/2024 10:02 AM CDT This lab is being obtained as part of a Kidney transplant evaluation, is time sensitive, and should only be drawn during the evaluation visit at [address] Marques Mcbride MD LAB MICROBIOLOGY - GENERAL ORD ERABLES Final Result Performing Organization Address City/[facility] Co de Phone Number [facility] [place] [address] * RPR Blood (06/30/2024 1:50 PM CDT) [facility] RPR Nonreactive Nonreactive Blood 06/30/2024 1:50 PM CDT 06/30/2024 2:15 PM CDT Narrative [facility] 06/30/2024 4:14 PM CDT This lab is being obtained as part of a Kidney transplant evaluation, is time sensitive, and should only be drawn during the evaluation visit at [address] Lab[address] Marques Mcbride MD LAB MICROBIOLOGY - GENERAL ORD ERABLES Final Result [facility] [place] [address] * Hepatitis B surface antibody (immune status) Blood (06/30/2024 1:50 PM CDT) [facility] HBsAb (immune status) Reactive Comment:This result is consi stent with immunity to Hepatitis B Virus when used in the setting of routine screening. Current interpretive data was last revised on 21 HBsAb (immune status) index 52.0 mIUnits/m L [facility] Blood 06/30/2024 1:50 PM CDT 06/30/2024 2:15 PM CDT Narrative [facility] - 06/30/2024 4:55 PM CDT This lab is being obtained as part of a Kidney transplant evaluation, is time sensitive, and should only be drawn during the evaluation visit at [address] Lab[address] Marques Mcbride MD LAB MICROBIOLOGY - GENERAL ORD ERABLES Final Result Performing Organization Address [facility] Co de Phone Number [facility] [place] [address] * Hepatitis B Surface Antigen Blood (06/30/2024 1:50 PM CDT) Pathologist [facility] HepBsAg Nonreactive Nonreactive Blood 06/30/2024 1:50 PM CDT 06/30/2024 2:15 PM CDT Narrative [facility] 06/30/2024 4:55 PM CDT This lab is being obtained as part of a Kidney transplant evaluation, is time sensitive, and should only be drawn during the evaluation visit at [address] Marques Mcbride MD LAB MICROBIOLOGY - GENERAL ORD ERABLES Final Result Performing Organization Address City/[facility] Co de Phone Number [facility] [place] [address] * (ABNORMAL) Urinalysis, microscopic only (06/30/2024 1:50 PM CDT) [facility] WBC, ur 0-5 0 - 5 /HPF RBC, ur 11-20(A) 0 - 2 /HPF [facility] Epithelial cells, squamous, ur 1-5 0 - 5 /HPF [facility] Mucous, ur Present(A) [facility] Hyaline casts, ur 1-5 0 - 10 /LPF [facility] Urine 06/30/2024 1:50 PM CDT 06/30/2024 2:15 PM CDT Marques Mcbride MD LAB URINE ORDERABLES Final Res ult Performing Organization Address [facility] de Phone Number [facility] [place] [address] * (ABNORMAL) aPTT (06/30/2024 1:50 PM CDT) aPTT 26(L) 28 - 38 sec Comment: Interpretive Data Heparin therapeutic range: 66.0 - 100.0 seconds. Range based on correlation with therapeutic heparin activity range of 0.3 - 0.7 Units/mL. Current interpretive data was last revised on 2022. Blood 06/30/2024 1:50 PM CDT 06/30/2024 2:15 PM CDT Narrative [facility] - 06/30/2024 2:47 PM CDT This lab is being obtained as part of a Kidney transplant evaluation, is time sensitive, and should only be drawn during the evaluation visit at [address] Lab[address] Marques Mcbride MD LAB BLOOD ORDERABLES Final Res ult Performing Organization Address [facility] de Phone Number [facility] [place] [address] * Protime-INR (06/30/2024 1:50 PM CDT) PT 11.2 9.7 - 13.0 sec INR 1.04 0.90 - 1.20 [facility] Comment: Interpretive data Oral anticoagulant therapeutic ranges: Venous thromboembolism prophylaxis or treatment: 2.0-3.0 CARDIOLOGY Standard range: 2.0-3.0 High-intensity range: 2.5-3.5 Refer to indication-specific guidelines for appropriate target ranges for prosthetic heart valve replacement. Current interpretive data was last revised on 2019. Blood 06/30/2024 1:50 PM CDT 06/30/2024 2:15 PM CDT Narrative [facility] - 06/30/2024 2:47 PM CDT This lab is being obtained as part of a Kidney transplant evaluation, is time sensitive, and should only be drawn during the evaluation visit at [address] Lab[address] Marques Mcbride MD LAB BLOOD ORDERABLES Final Res ult Performing Organization Address [facility] Co de Phone Number [facility] [place] [address] * Type and screen (06/30/2024 1:50 PM CDT) Pathologist [facility] ABO Rh O Positive Anastasia, indirect Negative [facility] Blood 06/30/2024 1:50 PM CDT 06/30/2024 2:25 PM CDT Narrative [facility] 06/30/2024 4:01 PM CDT Please draw the [...] be drawn during the evaluation visit at [address] Has the patient had Daratumumab or Isatuximab in the past 6 months?->Unknown Marques Mcbride MD LAB BLOOD BANK TEST ORDERABLES Final Result Performing Organization Address [facility] de Phone Number [facility] [place] [address] * (ABNORMAL) Varicella Zoster IgG antibody Blood (06/30/2024 1:50 PM CDT) [facility] VZV IgG Nonreacti ve(A) Reactive Comment:Non-reactive: No det ectable antibody to Varicella-zoster virus. Such individuals are presumed to be uninfected and to be susceptible to primary infection. Blood 06/30/2024 1:50 PM CDT 06/30/2024 2:15 PM CDT Narrative [facility] 07/01/2024 10:02 AM CDT This lab is being obtained as part of a Kidney transplant evaluation, is time sensitive, and should only be drawn during the evaluation visit at [address] Marques Mcbride MD LAB MICROBIOLOGY - GENERAL ORD ERABLES Final Result Performing Organization Address [facility] Co de Phone Number [facility] [place] [address] * (ABNORMAL) Uric acid (06/30/2024 1:50 PM CDT) [facility] Uric acid 9.2(H) 3.0 - 8.0 mg/dL Blood 06/30/2024 1:50 PM CDT 06/30/2024 2:15 PM CDT Narrative [facility] 06/30/2024 2:48 PM CDT This lab is being obtained as part of a Kidney transplant evaluation, is time sensitive, and should only be drawn during the evaluation visit at [address] Marques Mcbride MD LAB BLOOD ORDERABLES Final Res ult Performing Organization Address [facility] Co de Phone Number [facility] [place] [address] * (ABNORMAL) Phosphorus (06/30/2024 1:50 PM CDT) Pathologist [facility] Phosphorus, pl 11.6(H) 2.3 - 4.5 mg/dL Blood 06/30/2024 1:50 PM CDT 06/30/2024 2:15 PM CDT Narrative [facility] 06/30/2024 2:48 PM CDT This lab is being obtained as part of a Kidney transplant evaluation, is time sensitive, and should only be drawn during the evaluation visit at [address] Marques Mcbride MD LAB BLOOD ORDERABLES Final Res ult Performing Organization Address [facility] [place] [address] * (ABNORMAL) PTH (06/30/2024 1:50 PM CDT) Pathologist [facility] PTH 591(H) 15 - 65 pg/mL Blood 06/30/2024 1:50 PM CDT 06/30/2024 2:15 PM CDT Narrative [facility] - 06/30/2024 2:42 PM CDT This lab is being obtained as part of a Kidney transplant evaluation, is time sensitive, and should only be drawn during the evaluation visit at [address] Lab[address] Marques Mcbride MD LAB BLOOD ORDERABLES Final Res ult Performing Organization Address [facility] de Phone Number [facility] [place] [address] * Hemoglobin A1c (06/30/2024 1:50 PM CDT) Pathologist [facility] Hgb A1C 4.8 4.0 - 5.6 % Estimated Average Glucose 91 mg/dL [facility] Comment: The ADA recommends reporting an estimated Average Glucose (eAG) with all Hemoglobin A1c results using the equation derived from a study of 507 normal and diabetic adults. Minority populations were underrepresented and children were not included. (Diabetes Care 2020; 43(S1): S66-S76). The eAG is not equivalent to a fasting glucose. Blood 06/30/2024 1:50 PM CDT 06/30/2024 2:15 PM CDT Narrative [facility] - 06/30/2024 2:48 PM CDT This lab is being obtained as part of a Kidney transplant evaluation, is time sensitive, and should only be drawn during the evaluation visit at [address] Lab. Marques Mcbride MD LAB BLOOD ORDERABLES Final Res ult Performing Organization Address [facility] Co de Phone Number [facility] [place] [address] * Gamma GT (06/30/2024 1:50 PM CDT) Pathologist [facility] GGT 16 10 - 50 Units/L Blood 06/30/2024 1:50 PM CDT 06/30/2024 2:15 PM CDT Narrative [facility] 06/30/2024 2:48 PM CDT This lab is being obtained as part of a Kidney transplant evaluation, is time sensitive, and should only be drawn during the evaluation visit at [address] Lab. Marques Mcbride MD LAB BLOOD ORDERABLES Final Res ult Performing Organization Address [facility] [place] [address] * (ABNORMAL) Ferritin (06/30/2024 1:50 PM CDT) [facility] Ferritin 418(H) 30 - 400 ng/mL Blood 06/30/2024 1:50 PM CDT 06/30/2024 2:15 PM CDT Narrative [facility] 06/30/2024 2:48 PM CDT This lab is being obtained as part of a Kidney transplant evaluation, is time sensitive, and should only be drawn during the evaluation visit at [address] Marques Mcbride MD LAB BLOOD ORDERABLES Final Res ult Performing Organization Address [facility] Co de Phone Number [facility] [place] [address] * (ABNORMAL) Lipid panel (06/30/2024 1:50 PM CDT) [facility] Cholesterol 137 30 - 199 mg/dL Comment: [...] revised on 2017. Triglycerides 162(H) <=149 mg/dL [facility] Comment: Interpretive Data Ages < or [...] revised on 2017. HDL 25(L) >=40 mg/dL [facility] Comment: Interpretive Data Ages < or [...] on 2017. LDL, calculated 84 <=129 mg/dL [facility] Comment: Interpretive Data Ages < or = 19 years Acceptable: <110 mg/dL Borderline high: 110-129 mg/dL High: >or= 130 mg/dL Ages > or = 20 years Optimal: <100 mg/dL Near optimal: 100-129 mg/dL Borderline high: 130-159 mg/dL High: >160 mg/dL Calculated using the Cortez LDL-C estimating equation. This equation was implemented on 2023. Prior to this date LDL-C was estimated using the Friedewald equation. Literature References: 1. Expert Panel on Integrated Guidelines for Cardiovascular Health and Risk Reduction in Children and Adolescents. Pediatrics 2011;128:S213 2. NCEP Expert Panel. Circulation 2004;110:227 3. Diego Alfonso et al. SANDRA Cardiol. 2019July 22;5(5):540-548. doi: 10.1001/jamacardio.2020.0013 Current Interpretive Data was last revised on 2023. Non-HDL Cholesterol 112 mg/dL [facility] Comment: Interpretive Data Ages < or [...] last revised on 2017. Chol/HDL ratio 5 [facility] Blood 06/30/2024 1:50 PM CDT 06/30/2024 2:15 PM CDT Narrative [facility] - 06/30/2024 2:48 PM CDT This lab is being obtained as part of a Kidney transplant evaluation, is time sensitive, and should only be drawn during the evaluation visit at [facility] Lab. Marques Mcbride MD LAB BLOOD ORDERABLES Final Res ult [facility] [place] [address] * (ABNORMAL) Comprehensive metabolic panel (06/30/2024 1:50 PM CDT) Sodium 143 135 - 145 mmol/L Potassium, pl 4.0 3.3 - 4.9 mmol/L [facility] Chloride 102 97 - 110 mmol/L [facility] CO2 22 22 - 32 mmol/L [facility] Anion gap 19(H) 2 - 15 mmol/L [facility] BUN 106(H) 6 - 25 mg/dL [facility] Creatinine 16.13(H) 0.80 - 1.30 mg/dL [facility] Glucose 100 70 - 199 mg/dL [facility] Comment: Interpretive Data Fasting glucose >/= [...] 2022. Calcium 8.9 8.5 - 10.3 mg/dL [facility] Bilirubin, total 0.2 0.1 - 1.2 mg/dL [facility] Protein, pl 6.3(L) 6.5 - 8.5 g/dL [facility] Albumin 3.4(L) 3.5 - 5.0 g/dL [facility] Alk phos 65 40 - 130 Units/L [facility] ALT 8 7 - 55 Units/L [facility] AST 13 10 - 50 Units/L [facility] Blood 06/30/2024 1:50 PM CDT 06/30/2024 2:15 PM CDT Narrative [facility] - 06/30/2024 2:56 PM CDT This lab is being obtained as part of a Kidney transplant evaluation, is time sensitive, and should only be drawn during the evaluation visit at [facility]. us Marques Mcbride MD LAB BLOOD ORDERABLES Final Res ult [facility] [place] [address] * LR HLA Typing (Class I and [...] as IVD tests and validated by the [facility]. Testing performed at the [facility], [address] [place] [address], 5th floor, [place], [address]. CLIA # [id number]. Trina Gardner, Ph.D., Software Project Lead, HLA Laboratory Vadim Kaur M.D., Ph.D., Environmental Permitting Specialist, [facility] Laboratory Ashley Chambers, Ph.D., [facility] Environmental Permitting Specialist, [facility] Current methodology comment last revised on 11/26/16. us Marques Mcbride MD LAB BLOOD ORDERABLES Final Res ult [facility] * HLA Antibody Screen - SAB (Class I and Class II) (06/30/2024 1:36 PM CDT) [facility] Class I Treatment Adsorbed+EDT A [facility] Class [...] a method developed and validated by the [facility] laboratory based on an FDA-approved IVD kit (LABScreen Single-Antigen, [employer], [place], [place]). All patient serum samples are pretreated with EDTA before the screen to prevent complement interference. Additional serum treatments, such as adsorption and DTT treatment, may be performed as indicated. Interpretive comments: Low risk: MFI [id number]. Moderate risk: MFI [id number]. Increased risk: MFI >/= 5000. The presence [...] antigens to avoid. Testing performed at the [facility], [address] [place] [address], 5th floor, [place], [address]. CLIA # [id number]. Trina Gardner, Ph.D., Software Project Lead, [facility] Vadim Kaur M.D., Ph.D., Environmental Permitting Specialist, [facility] Ashley Chambers, Ph.D., [facility] Environmental Permitting Specialist, [facility] Current methodology and interpretive comments last revised on 04/18/2022. us Marques Mcbride MD LAB BLOOD ORDERABLES Edited Re sult - Final [facility] * TRANSTHORACIC ECHO (TTE) COMPLETE W DOPPLER/CF WO CONTRAST (06/30/2024 1:20 PM CDT) Anatomical Region Laterality Modality Ultrasound 06/30/2024 12:3 6 PM CDT Narrative 07/01/2024 5:33 AM CDT [facility] [place] [address] Transthoracic Echocardiographic Report Patient Name: CLARI CORNEJO HI : 2000 (24y ) Gender: M Study Date: 06/30/2024 12:36:09 PM Ht(Inch): 76 Wt(Lb): 266.98 BSA: 2.55 Environmental Conflict Manager: Donna Jolly RDCS Location: [facility] Order Provider: MARQUES MCBRIDE Heart Rate: 86 BMI: 32.49 BP: 141 / 84 Ref Provider: MARQUES MCBRIDE PROCEDURES: Echocardiographic Report: Transthoracic complete echo [...] Procedure Note Grant Mancilla MD - 07/01/2024 [facility] [place] [address] Transthoracic Echocardiographic Report Patient Name: CLARI CORNEJO HI : 2000 (24y ) Gender: M Study Date: 06/30/2024 12:36:09 PM Ht(Inch): 76 Wt(Lb): 266.98 BSA: 2.55 Environmental Conflict Manager: Donna Jolly RDCS Location: [facility] Order Provider:MARQUES MCBRIDE Heart Rate: 86 BMI: 32.49 BP: 141 / 84 Ref Provider: MARQUES MCBRIDE PROCEDURES: Echocardiographic Report: Transthoracic complete echo [...] LA Length 4C 6.55 cm MV Decel Vttx440.90 msec [ 104.00 - 258.00 ] LA [...] Grant Mancilla MD 07/01/2024 5:33:12 AM CDT Marques Mcbride MD CV ECHO PROCEDURES Final Resul t [...] normal. Electronically signed by: Paz Ackerman M.D. Marques Mcbride MD IMG XR PROCEDURES Final Result [...] it. Electronically signed by: Kareem Choi M.D. Marques Mcbride MD IMG CT PROCEDURES Final Result [...] agrees with it. Electronically signed by: Queta F Feister, M.D. us Real Suarez MD IMG XR PROCEDURES Final Result * (ABNORMAL) [facility] Dialysis Bicarbonate (06/24/2024 12:00 AM CDT) Bicarbonate 20(L) 22 - 29 mEq/L [facility] Serum 06/24/2024 06/25/2024 Narrative [facility] - 06/25/2024 3:06 PM CDT Unless otherwise specified, test(s) performed at:[facility], [address] [place], [place] [address]LABORATORY DIRECTOR: Titi Mcguire M.D. Real Suarez MD LAB BLOOD ORDERABLES Fin al Result Performing Organization Address [facility] de Phone Number [facility] * (ABNORMAL) [facility] Dialysis Calcium Phosphorus Product, Corrected (Calc) (06/24/2024 12:00 AM CDT) [facility] Calcium Phos Product, Cor 97(H) 0 - 54 [facility] Serum 06/24/2024 06/25/2024 Narrative [facility] - 06/25/2024 3:06 PM CDT Unless otherwise specified, test(s) performed at:[facility], [address] [place], [place] [id number] DIRECTOR: Titi Mcguire M.D. Notinf[employer] Unknown LAB BLOOD ORDERABLES Final Res ult Performing Organization Address [facility] de Phone Number [facility] * [facility] Dialysis Calcium, Corrected (06/24/2024 12:00 AM CDT) Calcium, Corrected 9.1 8.4 - 10.2 mg/dL [facility] Comment:Corrected Calcium is not equivalent to measured Ionized Calcium. Serum 06/24/2024 06/25/2024 Narrative [facility] - 06/25/2024 3:06 PM CDT Unless otherwise specified, test(s) performed at:[facility], [address] [place], [place] [id number] DIRECTOR: Titi Mcguire M.D. us Notinf[employer] Unknown LAB BLOOD ORDERABLES Final Res ult Performing Organization Address [facility] de Phone Number [facility] * [facility] UIBC (06/24/2024 12:00 AM CDT) UIBC 166 155 - 355 mcg/dL [facility] Serum 06/24/2024 06/25/2024 Narrative [facility] - 06/25/2024 3:06 PM CDT Unless otherwise specified, test(s) performed at:[facility], [address] [place] [address] [id number] DIRECTOR: Titi Mcguire M.D. Real Suarez MD LAB BLOOD ORDERABLES Fin al Result Performing Organization Address [facility] de Phone Number [facility] * (ABNORMAL) [facility] Dialysis Calcium Phosphorus Product (Calc) (06/24/2024 12:00 AM CDT) Calcium Phos Product 93(H) 0 - 54 [facility] Serum 06/24/2024 06/25/2024 Narrative [facility] - 06/25/2024 3:06 PM CDT Unless otherwise specified, test(s) performed at:[facility], [address] [place] [address] [id number] DIRECTOR: Titi Mcguire M.D. us Notinf[employer] Unknown LAB BLOOD ORDERABLES Final Res ult Performing Organization Address [facility] de Phone Number [facility] * [facility] Dialysis Transferrin Saturation (06/24/2024 12:00 AM CDT) Transferrin Sat (Calc) 27 20 - 55 % [facility] Serum 06/24/2024 06/25/2024 Narrative [facility] - 06/25/2024 3:06 PM CDT Unless otherwise specified, test(s) performed at:[facility], [address] [place] [address] [id number] DIRECTOR: Titi Mcguire M.D. Real Suarez MD LAB BLOOD ORDERABLES Fin al Result Performing Organization Address [facility] de Phone Number [facility] * [place] profile w/ IBC (06/24/2024 12:00 AM CDT) [facility] TIBC 226 185 - 515 mcg/dL [facility] Serum 06/24/2024 06/25/2024 Narrative [facility] - 06/25/2024 3:06 PM CDT Unless otherwise specified, test(s) performed at:[facility] [id number] DIRECTOR: Titi Mcguire M.D. Real Suarez MD LAB BLOOD ORDERABLES Fin al Result Performing Organization Address [facility] Phone Number [facility] * (ABNORMAL) [facility] BUN / Creatinine ratio (06/24/2024 12:00 AM CDT) [facility] BUN Creatinine Ration 7.9(L) 10.0 - 20.0 [facility] Serum 06/24/2024 06/25/2024 Narrative [facility] - 06/25/2024 3:06 PM CDT Unless otherwise specified, test(s) performed at:[facility], [address] [place] [address] [id number] DIRECTOR: Titi Mcguire M.D. Notinfile Unknown LAB BLOOD ORDERABLES Final Res ult Performing Organization Address [facility] de Phone Number [facility] * Hepatitis C antibody Serum (06/24/2024 12:00 AM CDT) [facility] Hep C Ab Nonreactive Nonreactive [facility] Comment:No HCV antibody dete cted. HCV s/co ratio 0.05 0.00 - 0.79 [facility] Comment:s/co ratio Interpret ation Supplemental testing Serum 06/24/2024 06/25/2024 Narrative [facility] - 06/25/2024 3:55 PM CDT Unless otherwise specified, test(s) performed at:[facility], [address] [place] [address] [id number] DIRECTOR: Titi Mcguire M.D. Real Suarez MD LAB MICROBIOLOGY - GENER AL ORDERABLES Final Result Performing Organization Address [facility] de Phone Number [facility] * Hepatitis B core antibody, total Serum (06/24/2024 12:00 AM CDT) Pathologist [facility] Hep B core IgG/IgM Negative Negative [facility] Comment:Hep B Core Ab, Total appears during the acute infection stage and Serum 06/24/2024 06/25/2024 [facility] - 06/25/2024 3:55 PM CDT Unless otherwise specified, test(s) performed at:[facility], [address] [place] [address] [id number] DIRECTOR: Titi Mcguire M.D. Notinfile Unknown LAB MICROBIOLOGY - GENERAL ORD ERABLES Final Result Performing Organization Address [facility] de Phone Number [facility] * Vitamin D 25 hydroxy (06/24/2024 12:00 AM CDT) [facility] Vitamin D, 25-Hydroxy 39.2 30.0 - 100.0 ng/mL [facility] Comment:Please Note: Effective January 20, 2023, the methodology for this test Serum 06/24/2024 06/25/2024 Narrative [facility] - 06/25/2024 3:15 PM CDT Unless otherwise specified, test(s) performed at:[facility], [address] [place] [address] [id number] DIRECTOR: Titi Mcguire M.D. Real Suarez MD LAB BLOOD ORDERABLES Fin al Result Performing Organization Address [facility] Co de Phone Number [facility] * Hepatitis B surface antibody (immune status) Serum (06/24/2024 12:00 AM CDT) [facility] HBsAb (immune status) 53 mIU/mL [facility] Comment:The anti-HBs (Hepati tis B surface antibody) is greater than or equal to Serum 06/24/2024 06/25/2024 [facility] - 06/25/2024 3:14 PM CDT Unless otherwise specified, test(s) performed at:[facility], [address] [place] [address] [id number] DIRECTOR: Titi Mcguire M.D. Real Suarez MD LAB MICROBIOLOGY - GENER AL ORDERABLES Final Result Performing Organization Address [facility] de Phone Number [facility] * Hepatitis B Surface Antigen Serum (06/24/2024 12:00 AM CDT) Pathologist [facility] HBsAg Negative Negative [facility] Serum 06/24/2024 06/25/2024 [facility] - 06/25/2024 3:25 PM CDT Unless otherwise specified, test(s) performed at:[facility], [address] [place] [address] [id number] DIRECTOR: Titi Mcguire M.D. Real Suarez MD LAB MICROBIOLOGY - GENER AL ORDERABLES Final Result Performing Organization Address [facility] de Phone Number [facility] * Platelet count (06/24/2024 12:00 AM CDT) Pathologist [facility] Platelet Count 270 130 - 400 1000/mcL [facility] Blood 06/24/2024 06/25/2024 Narrative [facility] - 06/25/2024 11:28 AM CDT Unless otherwise specified, test(s) performed at:[facility], [address] [place] [address] [id number] DIRECTOR: Titi Mcguire M.D. Notinfile Unknown LAB BLOOD ORDERABLES Final Res ult Performing Organization Address [facility] de Phone Number [facility] * (ABNORMAL) Hemoglobin (06/24/2024 12:00 AM CDT) Hemoglobin 8.8(L) 14.0 - 18.0 g/dL [facility] Hemoglobin x 3 26.4(L) 42.0 - 54.0 % [facility] Blood 06/24/2024 06/25/2024 Narrative [facility] - 06/25/2024 11:28 AM CDT Unless otherwise specified, test(s) performed at:[facility], [address] [place], [place] [id number] DIRECTOR: Titi Mcguire M.D. Notinfile Unknown LAB BLOOD ORDERABLES Final Res ult Performing Organization Address [facility] de Phone Number [facility] * (ABNORMAL) BUN (06/24/2024 12:00 AM CDT) BUN 109(H) 6 - 19 mg/dL [facility] Serum 06/24/2024 06/25/2024 Narrative [facility] - 06/25/2024 3:06 PM CDT Unless otherwise specified, test(s) performed at:[facility], [address] [place] [address] [id number] DIRECTOR: Titi Mcguire M.D. Real Suarez MD LAB BLOOD ORDERABLES Fin al Result Performing Organization Address [facility] de Phone Number [facility] * (ABNORMAL) ALT (06/24/2024 12:00 AM CDT) ALT (SGPT) 5(L) 7 - 52 U/L [facility] Serum 06/24/2024 06/25/2024 Narrative [facility] - 06/25/2024 3:06 PM CDT Unless otherwise specified, test(s) performed at:[facility], [address] [place] [address] [id number] DIRECTOR: Titi Mcguire M.D. Notinfile Unknown LAB BLOOD ORDERABLES Final Res ult Performing Organization Address [facility] de Phone Number [facility] * Sodium level (06/24/2024 12:00 AM CDT) Sodium 142 136 - 145 mEq/L [facility] Serum 06/24/2024 06/25/2024 Narrative [facility] - 06/25/2024 3:06 PM CDT Unless otherwise specified, test(s) performed at:[facility], [address] [place], [place] [id number] DIRECTOR: Titi Mcguire M.D. Real Suarez MD LAB BLOOD ORDERABLES Fin al Result Performing Organization Address [facility] de Phone Number [facility] * Potassium (06/24/2024 12:00 AM CDT) Potassium 3.9 3.5 - 5.1 mEq/L [facility] Serum 06/24/2024 06/25/2024 Narrative [facility] - 06/25/2024 3:06 PM CDT Unless otherwise specified, test(s) performed at:[facility], [address] [place], [place] [id number] DIRECTOR: Titi Mcguire M.D. Real Suarez MD LAB BLOOD ORDERABLES Fin al Result Performing Organization Address [facility] Phone Number [facility] * (ABNORMAL) Phosphorus (06/24/2024 12:00 AM CDT) Phosphorus 10.7(H) 2.6 - 4.5 mg/dL [facility] Serum 06/24/2024 06/25/2024 Narrative [facility] - 06/25/2024 3:06 PM CDT Unless otherwise specified, test(s) performed at:[facility], [address] [place] [address] [id number] DIRECTOR: Titi Mcguire M.D. Real Suarez MD LAB BLOOD ORDERABLES Fin al Result Performing Organization Address [facility] de Phone Number [facility] * Alkaline phosphatase (06/24/2024 12:00 AM CDT) [facility] Alkaline Phosphatase 58 40 - 129 U/L [facility] Serum 06/24/2024 06/25/2024 Narrative [facility] - 06/25/2024 3:06 PM CDT Unless otherwise specified, test(s) performed at:[facility], [address] [place], [place] [id number] DIRECTOR: Titi Mcguire M.D. Real Suarez MD LAB BLOOD ORDERABLES Fin al Result Performing Organization Address [facility] de Phone Number [employer] * (ABNORMAL) PTH (06/24/2024 12:00 AM CDT) [facility] PTH Intact, Plasma 547(H) 16 - 80 pg/mL [employer] Plasma 06/24/2024 06/25/2024 Narrative [facility] - 06/25/2024 2:25 PM CDT Unless otherwise specified, test(s) performed at:[facility], [address] [place], [place] [id number] DIRECTOR: Titi Mcguire M.D. Real Suarez MD LAB BLOOD ORDERABLES Fin al Result Performing Organization Address [facility] Phone Number [employer] * Iron level (06/24/2024 12:00 AM CDT) [facility] Iron 60 45 - 160 mcg/dL [employer] Serum 06/24/2024 06/25/2024 Narrative [facility] - 06/25/2024 3:06 PM CDT Unless otherwise specified, test(s) performed at:[facility], [address] [place], [place] [id number] DIRECTOR: Titi Mcguire M.D. Real Suarez MD LAB BLOOD ORDERABLES Fin al Result Performing Organization Address [facility] de Phone Number [employer] * Glucose, random (06/24/2024 12:00 AM CDT) [facility] Glucose 96 70 - 100 mg/dL [employer] Serum 06/24/2024 06/25/2024 Narrative [facility] - 06/25/2024 3:06 PM CDT Unless otherwise specified, test(s) performed at:[facility], [address] [place] [id number] DIRECTOR: Titi Mcguire M.D. Notinfile Unknown LAB BLOOD ORDERABLES Final Res ult Performing Organization Address [facility]/ZIP Ma de Phone Number [employer] * Ferritin (06/24/2024 12:00 AM CDT) Ferritin 204 22 - 322 ng/mL [employer] Serum 06/24/2024 06/25/2024 Narrative [facility] - 06/25/2024 3:15 PM CDT Unless otherwise specified, test(s) performed at:[facility], [address] [place] [id number] DIRECTOR: Titi Mcguire M.D. Real Suarez MD LAB BLOOD ORDERABLES Fin al Result Performing Organization Address [facility] de Phone Number [employer] * (ABNORMAL) Creatinine (06/24/2024 12:00 AM CDT) Creatinine 13.74(H) 0.60 - 1.30 mg/dL [employer] Serum 06/24/2024 06/25/2024 Narrative [facility] - 06/25/2024 3:06 PM CDT Unless otherwise specified, test(s) performed at:[facility], [address] [place] [address] [id number] DIRECTOR: Titi Mcguire M.D. Real Suarez MD LAB BLOOD ORDERABLES Fin al Result Performing Organization Address [facility] de Phone Number [employer] * Chloride (06/24/2024 12:00 AM CDT) Chloride 104 96 - 108 mEq/L [employer] Serum 06/24/2024 06/25/2024 Narrative [facility] - 06/25/2024 3:06 PM CDT Unless otherwise specified, test(s) performed [place] [place] [id number] DIRECTOR: Titi Mcguire M.D. Real Suarez MD LAB BLOOD ORDERABLES Fin al Result Performing Organization Address [facility] de Phone Number [employer] * Calcium level (06/24/2024 12:00 AM CDT) Calcium 8.7 8.4 - 10.2 mg/dL [employer] Serum 06/24/2024 06/25/2024 Narrative [facility] - 06/25/2024 3:06 PM CDT Unless otherwise specified, test(s) performed at:[facility] [place] [id number] DIRECTOR: Titi Mcguire M.D. Real Suarez MD LAB BLOOD ORDERABLES Fin al Result Performing Organization Address [facility] Phone Number [employer] * Albumin (06/24/2024 12:00 AM CDT) Albumin 3.5 3.5 - 5.2 g/dL [employer] Serum 06/24/2024 06/25/2024 Narrative [facility] - 06/25/2024 3:06 PM CDT Unless otherwise specified, test(s) performed at:[facility], [address] [place] [address] [id number] DIRECTOR: Titi Mcguire M.D. Real Suarez MD LAB BLOOD ORDERABLES Fin al Result Performing Organization Address [facility] de Phone Number [employer] * (ABNORMAL) Renal function panel (06/14/2024 1:42 [...] - 06/15/2024 2:10 PM CDT Performed at: [address] [place] [id number] [employer] Operator: Silverio Apodaca PhD, Phone: [phone] us Renuka Balderas MD PhD LAB BLOOD ORDERABLES Final Resu lt [facility] * (ABNORMAL) POC Blood Gas and Chemistries, Venous - (06/07/2024 4:56 PM CDT) [facility] pH, Farhan POC 7.32 7.32 - 7.43 pCO2, farhan POC 39(L) 40 - 50 mmHg [facility] pO2, farhan POC 43 mmHg [facility] Na, POC 139 135 - 145 mmol/L [facility] K POC 4.0 3.3 - 4.9 mmol/L [facility] Comment: Interpretive Data Not all point of care methods assess for hemolysis. Confirm with instrument and retest K+ if not consistent with clinical signs and symptoms. Current Interpretive Data was last revised on 2023. Cl, POC 108 97 - 110 mmol/L [facility] Ionized Ca, POC 4.66 4.50 - 5.10 mg/dL [facility] Glucose, POC 95 70 - 199 mg/dL [facility] Lactate POC 2.0 0.7 - 2.0 mmol/L [facility] O2 Sat, Farhan POC (Angela) 73 % [facility] HCO3, Farhan POC 20 20 - 30 mmol/L [facility] Hct, POC 27.0(L) 41.4 - 51.6 % [facility] Total Hb, POC 9.1(L) 13.8 - 17.2 g/dL [facility] Blood 06/07/2024 4:56 PM CDT 06/07/2024 4:56 PM CDT us Rosalba Locke MD LAB POCT ORDERABLES - DEVICE Fin al Result Performing Organization Address City/State/[facility] Co de Phone Number [facility] [place] [address] * Airway (06/07/2024 11:49 AM CDT) Narrative [...] K POC 3.9 3.3 - 4.9 mmol/L [facility] Comment: Interpretive Data Not all point of care methods assess for hemolysis. Confirm with instrument and retest K+ if not consistent with clinical signs and symptoms. Current Interpretive Data was last revised on 2023. Glucose, POC 87 70 - 199 mg/dL [facility] Hct, POC 29.0(L) 41.4 - 51.6 % [facility] Total Hb, POC 9.5(L) 13.8 - 17.2 g/dL [facility] Blood 06/07/2024 11:1 3 AM CDT 06/07/2024 11:13 AM CDT Rosalba Locke MD LAB POCT ORDERABLES - DEVICE Fin al Result [facility] Department [place] [address] from Last 3 Months Insurance [facility] CHOICE PLUS [facility] CHOICE PLUS TRANSPLANT [employer] [employer]ANS[employer] Advance Directives For more information, please contact: [phone] Documents on File Type Date Recorded Patient Hospice Home Care Coordinator Expl anation ADVANCE DIRECTIVE 02/03/2024 11:01 AM POW ER OF CHARTER BOAT OPERATOR-MEDICAL ADVANCE DIRECTIVE 01/30/2024 12:41 PM ADVANCE DIRECTIVE 01/30/2024 12:41 PM KEVEN R OF CHARTER BOAT OPERATOR-MEDICAL * Full Code (Latest Code Status on File) Date Activated Date Inactivated Comments 01/25/2024 4:58 AM 01/31/2024 6:07 PM Healthcare Agents on File Name Relationship Healthcare Agent Relationshi p Communication Eleonora Steve Health Care Agent Care Teams Train Brakeman Relationship Specialty Start Date End Date Yair Matthew MD [address] [place] [address] PCP - General Family Medicine 01/26/24 Renuka Balderas MD PhD [address] [facility] [address] [place] [address] Referring Physician Nephrology 04/15/24 Christina Stringer, RN [address] [facility] [id number] [place] [address] Leather Grainer 04/15/[address] [facility] [address] [place] [address] Dietitian Nephrology 06/22/24 Manjit Nevarez, WOODWORKING MACHINE FEEDER Flooring Machine Operator Nephrology 07/29/24 Real Suarez MD [address] [facility] [address] [id number] [place], [place] [id number] Tape Controlled Machine Stitcher Nephrology 08/11/24 Giovana Yuan, RN Registered Nurse Nephrology 08/11/24
--- OUTSIDE RECORDS SUMMARY | 2024-09-06 20:58 | XMS_ITS | Continuity of Care Document ---
Author Organization [facility] Address [address] [facility] [place] [address] Phone Care Team Providers Care Msws Name Role Phone Yair Matthew MD Unavailable Unavailable Allergies, Adverse Reactions, Alerts Substance Reaction Status Criticality SUNSCREEN RashRash Active No Information PENICILLIN Bleeding from nose Active No Inform ation Medications Medication Instructions Dosage Effective Dates (start - stop) Status Comments Effexor XR 150 mg capsule,extended release take 1 capsule by oral route every day 150 MG - Active Norvasc 10 mg tablet take 1 tablet by or al route every day 10 MG - Active hydralazine 10 mg tablet take 1 tablet by oral route 3 times every day with food 10 MG - Active Procedures Procedure Date OFFICE/OUTPATIENT VISIT, EST OFFICE/OUTPATIENT VISIT, EST OFFICE/OUTPATIENT VISIT, EST OFFICE/OUTPATIENT VISIT, EST OFFICE/OUTPATIENT VISIT, EST PREV VISIT, NEW, AGE 18-39 OFFICE/OUTPATIENT VISIT, NEW Advance Directives Directive Yes / No Effective Date File Name No Information Encounters Encounter Description Practice Location Reason(s) For Visit Diagnoses Date Provider Providers Copied on Encounter OFFICE/OUTPA TIENT VISIT, EST [facility], [address], [id number], [place] tel:[phone] [facility] IGA (chief complaint) anxiety1 (chief complaint) Essential (primary) hypertensionGeneral ized Anxiety DisorderNephropathy 5 Vipul Mazariegos. [address] [place], [place], [address] , [place]. tel:[phone] OFFICE/OUTPA TIENT VISIT, [facility], [address] [place], [place], [id number], tel:[phone] [facility] HTN (chief complaint) anxiety1 (chief complaint) IgA nephropath y1 (chief complaint) Essential (primary) hypertensionGeneral ized Anxiety DisorderAsymptomati c microscopic hematuria Nov- 8 4 Matthew Yair. [address], [id number] , [place]. tel:[phone] OFFICE/OUTPA TIENT VISIT, [facility], [address], [place], [address], tel:[phone] [facility] anxiety1 (chief complaint) HTN (chief complaint) IgA (chief complaint) HLP (chief complaint) Essential (primary) hypertensionGeneral ized Anxiety DisorderAsymptomati c microscopic hematuriaMixed hyperlipidemia Jun- 4 Vipul Mazar[address]os. [address], [address] , [place]. tel:[phone] OFFICE/OUTPA TIENT VISIT, [facility], [address] [place], [place], [address], [place] tel:[phone] [facility] HTN (chief complaint) anxiety1 (chief complaint) iga (chief complaint) Essential (primary) hypertensionGeneral ized Anxiety DisorderAsymptomati c microscopic hematuria 0 4 Vipul [address]azar[address]os. [address], [address] , [place]. tel:[phone] OFFICE/OUTPA TIENT VISIT, [facility], [address] [place], [place], [address], tel:[phone] [facility] HTN (chief complaint) HLP (chief complaint) HTN (chief complaint) anxiety1 (chief complaint) Mixed hyperlipidemiaEssen tial (primary) hypertensionNephrop athyGeneralized Anxiety DisorderAsymptomati c microscopic hematuriaAbnormalit y of albumin Sep-2 6-202 3 Vipul [address]. [address], [place], [place], [address] , [place]. tel:[phone] PREV VISIT, NEW, AGE 18-39 [facility], [address], [place], [place], [address], [place] tel:[phone] [facility] Medicine physical (chief complaint) Encounter for general adult medical exam w abnormal findingsEssential (primary) hypertensionGeneral ized Anxiety DisorderShortness of breathDermatophytos is of footNevus, non-neoplastic 3 Vipul Mazar[address]os. [address], [place], [place], [address] , [place]. tel:[phone] Family History Family Member Type Diagnosis Age At Onset Father Problem Alive and well Brother Problem Alive and well Mother Problem Depression Payers Payer name Insurance type Covered democrat ID Authoriza tisyed(s) [facility] [id number] Social History Type Description Quantity Date Captured Comments Alcohol Use Details beer 3 drinks rarely Caffeine Use Details Unknown Tobacco Use Status Current non-smoker Smoking Status Never smoker Sex Male Vital Signs Date / Time: Height Weight BMI Pulse Rate Blood Pressure Temperature Respiratory Rate Body Surface Area Head Circumference BMI percentile Pulse Ox Inhaled Ox 10:54 AM 76.00 in 269.60 lbs 32.8 2 kg/m eter (2) 84 /min 162/100 mm[Hg] 98.4 F 16 /min Chief Complaint And Reason For Visit From encounter dated '04/06/2024 10:45'. IGA (chief complaint). Description: Pt has iga nephropathy Pt has uncontrolled HTN. pt has stage 4 renal failure as well Pt saw nephrology last month and he is on the kidney transplant list now. He is off irbesartan and propranolol and he is on norvasc and hydralazine and two additional BP med now but he is not sure the name of it. Pt has normal UO. his bp is still high today pt denies any chest pain or sob or edema or vision change or headache anxiety1 (chief complaint). Description: Pt has chronic anxiety and depression Pt takes Effexor andhis nephrology increased to 150 mg daily, Pt feels better on 150 mg daily. Plan Of Treatment Date Type Action Status Referral Ordered: Daniella Lyle -Allopathic & Osteopathic Physicians : Internal Medicine : Nephrology (related to Nephropathy) ordered Referral Referred To: Daniella Lyle [address] [facility]
Hossein [address] [place] [address], [phone] Ordered: Referrals: Allopathic & Osteopathic Physicians : Internal Medicine : Nephrology. Daniella Lyle. Evaluate and treat ordered Referral Ordered: [facility] KIDNEY ordered History Of Present Illness Encounter Date Complaint History Of Prese nt Illness IGA Pt has iga nephr opathy Pt has uncontrolled HTN. pt has stage 4 renal failure as well Pt saw nephrology last month and he is on the kidney transplant list now. He is off irbesartan and propranolol and he is on norvasc and hydralazine and two additional BP med now but he is not sure the name of it. Pt has normal UO. his bp is still high today pt denies any chest pain or sob or edema or vision change or headache anxiety1 Pt has chronic a nxiety and depression Pt takes Effexor and his nephrology increased to 150 mg daily, Pt feels better on 150 mg daily. IgA nephropathy1 Pt has IGA neph ropathy and he is seeing nephrology. His fist visit was back in March and he supposes to follow up with nephrology back in july but he canceled the kat and he has new kat around January of 2024. he has some difficulty getting renal ultrasound and lab done by nephrology but he did finish above and is waiting for kat with nephrology in January HTN Pt has HTN pt ta kes irbesartan and propranolol and his bp is very high Pt denies any chest pain. Pt has been having intermittent headache lately Pt denies any vision change. anxiety1 Pt has chronic a nxiety and depression Pt takes Effexor and doing ok Pt denies ay suicidal or homicidal thought .Pt denies any crying spells . IgA Pt has IgA nephr opathy Pt has hematuria and proteinuria. Pt finally saw nephrology at [facility] and he supposes to do some lab but he has not done it yet. Pt also never did renal ultrasound. Pt denies any flank pain, Pt has normal UO HLP Pt has HLP Pt is working on diet anxiety1 Pt has chronic a nxiety and depression Pt has been taking lexapro but is not working anymore Pt feels very anxious and depressed Pt denies any suicidal or homicidal thought. Pt denies any crying spells. HTN Pt has HTN, Pt t akes irbesartan and propranolol and his bp is ok Pt denies any chest pain or headache HTN Pt has HTN. Pt i s noncompliant and he has been out of propranolol and irbesartan for long time He denies any headache but he overall feels foggy since off BP meds. his bp is high today pt denies any chest pain, headache or vision change . anxiety1 Pt has chronic a nxiety and depression Pt doing ok with lexapro Pt denies any suicidal or homicidal thought Pt denies any crying spells Pt needs lexapro refilled. iga Pt has IgA nephr opathy with proteinuria and hematuria .Pt denies any urinary symptoms Pt has not done renal ultrasound yet Pt has kat with [facility] nephrology in two weeks Pt has normal UO Pt denies any flank pain HLP Pt has HLP HTN Pt has persisten t HTN. Pt denies any chest pain or headache anxiety1 Pt has chronic a nxiety and depression Pt states that lexapro helped slightly. pt denies any suicidal or homicidal thought. pt denies any crying spells. HTN Pt has HTN. Pt h as proteinuria, high creatine, low albumin and hematuria. Pt states that he has the diagnosis of IgA nephropathy 5 years ago without biopsy. Pt has not seen sliding joint maker for over 5 years. Pt denies any urinary symptoms. Pt has normal UO. physical Pt needs annual physical. Pt has chronic anxiety and depression Pt smokes marijuana for above. Pt has been having panic attacks with hyperventilation Pt went to ER due to anxiety and sob and he had negative CTA of chest and chest x ray and lab work and he saw Dr. Johnson recently who started him on lexapro and propranolol. Pt did have mild HTn and tachycardia. Pt started propranolol since several weeks ago. Pt states that his anxiety and depression is slightly better. Pt also feels frequent sob, regardless of activity level Pt denies any wheezing Pt denies any history of asthma. Pt denies any acute sob. Pt denies waking up at night with sob. Pt denies any chest pain. Pt feels air hunger feeling. Pt also has toenail fungus and he saw podiatry recently who will start him on oral lamisil and he was given order for LFT prior to starting of the lamisil Instructions Date Instruction Additional Infor sarah No Information Assessments Type Assessment Date assessment Essential (primary) hypertension assessment Generalized Anxiety Disorder Mar assessment Nephropathy Mental Status Date Cognitive Assessment Orientation - [place] Neck ed to time, place, person, situation.
--- OUTSIDE RECORDS SUMMARY | 2024-09-06 20:58 | XMS_ITS | Encounter Summary ---
Author Organization [facility] Healthcare Address [address] [place] [address] Care Team Providers Care Certified Breastfeeding Educator Name Role Phone Lori Beck MD Primary Care Provider [phone] Yair Matthew MD Primary Care Provider [phone] Renuka Balderas MD PhD Unavailable [phone] Christina Stringer RN Unavailable [phone] Unavailable [phone] Manjit Nevarez SHRIMPING BOAT CAPTAIN Unavailable Unavailab Real Escobar MD Unavailable [phone] Giovana Yuan RN Unavailable Unavailabl e Encounter Details Date Type Department Care Team (Late st Contact Info) Description 10/05/2019 Telephone [facility] [place] [id number] Terra Ashby RDMS Social History Tobacco Use Types Packs/Day Years Used Date Smoking Tobacco: Never Sex and Gender Information Value Date Recorded Sex Assigned at Not on file 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 HEALTH SERVICES INFORMATION SPECIALIST Gender Identity Not on file Sexual Orientation Not on file documented as of this encounter Plan of Treatment Not on file documented as of this encounter Visit Diagnoses Not on filedocumented in this encounter Additional Health Concerns Infection Onset Date Last Indicated Resolved Time COVID: Suspected 01/24/2024 01/24/2024 01/24/2024 3:36 PM CDT documented as of this encounter Care Teams Certified Breastfeeding Educator Relationship Specialty Start Date End Date Lori Beck MD [address] [place] [address] PCP - General 05/02/17 01/25/24 Yair Matthew MD [address] [place] [address] PCP - General Family Medicine 01/26/24 Renuka Balderas MD PhD [address] [facility] [address] [place] [address] Referring Physician Nephrology 04/15/24 Christina Stringer, RN [address] [facility] [phone] [place], [place] [id number] Gyroscopic Instrument Mechanic 04/15/[address] [facility] [address] [place], [place] [id number] Dietitian Nephrology 06/22/24 Manjit Nevarez, SHRIMPING BOAT CAPTAIN Moderate Needs Teacher Nephrology 07/29/24 Real Suarez MD [address] [facility] [id number] [place], [place] [id number] Gas Fitter Helper Nephrology 08/11/24 Giovana Yuan, ÁNGEL Registered Nurse Nephrology 08/11/24 documented as of this encounter
--- OUTSIDE RECORDS SUMMARY | 2024-09-06 20:58 | XMS_ITS ---
Author Organization [facility] Address [address] [place] [address] Care Team Providers Care Carpenter Railcar Name Role Phone Yair Matthew MD Primary Care Provider [phone] Renuka Balderas MD PhD Unavailable [phone] Christina Stringer RN Unavailable [phone] Unavailable [phone] Manjit Nevarez LMSW Unavailable Unavailab Real Escobar MD Unavailable [phone] Giovana Yuan RN Unavailable Unavailabl e Transplant Episode Kidney Candidate [facility] ([place], [place]) - [facility] Center waitlisted on 08/10/2024 Marked as Inactive on 08/10/2024 Reason: 03 - Candidate Work-up Incomplete Kidney CoordinatorChristina Stringer RN Email: N/A Scores Score Value Updated Exceptions/Reas ons CPRA Not available EPTS (Calc) 1 09/06/2024 [place] Organ Diagnosis Organ Primary Contributory Kidney IgA Nephropathy Care Team Name Role Phone Fax Email Christina Stringer RN Kidney Coordinator [phone] N/A Jaz Medina Primary Labview Programmer N/A N/A N/A Elena Wood Motorized Squad Captain [phone] N/A N/A Renuka Balderas MD PhD Referring Physician [phone] N/A Events Pre-Transplant Referred: 04/15/2024 Evaluation began: 04/21/2024 Committee: 08/09/2024 UNOS qualified: 06/17/2024 Center waitlisted: 08/10/2024 Dialysis History Dialysis History Start End Type Comments Center 06/17/2024 Continuous Cycling Peritoneal Dialys is [facility] [facility] Information Center Phone Fax Address [facility] [address] [phone] [address] [facility] [address]
[2024-09-06] MEDS: HYDROmorphone HCL INJ (*CRX) 2 MG/ML VIAL (21:05)
[2024-09-06 21:26] LABS: Add Urine Microscopic? YES; Appearance Urine Clear (Clear); Bacteria Urine None Seen /hpf; Bilirubin Urine Negative (Negative); Blood Urine 2+ (Negative); Color Urine Yellow (Yellow); Glucose Urine UA Trace mg/dL (Negative); Ketones Urine Negative (Negative); Leukocyte Esterase Ur Negative LEU/UL (Negative); Need Manual Microscopic Reviewed; Nitrate Urine Negative (Negative); Protein Urine 4+ mg/dL (Negative); RBC Urine 21-50 /hpf (0-2); Specific Grav Ur 1.012 (1.001-1.035); Squamous Epithelial Cell Urine None Seen /hpf (Few); Urobilinogen Urine 0.2 mg/dL (<2.0); WBC Urine 0-5 /hpf (0-3); pH Urine 7.5 (5.0-9.0)
[2024-09-06 21:29] LABS: Amphetamine Screen Urine Negative (Negative); Barbiturate Screen Urine Negative (Negative); Benzodiazepines Screen Urine Negative (Negative); Cannabinoid Screen Urine Negative (Negative); Cocaine Screen Urine Negative (Negative); Methadone Screen Urine Negative (Negative); Opiate Screen Urine Negative (Negative); Phencyclidine Screen Urine Negative (Negative)
[2024-09-06] MEDS: MIDAZOLAM 100MG/NS 100ML(*CRX) 100 MG/100 ML BAG IV CONT (21:50)
[2024-09-06 21:56] LABS: Reflex Lactic Acid Yes or No Add Lactic
--- NOTE | 2024-09-06 22:00 | ED_ITS ---
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 Patient presents to the emergency department with a seizure. He had a witnessed seizure by his family members that lasted 3-4 minutes. Generalized shaking with loss of consciousness and grunting noises. Patient regained consciousness slowly and is still not back to his baseline mentation. He is complaining of diffuse pain. He is alert oriented to his name and location as well as the people around him. Blood pressure per EMS was in the 220 range. Patient is been titrated on numerous anti hypertensive medications previously according to family members. No history of seizures. No trauma reported falls. Patient is not any blood thinner medications. No antiepileptic medications either. Patient's care is usually at [facility] with his Nephrology team. Related Data Allergies Allergy/AdvReac Type Severity Reaction Status Date / Time Penicillins Allergy Unknown Vomiting Verified 05/26/24 13:53 germ x Allergy Unknown Rash Uncoded 05/26/24 13:53 Review of Systems 2 Review of Systems: As reviewed above in HPI PMFSH Past Medical History Medical History Panic anxiety syndrome Suicidal ideation MDD (major depressive disorder), recurrent episode Social History Social History Social History: Single Smoking status: Unknown if ever smoked (smokes medical marijuana) Second hand tobacco smoke exposure: No Alcohol intake: current Alcohol use details: Occasionally Substance use: current Substance use type: marijuana Last use: Medical Marijuana for anxiety and depression Lack of Transportation: No Lack of Food: Never True Current Housing: I Have Housing Concerned About Future Housing: No Difficulty Paying Gas/Electric Bills: No Difficulty Paying for Meds: No Currently Unemployed: No Education: Decline to Answer Difficulty w/ Childcare or Family Care: No Living arrangements: with family Occupation/Education: occupation Gender identity (if verbalized by the patient): Male Sexual Orientation (if Verbalized by the Patient): Straight or Heterosexual Exam 2 Narrative: GENERAL: [Well-appearing, well-nourished, and in no acute distress.] HEAD: [Normocephalic, atraumatic.] EYES: [PERRLA and EOMI.] ENT: Nares clear, no rhinorrhea or epistaxis. Mucous membranes moist. NECK: Supple. CHEST: [Clear to auscultation. No respiratory distress.] HEART: [Regular rate and rhythm]. No murmur heard. [Normal peripheral pulses.] ABDOMEN: [Soft, nondistended], [nontender], [No rigidity or guarding] peritoneal dialysis catheter in place no signs of peritonitis on exam. EXTREMITIES: Normal range of motion. [No edema.] SKIN: Warm, dry, no rash. NEURO: [No focal deficits]. Alert and oriented [x3.] But slow to respond to questions, no facial asymmetry. Pupils equal reactive to light. PSYCH: [Normal mood and affect.] Course Vital Signs Vital signs: Vital Signs Temperature 37.1 C 09/06/24 19:32 Pulse Rate 119 H 09/06/24 19:32 Respiratory Rate 20 09/06/24 19:32 Blood Pressure 196/138 H 09/06/24 19:32 Pulse Oximetry 100 09/06/24 19:32 Oxygen Delivery Room Air 09/06/24 19:32 Temperature 37.1 C 09/06/24 19:48 Pulse Rate 134 H 09/06/24 22:15 Respiratory Rate 20 09/06/24 22:15 Blood Pressure 113/66 09/06/24 22:15 Pulse Oximetry 100 09/06/24 22:15 Oxygen Delivery Room Air 09/06/24 19:48 Procedures Central Line Placement Left SC: Central Line Date: 09/06/24 Central Line Time: 21:25 Performed Emergently - Given emergent patient condition, temporal constraints may have precluded informed consent.: Yes Time Out Performed: Yes Patient Placed on Monitor/Pulse Ox: Yes Max. Sterile Barrier Technique: Caps, large sterile sheet and hand hygiene Central Line Prep: 2% chlorhexidine scrub and sterile drapes applied Technique: benedict Local Anesthetic: none Ultrasound Used for Placement: No Central Line Lumen Inserted: triple Post Procedure: sutured in place, good blood return, all ports aspirated, flushed, capped and sterile dressing applied Post Procedure X-Ray: tip of catheter in good position and no pneumothorax seen Patient Tolerated Procedure: well and no complications Complications: none Intubation Intubation #1: Intubation Date: 09/06/24 Intubation Time: 20:50 Time out performed: Yes sedative: other (Etomidate 30mg, Propofol 200mg) Mg Given: 200 paralytic: Rocuronium Mg Given: 100 Laryngoscope: fiber optic video scope Tube Size (cm): 7.5 Method of Intubation: orotracheal Number of Attempts: 1 Tube Secured Depth (cm): 25 Tube Secured Location: lips Tube Placement Confirmation: visualized tube passing through cords, equal breath sounds bilaterally, no breath sounds over epigastrium and confirmation by capnometry Patient Tolerated Procedure: well and no complications Intubation Complications: none MDM - Seizure MDM Narrative Medical decision making narrative: 24-year-old male presenting to the emergency department after witnessed seizure. No reported history of seizure disorder. He has IgA nephropathy on peritoneal dialysis long-term. He has a history of uncontrolled hypertension as well. Recently been titrated on multiple antihypertensive medications but his blood pressure was 220 per EMS. They arrived and found him postictal after 3-4 minute seizure. No reported trauma or head injury. Patient is slow to respond to questioning and apparently postictal at this time but awake and mentating. His blood pressure is elevated here in the 190s range as well as tachycardia in the 120s. No fever, hypoxia tachypnea. He has a soft nontender nondistended abdomen with signs of peritoneal dialysis catheter in place. He has not missed any dialysis sessions according to him and his family. Differential included new onset epilepsy, infectious process, meningitis, intracranial pathology such as hemorrhage or stroke, brain bleed or mass, electrolyte abnormalities, posterior reversible encephalopathy syndrome secondary to the hypertension. CT of the head was obtained, pinna care glucose ordered, CBC, CMP, CPK and lactic acid drawn. He was given a fluid bolus for his seizing. Morphine ordered as he is and diffuse pain likely from myalgias from seizing. Prior to receiving any medications I was informed by nursing staff that patient was again actively seizing. I presented at bedside and patient is actively seizing with convulsions and grunting noises, frothing at the mouth requiring sectioning. He required additional IV access and given 4 mg aliquots of Ativan x2 without any breaking seizing of activity. He was given 10 mg of IV Versed without any break in seizure activity. Patient's saturations remained normal but his blood pressure was in the 240 systolic range. Additional 30 mg of IV etomidate provided without any breaking his seizure activity. 200 mg of IV propofol pushed and he had stopped convulsing at this time and intubated with paralytics 100mcg Rocuronium. Endotracheal tube, NG tube, central venous catheter placed. Chest x-ray confirmed appropriate position without any pneumothorax or complications. CT of the head was ordered which shows no acute pathology per my interpretation. Transfer center with the [facility] group was contacted and I spoke to the neuro ICU for direct admission to their ICU at this time for continuous EEG monitoring and seziure care. Patient appears to be actively still seizing as his heart rate is still in the 150s with sinus tachycardia. He was given Dilaudid for presumptive pain and started on propofol infusion at 80 micrograms/kilogram per hour and Versed at 1 mg/hour as well as a LR bolus. Hemodynamically still remains tachycardic, blood pressure has reduced after the boluses of medications but no fever or hypoxia. Vent settings 20, 500, 100, 5, ABG ordered. Spoke to the accepting physician at [facility] at the neuro ICU Dr. Snow with additional recommendations to change his propofol dose to a lower dose to prevent hypotension and add ketamine or Versed with increasing doses for presumptive press syndrome and status epilepticus. Patient accepted as a direct transfer. There are several delays in ground transportation at this time including multiple hour wait times so air ambulance was put on standby for expedient transfer. Family members made aware of the plan of care as well as patient's clinical status and exam findings at this time. They were comfortable with his transport to [facility]. 2217: [facility] called and has a bed available for the patient, air evac team called and patient will be transported by helicopter at this time. Repeat vital signs reassuring with improvement his heart rate which is down trending and blood pressure is stable. Medical Records Attestation: I reviewed the patient's medical records. Lab Data Attestation: I reviewed the patient's lab results. 09/06/24 19:45 09/06/24 19:45 Labs: Lab Results 09/06/24 09/06/24 09/06/24 Range/Units 19:40 19:45 20:57 WBC 5.1 (4.5-10.0) K/mm3 RBC 3.70 L (4.6-6.20) M/mm3 Hgb 10.2 L (14.0-18.0) g/dL Hct 30.3 L (42.0-52.0) % MCV 81.9 (80-100) fl MCH 27.6 (26-34) pg MCHC 33.7 (32-36) g/dl RDW 13.6 (11.5-14.5) % Plt Count 138 L D (150-375) k/mm3 MPV 9.8 (7.4-10.4) fl Immature Gran % (Auto) 1.4 H (0-0.5) % Neut % (Auto) 59.3 (45.5-73.1) % Lymph % (Auto) 30.4 (18.3-44.2) % [place] % (Auto) 8.3 (2.6-8.5) % Eos % (Auto) 0.0 (0-4.4) % Baso % (Auto) 0.6 (0.2-1.2) % Lymph # (Auto) 1.54 (0.9-3.2) K/mm3 [place] # (Auto) 0.4 (0.1-0.6) K/mm3 Eos # (Auto) 0.0 (0-0.3) K/mm3 Baso # (Auto) 0.0 (0.0-0.1) K/mm3 Abs Immat Gran (auto) 0.07 H (0.00-0.031) K/mm3 Absolute Neuts (auto) 3.0 (1.3-6.7) K/mm3 Absolute Nucleated RBC 0.000 (0.0-0.012) K/mm3 Nucleated RBC % 0.0 (0.0-0.2) % PT 13.8 (11.1-14.7) Seconds INR 1.0 APTT 26.6 (22.3-36.8) Seconds Sodium 136 L (137-145) mmol/L Potassium 4.0 (3.4-5.0) mmol/L Chloride 100 (98-107) mmol/L Carbon Dioxide 17 L (22-30) mmol/L Anion Gap 19 H (4-12) mmol/L BUN 76 H D (9-20) mg/dL Creatinine 20.26 H (0.7-1.3) mg/dL Estim Creat Clear Calc 7 ml/min Estimated GFR 3 L (59 - ) Glucose 118 H (65-110) mg/dL POC Capillary Glucose 109 H (65-105) mg/dl Lactic Acid 5.7 H* (0.7-2.0) mmol/L Calcium 10.1 (8.4-10.2) mg/dL Total Bilirubin 0.4 (0.2-1.3) mg/dL AST 38 (17-59) U/L ALT 46 (6-50) U/L Alkaline Phosphatase 118 (38-126) U/L Total Protein 6.5 (6.3-8.2) g/dL Albumin 3.8 (3.5-5.1) g/dL Urine Color Yellow (Yellow) Urine Appearance Clear (Clear) Urine pH 7.5 (5.0-9.0) Ur Specific [place] 1.012 (1.001-1.035) Urine Protein 4+ H (Negative) mg/dL Urine Glucose (UA) Trace H (Negative) mg/dL Urine Ketones Negative (Negative) mg/dL Ur Blood (Man) 2+ H (Negative) Urine Nitrate Negative (Negative) Urine Bilirubin Negative (Negative) Urine Urobilinogen 0.2 (<2.0) mg/dL Add Ur Microanalysis Reviewed Leukocyte Esterase Rfl Negative (Negative) ANGELICA/UL Urine RBC 21-50 H (0-2) /hpf Urine WBC 0-5 (0-3) /hpf Ur Squamous Epith Cells None seen (Few) /hpf Urine Bacteria None seen /hpf Urine Casts 3-5 Urine Opiates Screen Negative (Negative) Urine Methadone Screen Negative (Negative) Ur Barbiturates Screen Negative (Negative) Ur Phencyclidine Scrn Negative (Negative) Ur Amphetamine Screen Negative (Negative) U Benzodiazepines Scrn Negative (Negative) Urine Cocaine Screen Negative (Negative) U Cannabinoids Screen Negative (Negative) Imaging Data Attestation: I personally reviewed and interpreted this imaging study as follows: My impression: Impressions Chest X-Ray 09/06/24 21:15 IMPRESSION: The lungs are clear. Endotracheal tube, central venous catheter and orogastric tube in excellent position and ready for immediate use. Supportive lines and tubes in good position. Head CT 09/06/24 21:53 Impression: No acute intracranial hemorrhage or suspicious mass effect. Critical Care Time Critical Care Time Critical Care Time: Yes Total Critical Care Time: 105 Discharge Plan Discharge Clinical Impression: Status epilepticus, New onset seizure, Uncontrolled hypertension, Patient on peritoneal dialysis Patient Disposition: Acute Care Hospital Condition: Critical Patient Language: Syriac Prescriptions: No Action propranolol 20 mg tablet 20 mg PO Q12H Qty: 100 0RF escitalopram oxalate 10 mg tablet 10 mg PO DAILY Qty: 30 3RF hydroxyzine HCl 25 mg tablet 25 mg PO QID PRN (Reason: anxiety) Qty: 30 0RF Follow-up/Referrals: UNKNOWN,DOCTOR [Primary Care Provider] - Time of Disposition: 22:17
--- NOTE | 2024-09-06 22:04 | PC.NURSE ---
2019 Patient started to seize while ÁNGEL Nava was in the room. EDP called overhead. At this time patient began having snoring respirations while choking on saliva and needed to be suctioned. 8mg lorazepam given per VORB EDP Torossian @ 2028 2029 : patient moved from room H3 to room 1 2034 : 5mg Versed 2039 : 30mg etomidate 2040 : 100mg Rocuronium 2041 : 200 mg propofol IV push over 2 minutes per vorb EDP 2041 : 7.5 ETT placed 25 at the lip 2044: NG tub placed in left nare by EDP 75 @ at the tip of the nose. 2046 : 4500mg Keppra 2048 : Propofol drip started at 80mcg per vorb EDP 2049: 18g L hand placed temp hoffman placed with 10mL output 2054 : patient placed in soft restraints on bilateral wrists 2056 : 3 lumen central line placed in left subclavicular 2100: x ray obtained confirmed ng tube & ETT placement. EDP at bedside 2104 : 1mg dilaudid given per vorb EDP 2104 : first bag of LR continued 2150 : Propofol titrated to 40mg per vorb EDP 2154 : this RN spoke with Kika from [facility] transfer center to answer triage questions 2205 : This RN spoke with Kika from [facility] transfer center for [facility] Room 9401 Floor : Neuro ICU Accepting Dr: Gwendolyn # for report : [phone]
[2024-09-06 22:28] LABS: Alveolar/Arterial O2 Gradient 169.7 mmHg; Base Excess ABG -6.1 mEq/l (+/-2.0); Carboxyhemoglobin 0.3 % THb (0-2.0); Fractional Inspired Oxygen 100 %; HCO3 ABG 18.9 mEq/l (22.0-26.0); Methemoglobin ABG 0.6 %THb (0-1.5); Oxygen Content ABG 13.7 %vol (16.0-22.0); Oxygen Saturation ABG 99.9 % (95.0-100.0); Oxyhemoglobin 98.6 % THb (90.0-100.0); PCO2 ABG 34.9 mmHg (35.0-45.0); PO2 ABG 508.4 mmHg (80.0-100.0); PO2 FiO2 Ratio Arterial Blood 5.08 %; Reduced Hemoglobin 0.5 %THb (0-5.0); Total Hemoglobin 8.8 g/dL (12.0-18.0); pH ABG 7.351 (7.350-7.450)
[2024-09-06 23:30] LABS: Modified Allen's Test Pass; Site Drawn RIGHT RADIAL
[2024-09-06 23:31] LABS: Arterial Blood Gas PEEP 5 cmH2O; Arterial Blood Gas Tidal Volume 500 ml; Arterial Blood Gas Vent Mode CMV; Arterial Blood Gas Ventilator rate 20 /MIN; Device VENTILATOR
--- NOTE | 2024-09-06 23:52 | PC.NURSE ---
[facility] arrived 2229. Report given to [facility] by Dr. Barrera. Patient left dept at 2315.
== END 2024-09-06 23:15 | disposition short-term general hospital (02) ==
PROVIDERS: Emergency Provider Student in an Organized Health Care Education/Training Program
DX: G40.901 Epilepsy, unspecified, not intractable, with status epilepticus (principal); N02.B1 Recurrent and persistent immunoglobulin A nephropathy with glomerular lesion; I12.0 Hypertensive chronic kidney disease with stage 5 chronic kidney disease or end stage renal disease; N18.6 End stage renal disease; Z99.2 Dependence on renal dialysis; F33.9 Major depressive disorder, recurrent, unspecified; F41.0 Panic disorder [episodic paroxysmal anxiety]; Z79.899 Other long term (current) drug therapy
CPT/HCPCS: 31500; 36415; 36556; 36600; 70450; 80053; 80307; 81001; 82375; 82805; 82948; 83050; 83605; 85018; 85025; 85610; 85730; 93005; 96365; 96366; 96375; 99291; C1751; J1171; J1953; J2060; J2250; J2270; J2704; J7120

== ENCOUNTER 2025-01-24 15:59 | Outpatient (CLI) | payer OTHER, SELFPAY ==
--- NOTE | ~2025-01-24 | US_ITS ---
EXAMINATION: US soft tissue UE LT, 01/24/2025 16:04 STRIP CLEANER HISTORY: Localized swelling, mass and lump, unspecified upper limb Comparison: None Technique: Valentine-scale and color Doppler images were obtained. Findings: Correlating with the palpable area there is soft tissue edema noted but no lesion identified. IMPRESSION: Nonspecific minimal soft tissue edema. If symptoms persist contrast- enhanced MRI recommended Reviewed, dictated and finalized at location P. P CLEANER IMPRESSION: Nonspecific minimal soft tissue edema. If symptoms persist contrast -enhanced MRI recommended
--- NOTE | ~2025-01-24 | XR_ITS ---
EXAMINATION: XR finger 2nd LT min 2V, 01/24/2025 16:14 EQUINE SCIENCE INSTRUCTOR HISTORY: R22.30 - Localized swelling, mass and lump, unspecified u... COMPARISON: No comparisons available. Findings: No acute fracture is identified. Adjacent to the proximal interphalangeal joint there is a calcified soft tissue focus measuring 1.5 x 1 cm. Minimal degenerative changes Soft tissues unremarkable. Impression: Nonspecific calcified soft tissue lesion. Contrast-enhanced MRI recommended Reviewed, dictated and finalized at location P. NE SCIENCE INSTRUCTOR Impression: Nonspecific calcified soft tissue lesion. Contrast-enhanced MRI recommended
== END 2025-01-24 16:00 | disposition home or self-care (01) ==
PROVIDERS: PCP Emergency Medicine; Visit Provider Physician Assistant Surgical
DX: R22.32 Localized swelling, mass and lump, left upper limb (principal)
CPT/HCPCS: 73140; 76882

== ENCOUNTER 2025-01-30 18:13 | Emergency (ER) | payer OTHER, SELFPAY ==
--- NOTE | ~2025-01-30 | XR_ITS ---
EXAMINATION: XR forearm RT 2V, 01/30/2025 18:48 GAMBLING FLOOR SUPERVISOR HISTORY: concerns for dislocation COMPARISON: No comparisons available. Findings: No acute fracture or malalignment. No significant degenerative changes. Soft tissues unremarkable. Impression: No acute fracture or malalignment. Reviewed, dictated and finalized at location P. LING FLOOR SUPERVISOR Impression: No acute fracture or malalignment.
--- NOTE | ~2025-01-30 | XR_ITS ---
EXAMINATION: XR elbow RT min 3V, 01/30/2025 18:48 B2B OUTSIDE SALES REPRESENTATIVE HISTORY: pain, decrease rom, concerns for dislocation, NKI COMPARISON: No comparisons available. Findings: No acute fracture or malalignment. No significant degenerative changes. Soft tissues unremarkable. Impression: No acute fracture or malalignment. Reviewed, dictated and finalized at location P. B2B OUTSIDE SALES REPRESENTATIVE Impression: No acute fracture or malalignment.
[2025-01-30 18:28] VITALS: BP 164/112; PULSE 129; RESP 16; TEMP 36.8; O2SAT 100
--- NOTE | 2025-01-30 18:38 | ED_ITS ---
HPI - General Adult General Chief complaint: Extremity Injury, Upper Stated complaint: Elbow Pain Time Seen by Provider: 01/30/25 18:38 Source: patient Mode of arrival: ambulatory Limitations: no limitations History of Present Illness HPI narrative: 24-year-old male patient presents to the [facility] with complaints of right- sided elbow and forearm pain. Patient states that Friday he was snapping his arm which he does frequently at times and states he thinks he might have dislocated his elbow. Patient states he did see his chiropractor and states that his chiropractor gist states that he was miss aligned and tried to line him again but did did not work. Patient states he has been wearing his sling and using ice and taking Tylenol for his symptoms but continues to have pain. Related Data Home Medications ?Medication ?Instructions ?Recorded ?Confirmed ?Last Taken ?Type B complex-vitamin C-folic acid PO 01/03/25 Unknown Hi story [Nephro-Moises] amlodipine PO 01/03/25 Unknown History clonazepam [Klonopin] PO 01/03/25 Unknown History hydralazine PO 01/03/25 Unknown History losartan PO 01/03/25 Unknown History metolazone PO 01/03/25 Unknown History sertraline PO 01/03/25 Unknown History sevelamer carbonate [Renvela] PO 01/03/25 Unknown His tory tamsulosin [Flomax] PO 01/03/25 Unknown History tenapanor PO 01/03/25 Unknown History torsemide PO 01/03/25 Unknown History calcitriol 0.25 mcg capsule mcg 01/30/25 Unknown Hist ory hydralazine 50 mg tablet mg 01/30/25 Unknown History metolazone 5 mg tablet mg 01/30/25 Unknown History tamsulosin 0.4 mg capsule mg PO 01/30/25 Unknown Hist ory torsemide 100 mg tablet mg 01/30/25 Unknown History vitamin B complex-vitamin C-folic tablet 01/30/25 Unk nown History acid 0.8 mg tablet (Елена-Moises) zolpidem 6.25 mg tablet,extended mg PO 01/30/25 Unkno wn History release,multiphase Allergies Allergy/AdvReac Type Severity Reaction Status Date / Time Penicillins Allergy Unknown Vomiting Verified 01/30/25 19:12 germ x Allergy Unknown Rash Uncoded 01/03/25 15:31 Review of Systems Review of Systems: CONSTITUTIONAL: Denies fever, chills, or sweats. EYES: Denies visual changes, redness, or discharge. ENT: Denies rhinorrhea, congestion, sore throat, or otalgia. CARDIOVASCULAR: Denies chest pain, palpitations, or edema. RESPIRATORY: Denies cough or dyspnea. GASTROINTESTINAL: Denies abdominal pain, nausea, vomiting, or diarrhea. GENITOURINARY: Denies dysuria or hematuria. SKIN: Denies rash or itching. MUSCULOSKELETAL: Denies back pain, joint pain, or myalgia. Positive right elbow and forearm pain NEUROLOGIC: Denies headache, numbness, or weakness. PSYCHIATRIC: Denies anxiety or depression. [facility] Past Medical History Medical History (Updated 01/30/25 @ 19:33 by Sima Brownlee APRN) Peritoneal dialysis catheter in place Kidney failure Panic anxiety syndrome Suicidal ideation MDD (major depressive disorder), recurrent episode Social History Social History (Updated 01/03/25 @ 15:34 by Misty Champagne) Social History: Caffeine- daily Second hand tobacco smoke exposure: No Alcohol intake: former Substance use: former Substance use type: marijuana and other Lack of Transportation: No Lack of Food: Never True Current Housing: I Have Housing Concerned About Future Housing: No Difficulty Paying Gas/Electric Bills: No Difficulty Paying for Meds: No Currently Unemployed: No Education: Decline to Answer Difficulty w/ Childcare or Family Care: No Living arrangements: with family Occupation/Education: occupation Gender identity (if verbalized by the patient): Male Sexual Orientation (if Verbalized by the Patient): Straight or Heterosexual Comments At the time of my signature I agree with nursing past medical history, surgical, social, and family history. There is no relevant family history pertinent to the presenting complaint. Exam Narrative: GENERAL: Well-appearing, well-nourished, and in no acute distress. HEAD: Normocephalic, atraumatic. EYES: PERRLA and EOMI. ENT: Nares clear, no rhinorrhea or epistaxis. Mucous membranes moist. NECK: Supple. No lymphadenopathy CHEST: Clear to auscultation. No respiratory distress. HEART: Regular rate and rhythm. No murmur heard. Normal peripheral pulses. ABDOMEN: Soft, nontender, nondistended, normal active bowel sounds. EXTREMITIES: Normal range of motion. No edema. SKIN: Warm, dry, no rash. NEURO: No focal deficits. Alert and oriented x3. Course Course Level of Care: Express Care Visit Reevaluation(s) Reevaluation #1: Re-evaluated patient notified him that the x-ray is negative for any acute fractures or dislocation. Discussed with patient his pain could be stemming from some type of tear in the tendon or ligament. Discussed with patient I will refer him to an orthopedic for follow-up for further evaluation he can continue to take Tylenol for pain and ice the area as well as continue use the sling for comfort. Patient verbalized understanding denies any other questions or concerns at this time. Date: 01/30/25 Time: 19:36 Vital Signs Vital signs: Vital Signs Temperature 36.8 C 01/30/25 18:28 Pulse Rate 129 H 01/30/25 18:28 Respiratory Rate 16 01/30/25 18:28 Blood Pressure 164/112 H 01/30/25 18:28 Pulse Oximetry 100 01/30/25 18:28 Temperature 36.8 C 01/30/25 18:28 Pulse Rate 129 H 01/30/25 18:28 Respiratory Rate 16 01/30/25 18:28 Blood Pressure 164/112 H 01/30/25 18:28 Pulse Oximetry 100 01/30/25 18:28 Vital signs reviewed. The patient has been informed that they may have pre-hypertension or Hypertension based on a BP reading in the department. I recommend that the patient call the primary care provider listed on their discharge instructions or a physician of their choice this week to arrange follow up for further evaluation of possible pre-hypertension or Hypertension Medical Decision Making MDM Narrative Medical decision making narrative: plan here patient's x-ray the right elbow and forearm to assess for any possible dislocation or fracture. I will reassess patient's this has resulted. Differential Diagnosis Differential Diagnosis: Differential diagnosis: Elbow strain, subluxed radial head, growth plate fracture,supracondylar fracture, subsequent compartment syndrome, posterior dislocation, anterior dislocation, radial head fracture, anterior fat pad. Vital Signs Vital Signs: Vital Signs Temperature 36.8 C 01/30/25 18:28 Pulse Rate 129 H 01/30/25 18:28 Respiratory Rate 16 01/30/25 18:28 Blood Pressure 164/112 H 01/30/25 18:28 Pulse Oximetry 100 11/09/25 18:28 Temperature 36.8 C 01/30/25 18:28 Pulse Rate 129 H 01/30/25 18:28 Respiratory Rate 16 01/30/25 18:28 Blood Pressure 164/112 H 01/30/25 18:28 Pulse Oximetry 100 01/30/25 18:28 Imaging Data Radiologist's impression: [facility] [address] [place] [address] XRay Report Signed Patient: Freddie Cornejo : 2000 MR#: [id number] Age: 24 Acct:[id number] Loc: [id number] ADM Date: 01/30/[address]: Ordering Physician: Sima Brownlee APRN Date of Service: 01/30/25 Procedure(s): XR elbow RT min 3V Accession Number(s): [id number] cc: Yair Matthew MD; Sima Brownlee DIRECTOR OF CORPORATE STRATEGY~ EXAMINATION: XR elbow RT min 3V, 01/30/2025 18:48 FULFILLMENT REPRESENTATIVE HISTORY: pain, decrease rom, concerns for dislocation, NKI COMPARISON: No comparisons available. Findings: No acute fracture or malalignment. No significant degenerative changes. Soft tissues unremarkable. Impression: No acute fracture or malalignment. Reviewed, dictated and finalized at location . ILLMENT REPRESENTATIVE Critical Care Time Critical Care Time Critical Care Time: No Discharge Plan Discharge Clinical Impression: Internal derangement of elbow Patient Disposition: Home Condition: Stable Instructions: Antibiotic Form, How to Use a Sling (ED) Additional Instructions: Ice to the area 20-30 minutes 4-6 times a day Elevate above heart Elastic wrap or orthopedic splint as directed for comfort for the next 5-7 days Tylenol for lesser pain Follow up with your primary care provider if the condition is not improving w ithin 1 week or sooner if the Condition worsens with numbness, tingling, decrease sensation with weakness to seek ER. Patient Language: Fijian Prescriptions: No Action metolazone 5 mg tablet torsemide 100 mg tablet tamsulosin 0.4 mg capsule PO Елнеа-Moises 0.8 mg tablet hydralazine 50 mg tablet calcitriol 0.25 mcg capsule zolpidem 6.25 mg tablet,ext release multiphase PO B complex-vitamin C-folic acid [Nephro-Moises] PO amlodipine PO clonazepam [Klonopin] PO hydralazine PO losartan PO metolazone PO sertraline PO sevelamer carbonate [Renvela] PO tamsulosin [Flomax] PO tenapanor PO torsemide PO Follow-up/Referrals: Yair Matthew MD [Primary Care Provider, Family Practice] Jameel Rubio MD [Physician, Orthopedics] Stand Alone Forms: Work/School Release IP Time of Disposition: 19:32
== END 2025-01-30 19:40 | disposition home or self-care (01) ==
PROVIDERS: Emergency Provider Nurse Practitioner Family; PCP Emergency Medicine
DX: M24.9 Joint derangement, unspecified (principal); F41.0 Panic disorder [episodic paroxysmal anxiety]; F33.9 Major depressive disorder, recurrent, unspecified; N19 Unspecified kidney failure
CPT/HCPCS: 73080; 73090; 99214; A4565; G0463

== ENCOUNTER 2025-02-26 10:26 | Outpatient (CLI) | payer OTHER, SELFPAY ==
--- NOTE | ~2025-02-26 | MR_ITS ---
EXAMINATION: MR hand LT wo con DATE: 02/26/2025 13:19 INDICATION: Left index finger mass TECHNIQUE: Magnetic resonance imaging (MRI) of the left hand was performed without intravenous contrast. A marker was placed over the mass. Sequences included axial, sagittal and coronal PD-weighted FSE and PD-weighted FS FSE. COMPARISON: Radiographs dated 01/24/2025 and ultrasound dated 01/27/2025 FINDINGS: Bone alignment is normal with normal bone marrow signal throughout. No reactive edema, fracture or pathologic marrow replacing process. Joint spaces appear normal with no joint effusions. There is approximately 1.4 x 1.1 x 0.6 cm subcutaneous nodule deep to the marker indicating the lesion of concern along the radial side of the second digit at the level of the proximal interphalangeal joint and base of the middle phalanx. There are regions of low signal intensity calcification seen on the prior radiographs. No evident periosteal reaction or cortical erosion in either the current study or prior radiographs. No post contrast imaging to assess for enhancing soft tissue component. The visualized portions of the flexor and extensor tendons are normal. The collateral ligament complex at the metacarpophalangeal and interphalangeal joints are normal. Visualized intrinsic musculature of the hand is unremarkable. IMPRESSION: 1. 1.4 x 1.1 x 0.6 similar partially calcified subcutaneous nodule at the radial aspect of the second digit proximal interphalangeal joint and base of the second middle phalanx. Differential includes benign lesion such as dystrophic calcification, myositis ossificans, tumoral calcinosis, calcific periarthritis centimeters there is a crystalline arthropathy and calcification within a ganglion cyst. Differential would also include less likely malignant lesions such as synovial sarcoma. Reviewed, dictated and finalized at location A. SHING INSPECTOR IMPRESSION: 1. 1.4 x 1.1 x 0.6 similar partially calcified subcutaneous nodule at the radia l aspect of the second digit proximal interphalangeal joint and base of the sec ond middle phalanx. Differential includes benign lesion such as dystrophic calc ification, myositis ossificans, tumoral calcinosis, calcific periarthritis cent imeters there is a crystalline arthropathy and calcification within a ganglion cyst. Differential would also include less likely malignant lesions such as syn ovial sarcoma.
--- NOTE | ~2025-02-26 | MR_ITS ---
EXAMINATION: MR elbow RT wo con DATE: 02/26/2025 13:20 INDICATION: Right elbow pain and limited range of motion TECHNIQUE: Magnetic resonance imaging (MRI) of the right elbow was performed without intravenous contrast. Sequences included coronal, axial, and sagittal PD-weighted FS FSE and coronal, axial, and sagittal PD-weighted FSE. COMPARISON: None FINDINGS: Osseous/other: Normal alignment. Normal marrow signal with no marrow edema, fracture, osteochondral lesion or abnormal marrow replacing process. Tendons: Triceps, biceps brachii and brachialis tendons are normal. Common flexor tendon wad is normal. Mild tendinopathy at the lateral epicondylar origin of the common extensor tendon wad without discrete tear. There is mild edema in the surrounding subcutaneous fat as well as mild epimysial edema extending more distally along the deep margin of the extensor compartment. Ligaments: The medial and lateral collateral ligament complexes are normal. Cubital tunnel: Cubital tunnel is unremarkable with normal signal and caliber of the ulnar nerve. Fluid: Physiologic amount of fluid the elbow joint. IMPRESSION: 1. Lateral epicondylitis with mild tendinopathy without discrete tear at the lateral epicondylar origin of the common extensor tendon wad. This likely chronic given the small enthesophyte at calcifications evident on the prior radiograph. Reviewed, dictated and finalized at location A. OWGRAPH SCALE OPERATOR IMPRESSION: 1. Lateral epicondylitis with mild tendinopathy without discrete tear at the la teral epicondylar origin of the common extensor tendon wad. This likely chronic given the small enthesophyte at calcifications evident on the prior radiograph .
== END 2025-02-26 10:27 | disposition home or self-care (01) ==
LOC: CHSIMG 10:27
PROVIDERS: PCP Emergency Medicine; Visit Provider Physician Assistant Surgical
DX: M24.129 Other articular cartilage disorders, unspecified elbow (principal); R22.32 Localized swelling, mass and lump, left upper limb; M77.11 Lateral epicondylitis, right elbow
CPT/HCPCS: 73218; 73221